=== PATIENT | female | born 1940 | race Caucasian/White ===

== ENCOUNTER 2017-02-11 10:18 | Inpatient (IN) | payer MEDICARE ==
[~2017-02-11] VITALS: Ht 167.6 cm; Wt 74.4 kg
[2017-02-11] MEDS ORDERED: fentaNYL INJECTION 100 MCG/2 ML AMP ONE ×2 (10:22→12:36)
[2017-02-11] MEDS ORDERED: fentaNYL INJECTION 100 MCG/2 ML AMP IVP ONE (10:30)
[2017-02-11 10:34] LABS: BASOPHILS # (AUTO) 0.1 10^3/uL (0.0-0.1); BASOPHILS % (AUTO) 1 % (0-10); EOSINOPHILS # (AUTO) 0.2 10^3/uL (0.0-0.3); EOSINOPHILS % (AUTO) 3 % (0-10); LYMPHOCYTES # (AUTO) 1.9 X 10^3 (1.0-4.0); LYMPHOCYTES % (AUTO) 21 % (12-44); MEAN CORPUSCULAR HEMOGLOBIN 30 PG (25-34); MEAN CORPUSCULAR HGB CONC 33 G/DL (32-36); MEAN CORPUSCULAR VOLUME 93 FL (80-99); MEAN PLATELET VOLUME 10.3 FL (7.4-10.4); MONOCYTES # (AUTO) 0.8 X 10^3 (0.0-1.0); MONOCYTES % (AUTO) 9 % (0-12); NEUTROPHILS # (AUTO) 6.1 X 10^3 (1.8-7.8); NEUTROPHILS % (AUTO) 67 % (42-75); PLATELET COUNT 236 10^3/uL (130-400); RED BLOOD COUNT 4.32 10^6/uL (4.35-5.85); RED CELL DISTRIBUTION WIDTH 13.7 % (10.0-14.5); WHITE BLOOD COUNT 9.1 10^3/uL (4.3-11.0)
[2017-02-11 10:42] LABS: INR 2.1 (0.8-1.4); PROTHROMBIN TIME PATIENT 23.5 SEC (12.2-14.7)
[2017-02-11 10:45] LABS: BILIRUBIN,URINE NEGATIVE (NEGATIVE); KETONES,URINE NEGATIVE (NEGATIVE); LEUKOCYTE ESTERASE ,URINE 1+ (NEGATIVE); NITRITE,URINE NEGATIVE (NEGATIVE); PH,URINE 8 (5-9); PROTEIN,URINE NEGATIVE (NEGATIVE); UROBILINOGEN,URINE NORMAL (NORMAL)
[2017-02-11] MEDS ORDERED: BUME1TAB4 PO (10:54)
[2017-02-11] MEDS ORDERED: WARF3TAB6 PO ×2 (10:54→11:03)
[2017-02-11] MEDS ORDERED: LEVO125T6 PO (10:54)
[2017-02-11] MEDS ORDERED: ALEN70TA47 PO (10:54)
[2017-02-11] MEDS ORDERED: OXYB5TAB9 PO (10:54)
[2017-02-11] MEDS ORDERED: CARV12.53 PO (10:54)
[2017-02-11] MEDS ORDERED: COLC0.6T56 PO (10:54)
[2017-02-11 10:56] LABS: SQUAMOUS EPITHELIAL CELL,UR RARE /HPF
[2017-02-11] MEDS ORDERED: LEVO112T55 PO (11:03)
[2017-02-11] MEDS ORDERED: VITA80006 PO (11:03)
[2017-02-11] MEDS ORDERED: CALC-654 PO (11:03)
[2017-02-11] MEDS ORDERED: BACL10TA PO (11:04)
--- NOTE | 2017-02-11 11:36 | Diagnostic Imaging Report ---
EXAMINATION: AP view of the pelvis 2 views of the left hip. INDICATION: Fall. FINDINGS: There is a mildly displaced and impacted intertrochanteric fracture seen on the left side. There is no subluxation or dislocation. The right hip demonstrate no fracture. There is bilateral mild to moderate degenerative changes in the hip joints. The SI joints and the pubic symphysis demonstrate sclerotic degenerative changes. There is suggestion of background osteopenia. Lower lumbar spine posterior fusion hardware and other pelvic surgical clips are seen. IMPRESSION: Mildly displaced left intertrochanteric fracture. Dictated by: Dictated on workstation # [id number]
--- NOTE | 2017-02-11 11:41 | Diagnostic Imaging Report ---
Portable AP view of the chest. INDICATION: Fall. FINDINGS: The lungs appear clear. The heart size is mildly enlarged. There is no effusion or pneumothorax. The mediastinum and dale appear unremarkable. There is scoliotic curvature convex to the right side in the thoracic spine. There is a lumbar spine posterior fusion hardware partially visualized. IMPRESSION: Mild cardiomegaly. Dictated by: Dictated on workstation # [id number]
[2017-02-11 11:46] LABS: ALBUMIN 3.6 GM/DL (3.2-4.5); BILIRUBIN,TOTAL 0.6 MG/DL (0.1-1.0); CALCIUM 9.4 MG/DL (8.5-10.1); CREATININE SERUM 1.17 MG/DL (0.60-1.30); TOTAL PROTEIN 6.6 GM/DL (6.4-8.2)
--- NOTE | 2017-02-11 12:15 | ED Fall/Injury ---
General Chief Complaint: Trauma-Non Activation Stated Complaint: FALL/LEFT HIP PAIN Nursing Triage Note: PT ARRIVED PER EMS TO ROOM 08, PT HAD FALLEN AT [facility] AND HAS L HIP PAIN, STATES WALKER BECAME UNSTEADY AND FELL ON L HIP DENIES HEAD PAIN,OR NECK PAIN Source: patient Exam Limitations: no limitations History of Present Illness Time seen by provider: 10:17 Initial Comments This 76-year-old woman presents to the emergency room via EMS after having a fall outside her home on uneven concrete. She struck her left hip and has been unable to bear weight or ambulate. The pain is rather intense. She was given 50 g of fentanyl by EMS. She denies striking her head. She has no pain or injury elsewhere. She is on warfarin therapy for prevention of DVT since having spinal surgery. Occurred: just prior to arrival Severity: moderate Injuries/Pain Location: lower extremity Context: tripped Loss of Consciousness: no loss of consciousness Allergies and Home Medications Allergies Coded Allergies: Iodinated Contrast- Oral and IV Dye (Verified Allergy, Unknown, 02/11/17) povidone-iodine (Verified Allergy, Unknown, 02/11/17) soap (Verified Allergy, Unknown, 02/11/17) Home Medications Alendronate Sodium 70 Mg Tablet, 70 MG PO Ozuna, (Reported) Baclofen 10 Mg Tablet, 10 MG PO TID PRN for PAIN-MILD, (Reported) Bumetanide 1 Mg Tablet, 1 MG PO DAILY, (Reported) Calcium Carbonate/Vitamin D3 1 Each Tablet, 1 TAB PO BID, (Reported) Carvedilol 12.5 Mg Tablet, 12.5 MG PO BID, (Reported) Colchicine 0.6 Mg Tablet, 0.6 MG PO BID, (Reported) Levothyroxine Sodium 112 Mcg Tablet, 112 MCG PO DAILY, (Reported) Oxybutynin Chloride 5 Mg Tablet, 5 MG PO DAILY, (Reported) Vitamin A 8,000 Unit Capsule, 8,000 UNIT PO BID, (Reported) Warfarin Sodium 3 Mg Tablet, 3 MG PO SuMoWeFrSa, (Reported) Warfarin Sodium 3 Mg Tablet, 1.5 MG PO TuTh, (Reported) TAKES 1/2 (3MG) TABLET Constitutional: no symptoms reported Eyes: No Symptoms Reported Ears, Nose, Mouth, Throat: no symptoms reported Respiratory: no symptoms reported Cardiovascular: no symptoms reported Gastrointestinal: no symptoms reported Genitourinary: no symptoms reported : No Musculoskeletal: see HPI Skin: no symptoms reported Psychiatric/Neurological: No Symptoms Reported Past Wbsxbay-Incnmo-Klniwp Hx Patient Social History Recent Foreign Travel: No Contact w/Someone Who Travel: No Recent Infectious Disease Expo: No Surgeries HX Surgeries: Yes Surgeries: Orthopedic (spine surgery) Respiratory Hx Respiratory Disorders: No Cardiovascular Hx Cardiac Disorders: Yes Cardiac Disorders: Hypertension Neurological Hx Neurological Disorders: No Reproductive System : No Genitourinary Hx Genitourinary Disorders: Yes (overactive bladder) Gastrointestinal Hx Gastrointestinal Disorders: No Musculoskeletal Hx Musculoskeletal Disorders: Yes (history of spine surgery) Musculoskeletal Disorders: Osteoporosis Endocrine Hx Endocrine Disorders: Yes Endocrine Disorders: Hypothyroidsim HEENT HX ENT Disorders: No Cancer Hx Cancer: No Psychosocial Hx Psychiatric Problems: No Integumentary HX Skin/Integumentary Disorder: No Physical Exam Vital Signs Vital Sign - Last 12Hours 02/11/17 10:18 Temp 97.1 Pulse 88 Resp 18 B/P (MAP) 161/74 Pulse Ox 94 O2 Delivery Room Air Capillary Refill : Less Than 3 Seconds General Appearance: WD/WN, mild distress HEENT: PERRL/EOMI, normal ENT inspection, pharynx normal Neck: normal inspection Cardiovascular: regular rate, rhythm, no edema, no gallop, no murmur Respiratory: lungs clear, normal breath sounds, no respiratory distress, no accessory muscle use Gastrointestinal: normal bowel sounds, non tender, soft Extremities: no pedal edema, other (left hip tenderness and pain with any range of motion. Sensation, capillary refill, and movement intact distally. Pedal pulses difficult to palpate bilaterally.) Neurologic/Psychiatric: director custom II-XII nml as tested, no motor/sensory deficits, alert, normal mood/affect, oriented x 3 Skin: normal color, warm/dry Carlos Coma Score Best Eye Response: (4) Open Spontaneously Best Verbal Response: (5) Oriented Best Motor Response: (6) Obeys Commands Carlos Total: 15 Progress/Results/Core Measures Results/Orders Lab Results Laboratory Tests Test 02/11/17 10:20 02/11/17 10:35 02/11/17 11:15 Range/Units White Blood Count 9.1 4.3-11.0 10^3/uL Red Blood Count 4.32 L 4.35-5.85 10^6/uL Hemoglobin 13.1 11.5-16.0 G/DL Hematocrit 40 35-52 % Mean Corpuscular Volume 93 80-99 FL Mean Corpuscular Hemoglobin 30 25-34 PG Mean Corpuscular Hemoglobin Concent 33 32-36 G/DL Red Cell Distribution Width 13.7 10.0-14.5 % Platelet Count 236 130-400 10^3/uL Mean Platelet Volume 10.3 7.4-10.4 FL Neutrophils (%) (Auto) 67 42-75 % Lymphocytes (%) (Auto) 21 12-44 % Monocytes (%) (Auto) 9 0-12 % Eosinophils (%) (Auto) 3 0-10 % Basophils (%) (Auto) 1 0-10 % Neutrophils # (Auto) 6.1 1.8-7.8 X 10^3 Lymphocytes # (Auto) 1.9 1.0-4.0 X 10^3 Monocytes # (Auto) 0.8 0.0-1.0 X 10^3 Eosinophils # (Auto) 0.2 0.0-0.3 10^3/uL Basophils # (Auto) 0.1 0.0-0.1 10^3/uL Prothrombin Time 23.5 H 12.2-14.7 SEC INR Comment 2.1 H 0.8-1.4 Activated Partial Thromboplast Time 35 24-35 SEC Urine Color YELLOW Urine Clarity CLEAR Urine pH 8 5-9 Urine Specific Parlin 1.010 L 1.016-1.022 Urine Protein NEGATIVE NEGATIVE Urine Glucose (UA) NEGATIVE NEGATIVE Urine Ketones NEGATIVE NEGATIVE Urine Nitrite NEGATIVE NEGATIVE Urine Bilirubin NEGATIVE NEGATIVE Urine Urobilinogen NORMAL NORMAL MG/DL Urine Leukocyte Esterase 1+ H NEGATIVE Urine RBC (Auto) NEGATIVE NEGATIVE Urine RBC NONE /HPF Urine WBC 2-5 /HPF Urine Squamous Epithelial Cells RARE /HPF Urine Crystals NONE /LPF Urine Bacteria FEW H /HPF Urine Casts NONE /LPF Urine Mucus NEGATIVE /LPF Urine Culture Indicated YES Sodium Level 138 135-145 MMOL/L Potassium Level 5.0 3.6-5.0 MMOL/L Chloride Level 102 98-107 MMOL/L Carbon Dioxide Level 27 21-32 MMOL/L Anion Gap 9 5-14 MMOL/L Blood Urea Nitrogen 44 H 7-18 MG/DL Creatinine 1.17 0.60-1.30 MG/DL Estimat Glomerular Filtration Rate 45 BUN/Creatinine Ratio 38 Glucose Level 104 70-105 MG/DL Calcium Level 9.4 8.5-10.1 MG/DL Total Bilirubin 0.6 0.1-1.0 MG/DL Aspartate Amino Transf (AST/SGOT) 24 5-34 U/L Alanine Aminotransferase (ALT/SGPT) 26 0-55 U/L Alkaline Phosphatase 59 40-136 U/L Total Protein 6.6 6.4-8.2 GM/DL Albumin 3.6 3.2-4.5 GM/DL Micro Results Microbiology 02/11/17 Urine Culture - Preliminary, Resulted Escherichia Coli My Orders Orders - ANGELIQUE ZARCO MD Fentanyl Injection (Sublimaze Injection (02/11/17 10:30) Cbc With Automated Diff (02/11/17 10:26) Comprehensive Metabolic Panel (02/11/17 10:26) Protime With Inr (02/11/17 10:26) Partial Thromboplastin Time (02/11/17 10:26) Ua Culture If Indicated (02/11/17 10:26) Saline Lock/Iv-Start (02/11/17 10:26) Chest 1 View, Ap/Pa Only (02/11/17 10:26) Fentanyl Injection (Sublimaze Injection (02/11/17 10:22) Pelvis With Left Hip 2-3 Views (02/11/17 10:26) Urine Culture (02/11/17 10:35) Medications Given in ED Vital Signs/I&O Vital Sign - Last 12Hours 02/11/17 10:18 Temp 97.1 Pulse 88 Resp 18 B/P (MAP) 161/74 Pulse Ox 94 O2 Delivery Room Air Blood Pressure Mean: 103 Progress Note : Progress Note Patient's pain was managed with IV narcotics. She was found to have left hip fracture. Dr. Dias where agreed to admission with surgery anticipated by Dr. Blanco when INR is corrected. Dr. Fine excepts admission and will address the elevated INR. Diagnostic Imaging Diagonstic Imaging: Xray Plain Films/CT/US/NM/MRI: chest Comments NAME: JEN ROSS [facility] REC#: [id number] PT STATUS: REG ER : 1940 PHYSICIAN: ANGELIQUE ZARCO MD ADMIT DATE: 02/11/17/ER Signed Date of Exam: 02/11/17 CHEST 1 VIEW, AP/PA ONLY Portable AP view of the chest. INDICATION: Fall. FINDINGS: The lungs appear clear. The heart size is mildly enlarged. There is no effusion or pneumothorax. The mediastinum and dale appear unremarkable. There is scoliotic curvature convex to the right side in the thoracic spine. There is a lumbar spine posterior fusion hardware partially visualized. IMPRESSION: Mild cardiomegaly. Dictated by: Dictated on workstation # [id number] Dict: 02/11/17 1111 Trans: 02/11/17 115 Interpreted by: BRYNN TAYLOR MD Electronically signed by: BRYNN TAYLOR MD 02/11/171156 Diagonstic Imaging: Xray Plain Films/CT/US/NM/MRI: hip Comments NAME: JEN ROSS [facility] REC#: [id number] PT STATUS: REG ER : 1940 PHYSICIAN: ANGELIQUE ZARCO MD ADMIT DATE: 02/11/17/ER Signed Date of Exam: 02/11/17 PELVIS WITH LEFT HIP 2-3 VIEWS EXAMINATION: AP view of the pelvis 2 views of the left hip. INDICATION: Fall. FINDINGS: There is a mildly displaced and impacted intertrochanteric fracture seen on the left side. There is no subluxation or dislocation. The right hip demonstrate no fracture. There is bilateral mild to moderate degenerative changes in the hip joints. The SI joints and the pubic symphysis demonstrate sclerotic degenerative changes. There is suggestion of background osteopenia. Lower lumbar spine posterior fusion hardware and other pelvic surgical clips are seen. IMPRESSION: Mildly displaced left intertrochanteric fracture. Dictated by: Dictated on workstation # [id number] Dict: 02/11/17 1108 Trans: 02/11/177 Interpreted by: BRYNN TAYLOR MD Electronically signed by: BRYNN TAYLOR MD 02/11/17 1157 Departure Communication Time/Spoke to Admitting Phy: 11:[address] Mccormack Time/Spoke to Consulting Physi: 11:15 Communication/Consulting Dr. Leigh Impression Impression: Primary Impression: Closed left hip fracture Qualified Codes: S72.002A - Fracture of unspecified part of neck of left femur , initial encounter for closed fracture Additional Impressions: Fall on same level from tripping as cause of accidental injury Warfarin anticoagulation Disposition: ADMITTED INPATIENT Condition: Improved Decision to Admit Reason: Admit from ER (Trauma) Decision to Admit/Date: Feb 11, 2017 Time/Decision to Admit Time: 11:00 Departure-Patient Inst. Referrals: IDA GEE MD (PCP/Family) Primary Care Physician ANGELIQUE ZARCO MD Feb 11, 2017 12:15
--- NOTE | 2017-02-11 12:35 | History & Physical-Hospitalist ---
HPI History of Present Illness: HPI/Chief Complaint CC: Acute left hip fracture HPI: This is a 76yoWF clinic patient of Dr Uriostegui in [facility] that fell today and sustained a left hip fracture. She was placed on Coumadin 3 yrs ago after her spine surgery completed in [place], [place] when she lived in but denies any hx of blood clot. Her sister is with her and everyone understands the plan for repair of the fx and likely DC to IRU. I reviewed her home meds and updated her on the plan. I have ordered Vit K 2.5mg once PO and 1 unit of FFP today and will recheck INR tomorrow. 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) Alcohol Use: Denies Use Recreational Drug Use: No Smoking Status: Never a Smoker Recent Foreign Travel: No Contact w/other who traveled: No Recent Hopitalizations: No Recent Infectious Disease Expo: No Surgeries HX Surgeries: Yes Surgeries: Orthopedic (spine surgery 2013) Respiratory Hx Respiratory Disorders: No Cardiovascular Hx Cardiovascular Disorders: Yes Cardiac Disorders: Hypertension Neurological Hx Neurological Disorders: No Reproductive System : No Genitourinary Hx Genitourinary Disorders: Yes (overactive bladder) Gastrointestinal Hx Gastrointestinal Disorders: No Musculoskeletal Hx Musculoskeletal Disorders: Yes (history of spine surgery) Musculoskeletal Disorders: Osteoporosis Endocrine Hx Endocrine Disorders: Yes Endocrine Disorders: Hypothyroidsim HEENT HX ENT Disorders: No Cancer Hx Cancer: No Psychosocial Hx Psychiatric Problems: No Integumentary HX Skin/Integumentary Disorder: No Review of Systems Constitutional: see HPI EENTM: no symptoms reported Respiratory: no symptoms reported Cardiovascular: no symptoms reported Gastrointestinal: no symptoms reported Genitourinary: no symptoms reported Musculoskeletal: joint pain (left hip) Psychiatric/Neurological: No Symptoms Reported All Other Systems Reviewed Negative Unless Noted: Yes Physical Exam Physical Exam Vital Signs Vital Sign - Last 12Hours 02/11/17 02/11/17 10:18 14:13 Temp 97.1 Pulse 88 Resp 18 B/P (MAP) 161/74 Pulse Ox 94 O2 Delivery Room Air O2 Flow Rate 2.00 Capillary Refill : Less Than 3 Seconds General Appearance: No Apparent Distress, WD/WN, Chronically ill Eyes: Bilateral Eye Normal Inspection, Bilateral Eye PERRL HEENT: PERRL/EOMI, Normal ENT Inspection, Pharynx Normal Neck: Full Range of Motion, Normal Inspection, Non Tender, Supple, Carotid Bruit Respiratory: Chest Non Tender, Lungs Clear, Normal Breath Sounds, No Accessory Muscle Use, No Respiratory Distress Cardiovascular: Regular Rate, Rhythm, No Edema, No Gallop, No JVD, No Murmur, Normal Peripheral Pulses Gastrointestinal: Normal Bowel Sounds, No Organomegaly, No Pulsatile Mass, Non Tender, Soft Back: Normal Inspection, No CVA Tenderness, No Vertebral Tenderness Extremity: Normal Capillary Refill, Normal Inspection, Normal Range of Motion ( except left hip), Non Tender, No Calf Tenderness, No Pedal Edema Neurologic/Psychiatric: Alert, Oriented x3, No Motor/Sensory Deficits, Normal Mood/Affect Skin: Normal Color, Warm/Dry Lymphatic: No Adenopathy Results Results/Procedures Lab Laboratory Tests 02/11/17 10:20 02/11/17 11:15 Assessment/Plan Admission Diagnosis Assessment: Acute left hip fracture HTN Spine surgery 2013 and placed on Coumadin and maintained since that time to "prevent blood clots" without known h/o clots Osteoporosis Assessment and Plan Plan: Reverse anti-coagulation Monitor labs Reconcile home meds Proceed on with surgery since benefits outweigh medical risks NOEMÍ MCCORMACK DO Feb 11, 2017 12:35
[2017-02-11] MEDS ORDERED: NS IV 1000 ML 1,000 ML ONE (12:36)
[2017-02-11] MEDS ORDERED: HYDROcodone/APAP 5 MG/325 MG (LORTAB) TAB ONE (12:37)
[2017-02-11] MEDS ORDERED: CATHETER FLUSH 10 ML SYR IV PRN (12:45)
[2017-02-11] MEDS ORDERED: ACETAMINOPHEN 500 MG TAB (TYLENOL) PO PRN (12:45)
[2017-02-11] MEDS ORDERED: ALPRAZolam 0.25 MG (XANAX) TAB PO PRN (12:45)
[2017-02-11] MEDS ORDERED: VITAMIN K 1 MG/ML ORAL SOLN 1 ML SYRINGE PO NR (12:45)
[2017-02-11] MEDS ORDERED: LACTULOSE SYRUP 10GM/15ML (ENULOSE) 30ML UDC PO PRN (12:45)
[2017-02-11] MEDS ORDERED: ONDANSETRON 4 MG/2 ML (SDV) Z0FRAN IVP PRN (12:45)
[2017-02-11] MEDS: fentaNYL INJECTION 100 MCG/2 ML AMP IVP PRN ×2 (12:50→20:17)
[2017-02-11] MEDS ORDERED: HYDROcodone/APAP 5 MG/325 MG (LORTAB) TAB PO PRN (13:00)
[2017-02-11] MEDS ORDERED: NS IV 1000 ML 1,000 ML IV SCH (13:00)
[2017-02-11] MEDS ORDERED: CATHETER FLUSH 10 ML SYR IV SCH (14:00)
[2017-02-11 14:13] VITALS: BP 146/66
[2017-02-11 14:30] VITALS: BP 133/61
[2017-02-11 16:00] VITALS: BP 133/61
[2017-02-11] MEDS ORDERED: BACLOFEN 10 MG (LIORESAL) TAB PO PRN (16:00)
[2017-02-11 16:20] VITALS: BP 148/53
[2017-02-11 19:49] VITALS: BP 132/72
[2017-02-11] MEDS: NS IV 1000 ML 1,000 ML IV SCH (20:14)
[2017-02-11] MEDS: COLCHICINE 0.6 MG (COLCRYS) TABLET PO SCH (21:07)
[2017-02-11] MEDS: CARVEDILOL 12.5 MG (COREG) TABLET PO SCH (21:07)
[2017-02-11 23:55] VITALS: BP 143/72
[2017-02-12 03:35] VITALS: BP 148/67
[2017-02-12] MEDS: NS IV 1000 ML 1,000 ML IV SCH ×2 (03:44→16:06)
[2017-02-12] MEDS: LEVOTHYROXINE 112 MCG (LEVOTHROID) TAB PO SCH (06:48)
[2017-02-12 06:58] LABS: BASOPHILS % (AUTO) 0 % (0-10); EOSINOPHILS # (AUTO) 0.1 10^3/uL (0.0-0.3); EOSINOPHILS % (AUTO) 1 % (0-10); LYMPHOCYTES # (AUTO) 1.4 X 10^3 (1.0-4.0); LYMPHOCYTES % (AUTO) 13 % (12-44); MEAN CORPUSCULAR HEMOGLOBIN 30 PG (25-34); MEAN CORPUSCULAR HGB CONC 32 G/DL (32-36); MEAN CORPUSCULAR VOLUME 94 FL (80-99); MEAN PLATELET VOLUME 10.6 FL (7.4-10.4); MONOCYTES # (AUTO) 0.9 X 10^3 (0.0-1.0); MONOCYTES % (AUTO) 9 % (0-12); NEUTROPHILS # (AUTO) 8.2 X 10^3 (1.8-7.8); NEUTROPHILS % (AUTO) 77 % (42-75); PLATELET COUNT 187 10^3/uL (130-400); RED BLOOD COUNT 3.68 10^6/uL (4.35-5.85); RED CELL DISTRIBUTION WIDTH 13.6 % (10.0-14.5); WHITE BLOOD COUNT 10.6 10^3/uL (4.3-11.0)
[2017-02-12 07:01] LABS: INR 1.5 (0.8-1.4); PROTHROMBIN TIME PATIENT 18.1 SEC (12.2-14.7)
[2017-02-12 07:15] LABS: ALBUMIN 3.4 GM/DL (3.2-4.5); BILIRUBIN,TOTAL 0.7 MG/DL (0.1-1.0); CALCIUM 8.6 MG/DL (8.5-10.1); CREATININE SERUM 1.07 MG/DL (0.60-1.30); POTASSIUM 3.8 MMOL/L (3.6-5.0)
[2017-02-12 08:00] VITALS: BP 166/74
--- NOTE | 2017-02-12 08:23 | CONSULTATION REPORT ---
DATE OF CONSULTATION: 02/11/2017 REFERRING PHYSICIAN: Dr. Leigh Inpatient consultation at the request of the hospitalist: Left hip fracture. HISTORY OF THE PRESENT ILLNESS: The patient fell and was brought to the emergency and I was called actually by Dr. Pastor Leigh and mentioned this patient to me and asked me to take over and that is what I have done. PAST MEDICAL HISTORY AND REVIEW OF SYSTEMS PERTINENT TO ORTHOPEDICS: The patient is on blood thinners. She apparently has had cancer in the past with what sounds like a hysterectomy and is on blood thinners. ORTHOPEDIC EXAM: The patient is alert and oriented and cooperative. The left lower extremity is internally rotated and flexed. Distally she can move her toes and feel my touching her. She is pink and clinic lead the foot area. Skin over the hip is intact. X-RAY: X-ray shows an intertrochanteric fracture in the middle location. There is some comminution in that area but it looks like probably will respond well to standard fixation using Synthes TFN nail. IMPRESSION: Left hip intertrochanteric fracture, displaced. PLAN: Surgery on left hip to line up bone and fix with hardware (open reduction and internal fixation with intramedullary nail, Synthes TFN). I discussed the diagnosis, procedure, risks, benefits, alternatives, likely mcclellan for success as well as a rehab. This was her consent. She had all of her questions answered. The major risk is chronic pain, shortening of the extremity, toes turned in or out as she is walking, possible failure of the procedure, possible issues around heart and lungs or bleeding. She had all of her questions answered. Job ID: [id number] Dictated Date: 02/11/2017 21:52:27 Feed Research Technician Date: 02/12/2017 08:11:59/valerie
[2017-02-12] MEDS: BUMETANIDE 1 MG (BUMEX) TAB PO SCH (08:25)
[2017-02-12] MEDS: OXYBUTYNIN (DITROPAN) 5 MG TAB PO SCH (08:26)
[2017-02-12] MEDS: COLCHICINE 0.6 MG (COLCRYS) TABLET PO SCH ×2 (08:26→21:27)
[2017-02-12] MEDS: CARVEDILOL 12.5 MG (COREG) TABLET PO SCH ×2 (08:30→21:28)
[2017-02-12 12:00] VITALS: BP 170/74
[2017-02-12] MEDS: fentaNYL INJECTION 100 MCG/2 ML AMP IVP PRN ×2 (12:12→16:06)
[2017-02-12 12:32] LABS: INR 1.4 (0.8-1.4); PROTHROMBIN TIME PATIENT 17.2 SEC (12.2-14.7)
--- NOTE | 2017-02-12 12:51 | Progress Note-Hospitalist ---
Progress Note HPI/CC on Admission CC: Acute left hip fracture HPI: This is a 76yoWF clinic patient of Dr Uriostegui in [facility] that fell today and sustained a left hip fracture. She was placed on Coumadin 3 yrs ago after her spine surgery completed in [place], [place] when she lived in but denies any hx of blood clot. Her sister is with her and everyone understands the plan for repair of the fx and likely DC to IRU. I reviewed her home meds and updated her on the plan. I have ordered Vit K 2.5mg once PO and 1 unit of FFP today and will recheck INR tomorrow. Progress Notes/Assess & Plan Date Seen 02/12/17 Time Seen by Provider: 11:30 Admission Dx/Process Assessment: Acute left hip fracture HTN Spine surgery 2013 and placed on Coumadin and maintained since that time to "prevent blood clots" without known h/o clots Osteoporosis Diagonsis/Assessment & Plan Patient doing much better and ready for surgery INR repeat at noon was 1.4 after 1 unit of FFP and vitamin K 2.5 mg by mouth 1 time yesterday Reviewed labs and vitals No fever, vital signs stable, pleasant, improved Regular rate and rhythm, clear to auscultation bilaterally No edema Laboratory Tests 02/12/17 06:15 Assessment: Acute left hip fracture in need of repair today HTN Spine surgery 2013 and placed on Coumadin and maintained since that time to "prevent blood clots" without known h/o clots s/p 1 unit of FFP and Vit K 2.5mg PO one time yesterday after INR 2.1 now 1.4 Osteoporosis Plan: Reversed anti-coagulation Monitor labs Reconciled home meds Proceed on with surgery since benefits outweigh medical risks HARRIS MELLO DO Feb 12, 2017 12:51
[2017-02-12 15:56] VITALS: BP 171/74
[2017-02-12] MEDS ORDERED: cefTRIAXone 1 GM (ROCEPHIN) VIAL ONE (16:15)
[2017-02-12] MEDS ORDERED: NS (IVPB) 50 ML ONE (16:16)
[2017-02-12] MEDS: cefTRIAXone INJECTION 1,000 MG in NS (IVPB) 50 ML IV SCH (16:24)
[2017-02-12] MEDS ORDERED: LIDOCAINE PF 2% 5 ML (XYLOCAINE) VIAL ONE ×2 (17:23→17:24)
[2017-02-12] MEDS ORDERED: fentaNYL INJECTION 100 MCG/2 ML AMP ONE (17:23)
[2017-02-12] MEDS ORDERED: DEXAMETHASONE PF 10 MG/ML (DECADRON) VIAL ONE (17:23)
[2017-02-12] MEDS ORDERED: LACTATED RINGERS 1,000 ML IV ONE ×2 (17:23→18:38)
[2017-02-12] MEDS ORDERED: SEVOFLURANE (ULTANE) 15 ML INHAL SOLN ONE ×5 (17:23→18:38)
[2017-02-12] MEDS ORDERED: proPOfol 200 MG/20 ML (DIPRIVAN) VIAL IV ONE (17:23)
[2017-02-12] MEDS ORDERED: ONDANSETRON 4 MG/2 ML (SDV) Z0FRAN ONE (17:23)
[2017-02-12] MEDS ORDERED: MIDAZOLAM 2 MG/2 ML (VERSED) VIAL ONE (17:24)
[2017-02-12] MEDS ORDERED: ceFAZolin 1,000 MG (ANCEF) VIAL ONE (17:33)
[2017-02-12] MEDS ORDERED: BUP/EPI 0.5% 1:200,000 (MARCAINE) 10ML VIAL IJ ONE (17:34)
[2017-02-12] MEDS ORDERED: TRANEXAMIC ACID 100 MG/ML 10 ML INJECTION IV ONE (18:09)
[2017-02-12] MEDS ORDERED: LACTATED RINGERS 1,000 ML IV SCH (18:45)
[2017-02-12] MEDS ORDERED: morphine INJ 10 MG/ML 1ML (SYR OR VIAL) ONE (18:59)
[2017-02-12] MEDS ORDERED: morphine INJ 10 MG/ML 1ML (SYR OR VIAL) IVP PRN (19:15)
[2017-02-12] MEDS ORDERED: ONDANSETRON 4 MG/2 ML (SDV) Z0FRAN IVP PRN (19:15)
--- NOTE | 2017-02-12 19:22 | Diagnostic Imaging Report ---
INDICATION: Fracture 133 seconds of fluoroscopy was used for ORIF of the left hip fracture. Images show satisfactory alignment. IMPRESSION: Satisfactory intraoperative left hip. Dictated by: Dictated on workstation # [id number]
[2017-02-12] MEDS: LACTATED RINGERS 1,000 ML IV SCH (19:30)
[2017-02-12 20:32] VITALS: BP 158/69
[2017-02-13 00:32] VITALS: BP 110/56
[2017-02-13] MEDS: LACTATED RINGERS 1,000 ML IV SCH (04:12)
[2017-02-13 04:28] VITALS: BP 100/54
[2017-02-13] MEDS: LEVOTHYROXINE 112 MCG (LEVOTHROID) TAB PO SCH (06:03)
[2017-02-13 06:06] LABS: BASOPHILS % (AUTO) 0 % (0-10); EOSINOPHILS % (AUTO) 0 % (0-10); LYMPHOCYTES # (AUTO) 0.8 X 10^3 (1.0-4.0); LYMPHOCYTES % (AUTO) 6 % (12-44); MEAN CORPUSCULAR HEMOGLOBIN 30 PG (25-34); MEAN CORPUSCULAR HGB CONC 31 G/DL (32-36); MEAN CORPUSCULAR VOLUME 98 FL (80-99); MEAN PLATELET VOLUME 10.6 FL (7.4-10.4); MONOCYTES % (AUTO) 8 % (0-12); NEUTROPHILS # (AUTO) 11.5 X 10^3 (1.8-7.8); NEUTROPHILS % (AUTO) 86 % (42-75); PLATELET COUNT 149 10^3/uL (130-400); RED BLOOD COUNT 3.04 10^6/uL (4.35-5.85); RED CELL DISTRIBUTION WIDTH 13.5 % (10.0-14.5); WHITE BLOOD COUNT 13.3 10^3/uL (4.3-11.0)
[2017-02-13 06:30] LABS: ALBUMIN 2.8 GM/DL (3.2-4.5); BILIRUBIN,TOTAL 0.5 MG/DL (0.1-1.0); CALCIUM 7.9 MG/DL (8.5-10.1); CREATININE SERUM 0.97 MG/DL (0.60-1.30); POTASSIUM 4.6 MMOL/L (3.6-5.0); TOTAL PROTEIN 5.2 GM/DL (6.4-8.2)
[2017-02-13 08:00] VITALS: BP 114/56
[2017-02-13] MEDS: CARVEDILOL 12.5 MG (COREG) TABLET PO SCH ×2 (08:54→20:01)
[2017-02-13] MEDS: cefTRIAXone INJECTION 1,000 MG in NS (IVPB) 50 ML IV SCH (08:54)
[2017-02-13] MEDS: COLCHICINE 0.6 MG (COLCRYS) TABLET PO SCH ×2 (08:54→20:01)
[2017-02-13] MEDS: OXYBUTYNIN (DITROPAN) 5 MG TAB PO SCH (08:54)
[2017-02-13] MEDS: BUMETANIDE 1 MG (BUMEX) TAB PO SCH (08:54)
[2017-02-13] MEDS: HYDROcodone/APAP 5 MG/325 MG (LORTAB) TAB PO PRN ×3 (09:00→20:01)
[2017-02-13 09:52] LABS: INR 1.5 (0.8-1.4); PROTHROMBIN TIME PATIENT 17.4 SEC (12.2-14.7)
--- NOTE | 2017-02-13 11:15 | Anesthesia-General Post-Op ---
General Patient Condition Mental Status/LOC: Same as Preop Cardiovascular: Satisfactory Nausea/Vomiting: Absent Respiratory: Satisfactory Pain: Controlled Complications: Absent Post Op Complications Complications None Follow Up Care/Instructions Patient Instructions None needed. Anesthesia/Patient Condition Patient Condition Patient is doing well, no complaints, stable vital signs, no apparent adverse anesthesia problems. No complications reported per nursing. JASON NI CRNA Feb 13, 2017 11:15
--- NOTE | 2017-02-13 11:19 | Progress Note-Hospitalist ---
Progress Note HPI/CC on Admission CC: Acute left hip fracture HPI: This is a 76yoWF clinic patient of Dr Uriostegui in [facility] that fell today and sustained a left hip fracture. She was placed on Coumadin 3 yrs ago after her spine surgery completed in [place], [place] when she lived in but denies any hx of blood clot. Her sister is with her and everyone understands the plan for repair of the fx and likely DC to IRU. I reviewed her home meds and updated her on the plan. I have ordered Vit K 2.5mg once PO and 1 unit of FFP today and will recheck INR tomorrow. Progress Notes/Assess & Plan Date Seen 02/13/17 Time Seen by Provider: 10:10 Admission Dx/Process Assessment: Acute left hip fracture HTN Spine surgery 2013 and placed on Coumadin and maintained since that time to "prevent blood clots" without known h/o clots Osteoporosis Diagonsis/Assessment & Plan Patient doing much better and already walk 3 steps and surgery done yesterday in an uncomplicated manner INR today 1.5 after 1 unit of FFP and vitamin K 2.5 mg by mouth 1 time 2 days ago Reviewed labs and vitals No BM yet No fever, vital signs stable, pleasant, improved Regular rate and rhythm, clear to auscultation bilaterally No edema Laboratory Tests 02/13/17 05:40 Assessment: Acute left hip fracture status post uncomplicated repair POD # 1 Postop anemia mild HTN Leukocytosis likely due to stress response of surgery Spine surgery 2013 and placed on Coumadin and maintained since that time to "prevent blood clots" without known h/o clots s/p 1 unit of FFP and Vit K 2.5mg PO 2 days ago resulted in INR 1.4 they have surgery Osteoporosis Plan: Restart anti-coagulation Monitor labs Inpatient rehabilitation eval PT/OT Bowel regimen HARRIS MELLO DO Feb 13, 2017 11:19
[2017-02-13 12:00] VITALS: BP 104/58
--- NOTE | 2017-02-13 13:01 | Physical Therapy Evaluation ---
PT Evaluation-General Medical Diagnosis Admission Date Feb 11, 2017 at 11:25 Medical Diagnosis: s/p (L) hip ORIF Onset Date: Feb 11, 2017 Therapy Diagnosis Therapy Diagnosis: Limited mobility Height/Weight Height (Feet): 5 Height (Inches): 6.00 Weight (Pounds): 164 Weight (Ounces): 0.0 Precautions Precautions/Isolations: Fall Prevention, Standard Precautions Referral Physician: [place] Reason for Referral: Evaluation/Treatment Medical History Pertinent Medical History: HTN Additional Medical History (L) knee replacement, lumbar fusion, hypothyroid Current History Pt fell at home and underwent ORIF of the (L) hip. Reviewed History: Yes Social History Home: Single Level Current Living Status: Alone Entry Into Home: Level Entry Prior/Core FIM Prior Level of Function Functional [place] Measure 0=Not Assessed/NA 4=Minimal Assistance 1=Total Assistance 5=Supervision or Setup 2=Maximal Assistance 6=Modified [place] 3=Moderate Assistance 7=Complete [place] Bed Mobility: 7 Transfers (B,C,W/C) (FIM): 7 Gait: 7 Locomotion: 7 PT Evaluation-Current Subjective 5-6/10 (L) hip pain Pain Numeric Pain Scale: 6 Location: Left Location Body Site: Hip Pain Description: Ache, Sharp Pt/Family Goals Return home. Objective Patient Orientation: Person, Place, Time, Situation Problem Solving: Good Comprehension: 7 Expression: 7 Social Interaction: 7 Problem Solvin Memory: 7 Attachments: Oxygen, IV ROM/Strength ROM Upper Extremities WFL ROM Lower Extremities Limited (L) hip ROM tolerance. Strength Upper Extremities WFL Strenght Lower Extremities (L) hip gross MMT 3-/5. Neuromuscular (Tone, Coordination, Reflexes) Intact Sensory Vision: Functional Hearing: Functional Transfers Functional [place] Measure 0=Not Assessed/NA 4=Minimal Assistance 1=Total Assistance 5=Supervision or Setup 2=Maximal Assistance 6=Modified [place] 3=Moderate Assistance 7=Complete [place] Transfers (B, C, W/C) (FIM): 4 Scootin Rollin Supine to/from Sit: 4 Sit to/from Stand: 4 Gait Mode of Locomotion: Walk Anticipated Mode of Locomotion: Walk Gait (FIM): 3 Distance (FIM): 1=up to 49 ft Distance: 2ft Gait Level of Assist: 3 Gait Persons Needed: 1 Gait Assistive Device: FWW Balance Sitting Static: Normal Sitting Dynamic: Good Standing Static: Good Standing Dynamic: Good Assessment/Needs Pt was able to sit edge of bed without assist. She was able to stand and take 4 -5 steps to the (R). Rehab Potential: Good PT Short Term Goals Short Term Goals Time Frame: Feb 27, 2017 Transfers (B,C,W/C) (FIM): 7 Gait (FIM): 6 Gait Level of Assist: 6 Gait Assistive Device: FWW PT Plan Problem List Problem List: Activity Tolerance, Functional Strength, Balance, Gait, Transfer , Bed Mobility, ROM Treatment/Plan Treatment Plan: Continue Plan of Care Treatment Plan: Bed Mobility, Education, Functional Activity Hay[place], Functional Strength, Gait, Safety, Therapeutic Exercise, Transfers Treatment Duration: Feb 27, 2017 Frequency: At least 5-7 days/Wk (IRF) Estimated Hrs Per Day: 1 hour per day Patient and/or Family Agrees t: Yes Time/GCodes Time In: 0845 Time Out: 0915 Total Billed Treatment Time: 30 Total Billed Treatment 1, HECTOR Alejandre PT Feb 13, 2017 13:01
[2017-02-13] MEDS: LACTULOSE SYRUP 10GM/15ML (ENULOSE) 30ML UDC PO SCH ×2 (13:11→20:01)
[2017-02-13 16:00] VITALS: BP 108/54
--- NOTE | 2017-02-13 16:13 | Progress Note-Standard ---
Standard Progress Note Progress Notes/Assess & Plan Date Seen by Provider: Feb 13, 2017 Time Seen by Provider: 16:11 Progress/Assessment & Plan Lab, HGB 9.1 Dressing: clean and dry. Hip: gentle PROM to hip without undue discomfort, and with smooth motion. Assessment: Stable POD #1 with post op anemia. Plan: Continue Phy Therapy, Full weight bearing. Final Diagnosis S/P L Hip ORIF, Stable with post op anemia MU BERMUDEZ MD Feb 13, 2017 16:13
[2017-02-13] MEDS ORDERED: warFARin 2 MG (COUMADIN) TAB PO SCH (18:00)
[2017-02-13 19:44] VITALS: BP 111/54
[2017-02-14] VITALS (11 sets, daily range): BP systolic 100–126; BP diastolic 50–63
[2017-02-14] MEDS: HYDROcodone/APAP 5 MG/325 MG (LORTAB) TAB PO PRN ×2 (05:38→15:43)
[2017-02-14] MEDS: LEVOTHYROXINE 112 MCG (LEVOTHROID) TAB PO SCH (05:38)
[2017-02-14 06:17] LABS: BASOPHILS % (AUTO) 0 % (0-10); EOSINOPHILS # (AUTO) 0.2 10^3/uL (0.0-0.3); EOSINOPHILS % (AUTO) 2 % (0-10); LYMPHOCYTES # (AUTO) 1.9 X 10^3 (1.0-4.0); LYMPHOCYTES % (AUTO) 20 % (12-44); MEAN CORPUSCULAR HEMOGLOBIN 30 PG (25-34); MEAN CORPUSCULAR HGB CONC 31 G/DL (32-36); MEAN CORPUSCULAR VOLUME 99 FL (80-99); MEAN PLATELET VOLUME 10.7 FL (7.4-10.4); MONOCYTES # (AUTO) 1.2 X 10^3 (0.0-1.0); MONOCYTES % (AUTO) 13 % (0-12); NEUTROPHILS # (AUTO) 6.2 X 10^3 (1.8-7.8); NEUTROPHILS % (AUTO) 65 % (42-75); PLATELET COUNT 130 10^3/uL (130-400); RED BLOOD COUNT 2.63 10^6/uL (4.35-5.85); RED CELL DISTRIBUTION WIDTH 13.7 % (10.0-14.5); WHITE BLOOD COUNT 9.4 10^3/uL (4.3-11.0)
[2017-02-14 06:22] LABS: INR 1.6 (0.8-1.4); PROTHROMBIN TIME PATIENT 18.4 SEC (12.2-14.7)
[2017-02-14 06:34] LABS: ALBUMIN 2.7 GM/DL (3.2-4.5); BILIRUBIN,TOTAL 0.3 MG/DL (0.1-1.0); CALCIUM 7.8 MG/DL (8.5-10.1); CREATININE SERUM 1.05 MG/DL (0.60-1.30); POTASSIUM 4.1 MMOL/L (3.6-5.0); TOTAL PROTEIN 4.3 GM/DL (6.4-8.2)
--- NOTE | 2017-02-14 09:16 | Physical Therapy Daily Note ---
PT Daily Note-Current Subjective Pt is awake and alert. She notes that she received pain meds at 0730. Pain Numeric Pain Scale: 4 Location: Left Location Body Site: Hip Mental Status Patient Orientation: Person, Place, Time, Situation Attachments: Oxygen Transfers Functional [place] Measure 0=Not Assessed/NA 4=Minimal Assistance 1=Total Assistance 5=Supervision or Setup 2=Maximal Assistance 6=Modified [place] 3=Moderate Assistance 7=Complete IndependenceIRFPAI Quality Coding Scale 6 Independent with activity with or without an assistive device 5 Patient requires set up or clean up by helper. Patient completes activity by themselves 4 Supervision or touching assist (CGA). Willard provide cues , steadying assist 3 The helper provides less than half the effort to complete the activity 2 The helper provides more than half the effort to complete the activity 1 Dependent. The helper does all the effort to complete an activity 7 Patient refused to complete or attempt activity 9 The patient did not perform the activity before the current illness or injury 88 Not attempted due to Medical conditions or safety concerns Transfers (B, C, W/C) (FIM): 3 Scootin Rollin Supine to/from Sit: 3 Sit to/from Stand: 3 Weight Bearing Weight Bearing Restriction: Weight Bearing/Tolerated Location Restriction: L LE Gait Training Gait (FIM): 1 Distance (FIM): 1=up to 49 ft Distance: 4ft Gait Level of Assist: 3 Gait Persons Needed: 1 Gait Assistive Device: FWW Exercises Supine Ex: LE Protocol Supine Reps: 10 75% assist for all exercises. Assessment Good tolerance to sitting upright and edge of bed. Good stability in standing. Difficulty taking a step with (R) due to (L) hip pain. PT Short Term Goals Short Term Goals Time Frame: Feb 27, 2017 Transfers (B,C,W/C) (FIM): 7 Gait (FIM): 6 Gait Level of Assist: 6 Gait Assistive Device: FWW PT Plan Treatment/Plan Treatment Plan: Continue Plan of Care Treatment Plan: Bed Mobility, Education, Functional Activity [place], Functional Strength, Gait, Safety, Therapeutic Exercise, Transfers Treatment Duration: Feb 27, 2017 Frequency: At least 5-7 days/Wk (IRF) Estimated Hrs Per Day: 1 hour per day Patient and/or Family Agrees t: Yes Time/GCodes Time In: 0815 Time Out: 0840 Total Billed Treatment Time: 25 Total Billed Treatment 1, fa 15, ex 10 HECTOR SALAZAR PT Feb 14, 2017 09:16
[2017-02-14] MEDS: BUMETANIDE 1 MG (BUMEX) TAB PO SCH (10:05)
[2017-02-14] MEDS: COLCHICINE 0.6 MG (COLCRYS) TABLET PO SCH ×2 (10:05→21:39)
[2017-02-14] MEDS: CARVEDILOL 12.5 MG (COREG) TABLET PO SCH ×2 (10:06→21:39)
[2017-02-14] MEDS: OXYBUTYNIN (DITROPAN) 5 MG TAB PO SCH (10:06)
[2017-02-14] MEDS: LACTULOSE SYRUP 10GM/15ML (ENULOSE) 30ML UDC PO SCH ×2 (10:06→21:39)
[2017-02-14] MEDS: cefTRIAXone INJECTION 1,000 MG in NS (IVPB) 50 ML IV SCH (10:06)
[2017-02-14] MEDS ORDERED: NS IV 500 ML 500 ML IV SCH (11:36)
--- NOTE | 2017-02-14 11:52 | Progress Note-Hospitalist ---
Progress Note HPI/CC on Admission CC: Acute left hip fracture HPI: This is a 76yoWF clinic patient of Dr Uriostegui in [facility] that fell today and sustained a left hip fracture. She was placed on Coumadin 3 yrs ago after her spine surgery completed in [place], [place] when she lived in but denies any hx of blood clot. Her sister is with her and everyone understands the plan for repair of the fx and likely DC to IRU. I reviewed her home meds and updated her on the plan. I have ordered Vit K 2.5mg once PO and 1 unit of FFP today and will recheck INR tomorrow. Progress Notes/Assess & Plan Date Seen 02/14/17 Time Seen by Provider: 11:00 Admission Dx/Process Assessment: Acute left hip fracture HTN Spine surgery 2013 and placed on Coumadin and maintained since that time to "prevent blood clots" without known h/o clots Osteoporosis Diagonsis/Assessment & Plan Patient doing well but will need rehab so placed referral for IRU for tomorrow INR today 1.6 after 1 unit of FFP and vitamin K 2.5 mg by mouth 1 time 3 days ago and restarted Coumadin last night Reviewed labs and vitals No BM yet so ordered SSE Needs transfusion today due to weakness No fever, vital signs stable, pleasant, improved Regular rate and rhythm, clear to auscultation bilaterally No edema Laboratory Tests 02/14/17 06:05 Assessment: Acute left hip fracture status post uncomplicated repair POD # 2 Postop anemia worsened today so will give 2 units of blood since she is weak HTN Leukocytosis likely due to stress response of surgery- resolved Spine surgery 2013 and placed on Coumadin and maintained since that time to "prevent blood clots" without known h/o clots s/p 1 unit of FFP and Vit K 2.5mg PO 3 days ago resulted in INR 1.4 now 1.6 since restarted Coumadin Osteoporosis Post op constipation Plan: Restarted anti-coagulation Monitor labs Inpatient rehabilitation eval for transfer tomorrow PT/OT Bowel regimen with SSE since failed aggressive meds HARRIS MELLO DO Feb 14, 2017 11:52
--- NOTE | 2017-02-14 15:54 | Progress Note-Standard ---
Standard Progress Note Progress Notes/Assess & Plan Date Seen by Provider: Feb 14, 2017 Time Seen by Provider: 15:49 Progress/Assessment & Plan Lab, HGB 8.0 today Dressing: clean and dry. Hip: gentle PROM to hip without undue discomfort, and with smooth motion. Assessment: Stable POD #2 with post op anemia. Plan: Continue Phy Therapy, Full weight bearing. Agree treating with transfusion of 2u PRBC. Final Diagnosis Status Post ORIF of left hip intertrochanteric fracture. MU BERMUDEZ MD Feb 14, 2017 3:54 pm
[2017-02-15 00:05] VITALS: BP 112/54
--- NOTE | 2017-02-15 01:27 | OPERATIVE REPORT ---
PROCEDURE PHYSICIAN: MU BERMUDEZ DATE OF PROCEDURE: 02/12/2017 PREOPERATIVE DIAGNOSIS: Left hip intertrochanteric fracture. POSTOPERATIVE DIAGNOSIS: Left hip intertrochanteric fracture. PROCEDURE: Surgery on left hip to lineup bone and fix with hardware (open reduction and internal fixation). BLOOD LOSS: 150 ANESTHESIA: General. COMPLICATIONS: None. SPECIMEN: None. FINDINGS: The fracture had reduced very nicely although the angle was a little bit higher than standard but the helical screw was placed adequately. NARRATIVE SUMMARY: The patient was taken to the operating room after the standard nursing and anesthesia, preoperative identification evaluation and counseling. The patient was given general anesthesia and was placed on the fracture table. The left lower extremity was prepared and draped in the usual orthopedic fashion and the right lower extremity in the lithotomy position. A timeout was completed. Draping was completed. Local anesthetic was given prior to the draping with epinephrine to help reduced discomfort and control bleeding. Longitudinal incision was then made proximal to the greater trochanter and the tip of the greater trochanter was located and a guidewire was placed followed by the short reamer. This was followed by the nail which was placed in appropriate position. We adjusted the rotation slightly after placing the first guidewire and then ran the drill through the lateral cortex, put the helical in place and checked AP and laterals. The pattern was so stable we did not need a distal screw. The wounds were irrigated and then closed. The patient was then awakened and recovery room in stable condition after a dressing was placed. Job ID: [id number] Dictated Date: 02/12/2017 19:47:18 Patent Paralegal Date: 02/15/2017 01:19:04 / valerie
[2017-02-15 03:40] VITALS: BP 132/61
[2017-02-15] MEDS: LEVOTHYROXINE 112 MCG (LEVOTHROID) TAB PO SCH (06:00)
[2017-02-15] MEDS: HYDROcodone/APAP 5 MG/325 MG (LORTAB) TAB PO PRN (06:00)
[2017-02-15 08:00] VITALS: BP 144/67
[2017-02-15] MEDS: cefTRIAXone INJECTION 1,000 MG in NS (IVPB) 50 ML IV SCH (09:00)
--- NOTE | 2017-02-15 09:26 | Physical Therapy Daily Note ---
PT Daily Note-Current Subjective Patient is in bed and agrees to PT. Patient c/o 8/10 left hip pain. Pain Numeric Pain Scale: 8 Location: Left Location Body Site: Hip Pain Description: Acute Mental Status Patient Orientation: Normal For Age Transfers Functional [place] Measure 0=Not Assessed/NA 4=Minimal Assistance 1=Total Assistance 5=Supervision or Setup 2=Maximal Assistance 6=Modified [place] 3=Moderate Assistance 7=Complete IndependenceIRFPAI Quality Coding Scale 6 Independent with activity with or without an assistive device 5 Patient requires set up or clean up by helper. Patient completes activity by themselves 4 Supervision or touching assist (CGA). [place] provide cues , steadying assist 3 The helper provides less than half the effort to complete the activity 2 The helper provides more than half the effort to complete the activity 1 Dependent. The helper does all the effort to complete an activity 7 Patient refused to complete or attempt activity 9 The patient did not perform the activity before the current illness or injury 88 Not attempted due to Medical conditions or safety concerns Transfers (B, C, W/C) (FIM): 2 Scootin Rollin Supine to/from Sit: 2 Sit to/from Stand: 3 Bed to/from Chair: 3 Patient is unable to tolerate weight shifting to left LE to advance right LE due to pain and, per patient report, fear. Sit to stand x 4 sets with attempt to ambulate, however, unsuccessful. Weight Bearing Weight Bearing Restriction: Full Weight Bearing Location Restriction: L LE Exercises Supine Ex: Ankle pumps, Quad Set, Heel Slides Supine Reps: 15 (AAROM left LE; AROM right LE) Seated Therapy Exercises: Ankle pumps, Long arc quads Seated Reps: 15 (AROM bilaterally) Assessment Patient is up in recliner with needs met. From a PT standpoint, patient will require LTC to build enough strength and mobility to return to home safely. Dr. Mccormack consulted. PT Short Term Goals Short Term Goals Time Frame: Feb 27, 2017 Transfers (B,C,W/C) (FIM): 7 Gait (FIM): 6 Gait Level of Assist: 6 Gait Assistive Device: FWW PT Plan Treatment/Plan Treatment Plan: Continue Plan of Care Treatment Plan: Bed Mobility, Education, Functional Activity [place], Functional Strength, Gait, Safety, Therapeutic Exercise, Transfers Treatment Duration: Feb 27, 2017 Frequency: At least 5-7 days/Wk (IRF) Estimated Hrs Per Day: 1 hour per day Patient and/or Family Agrees t: Yes Time/GCodes Time In: 845 Time Out: 908 Total Billed Treatment Time: 23 Total Billed Treatment 1 visit FA 15 min EX 8 min JOLIE RESTREPO PT Feb 15, 2017 09:26
[2017-02-15 09:51] LABS: MEAN PLATELET VOLUME 10.7 FL (7.4-10.4); RED BLOOD COUNT 3.55 10^6/uL (4.35-5.85); RED CELL DISTRIBUTION WIDTH 14.4 % (10.0-14.5); WHITE BLOOD COUNT 8.4 10^3/uL (4.3-11.0)
[2017-02-15] MEDS ORDERED: HYDR-3812 PO (09:56)
[2017-02-15] MEDS ORDERED: LACT20SO2 PO (09:56)
--- NOTE | 2017-02-15 09:58 | Discharge Summary-Hospitalist ---
Diagnosis/Chief Complaint Date of Admission Feb 11, 2017 at 11:25 Date of Discharge Admission Diagnosis Assessment: Acute left hip fracture HTN Spine surgery 2013 and placed on Coumadin and maintained since that time to "prevent blood clots" without known h/o clots Osteoporosis Discharge Diagnosis Assessment: Acute left hip fracture status post uncomplicated repair POD # 3 Postop anemia requiring 2 units of blood yesterday due to her symptomatic status HTN Leukocytosis likely due to stress response of surgery- resolved Spine surgery 2013 and placed on Coumadin and maintained since that time to "prevent blood clots" without known h/o clots s/p 1 unit of FFP and Vit K 2.5mg PO 3 days ago resulted in INR 1.4 now 1.6 since restarted Coumadin Osteoporosis Post op constipation Plan: Restarted anti-coagulation Monitor labs Inpatient rehabilitation eval for transfer tomorrow PT/OT Bowel regimen with SSE since failed aggressive meds Discharge Summary Discharge Physical Examination Allergies: Coded Allergies: Iodinated Contrast- Oral and IV Dye (Verified Allergy, Unknown, 02/11/17) povidone-iodine (Verified Allergy, Unknown, 02/11/17) soap (Verified Allergy, Unknown, 02/11/17) Vitals & I&Os Vital Signs Date Time Temp Pulse Resp B/P (MAP) Pulse Ox O2 Delivery O2 Flow Rate FiO2 02/15/17 10:22 82 Room Air 02/15/17 09:00 4.00 02/15/17 08:00 99.2 72 20 144/67 Hospital Course Hospital course: patient had an uneventful hospital course. She was admitted with hip fracture and INR reversed with 1 unit of FFP and Vit K 2.5mg PO x 1. She underwent an uncomplicated hip fracture repair and remained stable. Constipation resolved after multiple meds given along with SSE. Hgb did decrease to 8 and since she was very weak and dizzy she met criteria for transfusion of 2 units of blood of which she tolerated well. Coumadin was restarted and she was deemed stable for DC to IRU. Labs (last 24 hrs) Laboratory Tests 02/15/17 09:25: White Blood Count 8.4, Red Blood Count 3.55L, Hemoglobin 10.8#L, Hematocrit 34L , Mean Corpuscular Volume 96, Mean Corpuscular Hemoglobin 30, Mean Corpuscular Hemoglobin Concent 32, Red Cell Distribution Width 14.4, Platelet Count 157, Mean Platelet Volume 10.7H, Prothrombin Time 17.1H, INR Comment 1.4, Sodium Level 146H, Potassium Level 4.3, Chloride Level 107, Carbon Dioxide Level 30, Anion Gap 9, Blood Urea Nitrogen 36H, Creatinine 0.93, Estimat Glomerular Filtration Rate 59, BUN/Creatinine Ratio 39, Glucose Level 110H, Calcium Level 8.6, Total Bilirubin 0.7, Aspartate Amino Transf (AST/SGOT) 21, Alanine Aminotransferase (ALT/SGPT) 16, Alkaline Phosphatase 62, Total Protein 5.9L, Albumin 3.1L 02/15/17 12:45: Lab Scanned Report Transfusion Reaction Form Microbiology 02/12/17 MRSA Screen - Final, Complete MRSA not isolated 02/11/17 Urine Culture - Final, Complete Escherichia Coli Pending Labs Laboratory Tests 02/15/17 09:25: White Blood Count 8.4, Red Blood Count 3.55, Hemoglobin 10.8, Hematocrit 34, Mean Corpuscular Volume 96, Mean Corpuscular Hemoglobin 30, Mean Corpuscular Hemoglobin Concent 32, Red Cell Distribution Width 14.4, Platelet Count 157, Mean Platelet Volume 10.7, Prothrombin Time 17.1, INR Comment 1.4, Sodium Level 146, Potassium Level 4.3, Chloride Level 107, Carbon Dioxide Level 30, Anion Gap 9, Blood Urea Nitrogen 36, Creatinine 0.93, Estimat Glomerular Filtration Rate 59, BUN/Creatinine Ratio 39, Glucose Level 110, Calcium Level 8.6, Total Bilirubin 0.7, Aspartate Amino Transf (AST/SGOT) 21, Alanine Aminotransferase ( ALT/SGPT) 16, Alkaline Phosphatase 62, Total Protein 5.9, Albumin 3.1 02/15/17 12:45: Lab Scanned Report Transfusion Reaction Form Discharge Home Medications: Active Scripts Active Reported Baclofen 10 Mg Tablet 10 Mg PO TID PRN Calcium 500 + D Tablet (Calcium Carbonate/Vitamin D3) 1 Each Tablet 1 Tab PO BID Warfarin Sodium 3 Mg Tablet 1.5 Mg PO TUTH TAKES 1/2 (3MG) TABLET Vitamin A 8,000 Unit Capsule 8,000 Unit PO BID Levothyroxine Sodium 112 Mcg Tablet 112 Mcg PO DAILY Warfarin Sodium 3 Mg Tablet 3 Mg PO SUMOWEFRSA Carvedilol 12.5 Mg Tablet 12.5 Mg PO BID Alendronate Sodium 70 Mg Tablet 70 Mg PO WILSON Bumetanide 1 Mg Tablet 1 Mg PO DAILY Colchicine 0.6 Mg Tablet 0.6 Mg PO BID Oxybutynin Chloride 5 Mg Tablet 5 Mg PO DAILY Instructions to patient/family Please see electonic discharge instructions given to patient. Clinical Quality Measures DVT/VTE Risk/Contraindication: Risk Factor Score Per Nursin RFS Level Per Nursing on Admit: 4+=Very High HARRIS MELLO DO Feb 15, 2017 09:58
[2017-02-15 10:05] LABS: INR 1.4 (0.8-1.4); PROTHROMBIN TIME PATIENT 17.1 SEC (12.2-14.7)
[2017-02-15 10:09] LABS: ALBUMIN 3.1 GM/DL (3.2-4.5); BILIRUBIN,TOTAL 0.7 MG/DL (0.1-1.0); CALCIUM 8.6 MG/DL (8.5-10.1); CREATININE SERUM 0.93 MG/DL (0.60-1.30); POTASSIUM 4.3 MMOL/L (3.6-5.0); TOTAL PROTEIN 5.9 GM/DL (6.4-8.2)
[2017-02-15] MEDS: LACTULOSE SYRUP 10GM/15ML (ENULOSE) 30ML UDC PO SCH (10:09)
[2017-02-15] MEDS: COLCHICINE 0.6 MG (COLCRYS) TABLET PO SCH (10:09)
[2017-02-15] MEDS: OXYBUTYNIN (DITROPAN) 5 MG TAB PO SCH (10:10)
[2017-02-15] MEDS: BUMETANIDE 1 MG (BUMEX) TAB PO SCH (10:10)
[2017-02-15] MEDS: CARVEDILOL 12.5 MG (COREG) TABLET PO SCH (10:10)
--- NOTE | 2017-02-16 12:12 | Physician Query Clarification ---
PQ-Further Specificity Admission/Discharge Admission Date: Feb 11, 2017 at 11:25 Discharge Date: Feb 15, 2017 at 11:57 The medical record reflects the following clinical scenario: History/Risk Factors: LT Intertrochanteric fracture, osteoporosis Clinical Findings: hgb 8.0 Treatment: 2U PRBC's Question: Can you further specify postop anemia per the clinical indicators above? Please document below. 1. postop anemia due to acute blood loss 2. postop anemia 3. Other, with explanation of the clinical findings. 4. Clinically undetermined, no explanation for the clinical findings. PHYSICIAN RESPONSE Can you specify per above: 1 In responding to this query, please exercise your independent professional judgment. The purpose of this communication is to more accurately reflect the complexity of your patients condition. The fact that a question is asked does not imply that any particular answer is desired or expected. Thank you for your timely response to this clarification. Requestors name: Anthony THIS PHYSICIAN QUERY FORM IS A PERMANENT PART OF THE MEDICAL RECORD ANTHONY SPENCE Feb 16, 2017 12:12 HARRIS MELLO DO Feb 17, 2017 09:04
== END 2017-02-15 11:57 | DRG 481 ==
LOC: ER 10:20 → 4TH 11:25
PROVIDERS: ADMIT Internal Medicine; ATTEND Internal Medicine
PROC: 0QS734Z Reposition Left Upper Femur with Internal Fixation Device, Percutaneous Approach (ICD-10-PCS; principal; 2017-02-12 17:51)
DX: M80.052A Age-related osteoporosis with current pathological fracture, left femur, initial encounter for fracture (principal); D62 Acute posthemorrhagic anemia; I10 Essential (primary) hypertension; N32.81 Overactive bladder; Z79.01 Long term (current) use of anticoagulants; E03.9 Hypothyroidism, unspecified; W01.0XXA Fall on same level from slipping, tripping and stumbling without subsequent striking against object, initial encounter; Y92.39 Other specified sports and athletic area as the place of occurrence of the external cause; Z98.1 Arthrodesis status; K59.09 Other constipation
CPT/HCPCS: 36415; 51702; 71010; 80053; 81000; 85025; 85027; 85610; 85730; 86850; 86900; 86901; 86920; 87081; 87088; 87186; 94664; 94760; 96374

== ENCOUNTER 2017-02-15 11:41 | Inpatient (IN) | payer MEDICARE ==
[~2017-02-15] VITALS: Ht 167.6 cm; Wt 79.4 kg
[~2017-02-15 11:41] MED LIST: ALEN70TA47 PO; BACL10TA PO; BUME1TAB4 PO; CALC-654 PO; CARV12.53 PO; COLC0.6T56 PO; HYDR-3812 PO; LACT20SO2 PO; LEVO112T55 PO; LEVO125T6 PO; OXYB5TAB9 PO; VITA80006 PO; WARF3TAB6 PO
[2017-02-15] MEDS ORDERED: ACETAMINOPHEN 500 MG TAB (TYLENOL) PO PRN (12:30)
[2017-02-15] MEDS ORDERED: BACLOFEN 10 MG (LIORESAL) TAB PO PRN (12:30)
[2017-02-15] MEDS ORDERED: ALPRAZolam 0.25 MG (XANAX) TAB PO PRN (12:30)
[2017-02-15] MEDS ORDERED: CATHETER FLUSH 10 ML SYR IV PRN (12:30)
[2017-02-15] MEDS ORDERED: ONDANSETRON 4 MG (ZOFRAN) ORAL DISSOLVE TAB PO PRN (12:30)
--- NOTE | 2017-02-15 12:59 | Physical Therapy Evaluation ---
PT Evaluation-General Medical Diagnosis Admission Date 02/15/17 Medical Diagnosis: (L) hip ORIF Onset Date: Feb 11, 2017 Therapy Diagnosis Therapy Diagnosis: impaired mobility, strength, endurance Height/Weight Height (Feet): 5 Height (Inches): 6.00 Weight (Pounds): 164 Weight (Ounces): 0.0 Weight Bear Status Weight Bearing Restriction: Weight Bearing/Tolerated Location Restriction: L LE Referral Physician: Tone Reason for Referral: Evaluation/Treatment Medical History Pertinent Medical History: HTN Additional Medical History (L) knee replacement, lumbar fusion, hypothyroid Current History Pt fell at home and underwent ORIF of the (L) hip. Reviewed History: Yes Social History Home: Single Level Current Living Status: Alone Entry Into Home: Level Entry Prior/Core FIM Prior Level of Function Functional [place] Measure 0=Not Assessed/NA 4=Minimal Assistance 1=Total Assistance 5=Supervision or Setup 2=Maximal Assistance 6=Modified [place] 3=Moderate Assistance 7=Complete [place] Bed Mobility: 7 Transfers (B,C,W/C) (FIM): 7 Gait: 7 PT Evaluation-Current Subjective Patient in bed pre tx, agrees to PT, she is going down to rehab right now. Patient states she has 4/10 pain in her left leg. Pt/Family Goals Patient states that she wants to be able to move around better. Objective Patient Orientation: Person, Place, Situation Attachments: Oxygen ROM/Strength ROM Lower Extremities NT left leg due to pain, right leg WNL Strenght Lower Extremities right leg 4/5 gross, left leg not tested due to pain Integumentary/Posture Bowel Incontinence: Yes Bladder Incontinence: Yes Neuromuscular (Tone, Coordination, Reflexes) NT Sensory Vision: Functional Hearing: Functional Sensation Right Lower Extremit: Intact Sensation Left Lower Extremity: Intact Sensation Lower Extremities Patient describes some numbness in left leg but has intact light touch sensation. Transfers Functional [place] Measure 0=Not Assessed/NA 4=Minimal Assistance 1=Total Assistance 5=Supervision or Setup 2=Maximal Assistance 6=Modified [place] 3=Moderate Assistance 7=Complete IndependenceIRFPAI Quality Coding Scale 6 Independent with activity with or without an assistive device 5 Patient requires set up or clean up by helper. Patient completes activity by themselves 4 Supervision or touching assist (CGA). [place] provide cues , steadying assist 3 The helper provides less than half the effort to complete the activity 2 The helper provides more than half the effort to complete the activity 1 Dependent. The helper does all the effort to complete an activity 7 Patient refused to complete or attempt activity 9 The patient did not perform the activity before the current illness or injury 88 Not attempted due to Medical conditions or safety concerns Transfers (B, C, W/C) (FIM): 2 Scootin Rollin Roll Left to Right (QC): 2 Supine to/from Sit: 2 Sit to/from Stand: 3 bed t/f WC(FIM only if WC use): 2 Sit to Lying (QC): 2 Lying to Sitting/Side of Bed(Q: 2 Sit to Stand (QC): 2 Chair/Wcf-uf-Uombj Xfer(QC): 2 Patient performs bed mobility with mod assist, supine to sit with max assist. She performs a bed to chair transfer with mod assist and cannot move her left leg and will turn partially and then lunge for the chair. She also needs cues for safety and hand placement. Gait Does the Patient Walk?: No and Walking Goal IS indicated Mode of Locomotion: Both Anticipated Mode of Locomotion: Walk Gait (FIM): 1 Walk 10 feet (QC): 88 Walk 50 ft with 2 Turns(QC): 88 Walk 150 ft (QC): 88 Walking 10ft/uneven surface-QC: 88 Distance: 1' Gait Level of Assist: 3 Gait Persons Needed: 1 Gait Assistive Device: FWW Comments/Gait Description Patient was able to ambulate about 1' during the bed to chair transfer, she cannot advance her left leg but tries to pull it forward with her toes. Wheelchair Training Does the Pt Use a Wheelchair?: Yes Wheelchair (FIM): 4 Distance: 150' Wheelchair Level of Assist: 4 Wheel 50 ft with 2 turns (QC): 3 Wheel 150 ft (QC): 3 Type of Wheelchair: Manual Stairs If not tested on admit;explain Patient cannot perform stairs at this time, she cannot ambulate and can barely perform a bed to chair transfer. Balance Sitting Static: Normal Sitting Dynamic: Normal Standing Static: Poor Standing Dynamic: Poor Picking up an Object (QC): 88 Assessment/Needs Patient has poor mobility, poor safety during transfers, poor endurance. Rehab Potential: Guarded PT Short Term Goals Short Term Goals Time Frame: Feb 22, 2017 Transfers (B,C,W/C) (FIM): 4 Gait (FIM): 1 Gait Distance Comment: 20' Gait Level of Assist: 4 Gait Assistive Device: FWW PT Health Consultant Goals Health Consultant Goals PT Care Home Goals Time Frame: Mar 08, 2017 Transfers (B,C,W/C) (FIM): 4 (CGA) Sit to Lying (QC): 5 Lying-Sitting on Side/Bed(QC): 5 Sit to Stand (QC): 5 Rollin Roll Left to Right (QC): 5 Chair/Nfi-xe-Uiicf Xfer(QC): 5 Car Transfer (QC): 5 Gait (FIM): 2 Distance: 50' Walk 10 feet (QC): 5 Walk 10ft-Uneven Surface(QC): 5 Walk 50ft with 2 Turns (QC): 5 Gait Level of Assist: 4 Gait Assistive Device: FWW Stairs (FIM): 2 # of Steps: 4 1 Step (curb) (QC): 5 4 Steps (QC): 5 Stairs Level Of Assist: 4 PT Plan Problem List Problem List: Activity Tolerance, Functional Strength, Safety, Balance, Gait, Transfer, Bed Mobility, ROM Treatment/Plan Treatment Plan: Continue Plan of Care Treatment Plan: Bed Mobility, Education, Functional Activity [place], Functional Strength, Group Therapy, Gait, Safety, Therapeutic Exercise, Transfers Treatment Duration: Mar 08, 2017 Frequency: At least 5-7 days/Wk (IRF) Estimated Hrs Per Day: 1.5 hours per day Patient and/or Family Agrees t: Yes Safety Risks/Education Patient Education: Gait Training, Transfer Techniques, Correct Positioning, W/ C Management, Safety Issues Teaching Recipient: Patient Teaching Methods: Demonstration, Discussion Response to Teaching: Reinforcement Needed Discharge Recommendations Plan Patient will perform bed mobility and transfer training, balance and endurance training, functional strengthening, stair training, gait training, and education , to improve functional mobility and independence at home. Therapy D/C Recommendations: Home w/ Family Support, Chcf (TCU/NH) Time/GCodes Time In: 1140 Time Out: 1200 Total Billed Treatment Time: 20 Total Billed Treatment 1 visit EVL 20' DEMETRI RICHMOND PT Feb 15, 2017 12:59
[2017-02-15] MEDS ORDERED: warFARin 3 MG (COUMADIN) TAB PO SCH (13:15)
[2017-02-15] MEDS: HYDROcodone/APAP 5 MG/325 MG (LORTAB) TAB PO PRN (13:41)
--- NOTE | 2017-02-15 16:03 | Physical Therapy Daily Note ---
PT Daily Note-Current Subjective "Oh it feels so good to stand up!" Pt agreeable to PT and post treatment was pleased with what she had accomplished. Pain Numeric Pain Scale: 6 Location: Left Location Body Site: Hip Pain Description: Ache Mental Status Patient Orientation: Person, Place, Time, Situation Transfers Functional [place] Measure 0=Not Assessed/NA 4=Minimal Assistance 1=Total Assistance 5=Supervision or Setup 2=Maximal Assistance 6=Modified [place] 3=Moderate Assistance 7=Complete IndependenceIRFPAI Quality Coding Scale 6 Independent with activity with or without an assistive device 5 Patient requires set up or clean up by helper. Patient completes activity by themselves 4 Supervision or touching assist (CGA). [place] provide cues , steadying assist 3 The helper provides less than half the effort to complete the activity 2 The helper provides more than half the effort to complete the activity 1 Dependent. The helper does all the effort to complete an activity 7 Patient refused to complete or attempt activity 9 The patient did not perform the activity before the current illness or injury 88 Not attempted due to Medical conditions or safety concerns Transfers (B, C, W/C) (FIM): 2 Sit to Stand (QC): 2 Chair/Mvn-sn-Btvby Xfer(QC): 2 Sit to stand multiple attempts with skilled cues for hand placement and sequencing. Pt needs max assist to come to a full stand and cues for hip/knee extension. SPT x 2 with fWW with 90 % cues for sequencing and correct use of walker. Pt also needs occas tactile asssit to cue to advance her left LE. Pt toileted; dependent for lovely care and to put her undergarments on. Incontinent of urine prior to toileting. Weight Bearing Weight Bearing Restriction: Weight Bearing/Tolerated Location Restriction: L LE Gait Training Does the Patient Walk?: Yes Gait (FIM): 2 Pt took 3-4 steps with FWW with mod asssit; pt ambulated 7 ft in the // bars x 1 and 5 ft x 1 with mod assist and sequencing cues 75% of the time. Exercises Seated Therapy Exercises: Ankle pumps, Long arc quads, Hip flexion, Kicking activity, Hip abd/add Seated Reps: 15 (for LE strength to promote functional transfers and gait. ) Assessment Pt just admitted to unit this date. She was pleased with her ability to stand and move her feet. Pt presents with much difficulty unweighting either foot to advance for steps, but does so slowly and with much effort as well as limited foot clearance and sliding at times. Pt is motivated and worked hard throughout the treatment. PT Short Term Goals Short Term Goals Time Frame: Feb 22, 2017 Transfers (B,C,W/C) (FIM): 4 Gait (FIM): 1 Gait Distance Comment: 20' Gait Level of Assist: 4 Gait Assistive Device: FWW Wheelchair Distance: 150' PT Gluing Machine Operator Electronic Goals Gluing Machine Operator Electronic Goals PT Care Home Goals Time Frame: Mar 08, 2017 Transfers (B,C,W/C) (FIM): 4 (CGA) Sit to Lying (QC): 5 Lying-Sitting on Side/Bed(QC): 5 Sit to Stand (QC): 5 Rollin Roll Left to Right (QC): 5 Chair/Byn-nw-Kwpga Xfer(QC): 5 Car Transfer (QC): 5 Gait (FIM): 2 Distance: 50' Walk 10 feet (QC): 5 Walk 10ft-Uneven Surface(QC): 5 Walk 50ft with 2 Turns (QC): 5 Gait Level of Assist: 4 Gait Assistive Device: FWW Stairs (FIM): 2 # of Steps: 4 1 Step (curb) (QC): 5 4 Steps (QC): 5 Stairs Level Of Assist: 4 PT Plan Problem List Problem List: Activity Tolerance, Functional Strength, Safety, Balance, Gait, Transfer, Bed Mobility Treatment/Plan Treatment Plan: Continue Plan of Care Treatment Plan: Bed Mobility, Education, Functional Activity [place], Functional Strength, Group Therapy, Gait, Safety, Therapeutic Exercise, Transfers Treatment Duration: Mar 08, 2017 Frequency: At least 5-7 days/Wk (IRF) Estimated Hrs Per Day: 1.5 hours per day Patient and/or Family Agrees t: Yes Safety Risks/Education Patient Education: Transfer Techniques, Safety Issues Teaching Recipient: Patient Teaching Methods: Demonstration, Discussion Response to Teaching: Reinforcement Needed Discharge Recommendations Therapy D/C Recommendations: Physical Therapy Home Care Time/GCodes Time In: 1315 Time Out: 1425 Total Billed Treatment Time: 70 Total Billed Treatment visit FA 25 GT 25 EX 20 LILO PEREZ PT Feb 15, 2017 16:03
--- NOTE | 2017-02-15 16:05 | Occupational Therapy Eval ---
OT Evaluation-General/PLF Medical Diagnosis Admission Date Feb 15, 2017 at 11:48 Medical Diagnosis: (L) hip ORIF Onset Date: Feb 11, 2017 Therapy Diagnosis Therapy Diagnosis: decr self care, decr funct mobility, weakness, decr activity tolerance Height/Weight Height (Feet): 5 Height (Inches): 6.00 Weight (Pounds): 164 Weight (Ounces): 0.0 Precautions Precautions/Isolations: Fall Prevention, Standard Precautions Weight Bear Status Weight Bearing Restriction: Weight Bearing/Tolerated Location Restriction: L LE Referral Physician: Tone Referral Reason: Evaluation/Treatment Medical History Pertinent Medical History: HTN, Hypothroidism Additional Medical History Overactive bladder, lumbar fusion in 2013, L total knee replacement, osteoporosis Current History Pt fell outside at home, landing on concrete. L hip pain and femur fx. IM nail , followed by anemia and constipation Reviewed History: Yes Social History Home: Apartment ([facility]) Current Living Status: Alone Entry Into Home: Level Entry ADL-Prior Level of Function ADL PLOF Comments Pt reported that she was independent with her basic self care needs prior to her fall. She does her own cooking and laundry and has someone to help with cleaning every other week. 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 She goes to the [facility] 6 times a week DME/Equipment: Grab Bars, Shower, Shower Hose Inventory Audit Clerk, Tall Toilet Occupation: retired teacher Drive Self: Yes OT Current Status Subjective Pt seen in room, up in recliner, agreeable to OT. Pain rated 4/10 and located in L hip area. Not described. Appearance Alert, cooperative Mental Status/Objective Patient Orientation: Person, Place, Time (knew month, year but not date "When you are retired, you don't have to know that"), Situation Comprehension: 6 Expression: 6 Social Interaction: 6 Attachments: Oxygen (4LPM), Saline Lock Current Glasses/Contacts: Yes (reading) Hearing Aids: No Dentures/Partials: Yes (full upper, partial lower) Hand Dominance: Right Upper Extremity ROM Grossly WFL bilat Upper Extremity Sensation no problems reported Upper Extremity Strength grossly 4/5 bilat ADL-Treatment Functional [place] Measure 0=Not Assessed/NA 4=Minimal Assistance 1=Total Assistance 5=Supervision or Setup 2=Maximal Assistance 6=Modified [place] 3=Moderate Assistance 7=Complete IndependenceIRFPAI Quality Coding Scale 6 Independent with activity with or without an assistive device 5 Patient requires set up or clean up by helper. Patient completes activity by themselves 4 Supervision or touching assist (CGA). [place] provide cues , steadying assist 3 The helper provides less than half the effort to complete the activity 2 The helper provides more than half the effort to complete the activity 1 Dependent. The helper does all the effort to complete an activity 7 Patient refused to complete or attempt activity 9 The patient did not perform the activity before the current illness or injury 88 Not attempted due to Medical conditions or safety concerns Eating (FIM): 6 (Pt was able to open packages and feed herself. There are foods she cannot eat if she doesn't have her dentures in) Eating (QC): 6 Other Treatments Orientation to rehab process, plans for therapy later in the afternoon. Pt left up in recliner, all needs met. Education OT Patient Education: Purpose of tx/functional activities, Rehab process Teaching Recipient: Patient Teaching Methods: Discussion Response to Teaching: Verbalize Understanding OT Short Term Goals Short Term Goals Time Frame: Feb 22, 2017 Lower Body Dressing(FIM): 3 Toileting(FIM): 3 Transfers (B,C,W/C) (FIM): 4 Toilet/Commode Transfer(FIM): 3 Additional Short Term Goals: 1-Demonstrate ADL Tasks, 2-Verbalize Understanding , 3-ImproveStrength/[place] 1=Demonstrate adherence to instructed precautions during ADL tasks. 2=Patient will verbalize/demonstrate understanding of assistive devices/ modifications for ADL. 3=Patient will improve strength/tolerance for activity to enable patient to perform ADL's. OT Manager Highway Goals Manager Highway Goals Time Frame: Mar 08, 2017 Eating (FIM): 6 Eating (QC): 6 Groomin Oral Hygiene (QC): 6 Bathing(FIM): 6 Shower/Bathe Self (QC): 6 Upper Body Dressing(FIM): 6 Upper Body Dressing (QC): 6 Lower Body Dressing(FIM): 6 Lower Body Dressing (QC): 6 On/Off Footwear (QC): 6 Toileting(FIM): 6 Toileting Hygiene (QC): 6 Toilet/Commode Transfer(FIM): 6 Toilet/Commode Transfer (QC): 6 Shower Transfer(FIM): 6 Additional Goals: 1-Demonstrate ADL Tasks, 2-Verbalize Understanding, 3- ImproveStrength/[place] 1=Demonstrate adherence to instructed precautions during ADL tasks. 2=Patient will verbalize/demonstrate understanding of assistive devices/ modifications for ADL. 3=Patient will improve strength/tolerance for activity to enable patient to perform ADL's. OT Education/Plan Problem List/Assessment Assessment: Decreased Activ Tolerance, Decreased UE Strength, Dependent Transfers, Impaired Funct Balance, Impaired Self-Care Skills Pt would benefit from skilled OT to increase her independence in basic self care to allow her to safely return to her home to live alone and to decrease caregiver burden Discharge Recommendations Plan/Recommendations: Continue POC Therapy D/C Recommendations: Occupational Therapy Home Care Barriers to Progress difficulty weight bearing L LE Target Placement home Treatment Plan/Plan of Care Treatment,Training & Education: Yes Patient would benefit from OT for education, treatment and training to promote independence in ADL's, mobility, safety and/or upper extremity function for ADL' s. Plan of Care: ADL Retraining, Functional Mobility, Group Exercise/Act as Ind ( education, exercise, activity tolerance, funct activities), UE Funct Exercise/ Act, UE Neuromus Re-Ed/Coord Treatment Duration: Mar 08, 2017 Frequency: At least 5-7 days/Wk (IRF) Estimated Hrs Per Day: 1.5 hours per day Agreement: Yes Rehab Potential: Good Time/GCodes Start Time: 12:35 Stop Time: 13:00 Total Time Billed (hr/min): 25 Billed Treatment Time visit, evaluation moderate intensity CONY WHITNEY OT Feb 15, 2017 16:05
--- NOTE | 2017-02-15 16:26 | Occupational Ther Daily Note ---
OT Current Status-Daily Note Subjective Pt seen in room, up in recliner, agreeable to OT. Pt was very pleased with her progress Appearance Alert, cooperative. Mental Status/Objective Functional [place] Measure 0=Not Assessed/NA 4=Minimal Assistance 1=Total Assistance 5=Supervision or Setup 2=Maximal Assistance 6=Modified [place] 3=Moderate Assistance 7=Complete [place] ADL-Treatment Pt education modified techniques for ADLs. Pt education and skilled cues for hand placement with sit to stand and stand to sit during ADLs. By end of tx, she needed mod assist sit to stand but still struggles at mid point and with moving hands to FWW for weight bearing to stand. Pt chose not to wear oxygen during tx but had it nearby "in case I need it". Pt left up in recliner, legs elevated, all needs met. Functional [place] Measure 0=Not Assessed/NA 4=Minimal Assistance 1=Total Assistance 5=Supervision or Setup 2=Maximal Assistance 6=Modified [place] 3=Moderate Assistance 7=Complete IndependenceIRFPAI Quality Coding Scale 6 Independent with activity with or without an assistive device 5 Patient requires set up or clean up by helper. Patient completes activity by themselves 4 Supervision or touching assist (CGA). [place] provide cues , steadying assist 3 The helper provides less than half the effort to complete the activity 2 The helper provides more than half the effort to complete the activity 1 Dependent. The helper does all the effort to complete an activity 7 Patient refused to complete or attempt activity 9 The patient did not perform the activity before the current illness or injury 88 Not attempted due to Medical conditions or safety concerns Grooming (FIM): 5 (setup to clean dentures, brush teeth, wash face and hands, brush hair, all done seated ) Oral Hygiene (QC): 5 (setup) Bathing (FIM): 6 (60%. Washed and dried listed parts, sponge bath with setup. Help to wash back. Min assist to maintain standing to wash lovely and bottom but unable to turn hands loose to wash these areas. Unable to wash lower legs/feet) Bathing Location: L Arm, R Arm, L Upper Leg, R Upper Leg, Chest, Abdomen Shower/Bathe Self (QC): 3 Upper Body (FIM): 5 (setup to dress upper body) Upper Body Dressing (QC): 5 Lower Body Dressing (FIM): 2 (Max assist. Help to get feet into Depends and to get L foot into slacks. Unable to doff/ don TEDs or slipper socks (bending forward painful). Mod-max assist sit to stand, then min assist to mantain standing for someone to pull pants up. FWW) Lower Body Dressing (QC): 2 On/Off Footwear (QC): 1 Toileting (FIM): 1 (Per PT note. Dependant clothing management and hygiene. Incontinent in Depends) Toileting Hygiene (QC): 1 Toilet/Commode Transfer (FIM): 2 (Max assist per PT evaluation. To BSC. ) Toilet Transfer (QC): 2 Education OT Patient Education: Modified ADL techniques, Progress toward Goal/Update tx plan, Purpose of tx/functional activities, Safety issues, Transfer techniques, Use of adapted equipment Teaching Recipient: Patient Teaching Methods: Demonstration, Discussion Response to Teaching: Verbalize Understanding, Return Demonstration, Reinforcement Needed OT Short Term Goals Short Term Goals Time Frame: Feb 22, 2017 Lower Body Dressing(FIM): 3 Toileting(FIM): 3 Transfers (B,C,W/C) (FIM): 4 Toilet/Commode Transfer(FIM): 3 Additional Short Term Goals: 1-Demonstrate ADL Tasks, 2-Verbalize Understanding , 3-ImproveStrength/[place] 1=Demonstrate adherence to instructed precautions during ADL tasks. 2=Patient will verbalize/demonstrate understanding of assistive devices/ modifications for ADL. 3=Patient will improve strength/tolerance for activity to enable patient to perform ADL's. OT Senior Living Goals Slate Picker Goals Time Frame: Mar 08, 2017 Eating (FIM): 6 Eating (QC): 6 Groomin Oral Hygiene (QC): 6 Bathing(FIM): 6 Shower/Bathe Self (QC): 6 Upper Body Dressing(FIM): 6 Upper Body Dressing (QC): 6 Lower Body Dressing(FIM): 6 Lower Body Dressing (QC): 6 On/Off Footwear (QC): 6 Toileting(FIM): 6 Toileting Hygiene (QC): 6 Toilet/Commode Transfer(FIM): 6 Toilet/Commode Transfer (QC): 6 Shower Transfer(FIM): 6 Additional Goals: 1-Demonstrate ADL Tasks, 2-Verbalize Understanding, 3- ImproveStrength/[place] 1=Demonstrate adherence to instructed precautions during ADL tasks. 2=Patient will verbalize/demonstrate understanding of assistive devices/ modifications for ADL. 3=Patient will improve strength/tolerance for activity to enable patient to perform ADL's. OT Education/Plan Problem List/Assessment Pt would benefit from skilled OT to increase her independence in basic self care to allow her to safely return to her home to live alone and to decrease caregiver burden Discharge Recommendations Plan/Recommendations: Continue POC Treatment Plan/Plan of Care Patient would benefit from OT for education, treatment and training to promote independence in ADL's, mobility, safety and/or upper extremity function for ADL' s. Plan of Care: ADL Retraining, Functional Mobility, Group Exercise/Act as Ind ( education, exercise, activity tolerance, funct activities), UE Funct Exercise/ Act, UE Neuromus Re-Ed/Coord Treatment Duration: Mar 08, 2017 Frequency: At least 5-7 days/Wk (IRF) Estimated Hrs Per Day: 1.5 hours per day Agreement: Yes Rehab Potential: Good Time/GCodes Start Time: 14:30 Stop Time: 15:35 Total Time Billed (hr/min): 65 Billed Treatment Time visit, 65 minutes ADL CONY WHITNEY OT Feb 15, 2017 16:26
[2017-02-15 17:11] VITALS: BP 129/71
[2017-02-15] MEDS ORDERED: warFARin 2 MG (COUMADIN) TAB PO SCH (18:00)
[2017-02-15] MEDS: COLCHICINE 0.6 MG (COLCRYS) TABLET PO SCH (20:31)
[2017-02-15] MEDS: CALCIUM CARB + VIT D 600 MG (CALCARB + D) TAB PO SCH (20:31)
[2017-02-15] MEDS: MICONAZOLE 2% POWDER (DESENEX AF) 90 GM TOP SCH (20:31)
[2017-02-15] MEDS: LACTULOSE SYRUP 10GM/15ML (ENULOSE) 30ML UDC PO SCH (20:32)
[2017-02-15] MEDS: CARVEDILOL 12.5 MG (COREG) TABLET PO SCH (20:32)
[2017-02-16] MEDS: HYDROcodone/APAP 5 MG/325 MG (LORTAB) TAB PO PRN ×2 (02:07→16:16)
[2017-02-16 05:05] VITALS: BP 110/72
[2017-02-16] MEDS: LEVOTHYROXINE 112 MCG (LEVOTHROID) TAB PO SCH (05:57)
[2017-02-16] MEDS: LACTULOSE SYRUP 10GM/15ML (ENULOSE) 30ML UDC PO SCH ×2 (08:07→21:01)
[2017-02-16] MEDS: CARVEDILOL 12.5 MG (COREG) TABLET PO SCH ×2 (08:07→21:01)
[2017-02-16] MEDS: CALCIUM CARB + VIT D 600 MG (CALCARB + D) TAB PO SCH ×2 (08:07→21:01)
[2017-02-16] MEDS: COLCHICINE 0.6 MG (COLCRYS) TABLET PO SCH ×2 (08:07→21:01)
[2017-02-16] MEDS: BUMETANIDE 1 MG (BUMEX) TAB PO SCH (08:07)
[2017-02-16] MEDS: OXYBUTYNIN (DITROPAN) 5 MG TAB PO SCH (08:07)
[2017-02-16] MEDS: MICONAZOLE 2% POWDER (DESENEX AF) 90 GM TOP SCH ×2 (08:11→21:02)
--- NOTE | 2017-02-16 08:33 | PM&R Post Admission Assessment ---
Post Admission Physician Asses The preadmission screen agrees with the post admission assessment that the patient is a good candidate for inpatient rehabilitation. The patient will have a comprehensive program of inpatient rehabilitation with a goal of maximizing level of functional independence prior to discharge home with [facility]. The patient will have PT/OT ninety minutes per day, each discipline , five days a week for gait, strengthening, conditioning, balance, ADLs, any patient/family/caregiver training as necessary. Speech therapy to do cognitive assessment and treat as indicated. Rehabilitation nursing to assist with bowel, bladder, skin, wound care, medication administration, pain management. [employer] to assist with discharge planning, community reentry. SCD's for DVT prophylaxis.Patient is chronically anticoagulated as weel with Coumadin. She appears to be well motivated to participate in three hours of therapy a day. She should be able to tolerate three hours of therapy a day from a medical and surgical standpoint. She should benefit from the three hours of therapy a day. She has a reasonable discharge plan, reasonable discharge rehabilitation goals and a supportive family. She has various comorbidities that need to be closely monitored with medications and treatments adjusted on a daily basis as needed. These include: Chronic anticoagulation HTN Postop anemia Postop rsp insufficiency on Barriers to discharge for this patient who had been independent prior to this are for her to be modified independent to supervision for ADLs and mobility skills prior to discharge home with [facility], so as to lessen the burden of the caregivers. Risks for this patient include: 1. Fall 2. Fracture 3. DVT 4. Pulmonary embolism 5. Wound infection 6. Skin breakdown 7. Contractures 8. Poorly controlled pain 9. Urinary retention 10. UTI 11. Respiratory infection 12. Aspiration 13.Worsening 02 dependence 14. Poorly controlled HTN 15. Worsening Postop anemia 16. Subtherapeutic or supratherapeutic INR Estimated Length of Stay: 14 days Prognosis: Rehab prognosis appears good for goal of discharge home with [facility] and family modified independent to supervision for ADLs and mobility skills. ANGELICA YIN MD Feb 16, 2017 08:33
--- NOTE | 2017-02-16 08:37 | ST Cognitive Linguistic Eval ---
Speech Evaluation-General Medical Diagnosis (L) hip ORIF Onset Date: Feb 11, 2017 Therapy Diagnosis Therapy Diagnosis: Cognitive Lingusitic Skills WNL Precautions Precautions/Isolations: Fall Prevention, Standard Precautions Referral Referring Physician: Dr. Tate Wayne Reason for Referral: Evaluation/Treatment Cognitive Evaluation Medical History Pertinent Medical History: HTN, Hypothroidism Reviewed History: Yes Social History Current Living Status: Alone Speech PLF-Current Status Prior Level of Function The patient denied prior challenges with cognition, speech, or language. Subjective The patient was recently admitted with a left hip fracture. The patient greeted the clinician appropriately and was agreeable to participation in the cognitive evaluation. Language Eval: Auditory Comprehends Simple Yes/No Ques: Functional Indent/Objects Multiple Maria: Functional Ident/Pics in Multiple Maria: Functional Follows 1-Step Commands: Functional Follows Complex Directions: Functional Follows General Conversations: Functional Language Eval: Verbal Language Completes Spontaneous Greeting: Functional Produces Auto, Serial Info: Functional Imitates Simple Words/Phrases: Functional Word Finding: Functional Requests Basic Needs: Functional States Basic Personal Info: Functional Expresses Complex Ideas: Functional Cognitive Patient Orientation The patient was oriented to self, location, month, day, date, and year ( independently). Objective Cognitive Domain Attention: WNL Memory: WNL Problem Solving: Functional Executive Functions: WNL Objective Impression The patient demonstrated cognitive linguistic skills within normal limits and appropriate for completion of ADL's. Communication/Social Cognition Comprehension: 6 Expression: 6 Social Interaction: 6 Problem Solvin Memory: 6 Speech Patient Assess Expression of Ideas/Wants: Expression (4) Understanding [place] Content: Understands (4) Brief Interview-Mental Status: Yes Repetition of Three Words: Three (3) Temporal Orientation: Year: Correct (3) Temporal Orientation: Month: Accurate within 5 days(2) Temporal Orientation: Day: Correct (1) Recall : Wear to say "Sock": Yes, no cue required (2) Recall : Color: Yes, no cue required (2) Recall : Bed: Yes, no cue required (2) Speech-Plan Treatment Plan Speech Therapy Treatment Plan: Discontinue ST Evaluation, only. Frequency: Modified Program (IRF) Estimated Hrs Per Day: .25 hour per day (Evaluation, only.) Rehab Potential: Good Safety Risks/Education Teaching Recipient: Patient Teaching Methods: Discussion Response to Teaching: Verbalize Understanding Education Topics Provided: Results, Recommendations, Plan of Care Time Speech Therapy Time In: 08:13 Speech Therapy Time Out: 08:28 Total Billed Time: 15 Billed Treatment Time 1, CARMEN JULIAN Feb 16, 2017 08:37
--- NOTE | 2017-02-16 09:07 | HISTORY AND PHYSICAL ---
DATE OF SERVICE: 02/15/2017 CHIEF COMPLAINT: Difficulty walking. HISTORY OF PRESENT ILLNESS: The patient is a 76-year-old female who had been independent living at her own home in [place], [place] who fell at home while she was going out to exercise class. She sustained a left hip intertrochanteric fracture. She was admitted to [facility] on 02/11. She had been chronically anticoagulated since spine surgery with Coumadin. The INR was reversed and the patient had ORIF with Dr. Blanco on 02/12. Therapies were begun for patient on the surgical floor. The patient was found to be appropriate for inpatient rehabilitation and the patient was thus referred for ongoing care. The patient was followed by hospitalist service, Dr. Mccormack. She had 2 units of packed red blood cells postoperative for anemia. Medications continued for her hypertension. She had postoperative leukocytosis which has resolved. Her Coumadin was resumed. She had postoperative constipation, medications were adjusted. Currently she requires assistance for her ADLs and mobility skills. She is mod assist for transfers and ambulation with apparently a walker. She is right hand dominant. She is modified independent for eating.She is min assist for Upper body dressing and mod assit for lower body dressing and toileting.She is on 02 by N/C postop as supplement PAST MEDICAL HISTORY: Hypertension, hypothyroidism, overactive bladder, back injury. PAST SURGICAL HISTORY: Lumbar fusion 2013, left total knee replacement. ALLERGIES: IV DYE. FAMILY HISTORY: Noncontributory. SOCIAL HISTORY: Lives alone. Had been independent. Lives in an apartment in [place]. PCP: Dr. Uriostegui, [facility]. REVIEW OF SYSTEMS: A 10-point review of systems significant for hip pain. MEDICATIONS: Coumadin 3 mg on Wednesday, Wednesday, Wednesday, Wednesday, Wednesday and 1.5 mg on Wednesday, . Bumex 1 mg p.o. q. day, Ditropan 5 mg p.o. q. day, Synthroid 112 mcg p.o. q. day, Coreg 12.5 mg p.o. b.i.d., Colchicine 0.6 mg p.o. b.i.d., Lactulose 10 gm p.o. b.i.d. - the patient refused, calcium with vitamin D 600 mg p.o. b.i.d., Desenex 1 gm b.i.d. to affected area, Xanax 0.25 mg p.o. q. 8 hours p.r.n. anxiety, Tylenol 500 mg p.o. q. 6 hours p.r.n. mild pain, baclofen 10 mg p.o. t.i.d. p.r.n. mild pain, Lortab 5 1 tablet p.o. q. 4 hours p.r.n. moderate pain. PHYSICAL EXAMINATION: GENERAL: Significant for a pleasant female appearing her stated age lying in bed, no acute distress. VITAL SIGNS: Blood pressure 129/71, O2 sat 90% on 3 liters of O2 by nasal cannula, respirations 19, pulse 80. HEENT: Vision, speech, hearing grossly intact. No oral lesion is noted.02 by N /c in place NECK: Supple without mass. HEART: Regular rhythm. LUNGS: Clear. ABDOMEN: Soft, nontender. Bowel sounds present. EXTREMITIES: Trace edema left ankle, no calf tenderness. MUSCULOSKELETAL: The patient has functional active range of motion bilateral upper extremities, right lower extremity. Left lower extremity not tested due to recent fracture repair. NEUROLOGIC: Cognition grossly intact. Strength both upper limbs 4/5, right lower limb 4/5. Sensation grossly intact to touch. Strength left leg, not tested due to pain but she is able to active dorsi and plantar flex at the left ankle. IMPRESSION: 1. Ambulatory dysfunction secondary to fall with fracture, left intertrochanteric hip fracture status post open reduction internal fixation, Dr. Blanco, 02/12/2017. 2. Postoperative anemia, treated, status post transfusion. 3. Postoperative constipation, treated. 4. Chronic anticoagulation, Coumadin resumed. 5. Prior spine surgery 2013. 6. Osteoporosis. 7. Hypertension, controlled with medication. 8. Prior left total knee replacement. 9. Postop respiratory insufficiency on supplemental 10.DVT prophylaxis-coumadin resumed PLAN: The patient will have a comprehensive program of inpatient orthopedic rehabilitation with goal of maximizing level of functional independence prior to discharge home with home health care and family to assist if needed. The patient will have PT, OT 90 minutes per day each discipline, 5 days a week for 2 weeks for gait, strengthening, conditioning, balance, ADLs, any patient family caregiver training necessary, adaptive equipment training if necessary. Speech therapy to do cognitive assessment and treat as indicated. Rehabilitation nursing to assist with bowel, bladder, skin, wound care, medication administration and pain management. creative services director to assist with discharge planning, community re-entry. Follow up with hospitalist service and orthopedics as per their schedule. Monitor INR and adjust Coumadin as appropriate. Therapy with cardiac full precautions.Wean from 02 as able with resp therapy assistance. Estimated length of stay 2weeks. PROGNOSIS: Rehab prognosis appears good for goal of discharging to home with home health care modified independent to supervision for ADLs and mobility skills. DIET: Regular. CODE STATUS: Full code. Job ID: [id number] DocumentID: [id number] Dictated Date: 02/15/2017 21:37:40 Lead Technician Date: 02/16/2017 09:06:51 Dictated By: ANGELICA YIN MD MTDD
[2017-02-16 09:30] LABS: INR 1.4 (0.8-1.4); PROTHROMBIN TIME PATIENT 16.5 SEC (12.2-14.7)
[2017-02-16] MEDS: VITAMIN A 8,000 UNITS PO SCH ×2 (09:52→16:16)
--- NOTE | 2017-02-16 10:01 | Physical Therapy Daily Note ---
PT Daily Note-Current Subjective Patient in bed pre tx, agrees to PT, has 4/10 pain. Patient needs to get dressed and get brief on. Appearance Patient in recliner post tx with nurse call, phone, tray, all needs met. Mental Status Patient Orientation: Normal For Age Transfers Functional [place] Measure 0=Not Assessed/NA 4=Minimal Assistance 1=Total Assistance 5=Supervision or Setup 2=Maximal Assistance 6=Modified [place] 3=Moderate Assistance 7=Complete IndependenceIRFPAI Quality Coding Scale 6 Independent with activity with or without an assistive device 5 Patient requires set up or clean up by helper. Patient completes activity by themselves 4 Supervision or touching assist (CGA). [place] provide cues , steadying assist 3 The helper provides less than half the effort to complete the activity 2 The helper provides more than half the effort to complete the activity 1 Dependent. The helper does all the effort to complete an activity 7 Patient refused to complete or attempt activity 9 The patient did not perform the activity before the current illness or injury 88 Not attempted due to Medical conditions or safety concerns Transfers (B, C, W/C) (FIM): 2 Scootin Rollin Supine to/from Sit: 2 Sit to/from Stand: 2 Bed to/from Chair: 2 Patient assisted very little with transfers in fact, she resists bed to chair transfers and does not follow directions for hand placement. Patient had to transfer and perform several sit to stands for dressing. Gait Training Gait (FIM): 1 Distance: 3'x3 Gait Level of Assist: 2 Gait Persons Needed: 1 Gait Assistive Device: Parallel Bars Patient ambulated 3'x3 in the parallel bars with max assist, she has difficulty advancing both legs and needs max cues for safety and direction. Wheelchair Training Wheelchair (FIM): 2 Distance: 120' Wheelchair Level of Assist: 4 Type of Wheelchair: Manual Treatments bed mobility and transfers, ambulation, wheelchair mobility Assessment Current Status: Poor Progress no change in mobility, patient resists movement due to pain PT Short Term Goals Short Term Goals Time Frame: Feb 22, 2017 Transfers (B,C,W/C) (FIM): 4 Gait (FIM): 1 Gait Distance Comment: 20' Gait Level of Assist: 4 Gait Assistive Device: FWW Wheelchair Distance: 150' PT Intermediate Goals Intermediate Goals PT Case Liner Goals Time Frame: Mar 08, 2017 Transfers (B,C,W/C) (FIM): 4 (CGA) Sit to Lying (QC): 5 Lying-Sitting on Side/Bed(QC): 5 Sit to Stand (QC): 5 Rollin Roll Left to Right (QC): 5 Chair/[id number]-[id number] Xfer(QC): 5 Car Transfer (QC): 5 Gait (FIM): 2 Distance: 50' Walk 10 feet (QC): 5 Walk 10ft-Uneven Surface(QC): 5 Walk 50ft with 2 Turns (QC): 5 Gait Level of Assist: 4 Gait Assistive Device: FWW Stairs (FIM): 2 # of Steps: 4 1 Step (curb) (QC): 5 4 Steps (QC): 5 Stairs Level Of Assist: 4 PT Plan Problem List Problem List: Activity Tolerance, Functional Strength, Safety, Balance, Gait, Transfer, Bed Mobility, ROM Treatment/Plan Treatment Plan: Continue Plan of Care Treatment Plan: Bed Mobility, Education, Functional Activity [place], Functional Strength, Group Therapy, Gait, Safety, Therapeutic Exercise, Transfers Treatment Duration: Mar 08, 2017 Frequency: At least 5-7 days/Wk (IRF) Estimated Hrs Per Day: 1.5 hours per day Patient and/or Family Agrees t: Yes Safety Risks/Education Patient Education: Gait Training, Transfer Techniques, Correct Positioning, W/ C Management, Safety Issues Teaching Recipient: Patient Teaching Methods: Demonstration, Discussion Response to Teaching: Reinforcement Needed Time/GCodes Time In: 900 Time Out: 1000 Total Billed Treatment Time: 60 Total Billed Treatment 1 visit FA 20' GT 30' WC 10' DEMETRI RICHMOND PT Feb 16, 2017 10:00
[2017-02-16 10:35] LABS: INR 1.4 (0.8-1.4); PROTHROMBIN TIME PATIENT 16.8 SEC (12.2-14.7)
--- NOTE | 2017-02-16 11:17 | PM & R (SOAP) Progress Note ---
Subjective Time Seen by Provider: 08:05 Subjective/Events-last exam Patient was seen in her room this AM Patient Mod assist for transfers INR 1.4 today Patient adjusting well to unit Patient remains on supplemental 02 Didnt have at home. Objective Exam Last Set of Vital Signs Vital Signs Date Time Temp Pulse Resp B/P (MAP) Pulse Ox O2 Delivery O2 Flow Rate FiO2 02/16/17 09:00 Room Air 02/16/17 05:05 98.4 81 18 110/72 95 3.00 Capillary Refill : I&O Bad tableGeneral: Alert, Oriented X3, Cooperative, No Acute Distress HEENT: Atraumatic, PERRLA, EOMI, Mucous Memb Moist/[place] Neck: Supple, No JVD Lungs: Clear to Auscultation Heart: Regular Rate Abdomen: Normal Bowel Sounds, Soft, No Tenderness Extremities: Other (trace edema left ankle) Neuro: Other (strength 4/5 BUES and RUE Left leg impaired due to recent frx and repair) Results Lab Laboratory Tests 02/16/17 09:05: Prothrombin Time 16.5H, INR Comment 1.4 02/16/17 10:12: Prothrombin Time 16.8H, INR Comment 1.4 Assessment/Plan Assessment Left intertrochanteric hip frx s/p fall with reapur Orthopedics Postop resp insufficiency on supplemental 02 Postop anemia Chronic anticoagulation Coumadin resumed HTN controlled with meds Prior Lumbar spine surgery Postop constipation treated Prior Left TKR Plan Continue PT/OT Adjust Coumadin as needed to facilitate Therapeutic INR WEan from 02 as able Team Conference tomorrow 02/17/17 ANGELICA YIN MD Feb 16, 2017 11:17
--- NOTE | 2017-02-16 11:42 | Occupational Ther Daily Note ---
OT Current Status-Daily Note Subjective Pt seen inroom, up in recliner, agreeable to OT. No pain mentioned and she did not want anything for pain when asked. Appearance Alert, cooperative, very excited about taking steps with PT this morning. Mental Status/Objective Functional [place] Measure 0=Not Assessed/NA 4=Minimal Assistance 1=Total Assistance 5=Supervision or Setup 2=Maximal Assistance 6=Modified [place] 3=Moderate Assistance 7=Complete [place] ADL-Treatment ADLs took longer than usual due to pt educ on us of assistive devices. Pt pleased with progress, especially with standing during ADLs. Pt left up in recliner, sister present, all needs met. Functional [place] Measure 0=Not Assessed/NA 4=Minimal Assistance 1=Total Assistance 5=Supervision or Setup 2=Maximal Assistance 6=Modified [place] 3=Moderate Assistance 7=Complete IndependenceIRFPAI Quality Coding Scale 6 Independent with activity with or without an assistive device 5 Patient requires set up or clean up by helper. Patient completes activity by themselves 4 Supervision or touching assist (CGA). [place] provide cues , steadying assist 3 The helper provides less than half the effort to complete the activity 2 The helper provides more than half the effort to complete the activity 1 Dependent. The helper does all the effort to complete an activity 7 Patient refused to complete or attempt activity 9 The patient did not perform the activity before the current illness or injury 88 Not attempted due to Medical conditions or safety concerns Grooming (FIM): 5 (Washed face and hands during sponge bath. Brushed teeth with setup. Brushed hair setup.) Bathing (FIM): 4 (Pt was able to wash more body parts today and to wash down both legs to feet. Min assist sit to stand but with cues for hand placement, FWW. Able to turn one hand loose at a time to wash lovely and bottom, with encouragement) Bathing Location: L Arm, R Arm, L Upper Leg, R Upper Leg, Chest, Abdomen, Buttocks, Perineal Area Upper Body (FIM): 5 (Doffed and donned shirt with setup) Lower Body Dressing (FIM): 3 (Help to get pants and depends over L foot, help to pull pants up over hips. Pt educ use of sock aid to don slipper socks and use of dressing stick. Stood min assist for pants up and down. FWW. ) Toileting (FIM): 3 (Able to wipe and pull pants down, one side at a time. Help to pull pants up over hips. BSC, FWW) Toilet/Commode Transfer (FIM): 3 (Min-mod assist, FWW, verbal cues for walker management and not to sit down until in position. Small, slow steps to turn) Education OT Patient Education: Modified ADL techniques, Progress toward Goal/Update tx plan, Purpose of tx/functional activities, Transfer techniques, Use of adapted equipment Teaching Recipient: Patient Teaching Methods: Demonstration, Discussion Response to Teaching: Verbalize Understanding, Return Demonstration, Reinforcement Needed OT Short Term Goals Short Term Goals Time Frame: Feb 22, 2017 Lower Body Dressing(FIM): 3 Toileting(FIM): 3 Transfers (B,C,W/C) (FIM): 4 Toilet/Commode Transfer(FIM): 3 Additional Short Term Goals: 1-Demonstrate ADL Tasks, 2-Verbalize Understanding , 3-ImproveStrength/[place] 1=Demonstrate adherence to instructed precautions during ADL tasks. 2=Patient will verbalize/demonstrate understanding of assistive devices/ modifications for ADL. 3=Patient will improve strength/tolerance for activity to enable patient to perform ADL's. OT Chemical Production Technician Goals Chemical Production Technician Goals Time Frame: Mar 08, 2017 Eating (FIM): 6 Eating (QC): 6 Groomin Oral Hygiene (QC): 6 Bathing(FIM): 6 Shower/Bathe Self (QC): 6 Upper Body Dressing(FIM): 6 Upper Body Dressing (QC): 6 Lower Body Dressing(FIM): 6 Lower Body Dressing (QC): 6 On/Off Footwear (QC): 6 Toileting(FIM): 6 Toileting Hygiene (QC): 6 Toilet/Commode Transfer(FIM): 6 Toilet/Commode Transfer (QC): 6 Shower Transfer(FIM): 6 Additional Goals: 1-Demonstrate ADL Tasks, 2-Verbalize Understanding, 3- ImproveStrength/[place] 1=Demonstrate adherence to instructed precautions during ADL tasks. 2=Patient will verbalize/demonstrate understanding of assistive devices/ modifications for ADL. 3=Patient will improve strength/tolerance for activity to enable patient to perform ADL's. OT Education/Plan Problem List/Assessment Pt would benefit from skilled OT to increase her independence in basic self care to allow her to safely return to her home to live alone and to decrease caregiver burden Discharge Recommendations Plan/Recommendations: Continue POC Treatment Plan/Plan of Care Patient would benefit from OT for education, treatment and training to promote independence in ADL's, mobility, safety and/or upper extremity function for ADL' s. Plan of Care: ADL Retraining, Functional Mobility, Group Exercise/Act as Ind ( education, exercise, activity tolerance, funct activities), UE Funct Exercise/ Act, UE Neuromus Re-Ed/Coord Treatment Duration: Mar 08, 2017 Frequency: At least 5-7 days/Wk (IRF) Estimated Hrs Per Day: 1.5 hours per day Agreement: Yes Rehab Potential: Good Time/GCodes Start Time: 10:30 Stop Time: 11:30 Total Time Billed (hr/min): 60 Billed Treatment Time visit, 60 minutes ADL CONY WHITNEY OT Feb 16, 2017 11:42
--- NOTE | 2017-02-16 13:32 | Physical Therapy Daily Note ---
PT Daily Note-Current Subjective Patient in recliner pre tx, agrees to PT, has pain of 5/10 left hip. Appearance Patient in wheelchair in therapy gym post tx, has OT right after PT Mental Status Patient Orientation: Normal For Age Transfers Functional [place] Measure 0=Not Assessed/NA 4=Minimal Assistance 1=Total Assistance 5=Supervision or Setup 2=Maximal Assistance 6=Modified [place] 3=Moderate Assistance 7=Complete IndependenceIRFPAI Quality Coding Scale 6 Independent with activity with or without an assistive device 5 Patient requires set up or clean up by helper. Patient completes activity by themselves 4 Supervision or touching assist (CGA). [place] provide cues , steadying assist 3 The helper provides less than half the effort to complete the activity 2 The helper provides more than half the effort to complete the activity 1 Dependent. The helper does all the effort to complete an activity 7 Patient refused to complete or attempt activity 9 The patient did not perform the activity before the current illness or injury 88 Not attempted due to Medical conditions or safety concerns Transfers (B, C, W/C) (FIM): 3 Sit to/from Stand: 3 Bed to/from Chair: 3 Patient was able to move her feet a little better this afternoon. Exercises NuStep Minutes: 15 NuStep Workload: 3 (LE strengthening and ROM to imrprove ambulation and transfers) Treatments transfers, functional strengthening Assessment Current Status: Fair Progress improved transfer PT Short Term Goals Short Term Goals Time Frame: Feb 22, 2017 Transfers (B,C,W/C) (FIM): 4 Gait (FIM): 1 Gait Distance Comment: 20' Gait Level of Assist: 4 Gait Assistive Device: FWW Wheelchair Distance: 120' PT Stenographic Court Reporter Goals Care Home Goals PT Stenographic Court Reporter Goals Time Frame: Mar 08, 2017 Transfers (B,C,W/C) (FIM): 4 (CGA) Sit to Lying (QC): 5 Lying-Sitting on Side/Bed(QC): 5 Sit to Stand (QC): 5 Rollin Roll Left to Right (QC): 5 Chair/Ykr-xe-Oxmnc Xfer(QC): 5 Car Transfer (QC): 5 Gait (FIM): 2 Distance: 50' Walk 10 feet (QC): 5 Walk 10ft-Uneven Surface(QC): 5 Walk 50ft with 2 Turns (QC): 5 Gait Level of Assist: 4 Gait Assistive Device: FWW Stairs (FIM): 2 # of Steps: 4 1 Step (curb) (QC): 5 4 Steps (QC): 5 Stairs Level Of Assist: 4 PT Plan Problem List Problem List: Activity Tolerance, Functional Strength, Safety, Balance, Gait, Transfer, Bed Mobility, ROM Treatment/Plan Treatment Plan: Continue Plan of Care Treatment Plan: Bed Mobility, Education, Functional Activity [place], Functional Strength, Group Therapy, Gait, Safety, Therapeutic Exercise, Transfers Treatment Duration: Mar 08, 2017 Frequency: At least 5-7 days/Wk (IRF) Estimated Hrs Per Day: 1.5 hours per day Patient and/or Family Agrees t: Yes Safety Risks/Education Patient Education: Transfer Techniques, Correct Positioning, Safety Issues Teaching Recipient: Patient Teaching Methods: Demonstration, Discussion Response to Teaching: Reinforcement Needed Time/GCodes Time In: 1300 Time Out: 1330 Total Billed Treatment Time: 30 Total Billed Treatment 1 visit EX 15' FA 15' DEMETRI RICHMOND PT Feb 16, 2017 13:32
--- NOTE | 2017-02-16 14:43 | Occupational Ther Daily Note ---
OT Current Status-Daily Note Subjective Pt was seen in gym after PT, up in w/c. Agreeable to OT. No pain mentioned. Mental Status/Objective Functional [place] Measure 0=Not Assessed/NA 4=Minimal Assistance 1=Total Assistance 5=Supervision or Setup 2=Maximal Assistance 6=Modified [place] 3=Moderate Assistance 7=Complete [place] ADL-Treatment Functional [place] Measure 0=Not Assessed/NA 4=Minimal Assistance 1=Total Assistance 5=Supervision or Setup 2=Maximal Assistance 6=Modified [place] 3=Moderate Assistance 7=Complete IndependenceIRFPAI Quality Coding Scale 6 Independent with activity with or without an assistive device 5 Patient requires set up or clean up by helper. Patient completes activity by themselves 4 Supervision or touching assist (CGA). [place] provide cues , steadying assist 3 The helper provides less than half the effort to complete the activity 2 The helper provides more than half the effort to complete the activity 1 Dependent. The helper does all the effort to complete an activity 7 Patient refused to complete or attempt activity 9 The patient did not perform the activity before the current illness or injury 88 Not attempted due to Medical conditions or safety concerns Toileting (FIM): 3 (Pt was able to manage getting pants down but needed help to get them back up over hips, CGA, FWW. Pt managed hygiene with setup. BSC over toilet) Transfers (B, C, W/C) (FIM): 4 (From BSC to recliner. Pt did not sit until she was correctly in position and reached back without cues. FWW. Transfer twice as fast as this morning. ) Toilet/Commode Transfer (FIM): 4 (Skilled cues for hand placement but pt did not sit until she was in the correct position. Tsfr from w/c to BSC. Transfer twice as fast as this morning. ) Other Treatment Pt did 12 minutes bilat UE exercise on arm bike set at 15W resistance, with only brief breaks to get a drink. Exercise to help strengthen arms to help with transfers. Pt taken back to room to toilet, then left up in recliner, all needs met. pt did not request for her O2 during tx. Education OT Patient Education: Exercise program, Modified ADL techniques, Progress toward Goal/Update tx plan, Purpose of tx/functional activities, Safety issues, Transfer techniques, Use of adapted equipment Teaching Recipient: Patient Teaching Methods: Demonstration, Discussion Response to Teaching: Verbalize Understanding, Return Demonstration OT Short Term Goals Short Term Goals Time Frame: Feb 22, 2017 Lower Body Dressing(FIM): 3 Toileting(FIM): 3 Transfers (B,C,W/C) (FIM): 4 Toilet/Commode Transfer(FIM): 3 Additional Short Term Goals: 1-Demonstrate ADL Tasks, 2-Verbalize Understanding , 3-ImproveStrength/[place] 1=Demonstrate adherence to instructed precautions during ADL tasks. 2=Patient will verbalize/demonstrate understanding of assistive devices/ modifications for ADL. 3=Patient will improve strength/tolerance for activity to enable patient to perform ADL's. OT Mcfp Goals Mcfp Goals Time Frame: Mar 08, 2017 Eating (FIM): 6 Eating (QC): 6 Groomin Oral Hygiene (QC): 6 Bathing(FIM): 6 Shower/Bathe Self (QC): 6 Upper Body Dressing(FIM): 6 Upper Body Dressing (QC): 6 Lower Body Dressing(FIM): 6 Lower Body Dressing (QC): 6 On/Off Footwear (QC): 6 Toileting(FIM): 6 Toileting Hygiene (QC): 6 Toilet/Commode Transfer(FIM): 6 Toilet/Commode Transfer (QC): 6 Shower Transfer(FIM): 6 Additional Goals: 1-Demonstrate ADL Tasks, 2-Verbalize Understanding, 3- ImproveStrength/[place] 1=Demonstrate adherence to instructed precautions during ADL tasks. 2=Patient will verbalize/demonstrate understanding of assistive devices/ modifications for ADL. 3=Patient will improve strength/tolerance for activity to enable patient to perform ADL's. OT Education/Plan Problem List/Assessment Pt would benefit from skilled OT to increase her independence in basic self care to allow her to safely return to her home to live alone and to decrease caregiver burden Discharge Recommendations Plan/Recommendations: Continue POC Treatment Plan/Plan of Care Patient would benefit from OT for education, treatment and training to promote independence in ADL's, mobility, safety and/or upper extremity function for ADL' s. Plan of Care: ADL Retraining, Functional Mobility, Group Exercise/Act as Ind ( education, exercise, activity tolerance, funct activities), UE Funct Exercise/ Act, UE Neuromus Re-Ed/Coord Treatment Duration: Mar 08, 2017 Frequency: At least 5-7 days/Wk (IRF) Estimated Hrs Per Day: 1.5 hours per day Agreement: Yes Rehab Potential: Good Time/GCodes Start Time: 13:35 Stop Time: 14:05 Total Time Billed (hr/min): 30 Billed Treatment Time visit, 20 minutes exercise, 10 minutes ADL CONY WHITNEY OT Feb 16, 2017 14:43
[2017-02-16] MEDS: warFARin 3 MG (COUMADIN) TAB PO SCH (17:16)
[2017-02-16 18:16] VITALS: BP 131/75
[2017-02-17] MEDS: VITAMIN A 8,000 UNITS PO SCH ×2 (06:16→17:29)
[2017-02-17] MEDS: LEVOTHYROXINE 112 MCG (LEVOTHROID) TAB PO SCH (06:16)
[2017-02-17 06:23] VITALS: BP 122/72
[2017-02-17 06:48] LABS: INR 1.5 (0.8-1.4); PROTHROMBIN TIME PATIENT 18.1 SEC (12.2-14.7)
[2017-02-17 08:15] VITALS: BP 133/76
[2017-02-17] MEDS: BUMETANIDE 1 MG (BUMEX) TAB PO SCH (08:18)
[2017-02-17] MEDS: OXYBUTYNIN (DITROPAN) 5 MG TAB PO SCH (08:18)
[2017-02-17] MEDS: LACTULOSE SYRUP 10GM/15ML (ENULOSE) 30ML UDC PO SCH ×2 (08:18→20:22)
[2017-02-17] MEDS: COLCHICINE 0.6 MG (COLCRYS) TABLET PO SCH ×2 (08:18→20:22)
[2017-02-17] MEDS: CALCIUM CARB + VIT D 600 MG (CALCARB + D) TAB PO SCH ×2 (08:18→20:22)
[2017-02-17] MEDS: CARVEDILOL 12.5 MG (COREG) TABLET PO SCH ×2 (08:18→20:22)
[2017-02-17] MEDS: HYDROcodone/APAP 5 MG/325 MG (LORTAB) TAB PO PRN (08:18)
[2017-02-17] MEDS: MICONAZOLE 2% POWDER (DESENEX AF) 90 GM TOP SCH ×2 (08:22→20:23)
--- NOTE | 2017-02-17 08:25 | PM & R (SOAP) Progress Note ---
Subjective Time Seen by Provider: 07:55 Subjective/Events-last exam Patient was seen in her room this AM Patient Mod asssist for transfers Weaning from postop down to 1 liter per minute by N/C INR 1.5 climbing Objective Exam Last Set of Vital Signs Vital Signs Date Time Temp Pulse Resp B/P (MAP) Pulse Ox O2 Delivery O2 Flow Rate FiO2 02/17/17 08:15 82 133/76 02/17/17 07:56 Nasal Cannula 1.00 02/17/17 06:23 98.3 18 93 Capillary Refill : I&O Intake and Output 02/17/17 00:00 Intake Total 920 ml Balance 920 ml Intake Oral 920 ml # Voids 3 # Bowel Movements 1 General: Alert, Oriented X3, Cooperative, No Acute Distress HEENT: Atraumatic, PERRLA, EOMI, Mucous Memb Moist/[place] Neck: Supple, No JVD Lungs: Clear to Auscultation Heart: Regular Rate Abdomen: Normal Bowel Sounds, Soft, No Tenderness Extremities: Other (trace edema left ankle) Neuro: Other (strength 4/5 BUES and RUE Left leg impaired due to recent frx and repair) Results Lab Laboratory Tests 02/16/17 09:05: Prothrombin Time 16.5H, INR Comment 1.4 02/16/17 10:12: Prothrombin Time 16.8H, INR Comment 1.4 02/17/17 06:30: Prothrombin Time 18.1H, INR Comment 1.5H Assessment/Plan Assessment Left intertrochanteric hip frx s/p fall with reapur Orthopedics Postop resp insufficiency on supplemental 02 Postop anemia Chronic anticoagulation Coumadin resumed HTN controlled with meds Prior Lumbar spine surgery Postop constipation treated Prior Left TKR Plan Continue PT/OT Adjust Coumadin as needed to facilitate Therapeutic INR WEan from as able Team Conference later today See report for full functional update and POC and ANGEILCA GILES MD Feb 17, 2017 08:25
[2017-02-17] MEDS ORDERED: warFARin 5 MG (COUMADIN) TAB PO NR (09:45)
--- NOTE | 2017-02-17 10:41 | Progress Note-Hospitalist ---
Progress Note Progress Notes/Assess & Plan Date Seen 02/17/17 Time Seen by Provider: 10:15 Diagonsis/Assessment & Plan Chart Review: No fever Vitals stable INR 1.5 Will check CBC, CMP, INR tomorrow Currently on 3 mg alternating with 1.5 Will give additional dose Coumadin 5 mg now Patient Interview: Pt looks good today and pt feels better. Pt was sitting up upon interview Pt is excited that she had a BM today Pt states that she had a pain pill before PT today I informed pt that she will be on a higher dose of blood thinner. We discussed her concerns Physical exam stable. Lungs sound perfect AFVSS, Pleasant, improved, sister at bedside RRR, CTAB Assessment: Acute left hip fracture status post uncomplicated repair Postop anemia requiring 2 units of blood due to her symptomatic status HTN Leukocytosis likely due to stress response of surgery- resolved Spine surgery 2013 and placed on Coumadin and maintained since that time to "prevent blood clots" without known h/o clots s/p 1 unit of FFP and Vit K 2.5mg PO Osteoporosis Post op constipation Plan: Coumadin 5 mg x 1 Continue PT Continue pain meds prn Scribed by Ariane Knott under the direct supervision of Dr. Mccormack. HARRIS MCCORMACK DO Feb 17, 2017 10:41
--- NOTE | 2017-02-17 11:30 | Physical Therapy Daily Note ---
PT Daily Note-Current Subjective Pt laying supine in bed upon arrival. Pt reports 4/10 pain at rest but will get higher with activity. Pt agrees to PT. Pain Numeric Pain Scale: 4 Location: Incisional, Left Location Body Site: Thigh Pain Description: Ache Mental Status Patient Orientation: Person, Place, Time, Situation Transfers Functional [place] Measure 0=Not Assessed/NA 4=Minimal Assistance 1=Total Assistance 5=Supervision or Setup 2=Maximal Assistance 6=Modified [place] 3=Moderate Assistance 7=Complete IndependenceIRFPAI Quality Coding Scale 6 Independent with activity with or without an assistive device 5 Patient requires set up or clean up by helper. Patient completes activity by themselves 4 Supervision or touching assist (CGA). [place] provide cues , steadying assist 3 The helper provides less than half the effort to complete the activity 2 The helper provides more than half the effort to complete the activity 1 Dependent. The helper does all the effort to complete an activity 7 Patient refused to complete or attempt activity 9 The patient did not perform the activity before the current illness or injury 88 Not attempted due to Medical conditions or safety concerns Scootin Rollin Roll Left to Right (QC): 4 Supine to/from Sit: 4 Sit to/from Stand: 4 Sit to Stand (QC): 4 Bed to/from Chair: 4 Weight Bearing Weight Bearing Restriction: Full Weight Bearing Location Restriction: LE Bilateral Pt moves with slow and guarded gait pattern due to pain and anxiousness. Wheelchair Training Does the Pt Use a Wheelchair?: Yes Wheelchair Distance: 3=150 ft Distance: 150' Wheelchair Level of Assist: 4 Wheel 50 ft with 2 turns (QC): 4 Wheel 150 ft (QC): 4 Type of Wheelchair: Manual Exercises Seated Therapy Exercises: Ankle pumps, Long arc quads, Hip flexion, Kicking activity Seated Reps: 10 NuStep Minutes: 15 NuStep Workload: 3 Treatments TRF using FWW to [facility] at CGA-Min A, uses restroom w/ Min A for TRF and lovely care , propels WC at Min A for occasional adjustments, NuStep for 15m at Workload 3 , Seated Ex from [facility] Assessment Current Status: Fair Progress Pt fatigues easy and moves slow and guarded. PT Short Term Goals Short Term Goals Time Frame: Feb 22, 2017 Transfers (B,C,W/C) (FIM): 4 Gait (FIM): 1 Gait Distance Comment: 20' Gait Level of Assist: 4 Gait Assistive Device: FWW Wheelchair Distance: 120' PT Custodial Goals Furnace Attendant Goals PT Custodial Goals Time Frame: Mar 08, 2017 Transfers (B,C,W/C) (FIM): 4 (CGA) Sit to Lying (QC): 5 Lying-Sitting on Side/Bed(QC): 5 Sit to Stand (QC): 5 Rollin Roll Left to Right (QC): 5 Chair/Cno-tx-[place] Xfer(QC): 5 Car Transfer (QC): 5 Gait (FIM): 2 Distance: 50' Walk 10 feet (QC): 5 Walk 10ft-Uneven Surface(QC): 5 Walk 50ft with 2 Turns (QC): 5 Gait Level of Assist: 4 Gait Assistive Device: FWW Stairs (FIM): 2 # of Steps: 4 1 Step (curb) (QC): 5 4 Steps (QC): 5 Stairs Level Of Assist: 4 PT Plan Problem List Problem List: Activity Tolerance, Functional Strength, Safety, Balance, Gait, Transfer, Bed Mobility Treatment/Plan Treatment Plan: Continue Plan of Care Treatment Plan: Bed Mobility, Education, Functional Activity [place], Functional Strength, Group Therapy, Gait, Safety, Therapeutic Exercise, Transfers Treatment Duration: Mar 08, 2017 Frequency: At least 5-7 days/Wk (IRF) Estimated Hrs Per Day: 1.5 hours per day Patient and/or Family Agrees t: Yes Safety Risks/Education Patient Education: Gait Training, Transfer Techniques, Correct Positioning, W/ C Management, Safety Issues Teaching Recipient: Patient Teaching Methods: Discussion Response to Teaching: Verbalize Understanding Time/GCodes Time In: 805 Time Out: 905 Total Billed Treatment Time: 60 Total Billed Treatment visit, FA x2 (30m), EX (15m) & WCH (15m) RBANDEN GUZMAN CONDEMNATION ENGINEER Feb 17, 2017 11:30
--- NOTE | 2017-02-17 12:28 | Occupational Ther Daily Note ---
OT Current Status-Daily Note Subjective Pt seen in room, up in w/c, agreeable to OT. Looking forward to shower Appearance Alert, cooperative, very motivated Mental Status/Objective Functional [place] Measure 0=Not Assessed/NA 4=Minimal Assistance 1=Total Assistance 5=Supervision or Setup 2=Maximal Assistance 6=Modified [place] 3=Moderate Assistance 7=Complete [place] ADL-Treatment Functional [place] Measure 0=Not Assessed/NA 4=Minimal Assistance 1=Total Assistance 5=Supervision or Setup 2=Maximal Assistance 6=Modified [place] 3=Moderate Assistance 7=Complete IndependenceIRFPAI Quality Coding Scale 6 Independent with activity with or without an assistive device 5 Patient requires set up or clean up by helper. Patient completes activity by themselves 4 Supervision or touching assist (CGA). [place] provide cues , steadying assist 3 The helper provides less than half the effort to complete the activity 2 The helper provides more than half the effort to complete the activity 1 Dependent. The helper does all the effort to complete an activity 7 Patient refused to complete or attempt activity 9 The patient did not perform the activity before the current illness or injury 88 Not attempted due to Medical conditions or safety concerns Grooming (FIM): 5 (Brushed teeth and combed hair at sink, seated in w/c. Washed face and hands in shower) Bathing (FIM): 5 (Washed and dried all parts, washing bottom while seated on shower bench but drying it while standing. Shower bench, grab bars, hand held shower. Setup.) Upper Body (FIM): 5 (Setup to don shirt) Lower Body Dressing (FIM): 3 (Help with slipper socks. Able to get slipper socks off with dressing stick, cues. Able to don Depends and slacks using dressing stick. Min assist to stand, then able to turn one hand loose of walker to help pull them up (help needed to get pants over hips)) Transfers (B, C, W/C) (FIM): 4 (Min assist moving from w/c to recliner, skilled cues to not sit too soon. FWW. Tiny steps, slow with difficulty with weight shifting) Shower Transfer(FIM): 3 (Mod assist, to and from w/c and shower bench, grab bars) OT Short Term Goals Short Term Goals Time Frame: Feb 22, 2017 Lower Body Dressing(FIM): 3 Toileting(FIM): 3 Transfers (B,C,W/C) (FIM): 4 Toilet/Commode Transfer(FIM): 3 Additional Short Term Goals: 1-Demonstrate ADL Tasks, 2-Verbalize Understanding , 3-ImproveStrength/[place] 1=Demonstrate adherence to instructed precautions during ADL tasks. 2=Patient will verbalize/demonstrate understanding of assistive devices/ modifications for ADL. 3=Patient will improve strength/tolerance for activity to enable patient to perform ADL's. OT Thermostat Repairer Goals Correction Goals Time Frame: Mar 08, 2017 Eating (FIM): 6 Eating (QC): 6 Groomin Oral Hygiene (QC): 6 Bathing(FIM): 6 Shower/Bathe Self (QC): 6 Upper Body Dressing(FIM): 6 Upper Body Dressing (QC): 6 Lower Body Dressing(FIM): 6 Lower Body Dressing (QC): 6 On/Off Footwear (QC): 6 Toileting(FIM): 6 Toileting Hygiene (QC): 6 Toilet/Commode Transfer(FIM): 6 Toilet/Commode Transfer (QC): 6 Shower Transfer(FIM): 6 Additional Goals: 1-Demonstrate ADL Tasks, 2-Verbalize Understanding, 3- ImproveStrength/[place] 1=Demonstrate adherence to instructed precautions during ADL tasks. 2=Patient will verbalize/demonstrate understanding of assistive devices/ modifications for ADL. 3=Patient will improve strength/tolerance for activity to enable patient to perform ADL's. OT Education/Plan Problem List/Assessment Pt would benefit from skilled OT to increase her independence in basic self care to allow her to safely return to her home to live alone and to decrease caregiver burden Discharge Recommendations Plan/Recommendations: Continue POC Treatment Plan/Plan of Care Patient would benefit from OT for education, treatment and training to promote independence in ADL's, mobility, safety and/or upper extremity function for ADL' s. Plan of Care: ADL Retraining, Functional Mobility, Group Exercise/Act as Ind ( education, exercise, activity tolerance, funct activities), UE Funct Exercise/ Act, UE Neuromus Re-Ed/Coord Treatment Duration: Mar 08, 2017 Frequency: At least 5-7 days/Wk (IRF) Estimated Hrs Per Day: 1.5 hours per day Agreement: Yes Rehab Potential: Good Time/GCodes Start Time: 10:30 Stop Time: 11:30 Total Time Billed (hr/min): 60 Billed Treatment Time visit, 60 minutes ADL CONY WHITNEY OT Feb 17, 2017 12:27
--- NOTE | 2017-02-17 15:02 | Occupational Ther Daily Note ---
OT Current Status-Daily Note Subjective Pt was seen in gym, finished up PT. No pain mentioned. Appearance Alert, cooperative Mental Status/Objective Functional [place] Measure 0=Not Assessed/NA 4=Minimal Assistance 1=Total Assistance 5=Supervision or Setup 2=Maximal Assistance 6=Modified [place] 3=Moderate Assistance 7=Complete [place] ADL-Treatment Functional [place] Measure 0=Not Assessed/NA 4=Minimal Assistance 1=Total Assistance 5=Supervision or Setup 2=Maximal Assistance 6=Modified [place] 3=Moderate Assistance 7=Complete IndependenceIRFPAI Quality Coding Scale 6 Independent with activity with or without an assistive device 5 Patient requires set up or clean up by helper. Patient completes activity by themselves 4 Supervision or touching assist (CGA). [place] provide cues , steadying assist 3 The helper provides less than half the effort to complete the activity 2 The helper provides more than half the effort to complete the activity 1 Dependent. The helper does all the effort to complete an activity 7 Patient refused to complete or attempt activity 9 The patient did not perform the activity before the current illness or injury 88 Not attempted due to Medical conditions or safety concerns Other Treatment Pt propelled w/c to table and locked brakes without cues. Pt did 13 minutes bilat UE exercise with arm bike set at 15W resistance (increased 1 minute), taking only brief breaks to get a drink of water. Exercise to strengthen arms for transfers and standing during ADLs. Pt transported back to room per w/c. Skilled cues and instructions fo sit to stand to get back into bed. Has difficulty at mid point, transferring arms from w/c to walker. Slow stand pivot transfer with CGA, skilled cues to not sit too soon. Once sitting, needed help to get L leg into bed. Help to flex L hip/knee to scoot bottom over in bed. SCDs applied. Pt left up in bed, all needs met. Education OT Patient Education: Exercise program, Purpose of tx/functional activities, Transfer techniques Teaching Recipient: Patient Teaching Methods: Discussion Response to Teaching: Verbalize Understanding, Return Demonstration, Reinforcement Needed OT Short Term Goals Short Term Goals Time Frame: Feb 22, 2017 Lower Body Dressing(FIM): 3 Toileting(FIM): 3 Transfers (B,C,W/C) (FIM): 4 Toilet/Commode Transfer(FIM): 3 Additional Short Term Goals: 1-Demonstrate ADL Tasks, 2-Verbalize Understanding , 3-ImproveStrength/[place] 1=Demonstrate adherence to instructed precautions during ADL tasks. 2=Patient will verbalize/demonstrate understanding of assistive devices/ modifications for ADL. 3=Patient will improve strength/tolerance for activity to enable patient to perform ADL's. OT Discovery Guide Goals Discovery Guide Goals Time Frame: Mar 08, 2017 Eating (FIM): 6 Eating (QC): 6 Groomin Oral Hygiene (QC): 6 Bathing(FIM): 6 Shower/Bathe Self (QC): 6 Upper Body Dressing(FIM): 6 Upper Body Dressing (QC): 6 Lower Body Dressing(FIM): 6 Lower Body Dressing (QC): 6 On/Off Footwear (QC): 6 Toileting(FIM): 6 Toileting Hygiene (QC): 6 Toilet/Commode Transfer(FIM): 6 Toilet/Commode Transfer (QC): 6 Shower Transfer(FIM): 6 Additional Goals: 1-Demonstrate ADL Tasks, 2-Verbalize Understanding, 3- ImproveStrength/[place] 1=Demonstrate adherence to instructed precautions during ADL tasks. 2=Patient will verbalize/demonstrate understanding of assistive devices/ modifications for ADL. 3=Patient will improve strength/tolerance for activity to enable patient to perform ADL's. OT Education/Plan Problem List/Assessment Pt would benefit from skilled OT to increase her independence in basic self care to allow her to safely return to her home to live alone and to decrease caregiver burden Discharge Recommendations Plan/Recommendations: Continue POC Treatment Plan/Plan of Care Patient would benefit from OT for education, treatment and training to promote independence in ADL's, mobility, safety and/or upper extremity function for ADL' s. Plan of Care: ADL Retraining, Functional Mobility, Group Exercise/Act as Ind ( education, exercise, activity tolerance, funct activities), UE Funct Exercise/ Act, UE Neuromus Re-Ed/Coord Treatment Duration: Mar 08, 2017 Frequency: At least 5-7 days/Wk (IRF) Estimated Hrs Per Day: 1.5 hours per day Agreement: Yes Rehab Potential: Good Time/GCodes Start Time: 13:30 Stop Time: 14:00 Total Time Billed (hr/min): 30 Billed Treatment Time visit, 20 minutes exercise, 10 minutes functional activity CONY WHITNEY OT Feb 17, 2017 15:02
--- NOTE | 2017-02-17 15:27 | Physical Therapy Daily Note ---
PT Daily Note-Current Subjective Pt sitting in recliner upon arrival. Pt agrees to PT. Pain Numeric Pain Scale: 4 Location: Left Location Body Site: Hip Pain Description: Ache, Tightness Mental Status Patient Orientation: Person, Place, Situation Transfers Functional [place] Measure 0=Not Assessed/NA 4=Minimal Assistance 1=Total Assistance 5=Supervision or Setup 2=Maximal Assistance 6=Modified [place] 3=Moderate Assistance 7=Complete IndependenceIRFPAI Quality Coding Scale 6 Independent with activity with or without an assistive device 5 Patient requires set up or clean up by helper. Patient completes activity by themselves 4 Supervision or touching assist (CGA). [place] provide cues , steadying assist 3 The helper provides less than half the effort to complete the activity 2 The helper provides more than half the effort to complete the activity 1 Dependent. The helper does all the effort to complete an activity 7 Patient refused to complete or attempt activity 9 The patient did not perform the activity before the current illness or injury 88 Not attempted due to Medical conditions or safety concerns Scootin Sit to/from Stand: 4 Sit to Stand (QC): 4 Weight Bearing Weight Bearing Restriction: Full Weight Bearing Location Restriction: LE Bilateral Wheelchair Training Does the Pt Use a Wheelchair?: Yes Wheelchair Distance: 3=150 ft Distance: 150' Wheelchair Level of Assist: 4 Wheel 50 ft with 2 turns (QC): 4 Wheel 150 ft (QC): 3 Type of Wheelchair: Manual Pt fatigues easy. Exercises Seated Therapy Exercises: Ankle pumps, Long arc quads, Hip flexion, Kicking activity Seated Reps: 15 Treatments Pt transfers to [facility] from recliner using SPT at Min A. Pt uses restroom before leaving room. Pt completes Seated Ex in [facility]. Pt sees OT right after PT tx completes. Assessment Current Status: Fair Progress Pt fatigues easy and continues to report pain which limits movement. PT Short Term Goals Short Term Goals Time Frame: Feb 22, 2017 Transfers (B,C,W/C) (FIM): 4 Gait (FIM): 1 Gait Distance Comment: 20' Gait Level of Assist: 4 Gait Assistive Device: FWW Wheelchair Distance: 150' PT Assisted Goals Health Occupations Teacher Goals PT Health Occupations Teacher Goals Time Frame: Mar 08, 2017 Transfers (B,C,W/C) (FIM): 4 (CGA) Sit to Lying (QC): 5 Lying-Sitting on Side/Bed(QC): 5 Sit to Stand (QC): 5 Rollin Roll Left to Right (QC): 5 Chair/Szk-gf-Nfpbg Xfer(QC): 5 Car Transfer (QC): 5 Gait (FIM): 2 Distance: 50' Walk 10 feet (QC): 5 Walk 10ft-Uneven Surface(QC): 5 Walk 50ft with 2 Turns (QC): 5 Gait Level of Assist: 4 Gait Assistive Device: FWW Stairs (FIM): 2 # of Steps: 4 1 Step (curb) (QC): 5 4 Steps (QC): 5 Stairs Level Of Assist: 4 PT Plan Problem List Problem List: Activity Tolerance, Functional Strength, Safety, Balance, Gait, Transfer, Bed Mobility Treatment/Plan Treatment Plan: Continue Plan of Care Treatment Plan: Bed Mobility, Education, Functional Activity [place], Functional Strength, Group Therapy, Gait, Safety, Therapeutic Exercise, Transfers Treatment Duration: Mar 08, 2017 Frequency: At least 5-7 days/Wk (IRF) Estimated Hrs Per Day: 1.5 hours per day Patient and/or Family Agrees t: Yes Safety Risks/Education Patient Education: Transfer Techniques, Correct Positioning, W/C Management, Safety Issues Teaching Recipient: Patient Teaching Methods: Discussion Response to Teaching: Verbalize Understanding Time/GCodes Time In: 1300 Time Out: 1330 Total Billed Treatment Time: 30 Total Billed Treatment visit, FA (15m) & EX (15m) BRANDEN GUZMAN DOCUMENT CONTROL CLERK Feb 17, 2017 15:26
[2017-02-17] MEDS: warFARin 3 MG (COUMADIN) TAB PO SCH (17:29)
[2017-02-17 17:52] VITALS: BP 125/74
[2017-02-18 05:26] LABS: BASOPHILS % (AUTO) 0 % (0-10); EOSINOPHILS # (AUTO) 0.6 10^3/uL (0.0-0.3); EOSINOPHILS % (AUTO) 6 % (0-10); LYMPHOCYTES # (AUTO) 2.4 X 10^3 (1.0-4.0); LYMPHOCYTES % (AUTO) 23 % (12-44); MEAN CORPUSCULAR HEMOGLOBIN 31 PG (25-34); MEAN CORPUSCULAR HGB CONC 32 G/DL (32-36); MEAN CORPUSCULAR VOLUME 97 FL (80-99); MEAN PLATELET VOLUME 10.5 FL (7.4-10.4); MONOCYTES # (AUTO) 1.3 X 10^3 (0.0-1.0); MONOCYTES % (AUTO) 12 % (0-12); NEUTROPHILS # (AUTO) 6.2 X 10^3 (1.8-7.8); NEUTROPHILS % (AUTO) 59 % (42-75); PLATELET COUNT 196 10^3/uL (130-400); RED BLOOD COUNT 3.41 10^6/uL (4.35-5.85); RED CELL DISTRIBUTION WIDTH 14.1 % (10.0-14.5); WHITE BLOOD COUNT 10.4 10^3/uL (4.3-11.0)
[2017-02-18 05:40] VITALS: BP 148/73
[2017-02-18 05:49] LABS: CALCIUM 9.4 MG/DL (8.5-10.1); CREATININE SERUM 0.98 MG/DL (0.60-1.30); POTASSIUM 3.9 MMOL/L (3.6-5.0); TOTAL PROTEIN 5.9 GM/DL (6.4-8.2)
[2017-02-18] MEDS: LEVOTHYROXINE 112 MCG (LEVOTHROID) TAB PO SCH (06:04)
[2017-02-18] MEDS: VITAMIN A 8,000 UNITS PO SCH ×2 (06:04→17:33)
--- NOTE | 2017-02-18 07:37 | PM & R (SOAP) Progress Note ---
Subjective Time Seen by Provider: 07:05 Subjective/Events-last exam Patient was seen in her room this AM Patient Min assist for transfers,INR 2.[address] Hamilton note and orders appreciated Objective Exam Last Set of Vital Signs Vital Signs Date Time Temp Pulse Resp B/P (MAP) Pulse Ox O2 Delivery O2 Flow Rate FiO2 02/18/17 06:52 Nasal Cannula 3.00 02/18/17 05:40 98.6 76 18 148/73 94 Capillary Refill : I&O Intake and Output 02/18/17 00:00 Intake Total 960 ml Balance 960 ml Intake Oral 960 ml # Voids 6 # Bowel Movements 1 General: Alert, Oriented X3, Cooperative, No Acute Distress HEENT: Atraumatic, PERRLA, EOMI, Mucous Memb Moist/[place] Neck: Supple, No JVD Lungs: Clear to Auscultation Heart: Regular Rate Abdomen: Normal Bowel Sounds, Soft, No Tenderness Extremities: Other (trace edema left ankle) Neuro: Other (strength 4/5 BUES and RUE Left leg impaired due to recent frx and repair) Results Lab Laboratory Tests 02/16/17 09:05: Prothrombin Time 16.5H, INR Comment 1.4 02/16/17 10:12: Prothrombin Time 16.8H, INR Comment 1.4 02/17/17 06:30: Prothrombin Time 18.1H, INR Comment 1.5H 02/18/17 05:15: Prothrombin Time 22.0H, INR Comment 2.0H, White Blood Count 10.4, Red Blood Count 3.41L, Hemoglobin 10.4L, Hematocrit 33L, Mean Corpuscular Volume 97, Mean Corpuscular Hemoglobin 31, Mean Corpuscular Hemoglobin Concent 32, Red Cell Distribution Width 14.1, Platelet Count 196, Mean Platelet Volume 10.5H, Neutrophils (%) (Auto) 59, Lymphocytes (%) (Auto) 23, Monocytes (%) (Auto) 12, Eosinophils (%) (Auto) 6, Basophils (%) (Auto) 0, Neutrophils # (Auto) 6.2, Lymphocytes # (Auto) 2.4, Monocytes # (Auto) 1.3H, Eosinophils # (Auto) 0.6H, Basophils # (Auto) 0.0, Sodium Level 147H, Potassium Level 3.9, Chloride Level 103, Carbon Dioxide Level 33H, Anion Gap 11, Blood Urea Nitrogen 41H, Creatinine 0.98, Estimat Glomerular Filtration Rate 55, BUN/Creatinine Ratio 42 , Glucose Level 103, Calcium Level 9.4, Total Bilirubin 1.0, Aspartate Amino Transf (AST/SGOT) 34, Alanine Aminotransferase (ALT/SGPT) 27, Alkaline Phosphatase 62, Total Protein 5.9L, Albumin 3.0L Assessment/Plan Assessment Left intertrochanteric hip frx s/p fall with reapur Orthopedics Postop resp insufficiency on supplemental 02-being weaned Postop anemia Chronic anticoagulation Coumadin resumed with INR now therapeutic HTN controlled with meds Prior Lumbar spine surgery Postop constipation treated Prior Left TKR Plan Continue PT/OT Adjust Coumadin as needed to facilitate Therapeutic INR WEan from as able Team Conference held yesterday See report for full functional update and POC and ELOS F/U with ANGELICA Fernandez MD Feb 18, 2017 07:37
--- NOTE | 2017-02-18 07:43 | Individualized Plan of Care ---
Individualized Plan of Care Rehab Nursing IPOC Order Admission Date Feb 15, 2017 at 11:48 Current Orders Orders Cbc With Automated Diff (02/18/17 06:00) Comprehensive Metabolic Panel (02/18/17 06:00) Warfarin Tablet (Coumadin Tablet) (02/17/17 09:45) Patient Visit (02/17/17 ) Functional Activities, Ea 15 (02/17/17 ) Exercise Therap, Ea 15 Min (02/17/17 ) Wheelchair Mgmt/Propulsn 15min (02/17/17 ) Protime With Inr (02/18/17 09:44) Other Nursing Orders: Monitor for postop constipation and urinary retention PT IPOC Problem List: Activity Tolerance, Functional Strength, Safety, Balance, Gait, Transfer, Bed Mobility Treatment Plan: Continue Plan of Care Bed Mobility, Education, Functional Activity [place], Functional Strength, Group Therapy, Gait, Safety, Therapeutic Exercise, Transfers Treatment Duration: Mar 08, 2017 Frequency: At least 5-7 days/Wk (IRF) Estimated Hrs Per Day: 1.5 hours per day OT IPOC Problems: Decreased Activ Tolerance, Decreased UE Strength, Dependent Transfers , Impaired Funct Balance, Impaired Self-Care Skills OT Problems Pt would benefit from skilled OT to increase her independence in basic self care to allow her to safely return to her home to live alone and to decrease caregiver burden Plan of Care: ADL Retraining, Functional Mobility, Group Exercise/Act as Ind ( education, exercise, activity tolerance, funct activities), UE Funct Exercise/ Act, UE Neuromus Re-Ed/Coord Treatment Duration: Mar 08, 2017 Frequency: At least 5-7 days/Wk (IRF) Estimated Hrs Per Day: 1.[address] IPOC Speech Therapy Treatment Plan: Discontinue ST Frequency: Modified Program (IRF) Estimated Hrs Per Day: .25 hour per day (Evaluation, only.) Physician IPOC Medical Issues being managed closely and that require the 24 hour availability of a physician:Chronic anticoagulation Post op resp insufficiency Postop constipation Medical Issues: Bowel/Bladder Function, DVT Prophylaxis, Falls Precautions, Fluid/Electrolyte/Nutrition Balance, Infection Protection, Pain Management, Wound Care, Other (List) (as per above) Brief Synthesis of Preadmission Screen, Post-Admission Evaluation, and Therapy Evaluations: 76 yo female who fell at home while on the way to exercise class Had been Independent prior to fall with resulting hip frx now s/p repair orthopedics Has post op resp insuffiency being weaned form o2 Also postop constipation and anemia being followed by Dr Mccormack et Rosemary chronically anticoagulated and coumadin resumed postop INR therapeutic today Medical Prognosis: good Anticipated Length of Stay: 03-08-17 Rehab Goals Modified Independent for adls and mobility skills Anticipated discharge destinat: Home with family and [facility] ANGELICA YIN MD Feb 18, 2017 07:43
[2017-02-18] MEDS: OXYBUTYNIN (DITROPAN) 5 MG TAB PO SCH (08:25)
[2017-02-18] MEDS: CALCIUM CARB + VIT D 600 MG (CALCARB + D) TAB PO SCH ×2 (08:25→20:17)
[2017-02-18] MEDS: HYDROcodone/APAP 5 MG/325 MG (LORTAB) TAB PO PRN ×2 (08:25→15:53)
[2017-02-18] MEDS: LACTULOSE SYRUP 10GM/15ML (ENULOSE) 30ML UDC PO SCH ×2 (08:25→20:17)
[2017-02-18] MEDS: BUMETANIDE 1 MG (BUMEX) TAB PO SCH (08:25)
[2017-02-18] MEDS: COLCHICINE 0.6 MG (COLCRYS) TABLET PO SCH ×2 (08:25→20:17)
[2017-02-18] MEDS: CARVEDILOL 12.5 MG (COREG) TABLET PO SCH ×2 (08:25→20:17)
[2017-02-18] MEDS: MICONAZOLE 2% POWDER (DESENEX AF) 90 GM TOP SCH ×2 (08:26→20:17)
--- NOTE | 2017-02-18 10:59 | Physical Therapy Daily Note ---
PT Daily Note-Current Subjective Pt laying Supine in bed upon arrival. Pt reports pain of 4/10 while resting but will increase with activity. Pt agrees to PT. Pain Numeric Pain Scale: 4 Location: Left Location Body Site: Hip Pain Description: Ache, Tightness Mental Status Patient Orientation: Person, Place, Time, Situation Transfers Functional [place] Measure 0=Not Assessed/NA 4=Minimal Assistance 1=Total Assistance 5=Supervision or Setup 2=Maximal Assistance 6=Modified [place] 3=Moderate Assistance 7=Complete IndependenceIRFPAI Quality Coding Scale 6 Independent with activity with or without an assistive device 5 Patient requires set up or clean up by helper. Patient completes activity by themselves 4 Supervision or touching assist (CGA). [place] provide cues , steadying assist 3 The helper provides less than half the effort to complete the activity 2 The helper provides more than half the effort to complete the activity 1 Dependent. The helper does all the effort to complete an activity 7 Patient refused to complete or attempt activity 9 The patient did not perform the activity before the current illness or injury 88 Not attempted due to Medical conditions or safety concerns Scootin Rollin Roll Left to Right (QC): 4 Supine to/from Sit: 4 Sit to/from Stand: 4 Sit to Stand (QC): 4 Weight Bearing Weight Bearing Restriction: Full Weight Bearing Location Restriction: LE Bilateral Gait Training Does the Patient Walk?: Yes Distance (FIM): 1=up to 49 ft Distance: 5' (x 3) Gait Level of Assist: 4 Gait Persons Needed: 1 Gait Assistive Device: FWW Pt walks with antalgic gait due to to pain in L hip which limits activity. Wheelchair Training Does the Pt Use a Wheelchair?: Yes Wheelchair Distance: 1=up to 49 ft Distance: 40' Wheelchair Level of Assist: 4 Type of Wheelchair: Manual Pt fatigues easy and has difficulty maneuvering [facility]. Exercises Seated Therapy Exercises: Ankle pumps, Long arc quads, Hip flexion, Kicking activity, Hip abd/add Seated Reps: 15 Standing: Sit to Stand Standing Reps: 5 Treatments Pt transferred to standing from EOB using FWW at CGA-Min A and ambualted approx. 5' using FWW at Min A to [facility]. PT transferred to toilet from [facility] then propelled in hallway before making her way to Therapy Gym for Seated Ex in [facility] and 2 short walks. PT returned to room at end of tx with all needs met. Assessment Current Status: Fair Progress Pt continues to fatigue easy and is leery of pushing herself due to pain in L hip but receives encouragement from PT to keep trying. PT Short Term Goals Short Term Goals Time Frame: Feb 22, 2017 Transfers (B,C,W/C) (FIM): 4 Gait (FIM): 1 Gait Distance Comment: 20' Gait Level of Assist: 4 Gait Assistive Device: FWW Wheelchair Distance: 150' PT Fpc Goals Light Rail Signal Technician Goals PT Light Rail Signal Technician Goals Time Frame: Mar 08, 2017 Transfers (B,C,W/C) (FIM): 4 (CGA) Sit to Lying (QC): 5 Lying-Sitting on Side/Bed(QC): 5 Sit to Stand (QC): 5 Rollin Roll Left to Right (QC): 5 Chair/Kle-bc-[place] Xfer(QC): 5 Car Transfer (QC): 5 Gait (FIM): 2 Distance: 50' Walk 10 feet (QC): 5 Walk 10ft-Uneven Surface(QC): 5 Walk 50ft with 2 Turns (QC): 5 Gait Level of Assist: 4 Gait Assistive Device: FWW Stairs (FIM): 2 # of Steps: 4 1 Step (curb) (QC): 5 4 Steps (QC): 5 Stairs Level Of Assist: 4 PT Plan Problem List Problem List: Activity Tolerance, Functional Strength, Safety, Balance, Gait, Transfer, Bed Mobility Treatment/Plan Treatment Plan: Continue Plan of Care Treatment Plan: Bed Mobility, Education, Functional Activity [place], Functional Strength, Group Therapy, Gait, Safety, Therapeutic Exercise, Transfers Treatment Duration: Mar 08, 2017 Frequency: At least 5-7 days/Wk (IRF) Estimated Hrs Per Day: 1.5 hours per day Patient and/or Family Agrees t: Yes Safety Risks/Education Patient Education: Gait Training, Transfer Techniques, Correct Positioning, W/ C Management, Disease Process, Safety Issues Teaching Recipient: Patient Teaching Methods: Discussion Response to Teaching: Verbalize Understanding Time/GCodes Time In: 815 Time Out: 915 Total Billed Treatment Time: 60 Total Billed Treatment visit, GT x2 (30m), FA (15m) & EX (15m) BRANDEN GUZMAN AUDIT SENIOR ASSOCIATE Feb 18, 2017 10:59
--- NOTE | 2017-02-18 13:03 | Occupational Ther Daily Note ---
OT Current Status-Daily Note Subjective Pt seen in room, up in w/c, excited about getting another shower today. No pain mentioned. Appearance Alert, cooperative Mental Status/Objective Functional [place] Measure 0=Not Assessed/NA 4=Minimal Assistance 1=Total Assistance 5=Supervision or Setup 2=Maximal Assistance 6=Modified [place] 3=Moderate Assistance 7=Complete [place] ADL-Treatment Pt propelled herself to bathroom per w/c. Also back to room to dress. Functional [place] Measure 0=Not Assessed/NA 4=Minimal Assistance 1=Total Assistance 5=Supervision or Setup 2=Maximal Assistance 6=Modified [place] 3=Moderate Assistance 7=Complete IndependenceIRFPAI Quality Coding Scale 6 Independent with activity with or without an assistive device 5 Patient requires set up or clean up by helper. Patient completes activity by themselves 4 Supervision or touching assist (CGA). [place] provide cues , steadying assist 3 The helper provides less than half the effort to complete the activity 2 The helper provides more than half the effort to complete the activity 1 Dependent. The helper does all the effort to complete an activity 7 Patient refused to complete or attempt activity 9 The patient did not perform the activity before the current illness or injury 88 Not attempted due to Medical conditions or safety concerns Grooming (FIM): 6 (brushed teeth and combed hair, w/c level, with just help positioning w/c. ) Bathing (FIM): 4 (Pt was able to wash and dry all parts but needed CGA when standing to wash lovely and bottom. Shower bench, grab bars, hand held shower. ) Upper Body (FIM): 5 (Donned shirt with setup) Lower Body Dressing (FIM): 4 (pt able to get pants over feet, using dressing stick and to pull them up to her thighs. Min assist to stand and CGA to maintain standing withFWW, help to get pants up over hips. Donned socks with sock aid, with occas cue. Setup to put TEDs on. FWW) Shower Transfer(FIM): 4 (Min-CGA. Shower bench to w/c. grab bars. Took bigger steps with pivot transfer) Other Treatment Pt transported to gym per w/c. Did 14 minutes bilat UE exercise with arm bike set at 20W resistance, taking brief breaks to get a drink of water. Increased time and resistance. Pt returned to her room, left up in w/c at her request, all needs met. Education OT Patient Education: Exercise program, Modified ADL techniques, Progress toward Goal/Update tx plan, Purpose of tx/functional activities, Safety issues, Transfer techniques Teaching Recipient: Patient Teaching Methods: Discussion Response to Teaching: Verbalize Understanding OT Short Term Goals Short Term Goals Time Frame: Feb 22, 2017 Lower Body Dressing(FIM): 3 Toileting(FIM): 3 Transfers (B,C,W/C) (FIM): 4 Toilet/Commode Transfer(FIM): 3 Additional Short Term Goals: 1-Demonstrate ADL Tasks, 2-Verbalize Understanding , 3-ImproveStrength/[place] 1=Demonstrate adherence to instructed precautions during ADL tasks. 2=Patient will verbalize/demonstrate understanding of assistive devices/ modifications for ADL. 3=Patient will improve strength/tolerance for activity to enable patient to perform ADL's. OT Senior Care Goals Manager Msw Goals Time Frame: Mar 08, 2017 Eating (FIM): 6 Eating (QC): 6 Groomin Oral Hygiene (QC): 6 Bathing(FIM): 6 Shower/Bathe Self (QC): 6 Upper Body Dressing(FIM): 6 Upper Body Dressing (QC): 6 Lower Body Dressing(FIM): 6 Lower Body Dressing (QC): 6 On/Off Footwear (QC): 6 Toileting(FIM): 6 Toileting Hygiene (QC): 6 Toilet/Commode Transfer(FIM): 6 Toilet/Commode Transfer (QC): 6 Shower Transfer(FIM): 6 Additional Goals: 1-Demonstrate ADL Tasks, 2-Verbalize Understanding, 3- ImproveStrength/[place] 1=Demonstrate adherence to instructed precautions during ADL tasks. 2=Patient will verbalize/demonstrate understanding of assistive devices/ modifications for ADL. 3=Patient will improve strength/tolerance for activity to enable patient to perform ADL's. OT Education/Plan Problem List/Assessment Pt would benefit from skilled OT to increase her independence in basic self care to allow her to safely return to her home to live alone and to decrease caregiver burden Discharge Recommendations Plan/Recommendations: Continue POC Treatment Plan/Plan of Care Patient would benefit from OT for education, treatment and training to promote independence in ADL's, mobility, safety and/or upper extremity function for ADL' s. Plan of Care: ADL Retraining, Functional Mobility, Group Exercise/Act as Ind ( education, exercise, activity tolerance, funct activities), UE Funct Exercise/ Act, UE Neuromus Re-Ed/Coord Treatment Duration: Mar 08, 2017 Frequency: At least 5-7 days/Wk (IRF) Estimated Hrs Per Day: 1.5 hours per day Agreement: Yes Rehab Potential: Good Time/GCodes Start Time: 09:30 Stop Time: 11:00 Total Time Billed (hr/min): 90 Billed Treatment Time visit, 65 minutes ADL, 25 minutes exercise OCNY WHITNEY OT Feb 18, 2017 13:03
--- NOTE | 2017-02-18 14:17 | Physical Therapy Daily Note ---
PT Daily Note-Current Subjective Pt sitting in [facility] after finishing lunch upon arrival. Pt agrees to PT. Pain Numeric Pain Scale: 4 Location: Left Location Body Site: Hip Pain Description: Ache, Tightness Mental Status Patient Orientation: Person, Place, Time, Situation Transfers Functional [place] Measure 0=Not Assessed/NA 4=Minimal Assistance 1=Total Assistance 5=Supervision or Setup 2=Maximal Assistance 6=Modified [place] 3=Moderate Assistance 7=Complete IndependenceIRFPAI Quality Coding Scale 6 Independent with activity with or without an assistive device 5 Patient requires set up or clean up by helper. Patient completes activity by themselves 4 Supervision or touching assist (CGA). [place] provide cues , steadying assist 3 The helper provides less than half the effort to complete the activity 2 The helper provides more than half the effort to complete the activity 1 Dependent. The helper does all the effort to complete an activity 7 Patient refused to complete or attempt activity 9 The patient did not perform the activity before the current illness or injury 88 Not attempted due to Medical conditions or safety concerns Exercises Seated Therapy Exercises: Ankle pumps, Long arc quads, Hip flexion, Kicking activity, Hip abd/add Seated Reps: 15 Treatments Pt completed Seated Ex in [facility]. PT and pt also discussed pt ed items such as how discharge is determined, how hospital stay is reimbursed by insurance, what pt can do to try to get better as well as pt's expectations before discharge. Assessment Current Status: Fair Progress Pt is getting stronger but still very leery to push herself to progress while she is having pain. PT Short Term Goals Short Term Goals Time Frame: Feb 22, 2017 Transfers (B,C,W/C) (FIM): 4 Gait (FIM): 1 Gait Distance Comment: 20' Gait Level of Assist: 4 Gait Assistive Device: FWW Wheelchair Distance: 40' PT Usp Goals Usp Goals PT Template Clerk Goals Time Frame: Mar 08, 2017 Transfers (B,C,W/C) (FIM): 4 (CGA) Sit to Lying (QC): 5 Lying-Sitting on Side/Bed(QC): 5 Sit to Stand (QC): 5 Rollin Roll Left to Right (QC): 5 Chair/Cpd-xa-Uefub Xfer(QC): 5 Car Transfer (QC): 5 Gait (FIM): 2 Distance: 50' Walk 10 feet (QC): 5 Walk 10ft-Uneven Surface(QC): 5 Walk 50ft with 2 Turns (QC): 5 Gait Level of Assist: 4 Gait Assistive Device: FWW Stairs (FIM): 2 # of Steps: 4 1 Step (curb) (QC): 5 4 Steps (QC): 5 Stairs Level Of Assist: 4 PT Plan Problem List Problem List: Activity Tolerance, Functional Strength, Safety, Balance, Gait, Transfer, Bed Mobility Treatment/Plan Treatment Plan: Continue Plan of Care Treatment Plan: Bed Mobility, Education, Functional Activity [place], Functional Strength, Group Therapy, Gait, Safety, Therapeutic Exercise, Transfers Treatment Duration: Mar 08, 2017 Frequency: At least 5-7 days/Wk (IRF) Estimated Hrs Per Day: 1.5 hours per day Patient and/or Family Agrees t: Yes Safety Risks/Education Patient Education: Transfer Techniques, Correct Positioning, W/C Management, Safety Issues Teaching Recipient: Patient Teaching Methods: Discussion Response to Teaching: Verbalize Understanding Time/GCodes Time In: 1205 Time Out: 1235 Total Billed Treatment Time: 30 Total Billed Treatment visit, FA (15m) & Ex (15m) BRANDEN GUZMAN PTA Feb 18, 2017 14:17
[2017-02-18] MEDS: warFARin 3 MG (COUMADIN) TAB PO SCH (17:33)
[2017-02-18 18:03] VITALS: BP 128/76
[2017-02-19 04:50] LABS: INR 3.1 (0.8-1.4); PROTHROMBIN TIME PATIENT 31.7 SEC (12.2-14.7)
[2017-02-19 05:00] VITALS: BP 132/74
[2017-02-19] MEDS: VITAMIN A 8,000 UNITS PO SCH ×2 (06:06→17:19)
[2017-02-19] MEDS: LEVOTHYROXINE 112 MCG (LEVOTHROID) TAB PO SCH (06:06)
[2017-02-19] MEDS: CALCIUM CARB + VIT D 600 MG (CALCARB + D) TAB PO SCH ×2 (08:25→20:29)
[2017-02-19] MEDS: CARVEDILOL 12.5 MG (COREG) TABLET PO SCH ×2 (08:25→20:29)
[2017-02-19] MEDS: BUMETANIDE 1 MG (BUMEX) TAB PO SCH (08:25)
[2017-02-19] MEDS: COLCHICINE 0.6 MG (COLCRYS) TABLET PO SCH ×2 (08:25→20:29)
[2017-02-19] MEDS: OXYBUTYNIN (DITROPAN) 5 MG TAB PO SCH (08:25)
[2017-02-19] MEDS: LACTULOSE SYRUP 10GM/15ML (ENULOSE) 30ML UDC PO SCH ×3 (08:26→20:34)
[2017-02-19] MEDS: MICONAZOLE 2% POWDER (DESENEX AF) 90 GM TOP SCH ×2 (08:26→20:33)
--- NOTE | 2017-02-19 08:51 | PM & R (SOAP) Progress Note ---
Subjective Time Seen by Provider: 08:05 Subjective/Events-last exam Patient was seen in her room this AM Patient Min assist for transfers Pain control adequate Eating and sleeping OK Objective Exam Last Set of Vital Signs Vital Signs Date Time Temp Pulse Resp B/P (MAP) Pulse Ox O2 Delivery O2 Flow Rate FiO2 02/19/17 05:00 98.8 67 20 132/74 93 Room Air 02/18/17 06:52 3.00 Capillary Refill : I&O Intake and Output 02/19/17 00:00 Intake Total 1045 ml Balance 1045 ml Intake Oral 1045 ml # Voids 8 General: Alert, Oriented X3, Cooperative, No Acute Distress HEENT: Atraumatic, PERRLA, EOMI, Mucous Memb Moist/[place] Neck: Supple, No JVD Lungs: Clear to Auscultation Heart: Regular Rate Abdomen: Normal Bowel Sounds, Soft, No Tenderness Extremities: Other (trace edema left ankle) Neuro: Other (strength 4/5 BUES and RUE Left leg impaired due to recent frx and repair) Results Lab Laboratory Tests 02/16/17 09:05: Prothrombin Time 16.5H, INR Comment 1.4 02/16/17 10:12: Prothrombin Time 16.8H, INR Comment 1.4 02/17/17 06:30: Prothrombin Time 18.1H, INR Comment 1.5H 02/18/17 05:15: Prothrombin Time 22.0H, INR Comment 2.0H, White Blood Count 10.4, Red Blood Count 3.41L, Hemoglobin 10.4L, Hematocrit 33L, Mean Corpuscular Volume 97, Mean Corpuscular Hemoglobin 31, Mean Corpuscular Hemoglobin Concent 32, Red Cell Distribution Width 14.1, Platelet Count 196, Mean Platelet Volume 10.5H, Neutrophils (%) (Auto) 59, Lymphocytes (%) (Auto) 23, Monocytes (%) (Auto) 12, Eosinophils (%) (Auto) 6, Basophils (%) (Auto) 0, Neutrophils # (Auto) 6.2, Lymphocytes # (Auto) 2.4, Monocytes # (Auto) 1.3H, Eosinophils # (Auto) 0.6H, Basophils # (Auto) 0.0, Sodium Level 147H, Potassium Level 3.9, Chloride Level 103, Carbon Dioxide Level 33H, Anion Gap 11, Blood Urea Nitrogen 41H, Creatinine 0.98, Estimat Glomerular Filtration Rate 55, BUN/Creatinine Ratio 42 , Glucose Level 103, Calcium Level 9.4, Total Bilirubin 1.0, Aspartate Amino Transf (AST/SGOT) 34, Alanine Aminotransferase (ALT/SGPT) 27, Alkaline Phosphatase 62, Total Protein 5.9L, Albumin 3.0L 02/19/17 04:12: Prothrombin Time 31.7H, INR Comment 3.1H Assessment/Plan Assessment Left intertrochanteric hip frx s/p fall with reapur Orthopedics Postop resp insufficiency on supplemental 02-being weaned Postop anemia Chronic anticoagulation Coumadin resumed with INR now therapeutic HTN controlled with meds Prior Lumbar spine surgery Postop constipation treated Prior Left TKR Plan Continue PT/OT Adjust Coumadin as needed to facilitate Therapeutic INR-improved WEaned from 02 F/U with Dr Santos prn Next Team Conference 02-24-17 INR today 3,1 F/U with Hospitalist re adjusting Coumadin dosage as needed ANGELICA YIN MD Feb 19, 2017 08:51
--- NOTE | 2017-02-19 08:56 | Physical Therapy Daily Note ---
PT Daily Note-Current Subjective Patient in bed pre tx, agrees to PT, has pain of 3/10 in right leg. Patient needs to go to the bathroom, get changed, and dressed. Appearance Patient in wheelchair at bedside post tx with nurse call, phone, tray, all needs met. Mental Status Patient Orientation: Normal For Age Transfers Functional [place] Measure 0=Not Assessed/NA 4=Minimal Assistance 1=Total Assistance 5=Supervision or Setup 2=Maximal Assistance 6=Modified [place] 3=Moderate Assistance 7=Complete IndependenceIRFPAI Quality Coding Scale 6 Independent with activity with or without an assistive device 5 Patient requires set up or clean up by helper. Patient completes activity by themselves 4 Supervision or touching assist (CGA). [place] provide cues , steadying assist 3 The helper provides less than half the effort to complete the activity 2 The helper provides more than half the effort to complete the activity 1 Dependent. The helper does all the effort to complete an activity 7 Patient refused to complete or attempt activity 9 The patient did not perform the activity before the current illness or injury 88 Not attempted due to Medical conditions or safety concerns Transfers (B, C, W/C) (FIM): 3 Scootin Rollin Supine to/from Sit: 3 Sit to/from Stand: 4 Bed to/from Chair: 4 Slow, antalgic, cues for safety and hand placement. Needs assist standing from low surfaces. Gait Training Gait (FIM): 1 Distance: 5'x4 Gait Level of Assist: 4 Gait Persons Needed: 1 Gait Assistive Device: Parallel Bars Patient ambulated 5' forward and back in the parallel bars x4 with CGA Treatments bed mobility and transfers, ambulation, patient was toileted with min assist, changed brief, and dressed Assessment Current Status: Poor Progress Patient needs to be able to to perform bed mobility and transfers with SBA PT Short Term Goals Short Term Goals Time Frame: Feb 22, 2017 Transfers (B,C,W/C) (FIM): 4 Gait (FIM): 1 Gait Distance Comment: 20' Gait Level of Assist: 4 Gait Assistive Device: FWW Wheelchair Distance: 40' PT Jail Goals Jail Goals PT Jail Goals Time Frame: Mar 08, 2017 Transfers (B,C,W/C) (FIM): 4 (CGA) Sit to Lying (QC): 5 Lying-Sitting on Side/Bed(QC): 5 Sit to Stand (QC): 5 Rollin Roll Left to Right (QC): 5 Chair/Nlg-lk-Qcixb Xfer(QC): 5 Car Transfer (QC): 5 Gait (FIM): 2 Distance: 50' Walk 10 feet (QC): 5 Walk 10ft-Uneven Surface(QC): 5 Walk 50ft with 2 Turns (QC): 5 Gait Level of Assist: 4 Gait Assistive Device: FWW Stairs (FIM): 2 # of Steps: 4 1 Step (curb) (QC): 5 4 Steps (QC): 5 Stairs Level Of Assist: 4 PT Plan Problem List Problem List: Activity Tolerance, Functional Strength, Safety, Balance, Gait, Transfer, Bed Mobility, ROM Treatment/Plan Treatment Plan: Continue Plan of Care Treatment Plan: Bed Mobility, Education, Functional Activity [place], Functional Strength, Group Therapy, Gait, Safety, Therapeutic Exercise, Transfers Treatment Duration: Mar 08, 2017 Frequency: At least 5-7 days/Wk (IRF) Estimated Hrs Per Day: 1.5 hours per day Patient and/or Family Agrees t: Yes Safety Risks/Education Patient Education: Gait Training, Transfer Techniques, Correct Positioning, Safety Issues Teaching Recipient: Patient Teaching Methods: Demonstration, Discussion Response to Teaching: Reinforcement Needed Time/GCodes Time In: 800 Time Out: 900 Total Billed Treatment Time: 60 Total Billed Treatment 1 visit FA 30' GT 30' DEMETRI RICHMOND PT Feb 19, 2017 08:56
[2017-02-19] MEDS: warFARin 3 MG (COUMADIN) TAB PO SCH (11:38)
--- NOTE | 2017-02-19 12:41 | Occupational Ther Daily Note ---
OT Current Status-Daily Note Subjective Pt seen in room, up in w/c, agreeable to OT. She ddn't want to shower but was agreeable to do sponge bath at sink because this is something she might do at home. No pain mentioned. Appearance Alert, cooperative Mental Status/Objective Functional [place] Measure 0=Not Assessed/NA 4=Minimal Assistance 1=Total Assistance 5=Supervision or Setup 2=Maximal Assistance 6=Modified [place] 3=Moderate Assistance 7=Complete [place] ADL-Treatment Pt propelled w/c to bathroom to sink. Discussed chair positions for standing and for reaching items at sink or running water. She was able to brush her teeth and comb hair modified independently, w/c level. Pt also ran bath water in sink. She washed her upper body with setup. Pt had been incontinent of stool in [place] and was able to stand to take pants off with min assist and dressing stick. She was able to wash other parts but needed help washing lovely and bottom due to stool. She stood up from chair and sat back down with close SBA and skilled cues for problem- solving hand placement Once back in room, she donned [place] and shorts with assist of dressing stick, with some skilled cues for use. She needed help to put TEDs on but was able to don slipper socks with SBA, using rigid sock aid. Min assist to stand and pull pants up over hips, FWW. Setup for donning shirt. Functional [place] Measure 0=Not Assessed/NA 4=Minimal Assistance 1=Total Assistance 5=Supervision or Setup 2=Maximal Assistance 6=Modified [place] 3=Moderate Assistance 7=Complete IndependenceIRFPAI Quality Coding Scale 6 Independent with activity with or without an assistive device 5 Patient requires set up or clean up by helper. Patient completes activity by themselves 4 Supervision or touching assist (CGA). [place] provide cues , steadying assist 3 The helper provides less than half the effort to complete the activity 2 The helper provides more than half the effort to complete the activity 1 Dependent. The helper does all the effort to complete an activity 7 Patient refused to complete or attempt activity 9 The patient did not perform the activity before the current illness or injury 88 Not attempted due to Medical conditions or safety concerns Grooming (FIM): 6 Bathing (FIM): 4 Upper Body (FIM): 5 Lower Body Dressing (FIM): 4 Other Treatment Pt was transported to gym and did 15 minutes bilat UE ex with arm bike, set at 20W resistance (increased time). Brief breaks for getting a drink of water. She also did table top activity with 1# weight on each arm, all to strengthen arms to help with transfers and for standing during ADLs. Pt returned to room, left up in w/c per her request, all needs met. Education OT Patient Education: Exercise program, Modified ADL techniques, Progress toward Goal/Update tx plan, Purpose of tx/functional activities, Transfer techniques, Use of adapted equipment Teaching Recipient: Patient Teaching Methods: Demonstration, Discussion Response to Teaching: Verbalize Understanding, Return Demonstration, Reinforcement Needed OT Short Term Goals Short Term Goals Time Frame: Feb 22, 2017 Lower Body Dressing(FIM): 3 Toileting(FIM): 3 Transfers (B,C,W/C) (FIM): 4 Toilet/Commode Transfer(FIM): 3 Additional Short Term Goals: 1-Demonstrate ADL Tasks, 2-Verbalize Understanding , 3-ImproveStrength/[place] 1=Demonstrate adherence to instructed precautions during ADL tasks. 2=Patient will verbalize/demonstrate understanding of assistive devices/ modifications for ADL. 3=Patient will improve strength/tolerance for activity to enable patient to perform ADL's. OT Usp Goals Cooler Supervisor Goals Time Frame: Mar 08, 2017 Eating (FIM): 6 Eating (QC): 6 Groomin Oral Hygiene (QC): 6 Bathing(FIM): 6 Shower/Bathe Self (QC): 6 Upper Body Dressing(FIM): 6 Upper Body Dressing (QC): 6 Lower Body Dressing(FIM): 6 Lower Body Dressing (QC): 6 On/Off Footwear (QC): 6 Toileting(FIM): 6 Toileting Hygiene (QC): 6 Toilet/Commode Transfer(FIM): 6 Toilet/Commode Transfer (QC): 6 Shower Transfer(FIM): 6 Additional Goals: 1-Demonstrate ADL Tasks, 2-Verbalize Understanding, 3- ImproveStrength/[place] 1=Demonstrate adherence to instructed precautions during ADL tasks. 2=Patient will verbalize/demonstrate understanding of assistive devices/ modifications for ADL. 3=Patient will improve strength/tolerance for activity to enable patient to perform ADL's. OT Education/Plan Problem List/Assessment Pt would benefit from skilled OT to increase her independence in basic self care to allow her to safely return to her home to live alone and to decrease caregiver burden Discharge Recommendations Plan/Recommendations: Continue POC Treatment Plan/Plan of Care Patient would benefit from OT for education, treatment and training to promote independence in ADL's, mobility, safety and/or upper extremity function for ADL' s. Plan of Care: ADL Retraining, Functional Mobility, Group Exercise/Act as Ind ( education, exercise, activity tolerance, funct activities), UE Funct Exercise/ Act, UE Neuromus Re-Ed/Coord Treatment Duration: Mar 08, 2017 Frequency: At least 5-7 days/Wk (IRF) Estimated Hrs Per Day: 1.5 hours per day Agreement: Yes Rehab Potential: Good Time/GCodes Start Time: 09:30 Stop Time: 11:00 Total Time Billed (hr/min): 90 Billed Treatment Time visit, 60 minutes ADL, 30 minutes exercise CONY WHITNEY OT Feb 19, 2017 12:41
--- NOTE | 2017-02-19 14:07 | Physical Therapy Daily Note ---
PT Daily Note-Current Subjective Patient in wheelchair pre tx, agrees to PT, has pain of 3/10 in left leg. Appearance Patient in wheelchair at bedside post tx with nurse call, phone, tray, all needs met. She had been incontinent and she needed standing several times to get changed and cleaned up. Mental Status Patient Orientation: Normal For Age Transfers Functional [place] Measure 0=Not Assessed/NA 4=Minimal Assistance 1=Total Assistance 5=Supervision or Setup 2=Maximal Assistance 6=Modified [place] 3=Moderate Assistance 7=Complete IndependenceIRFPAI Quality Coding Scale 6 Independent with activity with or without an assistive device 5 Patient requires set up or clean up by helper. Patient completes activity by themselves 4 Supervision or touching assist (CGA). [place] provide cues , steadying assist 3 The helper provides less than half the effort to complete the activity 2 The helper provides more than half the effort to complete the activity 1 Dependent. The helper does all the effort to complete an activity 7 Patient refused to complete or attempt activity 9 The patient did not perform the activity before the current illness or injury 88 Not attempted due to Medical conditions or safety concerns Transfers (B, C, W/C) (FIM): 3 Sit to/from Stand: 3 Exercises mini-squats at parallel bars 3 sets of 5, LAQ alternating for 5 min, AP x20, seated hip flexion x20 Treatments transfers, functional strengthening, changing and cleaning after incontinence Assessment Current Status: Poor Progress no change in mobility PT Short Term Goals Short Term Goals Time Frame: Feb 22, 2017 Transfers (B,C,W/C) (FIM): 4 Gait (FIM): 1 Gait Distance Comment: 20' Gait Level of Assist: 4 Gait Assistive Device: FWW Wheelchair Distance: 40' PT [place] Goals Correction Goals PT Correction Goals Time Frame: Mar 08, 2017 Transfers (B,C,W/C) (FIM): 4 (CGA) Sit to Lying (QC): 5 Lying-Sitting on Side/Bed(QC): 5 Sit to Stand (QC): 5 Rollin Roll Left to Right (QC): 5 Chair/Qsi-rd-Dwhrw Xfer(QC): 5 Car Transfer (QC): 5 Gait (FIM): 2 Distance: 50' Walk 10 feet (QC): 5 Walk 10ft-Uneven Surface(QC): 5 Walk 50ft with 2 Turns (QC): 5 Gait Level of Assist: 4 Gait Assistive Device: FWW Stairs (FIM): 2 # of Steps: 4 1 Step (curb) (QC): 5 4 Steps (QC): 5 Stairs Level Of Assist: 4 PT Plan Problem List Problem List: Activity Tolerance, Functional Strength, Safety, Balance, Gait, Transfer, Bed Mobility, ROM Treatment/Plan Treatment Plan: Continue Plan of Care Treatment Plan: Bed Mobility, Education, Functional Activity [place], Functional Strength, Group Therapy, Gait, Safety, Therapeutic Exercise, Transfers Treatment Duration: Mar 08, 2017 Frequency: At least 5-7 days/Wk (IRF) Estimated Hrs Per Day: 1.5 hours per day Patient and/or Family Agrees t: Yes Safety Risks/Education Patient Education: Transfer Techniques, Correct Positioning, Safety Issues Teaching Recipient: Patient Teaching Methods: Demonstration, Discussion Response to Teaching: Reinforcement Needed Time/GCodes Time In: 1330 Time Out: 1400 Total Billed Treatment Time: 30 Total Billed Treatment 1 visit FA 15' EX 15' DEMETRI RICHMOND PT Feb 19, 2017 14:07
[2017-02-19 17:33] VITALS: BP 96/57
[2017-02-20 05:16] VITALS: BP 125/67
[2017-02-20] MEDS: LEVOTHYROXINE 112 MCG (LEVOTHROID) TAB PO SCH (06:26)
[2017-02-20] MEDS: VITAMIN A 8,000 UNITS PO SCH ×2 (06:26→17:03)
[2017-02-20] MEDS: MICONAZOLE 2% POWDER (DESENEX AF) 90 GM TOP SCH ×2 (08:17→20:37)
[2017-02-20] MEDS: CALCIUM CARB + VIT D 600 MG (CALCARB + D) TAB PO SCH ×2 (08:17→20:36)
[2017-02-20] MEDS: BUMETANIDE 1 MG (BUMEX) TAB PO SCH (08:17)
[2017-02-20] MEDS: OXYBUTYNIN (DITROPAN) 5 MG TAB PO SCH (08:17)
[2017-02-20] MEDS: LACTULOSE SYRUP 10GM/15ML (ENULOSE) 30ML UDC PO SCH ×3 (08:17→20:35)
[2017-02-20] MEDS: CARVEDILOL 12.5 MG (COREG) TABLET PO SCH ×2 (08:17→20:36)
[2017-02-20] MEDS: COLCHICINE 0.6 MG (COLCRYS) TABLET PO SCH ×2 (08:17→20:36)
--- NOTE | 2017-02-20 09:47 | Physical Therapy Daily Note ---
PT Daily Note-Current Subjective Pt. agrees to Rx. States she is fearful of falling and has been hesitant to really give it her all but will now. States she is so pleased with her progress after the rx Pain Numeric Pain Scale: 0-No Pain Mental Status Patient Orientation: Normal For Age Transfers Functional [place] Measure 0=Not Assessed/NA 4=Minimal Assistance 1=Total Assistance 5=Supervision or Setup 2=Maximal Assistance 6=Modified [place] 3=Moderate Assistance 7=Complete IndependenceIRFPAI Quality Coding Scale 6 Independent with activity with or without an assistive device 5 Patient requires set up or clean up by helper. Patient completes activity by themselves 4 Supervision or touching assist (CGA). [place] provide cues , steadying assist 3 The helper provides less than half the effort to complete the activity 2 The helper provides more than half the effort to complete the activity 1 Dependent. The helper does all the effort to complete an activity 7 Patient refused to complete or attempt activity 9 The patient did not perform the activity before the current illness or injury 88 Not attempted due to Medical conditions or safety concerns Transfers (B, C, W/C) (FIM): 4 Scootin Rollin Supine to/from Sit: 4 Sit to/from Stand: 4 with instruction and education pt rolled sup to right side and TRFd min assist to sit Weight Bearing Weight Bearing Restriction: Weight Bearing/Tolerated Location Restriction: L LE Gait Training Does the Patient Walk?: Yes Gait (FIM): 1 Distance (FIM): 1=up to 49 ft (12x2) Gait Level of Assist: 4 Gait Persons Needed: 1 Gait Assistive Device: FWW educated RE: use of arms and sequence for gait , improved but narrow RAQUEL and keeps LEs to one side in walker Exercises Supine Ex: Ankle pumps, Quad Set, Glut sets, Heel Slides, Short Arc Quads, Scooting, Hip abd/add Supine Reps: 15 Assessment Current Status: Good Progress more confidence, more motivation , improved funct mob PT Short Term Goals Short Term Goals Time Frame: Feb 22, 2017 Transfers (B,C,W/C) (FIM): 4 Gait (FIM): 1 Gait Distance Comment: 20' Gait Level of Assist: 4 Gait Assistive Device: FWW Wheelchair Distance: 40' PT Marine Engineering Professor Goals Assisted Goals PT Assisted Goals Time Frame: Mar 08, 2017 Transfers (B,C,W/C) (FIM): 4 (CGA) Sit to Lying (QC): 5 Lying-Sitting on Side/Bed(QC): 5 Sit to Stand (QC): 5 Rollin Roll Left to Right (QC): 5 Chair/Wqc-rl-Exgfi Xfer(QC): 5 Car Transfer (QC): 5 Gait (FIM): 2 Distance: 50' Walk 10 feet (QC): 5 Walk 10ft-Uneven Surface(QC): 5 Walk 50ft with 2 Turns (QC): 5 Gait Level of Assist: 4 Gait Assistive Device: FWW Stairs (FIM): 2 # of Steps: 4 1 Step (curb) (QC): 5 4 Steps (QC): 5 Stairs Level Of Assist: 4 PT Plan Treatment/Plan Treatment Plan: Continue Plan of Care Treatment Plan: Bed Mobility, Education, Functional Activity [place], Functional Strength, Group Therapy, Gait, Safety, Therapeutic Exercise, Transfers Treatment Duration: Mar 08, 2017 Frequency: At least 5-7 days/Wk (IRF) Estimated Hrs Per Day: 1.5 hours per day Patient and/or Family Agrees t: Yes Safety Risks/Education Patient Education: Gait Training, Transfer Techniques Teaching Recipient: Patient Teaching Methods: Demonstration, Discussion Response to Teaching: Verbalize Understanding, Return Demonstration, Reinforcement Needed Time/GCodes Time In: 845 Time Out: 910 Total Billed Treatment Time: 25 Total Billed Treatment 1,EX10,GT15 G Codes Necessary: MELINDA Cisneros ROCKET ENGINE MECHANIC Feb 20, 2017 09:47
[2017-02-20] MEDS: warFARin 3 MG (COUMADIN) TAB PO SCH (17:04)
[2017-02-20 17:45] VITALS: BP 113/66
[2017-02-21 05:26] VITALS: BP 134/74
[2017-02-21] MEDS: LEVOTHYROXINE 112 MCG (LEVOTHROID) TAB PO SCH (06:20)
[2017-02-21] MEDS: VITAMIN A 8,000 UNITS PO SCH ×2 (06:20→18:24)
[2017-02-21] MEDS: CALCIUM CARB + VIT D 600 MG (CALCARB + D) TAB PO SCH ×2 (08:10→20:49)
[2017-02-21] MEDS: LACTULOSE SYRUP 10GM/15ML (ENULOSE) 30ML UDC PO SCH ×2 (08:11→20:49)
[2017-02-21] MEDS: BUMETANIDE 1 MG (BUMEX) TAB PO SCH (08:11)
[2017-02-21] MEDS: CARVEDILOL 12.5 MG (COREG) TABLET PO SCH ×2 (08:11→20:49)
[2017-02-21] MEDS: COLCHICINE 0.6 MG (COLCRYS) TABLET PO SCH ×2 (08:11→20:49)
[2017-02-21] MEDS: OXYBUTYNIN (DITROPAN) 5 MG TAB PO SCH (08:11)
[2017-02-21] MEDS: MICONAZOLE 2% POWDER (DESENEX AF) 90 GM TOP SCH ×2 (08:12→20:49)
[2017-02-21 18:00] VITALS: BP 115/63
[2017-02-21] MEDS: warFARin 3 MG (COUMADIN) TAB PO SCH (18:23)
[2017-02-22 05:29] VITALS: BP 107/59
[2017-02-22] MEDS: LEVOTHYROXINE 112 MCG (LEVOTHROID) TAB PO SCH (05:57)
[2017-02-22] MEDS: VITAMIN A 8,000 UNITS PO SCH ×2 (05:57→17:02)
[2017-02-22] MEDS: OXYBUTYNIN (DITROPAN) 5 MG TAB PO SCH (08:45)
[2017-02-22] MEDS: LACTULOSE SYRUP 10GM/15ML (ENULOSE) 30ML UDC PO SCH ×2 (08:45→20:08)
[2017-02-22] MEDS: BUMETANIDE 1 MG (BUMEX) TAB PO SCH (08:45)
[2017-02-22] MEDS: COLCHICINE 0.6 MG (COLCRYS) TABLET PO SCH ×2 (08:45→20:08)
[2017-02-22] MEDS: CALCIUM CARB + VIT D 600 MG (CALCARB + D) TAB PO SCH ×2 (08:45→20:08)
[2017-02-22] MEDS: MICONAZOLE 2% POWDER (DESENEX AF) 90 GM TOP SCH ×2 (08:45→20:08)
[2017-02-22] MEDS: CARVEDILOL 12.5 MG (COREG) TABLET PO SCH ×2 (08:45→20:08)
--- NOTE | 2017-02-22 09:03 | Physical Therapy Daily Note ---
PT Daily Note-Current Subjective Patient in bed pre tx, agrees to PT, has no complaints of pain. Patient has been incontinent of bowel and bladder in bed, she will need to be taken to commode and cleaned and dressed. Appearance Patient in wheelchair at bedside post tx with nurse call, phone, tray, all needs met. Mental Status Patient Orientation: Normal For Age Transfers Functional [place] Measure 0=Not Assessed/NA 4=Minimal Assistance 1=Total Assistance 5=Supervision or Setup 2=Maximal Assistance 6=Modified [place] 3=Moderate Assistance 7=Complete IndependenceIRFPAI Quality Coding Scale 6 Independent with activity with or without an assistive device 5 Patient requires set up or clean up by helper. Patient completes activity by themselves 4 Supervision or touching assist (CGA). [place] provide cues , steadying assist 3 The helper provides less than half the effort to complete the activity 2 The helper provides more than half the effort to complete the activity 1 Dependent. The helper does all the effort to complete an activity 7 Patient refused to complete or attempt activity 9 The patient did not perform the activity before the current illness or injury 88 Not attempted due to Medical conditions or safety concerns Transfers (B, C, W/C) (FIM): 4 Scootin Rollin Supine to/from Sit: 4 Sit to/from Stand: 4 Bed to/from Chair: 4 cues for safety and hand placement, patient can perform supine to sit with min assist if head of bed is raised Gait Training Gait (FIM): 1 Distance: 20', 10', 15'x4 Gait Level of Assist: 4 Gait Persons Needed: 1 Gait Assistive Device: FWW wheelchair follow, patient needs cues for step through gait pattern, has a hard time advancing her left leg but better than last week, slow, antalgic ambulation Exercises LAQ for 5 min left side Treatments bed mobility and transfers, ambulation, functional strengthening, patient was toileted, cleaned, and dressed Assessment Current Status: Fair Progress improved transfers and ambulation PT Short Term Goals Short Term Goals Time Frame: Feb 22, 2017 Transfers (B,C,W/C) (FIM): 4 Gait (FIM): 1 Gait Distance Comment: 20' Gait Level of Assist: 4 Gait Assistive Device: FWW Wheelchair Distance: 40' PT Fdc Goals Molecular Spectroscopist Goals PT Molecular Spectroscopist Goals Time Frame: Mar 08, 2017 Transfers (B,C,W/C) (FIM): 4 (CGA) Sit to Lying (QC): 5 Lying-Sitting on Side/Bed(QC): 5 Sit to Stand (QC): 5 Rollin Roll Left to Right (QC): 5 Chair/Cvx-ck-Cnyyi Xfer(QC): 5 Car Transfer (QC): 5 Gait (FIM): 2 Distance: 50' Walk 10 feet (QC): 5 Walk 10ft-Uneven Surface(QC): 5 Walk 50ft with 2 Turns (QC): 5 Gait Level of Assist: 4 Gait Assistive Device: FWW Stairs (FIM): 2 # of Steps: 4 1 Step (curb) (QC): 5 4 Steps (QC): 5 Stairs Level Of Assist: 4 PT Plan Problem List Problem List: Activity Tolerance, Functional Strength, Safety, Balance, Gait, Transfer, Bed Mobility, ROM Treatment/Plan Treatment Plan: Continue Plan of Care Treatment Plan: Bed Mobility, Education, Functional Activity [place], Functional Strength, Group Therapy, Gait, Safety, Therapeutic Exercise, Transfers Treatment Duration: Mar 08, 2017 Frequency: At least 5-7 days/Wk (IRF) Estimated Hrs Per Day: 1.5 hours per day Patient and/or Family Agrees t: Yes Safety Risks/Education Patient Education: Gait Training, Transfer Techniques, Correct Positioning, Safety Issues Teaching Recipient: Patient Teaching Methods: Demonstration, Discussion Response to Teaching: Reinforcement Needed Time/GCodes Time In: 800 Time Out: 900 Total Billed Treatment Time: 60 Total Billed Treatment 1 visit FA 30' GT 30' DEMETRI RICHMOND PT Feb 22, 2017 09:03
[2017-02-22 10:14] LABS: INR 2.8 (0.8-1.4)
--- NOTE | 2017-02-22 12:44 | Occupational Ther Daily Note ---
OT Current Status-Daily Note Subjective Pt seen in room, up in w/c, agreeable to OT. Would like to shower. No pain mentioned. Appearance Alert, cooperative Mental Status/Objective Functional [place] Measure 0=Not Assessed/NA 4=Minimal Assistance 1=Total Assistance 5=Supervision or Setup 2=Maximal Assistance 6=Modified [place] 3=Moderate Assistance 7=Complete [place] ADL-Treatment Pt was incontinent of urine in [place], getting clothing wet. She said that, at home, she typically took herself to the bathroom about every hour and a half, and sometimes it worked, sometimes it didn't. She may do well on a toileting schedule here as well. Lots of dark red drainage on towel in shower, from wound (nursing thought it was old blood). Functional [place] Measure 0=Not Assessed/NA 4=Minimal Assistance 1=Total Assistance 5=Supervision or Setup 2=Maximal Assistance 6=Modified [place] 3=Moderate Assistance 7=Complete IndependenceIRFPAI Quality Coding Scale 6 Independent with activity with or without an assistive device 5 Patient requires set up or clean up by helper. Patient completes activity by themselves 4 Supervision or touching assist (CGA). [place] provide cues , steadying assist 3 The helper provides less than half the effort to complete the activity 2 The helper provides more than half the effort to complete the activity 1 Dependent. The helper does all the effort to complete an activity 7 Patient refused to complete or attempt activity 9 The patient did not perform the activity before the current illness or injury 88 Not attempted due to Medical conditions or safety concerns Grooming (FIM): 6 (Brushed teeth and hair at sink, w/c level) Bathing (FIM): 4 (Washed and dried all parts except didn't get bottom well and needed additional assistance. Shower bench, grab bars, hand held shower, setup.) Upper Body (FIM): 5 (Undressed and dressed with setup) Lower Body Dressing (FIM): 4 (Needed just a little help getting pants over hips. Stood CGA, then SBA to pull pants up, FWW. Able to put Depends on with dressing stick, socks on with sock aid. TEDs with setup. ) Transfers (B, C, W/C) (FIM): 4 Shower Transfer(FIM): 4 (Skilled cues for hand placement on different grab bars , for sidestepping into shower. Skilled cues to push up from arms of w/c to reach for grab bars. Shower bench) Pt transferred several steps to recliner, min assist, moving slowly and with skilled cues for walker and hand placement. Up in recliner, all needs met. Education OT Patient Education: Modified ADL techniques, Progress toward Goal/Update tx plan, Purpose of tx/functional activities, Safety issues, Transfer techniques Teaching Recipient: Patient Teaching Methods: Discussion Response to Teaching: Verbalize Understanding, Return Demonstration, Reinforcement Needed OT Short Term Goals Short Term Goals Time Frame: Feb 22, 2017 Lower Body Dressing(FIM): 3 Toileting(FIM): 3 Transfers (B,C,W/C) (FIM): 4 Toilet/Commode Transfer(FIM): 3 Additional Short Term Goals: 1-Demonstrate ADL Tasks, 2-Verbalize Understanding , 3-ImproveStrength/[place] 1=Demonstrate adherence to instructed precautions during ADL tasks. 2=Patient will verbalize/demonstrate understanding of assistive devices/ modifications for ADL. 3=Patient will improve strength/tolerance for activity to enable patient to perform ADL's. OT Battery Filler Goals Half-Way Goals Time Frame: Mar 08, 2017 Eating (FIM): 6 Eating (QC): 6 Groomin Oral Hygiene (QC): 6 Bathing(FIM): 6 Shower/Bathe Self (QC): 6 Upper Body Dressing(FIM): 6 Upper Body Dressing (QC): 6 Lower Body Dressing(FIM): 6 Lower Body Dressing (QC): 6 On/Off Footwear (QC): 6 Toileting(FIM): 6 Toileting Hygiene (QC): 6 Toilet/Commode Transfer(FIM): 6 Toilet/Commode Transfer (QC): 6 Shower Transfer(FIM): 6 Additional Goals: 1-Demonstrate ADL Tasks, 2-Verbalize Understanding, 3- ImproveStrength/[place] 1=Demonstrate adherence to instructed precautions during ADL tasks. 2=Patient will verbalize/demonstrate understanding of assistive devices/ modifications for ADL. 3=Patient will improve strength/tolerance for activity to enable patient to perform ADL's. OT Education/Plan Problem List/Assessment Pt would benefit from skilled OT to increase her independence in basic self care to allow her to safely return to her home to live alone and to decrease caregiver burden Discharge Recommendations Plan/Recommendations: Continue POC Treatment Plan/Plan of Care Patient would benefit from OT for education, treatment and training to promote independence in ADL's, mobility, safety and/or upper extremity function for ADL' s. Plan of Care: ADL Retraining, Functional Mobility, Group Exercise/Act as Ind ( education, exercise, activity tolerance, funct activities), UE Funct Exercise/ Act, UE Neuromus Re-Ed/Coord Treatment Duration: Mar 08, 2017 Frequency: At least 5-7 days/Wk (IRF) Estimated Hrs Per Day: 1.5 hours per day Agreement: Yes Rehab Potential: Good Time/GCodes Start Time: 10:15 Stop Time: 11:15 Total Time Billed (hr/min): 60 Billed Treatment Time visit, 60 minutes ADL CONY WHITNEY OT Feb 22, 2017 12:44
--- NOTE | 2017-02-22 14:35 | Therapy Group Daily Note ---
Therapy Daily Group Note Patient Education Topic Home Safety, Fall Prevention Exercises LE Seated Exercise, UE Exercise Other/Notes Pt was an active participant in OT group. She introduced herself to the group by talking about her first car. She contributed to discussion/education on fall prevention and home safety and did seated exercises to strengthen her legs to help her balance. She also did seated UE and trunk exercises to help with transfers. At the end of group, she was able to identify one change that she will put into place at home to make her home safer. Her sister took her back to her room, per w/c, all needs met. Start Time: 13:00 Stop Time: 14:10 Total Billed Treatment Time: 70 Total Billed Treatment visit, 70 minutes group CONY WHITNEY OT Feb 22, 2017 14:35
[2017-02-22] MEDS: warFARin 3 MG (COUMADIN) TAB PO SCH (17:02)
[2017-02-22 17:56] VITALS: BP 112/73
--- NOTE | 2017-02-22 20:37 | PM & R (SOAP) Progress Note ---
Subjective Time Seen by Provider: 20:15 Subjective/Events-last exam Patient was seen in her room this evening Patient concerned re swelling left leg Reassured. RN reports some drainage from left hip incision site Will recheck CBC -See orders Patient Min assist for transfers Review of Systems Cardiovascular: Edema Objective Exam Last Set of Vital Signs Vital Signs Date Time Temp Pulse Resp B/P (MAP) Pulse Ox O2 Delivery O2 Flow Rate FiO2 02/22/17 20:20 Room Air 02/22/17 17:56 98.2 77 18 112/73 94 02/21/17 19:27 3.00 Capillary Refill : Less Than 3 Seconds I&O Intake and Output 02/22/17 00:00 Intake Total 1050 ml Balance 1050 ml Intake Oral 1050 ml # Voids 8 # Bowel Movements 1 General: Alert, Oriented X3, Cooperative, No Acute Distress HEENT: Atraumatic, PERRLA, EOMI, Mucous Memb Moist/[place] Neck: Supple, No JVD Lungs: Clear to Auscultation Heart: Regular Rate Abdomen: Normal Bowel Sounds, Soft, No Tenderness Extremities: Other ( mild edema left leg non calf tenderness) Neuro: Other (strength 4/5 BUES and RUE Left leg impaired due to recent frx and repair) Results Lab Laboratory Tests 02/22/17 09:41: Prothrombin Time 29.0H, INR Comment 2.8H Assessment/Plan Assessment Left intertrochanteric hip frx s/p fall with reapur Orthopedics Postop resp insufficiency on supplemental 02-being weaned Postop anemia Chronic anticoagulation Coumadin resumed with INR now therapeutic HTN controlled with meds Prior Lumbar spine surgery Postop constipation treated Prior Left TKR Post op swelling left leg with some drainage reported as dark Plan Continue PT/OT Adjust Coumadin as needed to facilitate Therapeutic [id number] 2.8 WEaned from F/U with Dr Mccormack et cirilo prn Next Team Conference Wednesday02-24-17 F/U with Hospitalist re adjusting Coumadin dosage as needed Check Incision site in AM Check CBC See orders ANGELICA YIN MD Feb 22, 2017 20:37
[2017-02-23 04:33] VITALS: BP 108/60
[2017-02-23 05:29] LABS: BASOPHILS # (AUTO) 0.1 10^3/uL (0.0-0.1); BASOPHILS % (AUTO) 1 % (0-10); EOSINOPHILS # (AUTO) 0.5 10^3/uL (0.0-0.3); EOSINOPHILS % (AUTO) 5 % (0-10); LYMPHOCYTES # (AUTO) 2.4 X 10^3 (1.0-4.0); LYMPHOCYTES % (AUTO) 23 % (12-44); MEAN CORPUSCULAR HEMOGLOBIN 31 PG (25-34); MEAN CORPUSCULAR HGB CONC 32 G/DL (32-36); MEAN CORPUSCULAR VOLUME 96 FL (80-99); MEAN PLATELET VOLUME 9.8 FL (7.4-10.4); MONOCYTES # (AUTO) 1.2 X 10^3 (0.0-1.0); MONOCYTES % (AUTO) 11 % (0-12); NEUTROPHILS # (AUTO) 6.4 X 10^3 (1.8-7.8); NEUTROPHILS % (AUTO) 61 % (42-75); PLATELET COUNT 355 10^3/uL (130-400); RED BLOOD COUNT 3.26 10^6/uL (4.35-5.85); RED CELL DISTRIBUTION WIDTH 13.8 % (10.0-14.5); WHITE BLOOD COUNT 10.5 10^3/uL (4.3-11.0)
[2017-02-23] MEDS: VITAMIN A 8,000 UNITS PO SCH ×2 (06:03→17:08)
[2017-02-23] MEDS: LEVOTHYROXINE 112 MCG (LEVOTHROID) TAB PO SCH (06:03)
[2017-02-23] MEDS: LACTULOSE SYRUP 10GM/15ML (ENULOSE) 30ML UDC PO SCH ×2 (08:04→20:42)
[2017-02-23] MEDS: MICONAZOLE 2% POWDER (DESENEX AF) 90 GM TOP SCH ×2 (08:04→20:43)
[2017-02-23] MEDS: COLCHICINE 0.6 MG (COLCRYS) TABLET PO SCH ×2 (08:04→20:42)
[2017-02-23] MEDS: CARVEDILOL 12.5 MG (COREG) TABLET PO SCH ×2 (08:04→20:42)
[2017-02-23] MEDS: CALCIUM CARB + VIT D 600 MG (CALCARB + D) TAB PO SCH ×2 (08:04→20:42)
[2017-02-23] MEDS: BUMETANIDE 1 MG (BUMEX) TAB PO SCH (08:04)
[2017-02-23] MEDS: OXYBUTYNIN (DITROPAN) 5 MG TAB PO SCH (08:04)
--- NOTE | 2017-02-23 09:36 | Physical Therapy Daily Note ---
PT Daily Note-Current Subjective Pt sitting in recliner upon arrival. Pt reports needing to use restroom before leaving for tx. Pt agrees to PT. Pain Numeric Pain Scale: 0-No Pain Location: No Pain Reported Mental Status Patient Orientation: Person, Place, Situation Transfers Functional [place] Measure 0=Not Assessed/NA 4=Minimal Assistance 1=Total Assistance 5=Supervision or Setup 2=Maximal Assistance 6=Modified [place] 3=Moderate Assistance 7=Complete IndependenceIRFPAI Quality Coding Scale 6 Independent with activity with or without an assistive device 5 Patient requires set up or clean up by helper. Patient completes activity by themselves 4 Supervision or touching assist (CGA). [place] provide cues , steadying assist 3 The helper provides less than half the effort to complete the activity 2 The helper provides more than half the effort to complete the activity 1 Dependent. The helper does all the effort to complete an activity 7 Patient refused to complete or attempt activity 9 The patient did not perform the activity before the current illness or injury 88 Not attempted due to Medical conditions or safety concerns Scootin Sit to/from Stand: 4 Sit to Stand (QC): 4 Weight Bearing Weight Bearing Restriction: Full Weight Bearing Location Restriction: LE Bilateral Gait Training Does the Patient Walk?: Yes Distance (FIM): 1=up to 49 ft Distance: 15', 5', 2' Walk 10 feet (QC): 4 Gait Level of Assist: 4 Gait Persons Needed: 1 Gait Assistive Device: FWW Pt has slow, but steady gait. Pt walks with antalgic gait pattern as well due incision site on L hip. Wheelchair Training Does the Pt Use a Wheelchair?: Yes Wheelchair Distance: 3=150 ft Distance: 150' Wheelchair Level of Assist: 4 Wheel 50 ft with 2 turns (QC): 4 Wheel 150 ft (QC): 4 Type of Wheelchair: Manual Exercises Seated Therapy Exercises: Ankle pumps, Long arc quads, Hip flexion, Kicking activity, Hip abd/add Seated Reps: 15 Treatments Pt transfers at [facility] ([facility] if fatigued). Pt ambulates using FWW at [facility]. Pt transfers to [facility] and propels the rest of the way. Pt completes Seated Ex in chair. Pt returns to room to use restroom and rest in [facility] at end of tx with all needs met. Assessment Current Status: Fair Progress Pt fatigues easy and needs rest breaks during ambulation and EX. Pt has made progress with activity tolerance and transfers. PT Short Term Goals Short Term Goals Time Frame: Feb 22, 2017 Transfers (B,C,W/C) (FIM): 4 Gait (FIM): 1 Gait Distance Comment: 20' Gait Level of Assist: 4 Gait Assistive Device: FWW Wheelchair Distance: 40' PT Glass Fitter Goals Glass Fitter Goals PT Glass Fitter Goals Time Frame: Mar 08, 2017 Transfers (B,C,W/C) (FIM): 4 (CGA) Sit to Lying (QC): 5 Lying-Sitting on Side/Bed(QC): 5 Sit to Stand (QC): 5 Rollin Roll Left to Right (QC): 5 Chair/[id number] Xfer(QC): 5 Car Transfer (QC): 5 Gait (FIM): 2 Distance: 50' Walk 10 feet (QC): 5 Walk 10ft-Uneven Surface(QC): 5 Walk 50ft with 2 Turns (QC): 5 Gait Level of Assist: 4 Gait Assistive Device: FWW Stairs (FIM): 2 # of Steps: 4 1 Step (curb) (QC): 5 4 Steps (QC): 5 Stairs Level Of Assist: 4 PT Plan Problem List Problem List: Activity Tolerance, Functional Strength, Safety, Gait Treatment/Plan Treatment Plan: Continue Plan of Care Treatment Plan: Bed Mobility, Education, Functional Activity [place], Functional Strength, Group Therapy, Gait, Safety, Therapeutic Exercise, Transfers Treatment Duration: Mar 08, 2017 Frequency: At least 5-7 days/Wk (IRF) Estimated Hrs Per Day: 1.5 hours per day Patient and/or Family Agrees t: Yes Safety Risks/Education Patient Education: Gait Training, Transfer Techniques, Correct Positioning, W/ C Management, Safety Issues Teaching Recipient: Patient Teaching Methods: Discussion Response to Teaching: Verbalize Understanding Time/GCodes Time In: 815 Time Out: 915 Total Billed Treatment Time: 60 Total Billed Treatment visit, FA (15m), [facility] (15m) GT (15m) & EX (15m) BRANDEN GUZMAN [employer] SITE MANAGER Feb 23, 2017 09:36
--- NOTE | 2017-02-23 11:55 | Occupational Ther Daily Note ---
OT Current Status-Daily Note Subjective Pt seen in room, up in w/c, agreeable to OT. No pain mentioned. Appearance Alert, cooperative Mental Status/Objective Functional [place] Measure 0=Not Assessed/NA 4=Minimal Assistance 1=Total Assistance 5=Supervision or Setup 2=Maximal Assistance 6=Modified [place] 3=Moderate Assistance 7=Complete [place] ADL-Treatment Functional [place] Measure 0=Not Assessed/NA 4=Minimal Assistance 1=Total Assistance 5=Supervision or Setup 2=Maximal Assistance 6=Modified [place] 3=Moderate Assistance 7=Complete IndependenceIRFPAI Quality Coding Scale 6 Independent with activity with or without an assistive device 5 Patient requires set up or clean up by helper. Patient completes activity by themselves 4 Supervision or touching assist (CGA). [place] provide cues , steadying assist 3 The helper provides less than half the effort to complete the activity 2 The helper provides more than half the effort to complete the activity 1 Dependent. The helper does all the effort to complete an activity 7 Patient refused to complete or attempt activity 9 The patient did not perform the activity before the current illness or injury 88 Not attempted due to Medical conditions or safety concerns Grooming (FIM): 6 (brushed teeth mod I at sink, w/c level) Bathing (FIM): 5 (Pt washed and dried all parts, SBA when standing to wash bottom. Shower bench, grab bars, hand held shower) Upper Body (FIM): 5 (Setup) Lower Body Dressing (FIM): 4 (SBA when standing to pull pants up. just a little help needed to get dependes and shorts over bulky dressing L him. Setup for TEDs, setup to don slipper socks with sock aid. Also used dressing stick, FWW) Toileting (FIM): 3 (SBA when standing to pull pants up and down, a little help needed to get pants up over bulky dressing L hip. Pt managed hygiene. Tall toilet, grab bars ) Toilet/Commode Transfer (FIM): 4 (Skilled cues for problem-solving hand placement, transferring from w/c to tall toilet, using grab bar. Min assist ( more difficult to move feet when she isn't weight bearing on FWW)) Shower Transfer(FIM): 4 (CGA, skilled cues. Easier moving feet today. Shower bench, grab bar) ADLs took longer than usual due to fatigue. Other Treatment Pt was transported to gym per w/c. Pt did bilat UE exercise with 1# weight on each arm, working with low and medium extensions on arc activity. To help strengthen arms for transfers (for ex., toilet transfer today). Pt transferred to recliner, [facility], FWW, all needs met. Education OT Patient Education: Exercise program, Modified ADL techniques, Progress toward Goal/Update tx plan, Purpose of tx/functional activities, Transfer techniques, Use of adapted equipment Teaching Recipient: Patient Teaching Methods: Demonstration, Discussion Response to Teaching: Verbalize Understanding, Return Demonstration, Reinforcement Needed OT Short Term Goals Short Term Goals Time Frame: Feb 22, 2017 Lower Body Dressing(FIM): 3 Toileting(FIM): 3 Transfers (B,C,W/C) (FIM): 4 Toilet/Commode Transfer(FIM): 3 Additional Short Term Goals: 1-Demonstrate ADL Tasks, 2-Verbalize Understanding , 3-ImproveStrength/[place] 1=Demonstrate adherence to instructed precautions during ADL tasks. 2=Patient will verbalize/demonstrate understanding of assistive devices/ modifications for ADL. 3=Patient will improve strength/tolerance for activity to enable patient to perform ADL's. OT Food Management Aide Goals Assisted Goals Time Frame: Mar 08, 2017 Eating (FIM): 6 Eating (QC): 6 Groomin Oral Hygiene (QC): 6 Bathing(FIM): 6 Shower/Bathe Self (QC): 6 Upper Body Dressing(FIM): 6 Upper Body Dressing (QC): 6 Lower Body Dressing(FIM): 6 Lower Body Dressing (QC): 6 On/Off Footwear (QC): 6 Toileting(FIM): 6 Toileting Hygiene (QC): 6 Toilet/Commode Transfer(FIM): 6 Toilet/Commode Transfer (QC): 6 Shower Transfer(FIM): 6 Additional Goals: 1-Demonstrate ADL Tasks, 2-Verbalize Understanding, 3- ImproveStrength/[place] 1=Demonstrate adherence to instructed precautions during ADL tasks. 2=Patient will verbalize/demonstrate understanding of assistive devices/ modifications for ADL. 3=Patient will improve strength/tolerance for activity to enable patient to perform ADL's. OT Education/Plan Problem List/Assessment Pt would benefit from skilled OT to increase her independence in basic self care to allow her to safely return to her home to live alone and to decrease caregiver burden Discharge Recommendations Plan/Recommendations: Continue POC Treatment Plan/Plan of Care Treatment,Training & Education: Yes Patient would benefit from OT for education, treatment and training to promote independence in ADL's, mobility, safety and/or upper extremity function for ADL' s. Plan of Care: ADL Retraining, Functional Mobility, Group Exercise/Act as Ind ( education, exercise, activity tolerance, funct activities), UE Funct Exercise/ Act, UE Neuromus Re-Ed/Coord Treatment Duration: Mar 08, 2017 Frequency: At least 5-7 days/Wk (IRF) Estimated Hrs Per Day: 1.5 hours per day Agreement: Yes Rehab Potential: Good Time/GCodes Start Time: 10:00 Stop Time: 11:05 Total Time Billed (hr/min): 65 Billed Treatment Time visit, 45 minutes ADL, 20 minutes exercise CONY WHITNEY OT Feb 23, 2017 11:55
--- NOTE | 2017-02-23 13:20 | Occupational Ther Daily Note ---
OT Current Status-Daily Note Subjective Pt seen in room, up in chair, agreeable to OT. No pain mentioned. Pt reported she was glad tx ended early this morning - she was tired! Appearance Alert, cooperative Mental Status/Objective Functional [place] Measure 0=Not Assessed/NA 4=Minimal Assistance 1=Total Assistance 5=Supervision or Setup 2=Maximal Assistance 6=Modified [place] 3=Moderate Assistance 7=Complete [place] ADL-Treatment Functional [place] Measure 0=Not Assessed/NA 4=Minimal Assistance 1=Total Assistance 5=Supervision or Setup 2=Maximal Assistance 6=Modified [place] 3=Moderate Assistance 7=Complete IndependenceIRFPAI Quality Coding Scale 6 Independent with activity with or without an assistive device 5 Patient requires set up or clean up by helper. Patient completes activity by themselves 4 Supervision or touching assist (CGA). [place] provide cues , steadying assist 3 The helper provides less than half the effort to complete the activity 2 The helper provides more than half the effort to complete the activity 1 Dependent. The helper does all the effort to complete an activity 7 Patient refused to complete or attempt activity 9 The patient did not perform the activity before the current illness or injury 88 Not attempted due to Medical conditions or safety concerns Other Treatment Pt was transported to gym per w/c. Pt did 15 minutes bilat UE exercise with arm bike, set at 20-25W resistance. She worked at a steady pace and took only brief breaks to get a drink of water. Exercise to strengthen arms to help with transfers, such as on/off toilet. pt returned to room, up in chair, all needs met. Education OT Patient Education: Progress toward Goal/Update tx plan, Purpose of tx/ functional activities Teaching Recipient: Patient Teaching Methods: Discussion Response to Teaching: Verbalize Understanding OT Short Term Goals Short Term Goals Time Frame: Feb 22, 2017 Lower Body Dressing(FIM): 3 Toileting(FIM): 3 Transfers (B,C,W/C) (FIM): 4 Toilet/Commode Transfer(FIM): 3 Additional Short Term Goals: 1-Demonstrate ADL Tasks, 2-Verbalize Understanding , 3-ImproveStrength/[place] 1=Demonstrate adherence to instructed precautions during ADL tasks. 2=Patient will verbalize/demonstrate understanding of assistive devices/ modifications for ADL. 3=Patient will improve strength/tolerance for activity to enable patient to perform ADL's. OT Long-Term Goals Contractor [place] Threshing Goals Time Frame: Mar 08, 2017 Eating (FIM): 6 Eating (QC): 6 Groomin Oral Hygiene (QC): 6 Bathing(FIM): 6 Shower/Bathe Self (QC): 6 Upper Body Dressing(FIM): 6 Upper Body Dressing (QC): 6 Lower Body Dressing(FIM): 6 Lower Body Dressing (QC): 6 On/Off Footwear (QC): 6 Toileting(FIM): 6 Toileting Hygiene (QC): 6 Toilet/Commode Transfer(FIM): 6 Toilet/Commode Transfer (QC): 6 Shower Transfer(FIM): 6 Additional Goals: 1-Demonstrate ADL Tasks, 2-Verbalize Understanding, 3- ImproveStrength/[place] 1=Demonstrate adherence to instructed precautions during ADL tasks. 2=Patient will verbalize/demonstrate understanding of assistive devices/ modifications for ADL. 3=Patient will improve strength/tolerance for activity to enable patient to perform ADL's. OT Education/Plan Problem List/Assessment Pt would benefit from skilled OT to increase her independence in basic self care to allow her to safely return to her home to live alone and to decrease caregiver burden Discharge Recommendations Plan/Recommendations: Continue POC Treatment Plan/Plan of Care Patient would benefit from OT for education, treatment and training to promote independence in ADL's, mobility, safety and/or upper extremity function for ADL' s. Plan of Care: ADL Retraining, Functional Mobility, Group Exercise/Act as Ind ( education, exercise, activity tolerance, funct activities), UE Funct Exercise/ Act, UE Neuromus Re-Ed/Coord Treatment Duration: Mar 08, 2017 Frequency: At least 5-7 days/Wk (IRF) Estimated Hrs Per Day: 1.5 hours per day Agreement: Yes Rehab Potential: Good Time/GCodes Start Time: 12:50 Stop Time: 13:15 Total Time Billed (hr/min): 25 Billed Treatment Time visit, 25 minutes exercise CONY WHITNEY OT Feb 23, 2017 13:20
--- NOTE | 2017-02-23 15:18 | Physical Therapy Daily Note ---
PT Daily Note-Current Subjective Pt sitting in [facility] after just finishing OT upon arrival. Pt agrees to PT. Pain Numeric Pain Scale: 0-No Pain Location: No Pain Reported Mental Status Patient Orientation: Person, Place, Situation Transfers Functional [place] Measure 0=Not Assessed/NA 4=Minimal Assistance 1=Total Assistance 5=Supervision or Setup 2=Maximal Assistance 6=Modified [place] 3=Moderate Assistance 7=Complete IndependenceIRFPAI Quality Coding Scale 6 Independent with activity with or without an assistive device 5 Patient requires set up or clean up by helper. Patient completes activity by themselves 4 Supervision or touching assist (CGA). [place] provide cues , steadying assist 3 The helper provides less than half the effort to complete the activity 2 The helper provides more than half the effort to complete the activity 1 Dependent. The helper does all the effort to complete an activity 7 Patient refused to complete or attempt activity 9 The patient did not perform the activity before the current illness or injury 88 Not attempted due to Medical conditions or safety concerns Scootin Sit to/from Stand: 5 Sit to Stand (QC): 5 Gait Training Does the Patient Walk?: Yes Distance (FIM): 1=up to 49 ft Distance: 15', 15' Walk 10 feet (QC): 4 Gait Level of Assist: 4 Gait Persons Needed: 1 Gait Assistive Device: FWW Pt's gait is slow but steady, no LOB. Pt has antalgic gait pattern. Wheelchair Training Does the Pt Use a Wheelchair?: Yes Wheelchair Distance: 3=150 ft Distance: 150' Wheelchair Level of Assist: 4 Wheel 50 ft with 2 turns (QC): 4 Wheel 150 ft (QC): 4 Type of Wheelchair: Manual Treatments Pt transfers using FWW at [facility]. Pt ambulates using FWW at [facility] in Therapy Gym. Pt propels [facility] back towards room to rest at end of tx after using restroom. Assessment Current Status: Fair Progress Pt fatigues easy and needs rest breaks as well as needs encouragement to push herself. PT Short Term Goals Short Term Goals Time Frame: Feb 22, 2017 Transfers (B,C,W/C) (FIM): 4 Gait (FIM): 1 Gait Distance Comment: 20' Gait Level of Assist: 4 Gait Assistive Device: FWW Wheelchair Distance: 150' PT Senior Infrastructure Engineer Goals Fpc Goals PT Fpc Goals Time Frame: Mar 08, 2017 Transfers (B,C,W/C) (FIM): 4 (CGA) Sit to Lying (QC): 5 Lying-Sitting on Side/Bed(QC): 5 Sit to Stand (QC): 5 Rollin Roll Left to Right (QC): 5 Chair/Wbi-ak-Hnmgf Xfer(QC): 5 Car Transfer (QC): 5 Gait (FIM): 2 Distance: 50' Walk 10 feet (QC): 5 Walk 10ft-Uneven Surface(QC): 5 Walk 50ft with 2 Turns (QC): 5 Gait Level of Assist: 4 Gait Assistive Device: FWW Stairs (FIM): 2 # of Steps: 4 1 Step (curb) (QC): 5 4 Steps (QC): 5 Stairs Level Of Assist: 4 PT Plan Problem List Problem List: Activity Tolerance, Functional Strength, Gait Treatment/Plan Treatment Plan: Continue Plan of Care Treatment Plan: Bed Mobility, Education, Functional Activity [place], Functional Strength, Group Therapy, Gait, Safety, Therapeutic Exercise, Transfers Treatment Duration: Mar 08, 2017 Frequency: At least 5-7 days/Wk (IRF) Estimated Hrs Per Day: 1.5 hours per day Patient and/or Family Agrees t: Yes Safety Risks/Education Patient Education: Gait Training, Transfer Techniques, Correct Positioning, W/ C Management, Safety Issues Teaching Recipient: Patient Teaching Methods: Discussion Response to Teaching: Verbalize Understanding Time/GCodes Time In: 1320 Time Out: 1350 Total Billed Treatment Time: 30 Total Billed Treatment visit, GT (20m) & WCH (10m) BRANDEN GUZMAN PTA Feb 23, 2017 15:18
--- NOTE | 2017-02-23 16:04 | PM & R (SOAP) Progress Note ---
Subjective Time Seen by Provider: 08:15 Subjective/Events-last exam Patient was seen in her room this AM HIP incision viewed with RN Patient with some serosanguinous drainage-orthopedics notified CBC ok Ortho indicates to continue current dressing DR Mccormack aware.INR noted,Patient SBA for transfers Objective Exam Last Set of Vital Signs Vital Signs Date Time Temp Pulse Resp B/P (MAP) Pulse Ox O2 Delivery O2 Flow Rate FiO2 02/23/17 08:43 Room Air 02/23/17 04:33 98.0 73 16 108/60 94 02/21/17 19:27 3.00 Capillary Refill : Less Than 3 Seconds I&O Intake and Output 02/23/17 00:00 Intake Total 1400 ml Balance 1400 ml Intake Oral 1400 ml # Voids 6 # Urine Diapers 2 # Bowel Movements 1 General: Alert, Oriented X3, Cooperative, No Acute Distress HEENT: Atraumatic, PERRLA, EOMI, Mucous Memb Moist/[place] Neck: Supple, No JVD Lungs: Clear to Auscultation Heart: Regular Rate Abdomen: Normal Bowel Sounds, Soft, No Tenderness Extremities: Other ( mild edema left leg non calf tenderness) Neuro: Other (strength 4/5 BUES and RUE Left leg impaired due to recent frx and repair) Results Lab Laboratory Tests 02/22/17 09:41: Prothrombin Time 29.0H, INR Comment 2.8H 02/23/17 05:20: White Blood Count 10.5, Red Blood Count 3.26L, Hemoglobin 10.0L, Hematocrit 31L , Mean Corpuscular Volume 96, Mean Corpuscular Hemoglobin 31, Mean Corpuscular Hemoglobin Concent 32, Red Cell Distribution Width 13.8, Platelet Count 355, Mean Platelet Volume 9.8, Neutrophils (%) (Auto) 61, Lymphocytes (%) (Auto) 23, Monocytes (%) (Auto) 11, Eosinophils (%) (Auto) 5, Basophils (%) (Auto) 1, Neutrophils # (Auto) 6.4, Lymphocytes # (Auto) 2.4, Monocytes # (Auto) 1.2H, Eosinophils # (Auto) 0.5H, Basophils # (Auto) 0.1 Assessment/Plan Assessment Left intertrochanteric hip frx s/p fall with reapur Orthopedics Postop resp insufficiency on supplemental 02-being weaned Postop anemia Chronic anticoagulation Coumadin resumed with INR now therapeutic HTN controlled with meds Prior Lumbar spine surgery Postop constipation treated Prior Left TKR Post op swelling left leg with some serosanguinous drainage-CBC OK Orthopedics aware Dressing continues Plan Continue PT/OT Adjust Coumadin as needed to facilitate Therapeutic INR--DR Mccormack following WEaned from / with Dr Mccormack et al prn Next Team Conference tomorrow Wednesday02-24-17 Checked Incision-ortho aware Checked CBC ANGELICA YIN MD Feb 23, 2017 16:04
[2017-02-23] MEDS: warFARin 3 MG (COUMADIN) TAB PO SCH (17:08)
[2017-02-23 17:35] VITALS: BP 124/76
[2017-02-24 05:09] VITALS: BP 108/67
[2017-02-24] MEDS: VITAMIN A 8,000 UNITS PO SCH ×2 (06:22→17:13)
[2017-02-24] MEDS: LEVOTHYROXINE 112 MCG (LEVOTHROID) TAB PO SCH (06:22)
[2017-02-24 08:06] VITALS: BP 114/71
[2017-02-24] MEDS: CALCIUM CARB + VIT D 600 MG (CALCARB + D) TAB PO SCH ×2 (08:07→20:09)
[2017-02-24] MEDS: OXYBUTYNIN (DITROPAN) 5 MG TAB PO SCH (08:07)
[2017-02-24] MEDS: COLCHICINE 0.6 MG (COLCRYS) TABLET PO SCH ×2 (08:07→20:09)
[2017-02-24] MEDS: CARVEDILOL 12.5 MG (COREG) TABLET PO SCH ×2 (08:07→20:09)
[2017-02-24] MEDS: BUMETANIDE 1 MG (BUMEX) TAB PO SCH (08:07)
[2017-02-24] MEDS: MICONAZOLE 2% POWDER (DESENEX AF) 90 GM TOP SCH ×2 (08:08→20:10)
[2017-02-24] MEDS: LACTULOSE SYRUP 10GM/15ML (ENULOSE) 30ML UDC PO SCH ×2 (08:08→20:10)
--- NOTE | 2017-02-24 09:09 | Physical Therapy Daily Note ---
PT Daily Note-Current Subjective Pt. agrees to Rx but states she admits that she is fearful when it comes to any movement be that TRFs or gait. when asked about pain pt. states "well really I just have fear" Pain Numeric Pain Scale: 0-No Pain Mental Status Patient Orientation: Normal For Age Transfers Functional [place] Measure 0=Not Assessed/NA 4=Minimal Assistance 1=Total Assistance 5=Supervision or Setup 2=Maximal Assistance 6=Modified [place] 3=Moderate Assistance 7=Complete IndependenceIRFPAI Quality Coding Scale 6 Independent with activity with or without an assistive device 5 Patient requires set up or clean up by helper. Patient completes activity by themselves 4 Supervision or touching assist (CGA). [place] provide cues , steadying assist 3 The helper provides less than half the effort to complete the activity 2 The helper provides more than half the effort to complete the activity 1 Dependent. The helper does all the effort to complete an activity 7 Patient refused to complete or attempt activity 9 The patient did not perform the activity before the current illness or injury 88 Not attempted due to Medical conditions or safety concerns Transfers (B, C, W/C) (FIM): 4 Scootin Rollin Supine to/from Sit: 4 Sit to/from Stand: 5 Weight Bearing Weight Bearing Restriction: Weight Bearing/Tolerated Location Restriction: L LE Gait Training Does the Patient Walk?: Yes Gait (FIM): 2 Distance (FIM): 1=836-05 ft (50,25x2) Gait Level of Assist: 4 Gait Persons Needed: 1 Gait Assistive Device: FWW fearful, hesitant to wt bear on RLE, step to and very narrow RAQUEL Exercises Supine Ex: Ankle pumps, Quad Set, Rolling, Glut sets, Heel Slides, Short Arc Quads, Scooting, Straight leg raise (assist), Hip abd/add (ssist) Seated Therapy Exercises: Ankle pumps, Sit to stand, Long arc quads Seated Reps: 8 Assessment Current Status: Good Progress antalgia, resists wt bearing and advancing RLE PT Short Term Goals Short Term Goals Time Frame: Feb 22, 2017 Transfers (B,C,W/C) (FIM): 4 Gait (FIM): 1 Gait Distance Comment: 20' Gait Level of Assist: 4 Gait Assistive Device: FWW Wheelchair Distance: 150' PT Care Home Goals Pulley Maintainer Goals PT Pulley Maintainer Goals Time Frame: Mar 08, 2017 Transfers (B,C,W/C) (FIM): 4 (CGA) Sit to Lying (QC): 5 Lying-Sitting on Side/Bed(QC): 5 Sit to Stand (QC): 5 Rollin Roll Left to Right (QC): 5 Chair/Uia-un-Nnrkb Xfer(QC): 5 Car Transfer (QC): 5 Gait (FIM): 2 Distance: 50' Walk 10 feet (QC): 5 Walk 10ft-Uneven Surface(QC): 5 Walk 50ft with 2 Turns (QC): 5 Gait Level of Assist: 4 Gait Assistive Device: FWW Stairs (FIM): 2 # of Steps: 4 1 Step (curb) (QC): 5 4 Steps (QC): 5 Stairs Level Of Assist: 4 PT Plan Treatment/Plan Treatment Plan: Continue Plan of Care Treatment Plan: Bed Mobility, Education, Functional Activity [place], Functional Strength, Group Therapy, Gait, Safety, Therapeutic Exercise, Transfers Treatment Duration: Mar 08, 2017 Frequency: At least 5-7 days/Wk (IRF) Estimated Hrs Per Day: 1.5 hours per day Patient and/or Family Agrees t: Yes Safety Risks/Education Patient Education: Gait Training, Transfer Techniques, Correct Positioning, W/ C Management, Disease Process, Safety Issues Teaching Recipient: Patient Teaching Methods: Demonstration, Discussion Response to Teaching: Verbalize Understanding, Return Demonstration, Reinforcement Needed discussed with pt. that she is safe here and need to practice good gait pattern Time/GCodes Time In: 800 Time Out: 900 Total Billed Treatment Time: 60 Total Billed Treatment 1,GT25m,EX20m,FA15m G Codes Necessary: MELINDA Cisneros SUPERVISOR PIPE MANUFACTURE Feb 24, 2017 09:09
--- NOTE | 2017-02-24 10:07 | Occupational Ther Daily Note ---
OT Current Status-Daily Note Subjective Pt sitting in chair, agrees to treatment. Pt reports 2/10 pain in left hip and knee. Mental Status/Objective Functional [place] Measure 0=Not Assessed/NA 4=Minimal Assistance 1=Total Assistance 5=Supervision or Setup 2=Maximal Assistance 6=Modified [place] 3=Moderate Assistance 7=Complete [place] ADL-Treatment Pt requests to sponge bathe this am. Pt completed sponge bath while seated in chair. Doff gown without assistance. Pt uses dressing stick to doff socks. Upper body bathing completed with set up. Pt able to wash bilateral upper legs, buttocks, lovely area, and right lower leg, but requires assist to wash left foot. Stood with supervision for balance while washing buttocks and lovely area. Don pullover shirt with set up. Pt donned underwear and pants with minimal assistance to pull up on left side. Don bilateral socks with SBA. Pt performed gait to restroom with FWW and slow pace. Cues for safety and walker use. Grooming tasks completed seated at sink with modified independence. Pt requires increased time for ADL tasks. Functional [place] Measure 0=Not Assessed/NA 4=Minimal Assistance 1=Total Assistance 5=Supervision or Setup 2=Maximal Assistance 6=Modified [place] 3=Moderate Assistance 7=Complete IndependenceIRFPAI Quality Coding Scale 6 Independent with activity with or without an assistive device 5 Patient requires set up or clean up by helper. Patient completes activity by themselves 4 Supervision or touching assist (CGA). [place] provide cues , steadying assist 3 The helper provides less than half the effort to complete the activity 2 The helper provides more than half the effort to complete the activity 1 Dependent. The helper does all the effort to complete an activity 7 Patient refused to complete or attempt activity 9 The patient did not perform the activity before the current illness or injury 88 Not attempted due to Medical conditions or safety concerns Grooming (FIM): 6 Oral Hygiene (QC): 6 Bathing (FIM): 4 Shower/Bathe Self (QC): 3 Upper Body (FIM): 5 Upper Body Dressing (QC): 5 Lower Body Dressing (FIM): 4 Lower Body Dressing (QC): 3 On/Off Footwear (QC): 5 Other Treatment Pt performed bilateral UE exercises to promote increased strength needed for ADLs and transfers. Pt completed shoulder flexion, abduction, biceps curls, and triceps extension exercises x15 reps with moderate resistance (red) theraband. Rest breaks as needed. Pt sitting in chair with needs met after session. OT Short Term Goals Short Term Goals Time Frame: Feb 22, 2017 Lower Body Dressing(FIM): 3 Toileting(FIM): 3 Transfers (B,C,W/C) (FIM): 4 Toilet/Commode Transfer(FIM): 3 Additional Short Term Goals: 1-Demonstrate ADL Tasks, 2-Verbalize Understanding , 3-ImproveStrength/[place] 1=Demonstrate adherence to instructed precautions during ADL tasks. 2=Patient will verbalize/demonstrate understanding of assistive devices/ modifications for ADL. 3=Patient will improve strength/tolerance for activity to enable patient to perform ADL's. OT Custodial Goals Tape Edge Machine Operator Goals Time Frame: Mar 08, 2017 Eating (FIM): 6 Eating (QC): 6 Groomin Oral Hygiene (QC): 6 Bathing(FIM): 6 Shower/Bathe Self (QC): 6 Upper Body Dressing(FIM): 6 Upper Body Dressing (QC): 6 Lower Body Dressing(FIM): 6 Lower Body Dressing (QC): 6 On/Off Footwear (QC): 6 Toileting(FIM): 6 Toileting Hygiene (QC): 6 Toilet/Commode Transfer(FIM): 6 Toilet/Commode Transfer (QC): 6 Shower Transfer(FIM): 6 Additional Goals: 1-Demonstrate ADL Tasks, 2-Verbalize Understanding, 3- ImproveStrength/[place] 1=Demonstrate adherence to instructed precautions during ADL tasks. 2=Patient will verbalize/demonstrate understanding of assistive devices/ modifications for ADL. 3=Patient will improve strength/tolerance for activity to enable patient to perform ADL's. OT Education/Plan Problem List/Assessment Pt would benefit from skilled OT to increase her independence in basic self care to allow her to safely return to her home to live alone and to decrease caregiver burden Discharge Recommendations Plan/Recommendations: Continue POC Treatment Plan/Plan of Care Patient would benefit from OT for education, treatment and training to promote independence in ADL's, mobility, safety and/or upper extremity function for ADL' s. Plan of Care: ADL Retraining, Functional Mobility, Group Exercise/Act as Ind ( education, exercise, activity tolerance, funct activities), UE Funct Exercise/ Act, UE Neuromus Re-Ed/Coord Treatment Duration: Mar 08, 2017 Frequency: At least 5-7 days/Wk (IRF) Estimated Hrs Per Day: 1.5 hours per day Agreement: Yes Rehab Potential: Good Time/GCodes Start Time: 09:00 Stop Time: 10:00 Total Time Billed (hr/min): 60 Billed Treatment Time 1 visit, ADLx3(45minutes), EX(15minutes) ETIENNE CRUZ OT Feb 24, 2017 10:07
--- NOTE | 2017-02-24 11:40 | Occupational Ther Daily Note ---
OT Current Status-Daily Note Subjective Pt sitting in chair, agrees to treatment. Mental Status/Objective Functional [place] Measure 0=Not Assessed/NA 4=Minimal Assistance 1=Total Assistance 5=Supervision or Setup 2=Maximal Assistance 6=Modified [place] 3=Moderate Assistance 7=Complete [place] ADL-Treatment Functional [place] Measure 0=Not Assessed/NA 4=Minimal Assistance 1=Total Assistance 5=Supervision or Setup 2=Maximal Assistance 6=Modified [place] 3=Moderate Assistance 7=Complete IndependenceIRFPAI Quality Coding Scale 6 Independent with activity with or without an assistive device 5 Patient requires set up or clean up by helper. Patient completes activity by themselves 4 Supervision or touching assist (CGA). [place] provide cues , steadying assist 3 The helper provides less than half the effort to complete the activity 2 The helper provides more than half the effort to complete the activity 1 Dependent. The helper does all the effort to complete an activity 7 Patient refused to complete or attempt activity 9 The patient did not perform the activity before the current illness or injury 88 Not attempted due to Medical conditions or safety concerns Other Treatment Pt transferred chair to w/c with minimal assistance using FWW, cues for walker use and safety. Pt performed w/c mobility to therapy gym with increased time. Minimal assistance for turns. Pt completed arm arc activity with bilateral UE with 1# weights in place to increase strength and activity tolerance. Pt required one rest break during task secondary to fatigue. Graded clothespin task with bilateral UE to increase glass sander/pinch strength. Pt completed fine motor task with nuts and bolts with 1# weights in place to increase strength and coordination skills. Pt able to complete task with increased time. Pt returned to room, sitting in chair with needs met and sister present after session. OT Short Term Goals Short Term Goals Time Frame: Feb 22, 2017 Lower Body Dressing(FIM): 3 Toileting(FIM): 3 Transfers (B,C,W/C) (FIM): 4 Toilet/Commode Transfer(FIM): 3 Additional Short Term Goals: 1-Demonstrate ADL Tasks, 2-Verbalize Understanding , 3-ImproveStrength/[place] 1=Demonstrate adherence to instructed precautions during ADL tasks. 2=Patient will verbalize/demonstrate understanding of assistive devices/ modifications for ADL. 3=Patient will improve strength/tolerance for activity to enable patient to perform ADL's. OT Checkman Goals Checkman Goals Time Frame: Mar 08, 2017 Eating (FIM): 6 Eating (QC): 6 Groomin Oral Hygiene (QC): 6 Bathing(FIM): 6 Shower/Bathe Self (QC): 6 Upper Body Dressing(FIM): 6 Upper Body Dressing (QC): 6 Lower Body Dressing(FIM): 6 Lower Body Dressing (QC): 6 On/Off Footwear (QC): 6 Toileting(FIM): 6 Toileting Hygiene (QC): 6 Toilet/Commode Transfer(FIM): 6 Toilet/Commode Transfer (QC): 6 Shower Transfer(FIM): 6 Additional Goals: 1-Demonstrate ADL Tasks, 2-Verbalize Understanding, 3- ImproveStrength/[place] 1=Demonstrate adherence to instructed precautions during ADL tasks. 2=Patient will verbalize/demonstrate understanding of assistive devices/ modifications for ADL. 3=Patient will improve strength/tolerance for activity to enable patient to perform ADL's. OT Education/Plan Problem List/Assessment Pt would benefit from skilled OT to increase her independence in basic self care to allow her to safely return to her home to live alone and to decrease caregiver burden Discharge Recommendations Plan/Recommendations: Continue POC Treatment Plan/Plan of Care Patient would benefit from OT for education, treatment and training to promote independence in ADL's, mobility, safety and/or upper extremity function for ADL' s. Plan of Care: ADL Retraining, Functional Mobility, Group Exercise/Act as Ind ( education, exercise, activity tolerance, funct activities), UE Funct Exercise/ Act, UE Neuromus Re-Ed/Coord Treatment Duration: Mar 08, 2017 Frequency: At least 5-7 days/Wk (IRF) Estimated Hrs Per Day: 1.5 hours per day Agreement: Yes Rehab Potential: Good Time/GCodes Start Time: 11:00 Stop Time: 11:30 Total Time Billed (hr/min): 30 Billed Treatment Time 1 visit, EXx2(30minutes) ETIENNE CRUZ OT Feb 24, 2017 11:40
--- NOTE | 2017-02-24 12:02 | Physical Therapy Daily Note ---
PT Daily Note-Current Subjective Agrees to try wearing her shoes today for gait. Remarks after that her pain level is 3/10. Sister present and states pt. has struggled with her gait for quite some time Pain Numeric Pain Scale: 3 Location: Left Location Body Site: Hip Pain Description: Ache Mental Status Patient Orientation: Normal For Age Transfers Functional [place] Measure 0=Not Assessed/NA 4=Minimal Assistance 1=Total Assistance 5=Supervision or Setup 2=Maximal Assistance 6=Modified [place] 3=Moderate Assistance 7=Complete IndependenceIRFPAI Quality Coding Scale 6 Independent with activity with or without an assistive device 5 Patient requires set up or clean up by helper. Patient completes activity by themselves 4 Supervision or touching assist (CGA). [place] provide cues , steadying assist 3 The helper provides less than half the effort to complete the activity 2 The helper provides more than half the effort to complete the activity 1 Dependent. The helper does all the effort to complete an activity 7 Patient refused to complete or attempt activity 9 The patient did not perform the activity before the current illness or injury 88 Not attempted due to Medical conditions or safety concerns sit to stand x5 SBA and cues Gait Training Gait Assistive Device: FWW 45ftx2 slow with much instruction for step length and equal steps, to attempt wt bearing on LLE etc Exercises Seated Therapy Exercises: Ankle pumps, Sit to stand, Long arc quads Seated Reps: 10 Assessment Current Status: Good Progress appears fearful , apprehensive to wt bear left PT Short Term Goals Short Term Goals Time Frame: Feb 22, 2017 Transfers (B,C,W/C) (FIM): 4 Gait (FIM): 1 Gait Distance Comment: 20' Gait Level of Assist: 4 Gait Assistive Device: FWW Wheelchair Distance: 150' PT Crown Wheel Assembler Goals Crown Wheel Assembler Goals PT Crown Wheel Assembler Goals Time Frame: Mar 08, 2017 Transfers (B,C,W/C) (FIM): 4 (CGA) Sit to Lying (QC): 5 Lying-Sitting on Side/Bed(QC): 5 Sit to Stand (QC): 5 Rollin Roll Left to Right (QC): 5 Chair/Ibr-lk-Yrkmq Xfer(QC): 5 Car Transfer (QC): 5 Gait (FIM): 2 Distance: 50' Walk 10 feet (QC): 5 Walk 10ft-Uneven Surface(QC): 5 Walk 50ft with 2 Turns (QC): 5 Gait Level of Assist: 4 Gait Assistive Device: FWW Stairs (FIM): 2 # of Steps: 4 1 Step (curb) (QC): 5 4 Steps (QC): 5 Stairs Level Of Assist: 4 PT Plan Treatment/Plan Treatment Plan: Continue Plan of Care Treatment Plan: Bed Mobility, Education, Functional Activity [place], Functional Strength, Group Therapy, Gait, Safety, Therapeutic Exercise, Transfers Treatment Duration: Mar 08, 2017 Frequency: At least 5-7 days/Wk (IRF) Estimated Hrs Per Day: 1.5 hours per day Patient and/or Family Agrees t: Yes Safety Risks/Education Patient Education: Gait Training, Transfer Techniques Time/GCodes Time In: 1130 Time Out: 1200 Total Billed Treatment Time: 30 Total Billed Treatment 1,GT30m G Codes Necessary: MELINDA Cisneros MANAGER LAUNDRY Feb 24, 2017 12:02
--- NOTE | 2017-02-24 16:42 | PM & R (SOAP) Progress Note ---
Subjective Time Seen by Provider: 08:20 Subjective/Events-last exam Patient was seen in her room this AM Discussed case with RN Patient still with some serosanguinous drainage from hip DR Ash Arriola has ordered Keflex as a precautionary measure. Objective Exam Last Set of Vital Signs Vital Signs Date Time Temp Pulse Resp B/P (MAP) Pulse Ox O2 Delivery O2 Flow Rate FiO2 02/24/17 08:22 Room Air 02/24/17 08:06 114/71 84 02/24/17 05:09 98.6 72 20 02/21/17 19:27 3.00 Capillary Refill : Less Than 3 Seconds I&O Intake and Output 02/25/17 00:00 Intake Total 440 ml Balance 440 ml Intake Oral 440 ml # Voids 2 General: Alert, Oriented X3, Cooperative, No Acute Distress HEENT: Atraumatic, PERRLA, EOMI, Mucous Memb Moist/[place] Neck: Supple, No JVD Lungs: Clear to Auscultation Heart: Regular Rate Abdomen: Normal Bowel Sounds, Soft, No Tenderness Extremities: Other ( mild edema left leg non calf tenderness) Neuro: Other (strength 4/5 BUES and RUE Left leg impaired due to recent frx and repair) Results Lab Laboratory Tests 02/22/17 09:41: Prothrombin Time 29.0H, INR Comment 2.8H 02/23/17 05:20: White Blood Count 10.5, Red Blood Count 3.26L, Hemoglobin 10.0L, Hematocrit 31L , Mean Corpuscular Volume 96, Mean Corpuscular Hemoglobin 31, Mean Corpuscular Hemoglobin Concent 32, Red Cell Distribution Width 13.8, Platelet Count 355, Mean Platelet Volume 9.8, Neutrophils (%) (Auto) 61, Lymphocytes (%) (Auto) 23, Monocytes (%) (Auto) 11, Eosinophils (%) (Auto) 5, Basophils (%) (Auto) 1, Neutrophils # (Auto) 6.4, Lymphocytes # (Auto) 2.4, Monocytes # (Auto) 1.2H, Eosinophils # (Auto) 0.5H, Basophils # (Auto) 0.1 Assessment/Plan Assessment Left intertrochanteric hip frx s/p fall with reapur Orthopedics Postop resp insufficiency on supplemental 02-being weaned Postop anemia Chronic anticoagulation Coumadin resumed with INR now therapeutic HTN controlled with meds Prior Lumbar spine surgery Postop constipation treated Prior Left TKR Post op swelling left leg with some serosanguinous drainage-CBC OK Orthopedics aware Dressing continues and now Keflex ordered Plan Continue PT/OT Adjust Coumadin as needed to facilitate Therapeutic INR--DR Mccormack following- Recheck INR in the AM WEaned from 02 F/U with Dr Mccormack et al prn Team Conference hedl earlier today See report for full functional update and POC and ELOS Checked CBC-Keflex begun ANGELICA YIN MD Feb 24, 2017 16:41
[2017-02-24] MEDS: warFARin 3 MG (COUMADIN) TAB PO SCH (17:12)
[2017-02-24] MEDS: CEPHALEXIN 250 MG (KEFLEX) CAP PO SCH ×2 (17:12→20:10)
[2017-02-24 17:15] VITALS: BP 108/67
[2017-02-25 05:24] VITALS: BP 115/67
[2017-02-25 05:32] LABS: INR 3.1 (0.8-1.4); PROTHROMBIN TIME PATIENT 31.5 SEC (12.2-14.7)
[2017-02-25] MEDS: VITAMIN A 8,000 UNITS PO SCH ×2 (06:21→17:33)
[2017-02-25] MEDS: LEVOTHYROXINE 112 MCG (LEVOTHROID) TAB PO SCH (06:21)
--- NOTE | 2017-02-25 08:52 | PM & R (SOAP) Progress Note ---
Subjective Time Seen by Provider: 08:00 Subjective/Events-last exam Patient was seen in her room this AM Patient SBA for transfers Tolerating Keflex OK.INR noted Objective Exam Last Set of Vital Signs Vital Signs Date Time Temp Pulse Resp B/P (MAP) Pulse Ox O2 Delivery O2 Flow Rate FiO2 02/25/17 05:24 98.7 71 18 115/67 92 Room Air 02/21/17 19:27 3.00 Capillary Refill : Less Than 3 Seconds I&O Intake and Output 02/25/17 23:59 Intake Total 200 ml Balance 200 ml Intake Oral 200 ml # Voids 3 General: Alert, Oriented X3, Cooperative, No Acute Distress HEENT: Atraumatic, PERRLA, EOMI, Mucous Memb Moist/[place] Neck: Supple, No JVD Lungs: Clear to Auscultation Heart: Regular Rate Abdomen: Normal Bowel Sounds, Soft, No Tenderness Extremities: Other ( mild edema left leg non calf tenderness) Neuro: Other (strength 4/5 BUES and RUE Left leg impaired due to recent frx and repair) Results Lab Laboratory Tests 02/22/17 09:41: Prothrombin Time 29.0H, INR Comment 2.8H 02/23/17 05:20: White Blood Count 10.5, Red Blood Count 3.26L, Hemoglobin 10.0L, Hematocrit 31L , Mean Corpuscular Volume 96, Mean Corpuscular Hemoglobin 31, Mean Corpuscular Hemoglobin Concent 32, Red Cell Distribution Width 13.8, Platelet Count 355, Mean Platelet Volume 9.8, Neutrophils (%) (Auto) 61, Lymphocytes (%) (Auto) 23, Monocytes (%) (Auto) 11, Eosinophils (%) (Auto) 5, Basophils (%) (Auto) 1, Neutrophils # (Auto) 6.4, Lymphocytes # (Auto) 2.4, Monocytes # (Auto) 1.2H, Eosinophils # (Auto) 0.5H, Basophils # (Auto) 0.1 02/25/17 05:03: Prothrombin Time 31.5H, INR Comment 3.1H Assessment/Plan Assessment Left intertrochanteric hip frx s/p fall with reapur Orthopedics Postop resp insufficiency on supplemental 02-being weaned Postop anemia Chronic anticoagulation Coumadin resumed with INR now therapeutic HTN controlled with meds Prior Lumbar spine surgery Postop constipation treated Prior Left TKR Post op swelling left leg with some serosanguinous drainage-CBC OK Orthopedics aware Dressing continues and now Keflex ordered Plan Continue PT/OT Adjust Coumadin as needed to facilitate Therapeutic INR--DR Mccormack following- Todays INR noted WEaned from F/U with Dr Mccormack et al prn Team Conference held yesterday See report for full functional update and POC and ELOS Checked CBC-Keflex begun by orthopedics ANGELICA YIN MD Feb 25, 2017 08:52
[2017-02-25] MEDS: LACTULOSE SYRUP 10GM/15ML (ENULOSE) 30ML UDC PO SCH (09:01)
--- NOTE | 2017-02-25 09:04 | Physical Therapy Daily Note ---
PT Daily Note-Current Subjective Patient agrees to PT. No c/o at this time. Pain Numeric Pain Scale: 5-Moderate Pain Location: Right, Left Location Body Site: Hip Pain Description: Ache Mental Status Patient Orientation: Normal For Age Transfers Functional [place] Measure 0=Not Assessed/NA 4=Minimal Assistance 1=Total Assistance 5=Supervision or Setup 2=Maximal Assistance 6=Modified [place] 3=Moderate Assistance 7=Complete IndependenceIRFPAI Quality Coding Scale 6 Independent with activity with or without an assistive device 5 Patient requires set up or clean up by helper. Patient completes activity by themselves 4 Supervision or touching assist (CGA). [place] provide cues , steadying assist 3 The helper provides less than half the effort to complete the activity 2 The helper provides more than half the effort to complete the activity 1 Dependent. The helper does all the effort to complete an activity 7 Patient refused to complete or attempt activity 9 The patient did not perform the activity before the current illness or injury 88 Not attempted due to Medical conditions or safety concerns Transfers (B, C, W/C) (FIM): 5 Scootin Sit to/from Stand: 5 Sit to Stand (QC): 4 Weight Bearing Weight Bearing Restriction: Weight Bearing/Tolerated Location Restriction: L LE Gait Training Does the Patient Walk?: Yes Gait (FIM): 1 Distance (FIM): 1=up to 49 ft Distance: 40' x 6 Walk 10 feet (QC): 4 Gait Level of Assist: 5 Gait Persons Needed: 1 Gait Assistive Device: FWW step to sequence with left LE leading Exercises Seated Therapy Exercises: Ankle pumps, Long arc quads, Hip flexion Seated Reps: 15 (3 sets) Standing: Heel/toe raises (10 reps), Sit to Stand (8 sets), Side steps (10' x 4 ) Assessment Patient requires recovery periods due to fatigue. Patient improving with treatment plan. PT Short Term Goals Short Term Goals Time Frame: Feb 22, 2017 Transfers (B,C,W/C) (FIM): 4 Gait (FIM): 1 Gait Distance Comment: 20' Gait Level of Assist: 4 Gait Assistive Device: FWW Wheelchair Distance: 150' PT Retirement Goals Orthopedic Cast Specialist Goals PT Orthopedic Cast Specialist Goals Time Frame: Mar 08, 2017 Transfers (B,C,W/C) (FIM): 4 (CGA) Sit to Lying (QC): 5 Lying-Sitting on Side/Bed(QC): 5 Sit to Stand (QC): 5 Rollin Roll Left to Right (QC): 5 Chair/[id number]-Pgwqg Xfer(QC): 5 Car Transfer (QC): 5 Gait (FIM): 2 Distance: 50' Walk 10 feet (QC): 5 Walk 10ft-Uneven Surface(QC): 5 Walk 50ft with 2 Turns (QC): 5 Gait Level of Assist: 4 Gait Assistive Device: FWW Stairs (FIM): 2 # of Steps: 4 1 Step (curb) (QC): 5 4 Steps (QC): 5 Stairs Level Of Assist: 4 PT Plan Treatment/Plan Treatment Plan: Continue Plan of Care Treatment Plan: Bed Mobility, Education, Functional Activity [place], Functional Strength, Group Therapy, Gait, Safety, Therapeutic Exercise, Transfers Treatment Duration: Mar 08, 2017 Frequency: At least 5-7 days/Wk (IRF) Estimated Hrs Per Day: 1.5 hours per day Patient and/or Family Agrees t: Yes Time/GCodes Time In: 900 Time Out: 900 Total Billed Treatment Time: 60 Total Billed Treatment 1 visit EX x 2 25 min GT x 2 35 min JOLIE RESTREPO PT Feb 25, 2017 09:04
[2017-02-25] MEDS: OXYBUTYNIN (DITROPAN) 5 MG TAB PO SCH (09:18)
[2017-02-25] MEDS: CEPHALEXIN 250 MG (KEFLEX) CAP PO SCH ×4 (09:18→20:23)
[2017-02-25] MEDS: CALCIUM CARB + VIT D 600 MG (CALCARB + D) TAB PO SCH ×2 (09:18→20:23)
[2017-02-25] MEDS: BUMETANIDE 1 MG (BUMEX) TAB PO SCH (09:18)
[2017-02-25] MEDS: CARVEDILOL 12.5 MG (COREG) TABLET PO SCH ×2 (09:18→20:23)
[2017-02-25] MEDS: COLCHICINE 0.6 MG (COLCRYS) TABLET PO SCH ×2 (09:18→20:23)
[2017-02-25] MEDS: MICONAZOLE 2% POWDER (DESENEX AF) 90 GM TOP SCH ×2 (09:19→20:23)
--- NOTE | 2017-02-25 09:38 | Progress Note-Hospitalist ---
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 INR 3.1 so will adjust home dosing slightly Physical exam stable. Started on Keflex for small hematoma to prevent cellulitis AFVSS, Ple[place], improved RRR, CTAB Assessment: Acute left hip fracture status post uncomplicated repair Postop anemia requiring 2 units of blood due to her symptomatic status HTN Leukocytosis likely due to stress response of surgery- resolved Spine surgery 2013 and placed on Coumadin and maintained since that time to "prevent blood clots" without known h/o clots s/p 1 unit of FFP and Vit K 2.5mg PO Osteoporosis Post op constipation resolved Plan: Continue PT Continue pain meds prn Decrease dose of Coumadin due to INR maintain Keflex for hematoma hip Scribed by Ariane Knott under the direct supervision of Dr. Mccormack. HARRIS MCCORMACK DO Feb 25, 2017 09:38
--- NOTE | 2017-02-25 11:28 | Progress Note-Standard ---
Standard Progress Note Progress Notes/Assess & Plan Date Seen by Provider: Feb 25, 2017 Time Seen by Provider: 11:22 Progress/Assessment & Plan Mrs Chamorro is now POD #9. C/O pain left knee with swelling since fall. No other complaints. Left lower extremity incision is well approximated with no erythema. Scanty sanguinous drainage. Knee shows 1+ edema, no erythema, ROM 0- 120 degrees. Calf is soft. Intra-operative fluoroscopy appears to show anterior cortical breach by distal end of the intramedulllary nail. Will keep Mrs Chamorro TDWB and obtain x-rays of the knee. Continue Keflex until wound is dry. CINDY DEJESUS MD Feb 25, 2017 11:28
--- NOTE | 2017-02-25 12:42 | Occupational Ther Daily Note ---
OT Current Status-Daily Note Subjective Pt seen in room, up in w/c, agreeable to OT. No pain mentioned. Appearance Alert, cooperative Mental Status/Objective Functional [place] Measure 0=Not Assessed/NA 4=Minimal Assistance 1=Total Assistance 5=Supervision or Setup 2=Maximal Assistance 6=Modified [place] 3=Moderate Assistance 7=Complete [place] ADL-Treatment Pt walked several feet from w/c to BSC now placed over toilet.Also walked several feet from toilet to shower and from shower to recliner, CGA, FWW, with cues to keep walker closer to body and use arms to help support weight on walker. Functional [place] Measure 0=Not Assessed/NA 4=Minimal Assistance 1=Total Assistance 5=Supervision or Setup 2=Maximal Assistance 6=Modified [place] 3=Moderate Assistance 7=Complete IndependenceIRFPAI Quality Coding Scale 6 Independent with activity with or without an assistive device 5 Patient requires set up or clean up by helper. Patient completes activity by themselves 4 Supervision or touching assist (CGA). [place] provide cues , steadying assist 3 The helper provides less than half the effort to complete the activity 2 The helper provides more than half the effort to complete the activity 1 Dependent. The helper does all the effort to complete an activity 7 Patient refused to complete or attempt activity 9 The patient did not perform the activity before the current illness or injury 88 Not attempted due to Medical conditions or safety concerns Grooming (FIM): 5 (SBA, standing at sink to brush teeth and to brush hair, FWW. Washed face and hands in shower. Cues to get close to sink) Bathing (FIM): 5 (Pt washed and dried all parts in shower, with SBA when standing to wash lovely and bottom. Shower bench, grab bars, hand held shower. Setup. ) Upper Body (FIM): 5 (Dresses and undresses with setup) Lower Body Dressing (FIM): 4 (Just a little help needed to pull pants up over hips, FWW. Setup with TEDs, slipper socks on with sock aid) Toileting (FIM): 3 (Just a little help needed to get pants up over hips but can take them off without help. can manage hygiene. BSC over toilet, grab bars, FWW) Toilet/Commode Transfer (FIM): 4 (CGA to min assist, using FWW to transfer on to BSC over toilet. Help to position walker around BSC. Cues to reach back to sit) Shower Transfer(FIM): 4 (CGA-min assist with positioning FWW at shower (had been doing transfer from w/c) and cues for hand placement. ) Other Treatment Pt did 15 reps 4 different bilat UE exercise with red theraband (medium resistance), with some skilled cues for hand placement. Able to switch sides without difficulty. Exercises are to strengthen specific muscle groups used for transfers and weight bearing on FWW. Pt left up in recliner, all needs met. Education OT Patient Education: Exercise program, Modified ADL techniques, Progress toward Goal/Update tx plan, Purpose of tx/functional activities, Safety issues, Transfer techniques Teaching Recipient: Patient Teaching Methods: Demonstration, Discussion Response to Teaching: Verbalize Understanding, Return Demonstration, Reinforcement Needed OT Short Term Goals Short Term Goals Time Frame: Feb 22, 2017 Lower Body Dressing(FIM): 3 Toileting(FIM): 3 Transfers (B,C,W/C) (FIM): 4 Toilet/Commode Transfer(FIM): 3 Additional Short Term Goals: 1-Demonstrate ADL Tasks, 2-Verbalize Understanding , 3-ImproveStrength/[place] 1=Demonstrate adherence to instructed precautions during ADL tasks. 2=Patient will verbalize/demonstrate understanding of assistive devices/ modifications for ADL. 3=Patient will improve strength/tolerance for activity to enable patient to perform ADL's. OT Retirement Goals Retirement Goals Time Frame: Mar 08, 2017 Eating (FIM): 6 Eating (QC): 6 Groomin Oral Hygiene (QC): 6 Bathing(FIM): 6 Shower/Bathe Self (QC): 6 Upper Body Dressing(FIM): 6 Upper Body Dressing (QC): 6 Lower Body Dressing(FIM): 6 Lower Body Dressing (QC): 6 On/Off Footwear (QC): 6 Toileting(FIM): 6 Toileting Hygiene (QC): 6 Toilet/Commode Transfer(FIM): 6 Toilet/Commode Transfer (QC): 6 Shower Transfer(FIM): 6 Additional Goals: 1-Demonstrate ADL Tasks, 2-Verbalize Understanding, 3- ImproveStrength/[place] 1=Demonstrate adherence to instructed precautions during ADL tasks. 2=Patient will verbalize/demonstrate understanding of assistive devices/ modifications for ADL. 3=Patient will improve strength/tolerance for activity to enable patient to perform ADL's. OT Education/Plan Problem List/Assessment Pt would benefit from skilled OT to increase her independence in basic self care to allow her to safely return to her home to live alone and to decrease caregiver burden Discharge Recommendations Plan/Recommendations: Continue POC Treatment Plan/Plan of Care Patient would benefit from OT for education, treatment and training to promote independence in ADL's, mobility, safety and/or upper extremity function for ADL' s. Plan of Care: ADL Retraining, Functional Mobility, Group Exercise/Act as Ind ( education, exercise, activity tolerance, funct activities), UE Funct Exercise/ Act, UE Neuromus Re-Ed/Coord Treatment Duration: Mar 08, 2017 Frequency: At least 5-7 days/Wk (IRF) Estimated Hrs Per Day: 1.5 hours per day Agreement: Yes Rehab Potential: Good Time/GCodes Start Time: 09:00 Stop Time: 10:00 Total Time Billed (hr/min): 60 Billed Treatment Time visit, 50 minutes ADL, 10 minutes exercise CONY WHITNEY OT Feb 25, 2017 12:41
--- NOTE | 2017-02-25 12:54 | Occupational Ther Daily Note ---
OT Current Status-Daily Note Subjective Pt seen in room, up in recliner, agreeable to OT. No pain mentioned. Pt is now toe touch weight bearing (was WBAT) Appearance Alert, cooperative Mental Status/Objective Functional [place] Measure 0=Not Assessed/NA 4=Minimal Assistance 1=Total Assistance 5=Supervision or Setup 2=Maximal Assistance 6=Modified [place] 3=Moderate Assistance 7=Complete [place] ADL-Treatment At end of tx, pt requested to toilet. Walked a couple feet from w/c to BS over toilet, with min assist for walker placement. Pt was able to manage clothing and then requested some additional time on toilet. Call light present, nursing notified. Functional [place] Measure 0=Not Assessed/NA 4=Minimal Assistance 1=Total Assistance 5=Supervision or Setup 2=Maximal Assistance 6=Modified [place] 3=Moderate Assistance 7=Complete IndependenceIRFPAI Quality Coding Scale 6 Independent with activity with or without an assistive device 5 Patient requires set up or clean up by helper. Patient completes activity by themselves 4 Supervision or touching assist (CGA). [place] provide cues , steadying assist 3 The helper provides less than half the effort to complete the activity 2 The helper provides more than half the effort to complete the activity 1 Dependent. The helper does all the effort to complete an activity 7 Patient refused to complete or attempt activity 9 The patient did not perform the activity before the current illness or injury 88 Not attempted due to Medical conditions or safety concerns Toilet/Commode Transfer (FIM): 4 (Min assist to help with walker placement around BS over toilet (walker needed to help with weight bearing in UEs)) Other Treatment Pt walked just a couple feet to w/c, skilled cues and min assist to stay close to walker. reached back for w/c without cues. Transported to gym per w/c. Pt did 15 minutes bilat UE exercise with arm bike set at 25W resistance (increase resistance), with a couple brief breaks for a drink. To strengthen arms to help with weight bearing on FWW since WB status has changed. Pt returned to room and transferred on toilet (see above). pt continues to be pleased with her progress Education OT Patient Education: Exercise program, Progress toward Goal/Update tx plan, Transfer techniques Teaching Recipient: Patient Teaching Methods: Demonstration, Discussion Response to Teaching: Verbalize Understanding, Return Demonstration, Reinforcement Needed OT Short Term Goals Short Term Goals Time Frame: Feb 22, 2017 Lower Body Dressing(FIM): 3 Toileting(FIM): 3 Transfers (B,C,W/C) (FIM): 4 Toilet/Commode Transfer(FIM): 3 Additional Short Term Goals: 1-Demonstrate ADL Tasks, 2-Verbalize Understanding , 3-ImproveStrength/[place] 1=Demonstrate adherence to instructed precautions during ADL tasks. 2=Patient will verbalize/demonstrate understanding of assistive devices/ modifications for ADL. 3=Patient will improve strength/tolerance for activity to enable patient to perform ADL's. OT Retirement Goals Retirement Goals Time Frame: Mar 08, 2017 Eating (FIM): 6 Eating (QC): 6 Groomin Oral Hygiene (QC): 6 Bathing(FIM): 6 Shower/Bathe Self (QC): 6 Upper Body Dressing(FIM): 6 Upper Body Dressing (QC): 6 Lower Body Dressing(FIM): 6 Lower Body Dressing (QC): 6 On/Off Footwear (QC): 6 Toileting(FIM): 6 Toileting Hygiene (QC): 6 Toilet/Commode Transfer(FIM): 6 Toilet/Commode Transfer (QC): 6 Shower Transfer(FIM): 6 Additional Goals: 1-Demonstrate ADL Tasks, 2-Verbalize Understanding, 3- ImproveStrength/[place] 1=Demonstrate adherence to instructed precautions during ADL tasks. 2=Patient will verbalize/demonstrate understanding of assistive devices/ modifications for ADL. 3=Patient will improve strength/tolerance for activity to enable patient to perform ADL's. OT Education/Plan Problem List/Assessment Pt would benefit from skilled OT to increase her independence in basic self care to allow her to safely return to her home to live alone and to decrease caregiver burden Discharge Recommendations Plan/Recommendations: Continue POC Treatment Plan/Plan of Care Patient would benefit from OT for education, treatment and training to promote independence in ADL's, mobility, safety and/or upper extremity function for ADL' s. Plan of Care: ADL Retraining, Functional Mobility, Group Exercise/Act as Ind ( education, exercise, activity tolerance, funct activities), UE Funct Exercise/ Act, UE Neuromus Re-Ed/Coord Treatment Duration: Mar 08, 2017 Frequency: At least 5-7 days/Wk (IRF) Estimated Hrs Per Day: 1.5 hours per day Agreement: Yes Rehab Potential: Good Time/GCodes Start Time: 11:30 Stop Time: 12:00 Total Time Billed (hr/min): 30 Billed Treatment Time visit, 25 minutes exercise, 5 minutes ADL CONY WHITNEY OT Feb 25, 2017 12:54
--- NOTE | 2017-02-25 12:54 | Physical Therapy Daily Note ---
PT Daily Note-Current Subjective Patient agrees to PT. Pain Numeric Pain Scale: 5-Moderate Pain Location: Left Location Body Site: Knee Pain Description: Ache Mental Status Patient Orientation: Normal For Age Transfers Functional [place] Measure 0=Not Assessed/NA 4=Minimal Assistance 1=Total Assistance 5=Supervision or Setup 2=Maximal Assistance 6=Modified [place] 3=Moderate Assistance 7=Complete IndependenceIRFPAI Quality Coding Scale 6 Independent with activity with or without an assistive device 5 Patient requires set up or clean up by helper. Patient completes activity by themselves 4 Supervision or touching assist (CGA). [place] provide cues , steadying assist 3 The helper provides less than half the effort to complete the activity 2 The helper provides more than half the effort to complete the activity 1 Dependent. The helper does all the effort to complete an activity 7 Patient refused to complete or attempt activity 9 The patient did not perform the activity before the current illness or injury 88 Not attempted due to Medical conditions or safety concerns Transfers (B, C, W/C) (FIM): 4 Scootin Sit to/from Stand: 4 Sit to Stand (QC): 3 transfer training sit to optical instrument inspector parallel bars with training for TTWB left LE per physician's report. Patient able to safely perform this skill x 4 sets with PT assist. Patient also performed "scooting" right foot for transfers w/c to mat with TTWB left LE Weight Bearing Weight Bearing Restriction: Touch Toe Bearing Location Restriction: L LE Assessment Patient has difficulty with TTWB Left LE status due weakness and pain left LE. transfer training performed to improve this skill to prevent further pain and/ or damage. PT Short Term Goals Short Term Goals Time Frame: Feb 22, 2017 Transfers (B,C,W/C) (FIM): 4 Gait (FIM): 1 Gait Distance Comment: 20' Gait Level of Assist: 4 Gait Assistive Device: FWW Wheelchair Distance: 150' PT Custodial Goals Custodial Goals PT Supervisor Welding Equipment Repairer Goals Time Frame: Mar 08, 2017 Transfers (B,C,W/C) (FIM): 4 (CGA) Sit to Lying (QC): 5 Lying-Sitting on Side/Bed(QC): 5 Sit to Stand (QC): 5 Rollin Roll Left to Right (QC): 5 Chair/Qjs-gq-Hpuco Xfer(QC): 5 Car Transfer (QC): 5 Gait (FIM): 2 Distance: 50' Walk 10 feet (QC): 5 Walk 10ft-Uneven Surface(QC): 5 Walk 50ft with 2 Turns (QC): 5 Gait Level of Assist: 4 Gait Assistive Device: FWW Stairs (FIM): 2 # of Steps: 4 1 Step (curb) (QC): 5 4 Steps (QC): 5 Stairs Level Of Assist: 4 PT Plan Treatment/Plan Treatment Plan: Continue Plan of Care Treatment Plan: Bed Mobility, Education, Functional Activity [place], Functional Strength, Group Therapy, Gait, Safety, Therapeutic Exercise, Transfers Treatment Duration: Mar 08, 2017 Frequency: At least 5-7 days/Wk (IRF) Estimated Hrs Per Day: 1.5 hours per day Patient and/or Family Agrees t: Yes Safety Risks/Education Patient Education: Transfer Techniques Teaching Recipient: Patient Teaching Methods: Demonstration, Discussion Response to Teaching: Verbalize Understanding, Return Demonstration, Reinforcement Needed Time/GCodes Time In: 1220 Time Out: 1250 Total Billed Treatment Time: 30 Total Billed Treatment 1 visit FA x 2 30 min JOLIE RESTREPO PT Feb 25, 2017 12:54
--- NOTE | 2017-02-25 16:19 | Diagnostic Imaging Report ---
INDICATION: Left leg swelling. EXAMINATION: AP and lateral views of the left knee were obtained. FINDINGS: There are postop changes from joint arthroplasty. Prostheses components are in good position. There is no evidence of loosening or acute fracture. IMPRESSION: Postop changes from left knee arthroplasty. There is no acute abnormality seen. Dictated by: Dictated on workstation # [id number]
[2017-02-25] MEDS ORDERED: PHYTONADIONE (ADULT) INJECTION 10 MG in NS (IVPB) 50 ML IV NR (17:54)
[2017-02-25] MEDS ORDERED: warFARin 1 MG (COUMADIN) TAB PO SCH (18:00)
[2017-02-25] MEDS ORDERED: VITAMIN K 1 MG/ML ORAL SOLN 1 ML SYRINGE PO NR (18:23)
[2017-02-25 18:39] VITALS: BP 101/67
[2017-02-25 19:07] LABS: MEAN PLATELET VOLUME 10.1 FL (7.4-10.4); RED BLOOD COUNT 3.56 10^6/uL (4.35-5.85); RED CELL DISTRIBUTION WIDTH 14.2 % (10.0-14.5); WHITE BLOOD COUNT 12.3 10^3/uL (4.3-11.0)
[2017-02-25 19:31] LABS: CALCIUM 8.8 MG/DL (8.5-10.1); CREATININE SERUM 1.1 MG/DL (0.60-1.30); POTASSIUM 3.9 MMOL/L (3.6-5.0)
[2017-02-25] MEDS ORDERED: NS IV 500 ML 500 ML ONE (20:30)
[2017-02-25 21:44] VITALS: BP 114/69
[2017-02-25 22:00] VITALS: BP 107/66
[2017-02-26] VITALS (8 sets, daily range): BP systolic 116–135; BP diastolic 68–85
[2017-02-26 05:27] LABS: MEAN PLATELET VOLUME 9.9 FL (7.4-10.4); RED BLOOD COUNT 3.14 10^6/uL (4.35-5.85); WHITE BLOOD COUNT 9.9 10^3/uL (4.3-11.0)
[2017-02-26] MEDS: LEVOTHYROXINE 112 MCG (LEVOTHROID) TAB PO SCH (05:29)
[2017-02-26] MEDS: VITAMIN A 8,000 UNITS PO SCH (05:30)
[2017-02-26 05:36] LABS: INR 2.1 (0.8-1.4); PROTHROMBIN TIME PATIENT 23.3 SEC (12.2-14.7)
[2017-02-26 05:55] LABS: BILIRUBIN,TOTAL 0.8 MG/DL (0.1-1.0); CALCIUM 8.7 MG/DL (8.5-10.1); CREATININE SERUM 1.07 MG/DL (0.60-1.30); POTASSIUM 3.9 MMOL/L (3.6-5.0)
[2017-02-26] MEDS ORDERED: FUROSEMIDE 40 MG/4 ML INJ (LASIX) IVP NR (07:27)
--- NOTE | 2017-02-26 08:02 | Physical Therapy Progress Note ---
Therapy Progress Note Patient to have surgery to repair left LE nailing. Patient is on hold on this date. PT to resume upon physician's orders. JOLIE RESTREPO PT Feb 26, 2017 08:02
[2017-02-26] MEDS: OXYBUTYNIN (DITROPAN) 5 MG TAB PO SCH (08:10)
[2017-02-26] MEDS: CALCIUM CARB + VIT D 600 MG (CALCARB + D) TAB PO SCH (08:10)
[2017-02-26] MEDS: BUMETANIDE 1 MG (BUMEX) TAB PO SCH (08:10)
[2017-02-26] MEDS: COLCHICINE 0.6 MG (COLCRYS) TABLET PO SCH (08:10)
[2017-02-26] MEDS: CEPHALEXIN 250 MG (KEFLEX) CAP PO SCH (08:10)
[2017-02-26] MEDS ORDERED: NS (IVPB) 50 ML ONE (08:19)
--- NOTE | 2017-02-26 08:47 | PM & R (SOAP) Progress Note ---
Subjective Time Seen by Provider: 08:05 Subjective/Events-last exam Patient was seen in her room this AM Patient awaiting revision surgery on hip today,Discussed POC with patient She will most likely be referred back to rehab next week to resume rehab program Objective Exam Last Set of Vital Signs Vital Signs Date Time Temp Pulse Resp B/P (MAP) Pulse Ox O2 Delivery O2 Flow Rate FiO2 02/26/17 05:38 97.9 69 18 127/70 93 Room Air 02/21/17 19:27 3.00 Capillary Refill : Less Than 3 Seconds I&O Intake and Output 02/27/17 00:00 Intake Total 150 ml Balance 150 ml Intake Oral 150 ml # Voids 2 General: Alert, Oriented X3, Cooperative, No Acute Distress HEENT: Atraumatic, PERRLA, EOMI, Mucous Memb Moist/[place] Neck: Supple, No JVD Lungs: Clear to Auscultation Heart: Regular Rate Abdomen: Normal Bowel Sounds, Soft, No Tenderness Extremities: Other ( mild edema left leg non calf tenderness) Neuro: Other (strength 4/5 BUES and RUE Left leg impaired due to recent frx and repair) Results Lab Laboratory Tests 02/25/17 05:03: Prothrombin Time 31.5H, INR Comment 3.1H 02/25/17 18:22: White Blood Count 12.3H, Red Blood Count 3.56L, Hemoglobin 10.7L, Hematocrit 34L , Mean Corpuscular Volume 96, Mean Corpuscular Hemoglobin 30, Mean Corpuscular Hemoglobin Concent 31L, Red Cell Distribution Width 14.2, Platelet Count 423H, Mean Platelet Volume 10.1, Sodium Level 140, Potassium Level 3.9, Chloride Level 101, Carbon Dioxide Level 29, Anion Gap 10, Blood Urea Nitrogen 41H, Creatinine 1.10, Estimat Glomerular Filtration Rate 49, BUN/Creatinine Ratio 37 , Glucose Level 122H, Calcium Level 8.8 02/26/17 05:12: Prothrombin Time 23.3H, INR Comment 2.1H, White Blood Count 9.9, Red Blood Count 3.14L, Hemoglobin 9.5L, Hematocrit 30L, Mean Corpuscular Volume 97, Mean Corpuscular Hemoglobin 30, Mean Corpuscular Hemoglobin Concent 31L, Red Cell Distribution Width 14.0, Platelet Count 365, Mean Platelet Volume 9.9, Sodium Level 143, Potassium Level 3.9, Chloride Level 105, Carbon Dioxide Level 27, Anion Gap 11, Blood Urea Nitrogen 38H, Creatinine 1.07, Estimat Glomerular Filtration Rate 50, BUN/Creatinine Ratio 36, Glucose Level 96, Calcium Level 8.7 , Total Bilirubin 0.8, Aspartate Amino Transf (AST/SGOT) 45H, Alanine Aminotransferase (ALT/SGPT) 66H, Alkaline Phosphatase 119, Total Protein 6.0L, Albumin 3.0L Assessment/Plan Assessment Left intertrochanteric hip frx s/p fall with repair Orthopedics-to have revision today Postop resp insufficiency on supplemental 02-being weaned Postop anemia Chronic anticoagulation Coumadin resumed with INR now therapeutic HTN controlled with meds Prior Lumbar spine surgery Postop constipation treated Prior Left TKR Post op swelling left leg with some serosanguinous drainage-CBC OK Orthopedics aware Dressing continues and now Keflex ordered Plan To have revision surgery on hip with ortho today INR being reversed-2.1 today Will follow up with staff next week Wednesday03/01/17 re patient returning to IRU F/U with Ortho and Hospitalist ANGELICA YIN MD Feb 26, 2017 08:47
--- NOTE | 2017-02-26 08:51 | Progress Note-Hospitalist ---
Progress Note Progress Notes/Assess & Plan Date Seen 02/26/17 Time Seen by Provider: 07:45 Diagonsis/Assessment & Plan Pt ready to have surgery again on her hip due to abnl noted on xray by Dr Escobedo. INR 2.1 after Vit K 0.5mg PO x 1 then 1 unit of FFP yesterday evening so completing 2 units of FFP now and will recheck her INR at 1200 b/c it needs to be 1.6 or less to decrease bleeding risks. Pt feels overall fine. Giving Lasix 20mg IV once in-between FFP units since both are 330cc each AFVSS, Pleasant, improved RRR, CTAB No edema Assessment: Acute left hip fracture status post uncomplicated repair now in need of repeat surgery due to abnl on xray per Dr Escobedo Postop anemia requiring 2 units of blood due to her symptomatic status HTN Leukocytosis likely due to stress response of surgery- resolved Spine surgery 2013 and placed on Coumadin and maintained since that time to "prevent blood clots" without known h/o clots s/p 1 unit of FFP and Vit K 2.5mg PO but now reversing again with Vit K and FFP Osteoporosis Post op constipation resolved Plan: Surgery today Check UA since it is dark and odorous per RN and place Bridges since she is having surgery anyway FFP and Vit K Monitor INR closely HARRIS MELLO DO Feb 26, 2017 08:51
[2017-02-26] MEDS: CARVEDILOL 12.5 MG (COREG) TABLET PO SCH (09:00)
[2017-02-26] MEDS: MICONAZOLE 2% POWDER (DESENEX AF) 90 GM TOP SCH (09:00)
--- NOTE | 2017-02-26 09:39 | Occ Therapy Progress Note ---
Therapy Progress Note Pt on hold today, pending surgery. CONY WHITNEY OT Feb 26, 2017 09:39
[2017-02-26] MEDS ORDERED: GENTAMICIN 40 MG/ML 2 ML INJ SDV ONE (11:55)
[2017-02-26 12:01] LABS: BILIRUBIN,URINE NEGATIVE (NEGATIVE); KETONES,URINE NEGATIVE (NEGATIVE); LEUKOCYTE ESTERASE ,URINE 3+ (NEGATIVE); NITRITE,URINE POSITIVE (NEGATIVE); PH,URINE 8 (5-9); PROTEIN,URINE NEGATIVE (NEGATIVE); UROBILINOGEN,URINE NORMAL (NORMAL)
[2017-02-26 12:09] LABS: SQUAMOUS EPITHELIAL CELL,UR 0-2 /HPF; WBC,URINE >100 /HPF
[2017-02-26 12:23] LABS: INR 1.4 (0.8-1.4); PROTHROMBIN TIME PATIENT 17.2 SEC (12.2-14.7)
[2017-02-26] MEDS: LACTATED RINGERS 1,000 ML IV PRN ×2 (12:33→14:52)
[2017-02-26] MEDS ORDERED: LACTATED RINGERS 1,000 ML IV PRN (12:39)
[2017-02-26] MEDS ORDERED: ceFAZolin 1,000 MG (ANCEF) VIAL ONE (13:15)
[2017-02-26] MEDS ORDERED: VANCOMYCIN 1000 MG/VIAL ONE (13:15)
[2017-02-26] MEDS ORDERED: fentaNYL INJECTION 100 MCG/2 ML AMP ONE ×2 (13:38→15:20)
[2017-02-26] MEDS ORDERED: LIDOCAINE PF 2% 5 ML (XYLOCAINE) VIAL ONE (13:41)
[2017-02-26] MEDS ORDERED: LACTATED RINGERS 1,000 ML IV ONE ×2 (13:41→14:55)
[2017-02-26] MEDS ORDERED: DEXAMETHASONE 10 MG/ML (DECADRON) 1 ML VIAL ONE (13:41)
[2017-02-26] MEDS ORDERED: ONDANSETRON 4 MG/2 ML (SDV) Z0FRAN ONE (13:41)
[2017-02-26] MEDS ORDERED: proPOfol 200 MG/20 ML (DIPRIVAN) VIAL IV ONE (13:41)
[2017-02-26] MEDS ORDERED: VANCOMYCIN INJECTION 1,000 MG in NS (IVPB) 250 ML IV ONE (14:00)
[2017-02-26] MEDS ORDERED: ceFAZolin 2 GM/50 ML NS 50 ML IV ONE (14:00)
[2017-02-26] MEDS ORDERED: ceFAZolin INJECTION 2,000 MG in NS (IVPB) 50 ML IV ONE (14:15)
[2017-02-26] MEDS ORDERED: SEVOFLURANE (ULTANE) 15 ML INHAL SOLN ONE ×10 (14:54→15:10)
[2017-02-26] MEDS ORDERED: morphine INJ 10 MG/ML 1ML (SYR OR VIAL) ONE (15:03)
--- NOTE | 2017-02-26 16:03 | Diagnostic Imaging Report ---
INDICATION: Left knee pain. IMPRESSION: 124.7 seconds of fluoroscopy was used during left knee revision. Submitted digital images show postop changes from left knee arthroplasty and internal fixation of the distal femoral shaft with intramedullary katelyn and lateral plate. Dictated by: Dictated on workstation # [id number]
[2017-02-26] MEDS ORDERED: warFARin 2.5 MG (COUMADIN) TAB PO SCH (18:00)
--- NOTE | 2017-03-01 09:49 | Therapy Team Discharge Summary ---
Therapy Discharge Summary Discharge Recommendations Date of Discharge Feb 26, 2017 at 16:58 Therapy D/C Recommendations: Occupational Therapy Home Care Occupational Therapy Pt was seen for skilled OT to increase her independence in basic self care to allow her to return home safely and to decrease caregiver burden. On admission she was modified independent in eating, setup for grooming and upper body dressing, mod assist for bathing, max assist for lower body dressing and dependant for toileting and toilet transfers. By discharge she was setup/SBA for grooming, bathing and upper body dressing, min assist with lower body dressing and toilet transfers, and mod assist with toileting. She was transferred to acute care for surgical revision of her hip. See tx plan for goals met. Pt would benefit from continued OT on acute care. PT Alf Goals Wood [employer] Wood [employer] Factory Worker Goals PT [employer] Factory Worker Goals Time Frame: Mar 08, 2017 Transfers (B,C,W/C) (FIM): 4 (CGA) Roll Left to Right (QC): 5 Sit to Lying (QC): 5 Lying-Sitting on Side/Bed(QC): 5 Sit to Stand (QC): 5 Chair/Vzb-sn-Fkdpo Xfer(QC): 5 Car Transfer (QC): 5 Gait (FIM): 2 Distance: 50' Walk 10 feet (QC): 5 Walk 10ft-Uneven Surface(QC): 5 Walk 50ft with 2 Turns (QC): 5 Gait Level of Assist: 4 Gait Assistive Device: FWW Stairs (FIM): 2 # of Steps: 4 1 Step (curb) (QC): 5 4 Steps (QC): 5 Stairs Level Of Assist: 4 OT [employer] Factory Worker Goals Alf Goals Time Frame: Mar 08, 2017 Eating (FIM): 6 (met 02-25-) Eating (QC): 6 (met 02-25-17) Oral Hygiene (QC): 6 (not met 02-25-) Grooming(FIM): 6 (not met 02-25-17) Bathing(FIM): 6 (not met 02-25-17) Shower/Bathe Self (QC): 6 (not met 02-25-) Upper Body Dressing(FIM): 6 (not met 02-25-) Upper Body Dressing (QC): 6 (not met 02-25-17) Lower Body Dressing(FIM): 6 (not met 02-25-17) Lower Body Dressing (QC): 6 (not met 02-25-17) On/Off Footwear (QC): 6 (not met 02-25-17) Toileting(FIM): 6 (not met 02-25-17) Toileting Hygiene (QC): 6 (not met 02-25-17) Toilet/Commode Transfer(FIM): 6 (not met 02-25-17) Toilet/Commode Transfer (QC): 6 (not met 02-25-17) Shower Transfer(FIM): 6 (not met 02-25-17) Additional Goals: 1-Demonstrate ADL Tasks, 2-Verbalize Understanding, 3- ImproveStrength/[place] 1=Demonstrate adherence to instructed precautions during ADL tasks. 2=Patient will verbalize/demonstrate understanding of assistive devices/ modifications for ADL. 3=Patient will improve strength/tolerance for activity to enable patient to perform ADL's. CONY WHITNEY OT Mar 01, 2017 09:49
[2017-03-01] MEDS ORDERED: SULF1TAB35 PO (09:53)
--- NOTE | 2017-03-01 15:12 | Therapy Team Discharge Summary ---
Therapy Discharge Summary Discharge Recommendations Date of Discharge Feb 26, 2017 at 16:58 Therapy D/C Recommendations: Occupational Therapy Home Care Physical Therapy Patient came to rehab following a left hip ORIF. Upon evaluation patient performed bed mobility with mod assist, supine to sit with max assist. She performs a bed to chair transfer with mod assist. Patient was able to ambulate about 1' during the bed to chair transfer, she cannot advance her left leg but tries to pull it forward with her toes. Patient was able to propel a manual wheelchair 150' with min assist. Patient has been performing bed mobility and transfer training, balance and endurance training, functional strengthening, stair training, gait training, and education. 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 At discharge patient was performing bed mobility with min/SBA, transfers with CGA, and ambulating 40' with CGA. Patient will be discharged at this time because she will be admitted on another floor. PT Security Installation Sales Technician Goals Security Installation Sales Technician Goals PT Security Installation Sales Technician Goals Time Frame: Mar 08, 2017 Transfers (B,C,W/C) (FIM): 4 (CGA) Roll Left to Right (QC): 5 Sit to Lying (QC): 5 Lying-Sitting on Side/Bed(QC): 5 Sit to Stand (QC): 5 Chair/Lwn-eh-Opdxd Xfer(QC): 5 Car Transfer (QC): 5 Gait (FIM): 2 Distance: 50' Walk 10 feet (QC): 5 Walk 10ft-Uneven Surface(QC): 5 Walk 50ft with 2 Turns (QC): 5 Gait Level of Assist: 4 Gait Assistive Device: FWW Stairs (FIM): 2 # of Steps: 4 1 Step (curb) (QC): 5 4 Steps (QC): 5 Stairs Level Of Assist: 4 OT Security Installation Sales Technician Goals Security Installation Sales Technician Goals Time Frame: Mar 08, 2017 Eating (FIM): 6 (met -17-17) Eating (QC): 6 (met 8-17-17) Oral Hygiene (QC): 6 (not met 8-17-17) Grooming(FIM): 6 (not met 17-17) Bathing(FIM): 6 (not met 02-25-17) Shower/Bathe Self (QC): 6 (not met 17-17) Upper Body Dressing(FIM): 6 (not met 02-25-17) Upper Body Dressing (QC): 6 (not met 02-25-17) Lower Body Dressing(FIM): 6 (not met 02-25-17) Lower Body Dressing (QC): 6 (not met 02-25-17) On/Off Footwear (QC): 6 (not met 02-25-17) Toileting(FIM): 6 (not met 02-25-17) Toileting Hygiene (QC): 6 (not met 02-25-17) Toilet/Commode Transfer(FIM): 6 (not met 02-25-17) Toilet/Commode Transfer (QC): 6 (not met 02-25-17) Shower Transfer(FIM): 6 (not met 02-25-17) Additional Goals: 1-Demonstrate ADL Tasks, 2-Verbalize Understanding, 3- ImproveStrength/[place] 1=Demonstrate adherence to instructed precautions during ADL tasks. 2=Patient will verbalize/demonstrate understanding of assistive devices/ modifications for ADL. 3=Patient will improve strength/tolerance for activity to enable patient to perform ADL's. DEMETRI RICHMOND PT Mar 01, 2017 15:12
--- NOTE | 2017-03-02 23:06 | DISCHARGE SUMMARY ---
DATE OF SERVICE: 02/26/2017 HISTORY OF PRESENT ILLNESS: The patient is a 76-year-old female who has been independent living in her own home in [facility] who fell at home while she was going out to [employer] class. She sustained a left hip intertrochanteric fracture and was admitted to [facility] on 02/11/2017. She had been chronically anticoagulated since spine surgery with Coumadin in the past. INR was reversed and the patient has had ORIF with Orthopedist Dr. Blanco on 02/12 Therapy was begun for the patient. The patient was found to be appropriate for inpatient rehabilitation. The patient was thus transferred to IRU for ongoing therapies and care. The patient was being followed by hospitalist service, Dr. Mccormack. She had two units of packed red blood cells postoperatively for anemia. Medications were continued for hypertension. She had postoperative leukocytosis which is resolved. Her Coumadin was resolved. She had postop constipation. Medications were adjusted. PAST MEDICAL HISTORY: Hypertension, hypothyroidism on replacement, overactive bladder, back injury, lumbar fusion in 2013, left total knee replacement. She lives alone in an apartment in [place], has supportive family nearby. Her PCP is Dr. Uriostegui at [facility]. MEDICAL COURSE: The patient developed some sanguinous drainage from the left hip. The patient was assessed by Dr. Aleman. The patient had a course of p.o. antibiotics. She had ongoing drainage and edema in her left leg. She had fluoroscopy indicating impending fracture left distal femur associated with stress riser between end of katelyn and TKA. This was accounting for her ongoing pain and swelling in that area.. She was discharged back to the surgical floor for revision surgery with Dr. Aleman. 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 The patient had IV antibiotic for that as well as preop prophylactic IV antibiotics. She was afebrile during her stay. Her pulse was 75 on 02/26, respirations 18, blood pressure 120/68, O2 sat 94% on room air. CBC on 02/26/2017 showed WBC 9.9, H and H 9.5/38 platelet count 365 K. Her INR was reversed again preoperatively and her INR came down from 3.1 on 02/25/2017 at 1.4 on 02/26/2017 in preparation for revision surgery. Chemistry on 02/26/2017 showed normal electrolytes, BUN mildly elevated at 36, creatinine 1.07. AST 45, ALT 66, albumin 3.0, total protein 6.0. REHABILITATION COURSE: Current rehabilitation goals were not able to be maintained or achieved due to her requiring revision surgery. She may be referred back to inpatient rehabilitation unit as appropriate for completion of her orthopedic rehabilitation program. OT notes upon admission she was modified independent with eating, set up for grooming and upper body dressing, mod assist for bathing, max assist for lower body dressing and dependent for toileting and toilet transfers. By discharge, she was set up to standby assist for grooming, bathing and upper body dressing, min assist for lower body dressing and toilet transfers and mod assist for toileting. PT notes upon admission, the patient was mod assist with bed mobility, mod assist for transfers. She had difficulty advancing her left leg for functional gait. She was able to propel a manual wheelchair 50 feet with minimal assist. The patient did make some progress towards her long-term goals. She is to have revision surgery at discharge. The patient performed bed mobility with min assist to standby assist, contact guard for transfers, and ambulating 40 feet with contact guard. DISCHARGE INSTRUCTIONS: The patient is transferred back to the care of Dr. Aleman and hospitalist service. She may be referred back to the IRU when appropriate following surgery for completion of orthopedic program. DISCHARGE MEDICATIONS: Cefazolin and vancomycin IV as per Dr. Escobedo, Coumadin on hold, baclofen 10 mg p.o. t.i.d. p.r.n. spasm, Tylenol 500 mg p.o. q. 6 hours p.r.n. mild pain, vitamin D with calcium 600 mg p.o. b.i.d., levothyroxine 112 mcg p.o. daily. Ditropan 5 mg p.o. daily, Bumex 1 mg p.o. daily, Xanax 0.25 mg p.o. q.8h. p.r.n. anxiety. DISCHARGE DIAGNOSES: 1. Ambulatory dysfunction secondary to intertrochanteric fracture of left femur , status post ORIF. Dr. Blanco. 2. Sanguineous drainage from the hip associated with edema on antibiotics. 3. Mild postoperative anemia. 4. Chronic anticoagulation, currently Coumadin on hold, INR reversed. 5. Hypothyroidism on replacement. 6. Hypertension, controlled with medication 7. Osteoporosis on Fosamax at home. 8. Hypoalbuminemia. 9. Elevated liver function tests. 10. Mild azotemia. 11. Anterior cortical crack left distal femur CONDITION AT DISCHARGE: Unimproved, but stable. PROGNOSIS: Rehab prognosis appears good for goal of enhancing level of functional independence once the patient has her revision surgery and hopefully resulting in a return to independent living eventually. Job ID: [id number] DocumentID: [id number] Dictated Date: 03/02/2017 16:38:44 Developmental Behavioral Physician Date: 03/02/2017 23:05:58 Dictated By: ANGELICA YIN MD MTDD
== END 2017-02-26 16:58 | disposition short-term general hospital (02) | DRG 560 ==
PROVIDERS: ADMIT Physical Medicine & Rehabilitation; ATTEND Physical Medicine & Rehabilitation
DX: M80.052D Age-related osteoporosis with current pathological fracture, left femur, subsequent encounter for fracture with routine healing (principal); L76.32 Postprocedural hematoma of skin and subcutaneous tissue following other procedure; I10 Essential (primary) hypertension; N32.81 Overactive bladder; E03.9 Hypothyroidism, unspecified; D64.9 Anemia, unspecified; K59.09 Other constipation; R06.89 Other abnormalities of breathing; Z99.81 Dependence on supplemental oxygen; Z79.01 Long term (current) use of anticoagulants; Z98.1 Arthrodesis status
CPT/HCPCS: 36415; 73560; 80048; 80053; 81000; 85025; 85027; 85610; 86850; 86900; 86901; 86920; 87077; 87088; 87186

== ENCOUNTER 2017-02-26 13:00 | Inpatient (IN) | payer MEDICARE ==
[~2017-02-26] VITALS: Ht 167.6 cm; Wt 79.4 kg
[2017-02-26] MEDS ORDERED: fentaNYL INJECTION 100 MCG/2 ML AMP IVP PRN (15:15)
--- NOTE | 2017-02-26 15:24 | Progress Note-Post Operative ---
Post-Operative Progess Note Surgeon (s)/Robotics Technician (s) Surgeon CO-sURGEONS Dr Robbie Aleman and FELIPE LIAO MD Robotics Technician: Alethea HAUSER PA-C Pre-Operative Diagnosis Incomplete periprosthetic fracture around existing implant Post-Operative Diagnosis same Procedure & Operative Findings Date of Procedure 02/26/17 Procedure Performed/Findings ORIF LEFT SUPRACONDYLAR INCOMPLETE FRACTURE WITH LOCKING DISTAL FEMORAL CONDYLAR PLATE Anesthesia Type GETA Estimated Blood Loss Estimated blood loss (mL): 300 Specimens/Packing Specimens Removed 0 Packing: dICTATION NUMBER [id number] FELIPE LIAO MD Feb 26, 2017 15:24
[2017-02-26 16:40] VITALS: BP 123/70
[2017-02-26] MEDS ORDERED: VANCOMYCIN 1000 MG/VIAL ONE (16:57)
[2017-02-26] MEDS ORDERED: LIDOCAINE PF 2% 5 ML (XYLOCAINE) VIAL ONE (16:57)
[2017-02-26] MEDS ORDERED: ceFAZolin 1,000 MG (ANCEF) VIAL ONE (16:57)
[2017-02-26] MEDS ORDERED: ONDANSETRON 4 MG/2 ML (SDV) Z0FRAN ONE (16:57)
[2017-02-26] MEDS ORDERED: ceFAZolin INJECTION 2,000 MG in NS (IVPB) 50 ML IV ONE (16:57)
[2017-02-26] MEDS ORDERED: fentaNYL INJECTION 100 MCG/2 ML AMP ONE ×2 (16:57)
[2017-02-26] MEDS ORDERED: DEXAMETHASONE 10 MG/ML (DECADRON) 1 ML VIAL ONE (16:57)
[2017-02-26] MEDS ORDERED: proPOfol 200 MG/20 ML (DIPRIVAN) VIAL IV ONE (16:57)
[2017-02-26] MEDS ORDERED: LACTATED RINGERS 1,000 ML IV ONE ×2 (16:57)
[2017-02-26] MEDS ORDERED: SEVOFLURANE (ULTANE) 15 ML INHAL SOLN ONE ×8 (17:10)
[2017-02-26] MEDS ORDERED: GENTAMICIN 40 MG/ML 2 ML INJ SDV ONE (17:14)
[2017-02-26] MEDS ORDERED: CATHETER FLUSH 10 ML SYR IV PRN (17:15)
[2017-02-26] MEDS ORDERED: ONDANSETRON 4 MG (ZOFRAN) ORAL DISSOLVE TAB PO PRN (17:15)
[2017-02-26] MEDS ORDERED: HYDROcodone/APAP 5 MG/325 MG (LORTAB) TAB PO PRN (17:15)
[2017-02-26] MEDS ORDERED: ALPRAZolam 0.25 MG (XANAX) TAB PO PRN (17:15)
[2017-02-26] MEDS ORDERED: VANCOMYCIN INJECTION 1,000 MG in NS (IVPB) 250 ML IV ONE (17:17)
[2017-02-26] MEDS: warFARin 2.5 MG (COUMADIN) TAB PO SCH (17:53)
[2017-02-26 20:00] VITALS: BP 114/67
[2017-02-26] MEDS: CARVEDILOL 12.5 MG (COREG) TABLET PO SCH (21:33)
[2017-02-26] MEDS: COLCHICINE 0.6 MG (COLCRYS) TABLET PO SCH (21:33)
[2017-02-26] MEDS: MICONAZOLE 2% POWDER (DESENEX AF) 90 GM TOP SCH (21:34)
[2017-02-26] MEDS: CEPHALEXIN 250 MG (KEFLEX) CAP PO SCH (21:34)
[2017-02-26] MEDS: ACETAMINOPHEN 500 MG TAB (TYLENOL) PO PRN (21:40)
[2017-02-27] VITALS: BP 109/66
[2017-02-27 04:15] VITALS: BP 124/64
[2017-02-27] MEDS: ACETAMINOPHEN 500 MG TAB (TYLENOL) PO PRN ×2 (06:00→11:43)
[2017-02-27] MEDS: CALCIUM CARB + VIT D 600 MG (CALCARB + D) TAB PO SCH ×2 (06:00→17:38)
[2017-02-27] MEDS: LEVOTHYROXINE 112 MCG (LEVOTHROID) TAB PO SCH (06:01)
[2017-02-27] MEDS: VITAMIN A 8000 UNIT PO SCH ×2 (06:01→17:38)
[2017-02-27 08:00] VITALS: BP 112/65
[2017-02-27] MEDS: OXYBUTYNIN (DITROPAN) 5 MG TAB PO SCH (09:23)
[2017-02-27] MEDS: CARVEDILOL 12.5 MG (COREG) TABLET PO SCH ×2 (09:23→21:39)
[2017-02-27] MEDS: COLCHICINE 0.6 MG (COLCRYS) TABLET PO SCH ×2 (09:23→21:39)
[2017-02-27] MEDS: CEPHALEXIN 250 MG (KEFLEX) CAP PO SCH ×3 (09:23→21:39)
[2017-02-27] MEDS: MICONAZOLE 2% POWDER (DESENEX AF) 90 GM TOP SCH ×2 (09:24→21:39)
[2017-02-27] MEDS: BUMETANIDE 1 MG (BUMEX) TAB PO SCH (09:28)
--- NOTE | 2017-02-27 10:31 | Progress Note-Standard ---
Standard Progress Note Progress Notes/Assess & Plan Date Seen by Provider: Feb 27, 2017 Time Seen by Provider: 10:29 Progress/Assessment & Plan POD 1 S/P ORIF INCOMPLETE FRACTURE LEFT DISTAL FEMUR AT STRESS RISER BETWEEN JOSE AND TOTAL KNEE. NO COMPLAINTS PAIN OK NVI DRESSING DRY LAB PENDING IMP: DOING WELL PLAN: MOBILIZE WITH PT, WALKER AMBULATION WBAT WITH ROM LEFT KNEE 0-45 DEGREES. UP IN CHAIR TID DC GUO LEAVE DRESSING IN PLACE WILL LIKELY BE READY FOR TRANSFER BACK TO ACUTE INPT REHAB ON WEDNESDAY Final Diagnosis INCOMPLETE FRACTURE LEFT DISTAL FEMUR FELIPE LIAO MD Feb 27, 2017 10:31 am
[2017-02-27 11:01] LABS: RED BLOOD COUNT 3.03 10^6/uL (4.35-5.85); WHITE BLOOD COUNT 13.3 10^3/uL (4.3-11.0)
[2017-02-27 11:05] LABS: INR 1.5 (0.8-1.4); PROTHROMBIN TIME PATIENT 18.4 SEC (12.2-14.7)
[2017-02-27 11:17] LABS: CALCIUM 8.3 MG/DL (8.5-10.1); CREATININE SERUM 1.03 MG/DL (0.60-1.30); POTASSIUM 4.4 MMOL/L (3.6-5.0)
--- NOTE | 2017-02-27 11:51 | Progress Note-Hospitalist ---
Subjective HPI/CC On Admission Date Seen by Provider: Feb 27, 2017 Time Seen by Provider: 11:45 Subjective/Events-last exam patient is postop day number 1 and complains of some discomfort associated with the left leg and some dizziness with standing but otherwise is feeling okay. She denies having any chest pain or shortness of breath Review of Systems Musculoskeletal: leg pain Neurological: Other (dizzy) Objective Exam Vital Signs Vital Sign - Last 12Hours 02/26/17 16:40 Temp 99.3 Pulse 78 Resp 20 B/P (MAP) 123/70 Pulse Ox 92 O2 Delivery Nasal Cannula O2 Flow Rate 2.00 Capillary Refill : Less Than 3 Seconds General Appearance: Other (pale) HEENT: Pale Conjunctivae (L) Neck: Supple Respiratory: Lungs Clear, Normal Breath Sounds, No Accessory Muscle Use, No Respiratory Distress Cardiovascular: Regular Rate, Rhythm, No Gallop, Systolic Murmur Gastrointestinal: Normal Bowel Sounds, Non Tender, Soft Rectal: Deferred Extremity: No Pedal Edema Neurologic/Psychiatric: Alert, Oriented x3, No Motor/Sensory Deficits, Normal Mood/Affect Skin: Pallor Results/Procedures Lab Laboratory Tests 02/27/17 10:35 Assessment/Plan Assessment and Plan Assess & Plan/Chief Complaint postop day number 1 status post left repair of an incomplete distal femur fracture Mild anemia secondary to acute blood loss Dizziness most likely related to recent surgery XIMENA LAUREANO MD Feb 27, 2017 11:51 am
[2017-02-27 12:00] VITALS: BP 105/60
[2017-02-27] MEDS ORDERED: ENOXAPARIN 40 MG/0.4 ML (LOVENOX) SYR SC NR (12:00)
--- NOTE | 2017-02-27 12:48 | Occupational Therapy Eval ---
OT Evaluation-General/PLF Medical Diagnosis Admission Date 02-26-17 Medical Diagnosis: ORIF left distal femur Onset Date: Feb 15, 2017 Therapy Diagnosis Therapy Diagnosis: Decreased ADL skills Height/Weight Height (Feet): 5 Height (Inches): 6.00 Weight (Pounds): 175 Weight (Ounces): 0.0 Precautions Precautions/Isolations: Fall Prevention, Standard Precautions Safety Interventions: Reorient-PRN Weight Bear Status Weight Bearing Restriction: Weight Bearing/Tolerated Referral Physician: Dr. Escobedo Medical History Pertinent Medical History: HTN, Hypothroidism Additional Medical History back surgery, knee replacement 3 years ago. Current History Pt. was pt. on rehab for ORIF of left hip. This required more surgery for stabilization. Pt. transferred to acute. WBAT. ORIF Left supracondylar incomplete fx with locking distal femoral condylar plate. Reviewed History: Yes Social History Home: Single Level Current Living Status: Alone Entry Into Home: Level Entry Pt. states that she lives alone, but will likely have someone to stay with her. States that her sister and brother live in [place] as well. ADL-Prior Level of Function ADL PLOF Comments Pt. was independent with daily tasks. Pt. was going to the [facility] with her sister , and fell outside of her car. Came to inpt. rehab for therapy. Began to have knee swelling and pain. x-ray revealed new fx. Pt. underwent new surgery. DME/Equipment: Bath Chair, Shower DME/Equipment Comments Pt. has a walker and cane OT Current Status Subjective Pt. reports 4 1/2/5 pain level. Notified nursing. Not time for more pain pills yet. Appearance Pt. in bed. Alert. Agrees to work with therapy. Mental Status/Objective Patient Orientation: Person, Place, Time, Situation Attachments: Oxygen Current Glasses/Contacts: Yes Dentures/Partials: Yes Hand Dominance: Right Upper Extremity ROM WFL Upper Extremity Coordination intact Upper Extremity Strength WFL ADL-Treatment Functional [place] Measure 0=Not Assessed/NA 4=Minimal Assistance 1=Total Assistance 5=Supervision or Setup 2=Maximal Assistance 6=Modified [place] 3=Moderate Assistance 7=Complete IndependenceIRFPAI Quality Coding Scale 6 Independent with activity with or without an assistive device 5 Patient requires set up or clean up by helper. Patient completes activity by themselves 4 Supervision or touching assist (CGA). [place] provide cues , steadying assist 3 The helper provides less than half the effort to complete the activity 2 The helper provides more than half the effort to complete the activity 1 Dependent. The helper does all the effort to complete an activity 7 Patient refused to complete or attempt activity 9 The patient did not perform the activity before the current illness or injury 88 Not attempted due to Medical conditions or safety concerns Lower Body Dressing (FIM): 2 (Pt. is unable to don slipper socks. No other clothing available.) Transfers (B, C, W/C) (FIM): 3 (Mod assist for supine-sit, and mod assist for sit-stand. Increased time needed to take a step. Has difficulty bearing weight on left LE. ) Other Treatments OT/PT co-treated due to pt's fatigue level. PT focused on transfers and LE strength while OT assessed ADL function, and safety concerns. Pt. eager to get out of bed. Requires assistance to transfer from supine to sit and sit to stand. Requires two people to assist with weight shift for safety. Increased time needed as pt. is anxious to move her left LE. Able to side step to right side with increased time needed. Sat back on bed and assisted to bed with mod assist. Able to pull self up into bed. All needs met. Pt. states that she has already had a spongebath with nursing assist this morning. Education OT Patient Education: Correct positioning, Modified ADL techniques, Progress toward Goal/Update tx plan, Purpose of tx/functional activities, Reviewed precautions, Rehab process, Transfer techniques Teaching Recipient: Patient Teaching Methods: Demonstration, Discussion Response to Teaching: Verbalize Understanding, Return Demonstration OT Short Term Goals Short Term Goals Time Frame: Mar 06, 2017 Eating(FIM): 5 Grooming(FIM): 5 Bathing(FIM): 4 Upper Body Dressing(FIM): 5 Lower Body Dressing(FIM): 4 Toileting(FIM): 5 Transfers (B,C,W/C) (FIM): 4 Toilet/Commode Transfer(FIM): 4 Shower Transfer(FIM): 4 Additional Short Term Goals: 1-Demonstrate ADL Tasks, 2-Verbalize Understanding , 3-ImproveStrength/[place] 1=Demonstrate adherence to instructed precautions during ADL tasks. 2=Patient will verbalize/demonstrate understanding of assistive devices/ modifications for ADL. 3=Patient will improve strength/tolerance for activity to enable patient to perform ADL's. OT Prison Goals Automatic Pinsetter Adjuster Goals Time Frame: Mar 20, 2017 Eating (FIM): 6 Grooming(FIM): 6 Bathing(FIM): 5 Upper Body Dressing(FIM): 6 Lower Body Dressing(FIM): 6 Toileting(FIM): 6 Transfers (B,C,W/C) (FIM): 6 Toilet/Commode Transfer(FIM): 6 Shower Transfer(FIM): 5 Additional Goals: 1-Demonstrate ADL Tasks, 2-Verbalize Understanding, 3- ImproveStrength/[place] 1=Demonstrate adherence to instructed precautions during ADL tasks. 2=Patient will verbalize/demonstrate understanding of assistive devices/ modifications for ADL. 3=Patient will improve strength/tolerance for activity to enable patient to perform ADL's. OT Education/Plan Problem List/Assessment Assessment: Decreased Activ Tolerance, Decreased UE Strength, Impaired Funct Balance, Impaired I ADL's, Impaired Self-Care Skills Discharge Recommendations Plan/Recommendations: Continue POC Therapy D/C Recommendations: Home w/ Family Support, Occupational Therapy Home Care Equpiment Recommendations-D/C: Hip Kit Patient/Family Goals To return home. States that she will have family members to stay with her. Treatment Plan/Plan of Care Treatment,Training & Education: Yes Patient would benefit from OT for education, treatment and training to promote independence in ADL's, mobility, safety and/or upper extremity function for ADL' s. Plan of Care: ADL Retraining, Functional Mobility, UE Funct Exercise/Act Treatment Duration: Mar 20, 2017 Frequency: Daily Estimated Hrs Per Day: .5 hour per day Agreement: Yes Rehab Potential: Good Time/GCodes Start Time: 10:35 Stop Time: 11:05 Total Time Billed (hr/min): 30 Billed Treatment Time 1, EVM 30 minutes (15) co-treat. Please see note above for designated co- treatment notes. JONATHAN PAULINO OT Feb 27, 2017 12:48
--- NOTE | 2017-02-27 13:18 | Physical Therapy Evaluation ---
PT Evaluation-General Medical Diagnosis Admission Date 02/15/17 Medical Diagnosis: ORIF left distal femur Onset Date: Feb 15, 2017 Therapy Diagnosis Therapy Diagnosis: Decreased functional mobility Height/Weight Height (Feet): 5 Height (Inches): 6.00 Weight (Pounds): 175 Weight (Ounces): 0.0 Precautions Precautions/Isolations: Fall Prevention, Standard Precautions Weight Bear Status Weight Bearing Restriction: Weight Bearing/Tolerated Location Restriction: L LE Referral Physician: Dr. Escobedo Reason for Referral: Evaluation/Treatment Medical History Pertinent Medical History: HTN, Hypothroidism Additional Medical History lumbar fusion, (L) TKR Current History Pt underwent (L) hip ORIF on 02/15/17 due to fall. Underwent additional ORIF on (L ) femur on 02/26/17 due to impending fracture in distal femur. Reviewed History: Yes Social History Home: Single Level Current Living Status: Alone Entry Into Home: Level Entry Prior/Core FIM Prior Level of Function Functional [place] Measure 0=Not Assessed/NA 4=Minimal Assistance 1=Total Assistance 5=Supervision or Setup 2=Maximal Assistance 6=Modified [place] 3=Moderate Assistance 7=Complete [place] Bed Mobility: 6 Transfers (B,C,W/C) (FIM): 6 Gait: 6 Reports mod (I) with FWW x 3 years prior to onset.(+) Driving PT Evaluation-Current Subjective Pt in bed, agreeable. Motivated Pain Numeric Pain Scale: 5-Moderate Pain Location: Left Location Body Site: Knee Pain Description: Ache Pt/Family Goals Home Objective Patient Orientation: Person, Place, Time, Situation Problem Solving: Good Attachments: Oxygen ROM/Strength ROM Upper Extremities See OT ROM Lower Extremities Grossly WFL on (R) Hip flexion on (L) grossly 90 degrees, (L) knee limited by pain Strength Upper Extremities See OT Strenght Lower Extremities Grossly 3+/5 on (R) NT on (L) Integumentary/Posture Integumentary See nurses' notes Posture flexed Neuromuscular (Tone, Coordination, Reflexes) grossly intact Sensory Vision: Wears Glasses Hearing: Functional Hand Dominance: Right Sensation Right Lower Extremit: Intact Sensation Left Lower Extremity: Intact Transfers Functional [place] Measure 0=Not Assessed/NA 4=Minimal Assistance 1=Total Assistance 5=Supervision or Setup 2=Maximal Assistance 6=Modified [place] 3=Moderate Assistance 7=Complete [place] Transfers (B, C, W/C) (FIM): 3 Scootin Supine to/from Sit: 3 Sit to/from Stand: 4 Gait Mode of Locomotion: Walk Anticipated Mode of Locomotion: Walk Gait (FIM): 1 Distance (FIM): 1=up to 49 ft Distance: 3' Gait Level of Assist: 4 Gait Persons Needed: 1 Gait Assistive Device: FWW Comments/Gait Description Attempted forward ambulation. Pt unable to WB on (L) sufficient to clear (R) foot. Able to side step to HOB x 3' with min A x 1. Stairs Stairs (FIM): 0 If not tested on admit;explain Unable to ambulate on level surface at this time. Balance Sitting Static: Normal Sitting Dynamic: Normal Standing Static: Good Standing Dynamic: Fair Assessment/Needs Pt is a 76 y.o. female s/p ORIF (L) femur with recent (L) hip ORIF. Pt would benefit from skilled PT to address decreased functional strength and functional mobility to return home. Rehab Potential: Good PT Short Term Goals Short Term Goals Time Frame: Mar 06, 2017 Transfers (B,C,W/C) (FIM): 4 PT Alf Goals Trim Die Maker Goals PT Alf Goals Time Frame: Mar 20, 2017 Transfers (B,C,W/C) (FIM): 6 Gait (FIM): 6 Gait distance (FIM): 3=150 ft Distance: 150 Gait Level of Assist: 6 Gait Assistive Device: FWW PT goals established to allow safe return home (I) PT Plan Problem List Problem List: Activity Tolerance, Functional Strength, Safety, Balance, Gait, Transfer, Bed Mobility, ROM Treatment/Plan Treatment Plan: Continue Plan of Care Treatment Plan: Bed Mobility, Education, Functional Activity [place], Functional Strength, Gait, Safety, Therapeutic Exercise, Transfers Treatment Duration: Mar 20, 2017 Frequency: Twice Daily (M-F, PRN Sat-Sun) Estimated Hrs Per Day: .5 hour per day Patient and/or Family Agrees t: Yes Safety Risks/Education Patient Education: Gait Training, Transfer Techniques Teaching Recipient: Patient Teaching Methods: Discussion Response to Teaching: Verbalize Understanding, Reinforcement Needed Discharge Recommendations Therapy D/C Recommendations: Acute Rehab Barriers to Progress None Time/GCodes Time In: 1035 Time Out: 1105 Total Billed Treatment Time: 15 Total Billed Treatment 1, EVMODC x 15' (unattended x 15' for OT eval) G Codes Necessary: MARCIAL Castillo DPAlexus Feb 27, 2017 13:18
--- NOTE | 2017-02-27 14:21 | Anesthesia-General Post-Op ---
General Patient Condition Mental Status/LOC: Same as Preop Cardiovascular: Satisfactory Nausea/Vomiting: Absent Respiratory: Satisfactory Pain: Controlled Complications: Absent Post Op Complications Complications None Follow Up Care/Instructions Patient Instructions None needed. Anesthesia/Patient Condition Patient Condition Patient is doing well, no complaints, stable vital signs, no apparent adverse anesthesia problems. No complications reported per nursing. CRISTHIAN MORENO CRNA Feb 27, 2017 14:21
[2017-02-27 15:58] VITALS: BP 116/69
[2017-02-27] MEDS: warFARin 2.5 MG (COUMADIN) TAB PO SCH (17:38)
[2017-02-27 19:41] VITALS: BP 135/71
[2017-02-27] MEDS: APIXABAN 2.5 MG (ELIQUIS) TABLET PO SCH (21:39)
[2017-02-28] VITALS: BP 134/61
[2017-02-28 05:28] LABS: MEAN PLATELET VOLUME 9.8 FL (7.4-10.4); RED BLOOD COUNT 2.95 10^6/uL (4.35-5.85); WHITE BLOOD COUNT 12.3 10^3/uL (4.3-11.0)
[2017-02-28 05:48] LABS: INR 2.1 (0.8-1.4); PROTHROMBIN TIME PATIENT 23.4 SEC (12.2-14.7)
[2017-02-28 06:07] LABS: ANION GAP 11 MMOL/L (5-14); BLOOD UREA NITROGEN 31 MG/DL (7-18); BUN/CREATININE RATIO 35; CALCIUM 8.3 MG/DL (8.5-10.1); CARBON DIOXIDE 26 MMOL/L (21-32); CHLORIDE 105 MMOL/L (98-107); CREATININE SERUM 0.88 MG/DL (0.60-1.30); GFR ESTIMATED > 60; GLUCOSE 99 MG/DL (70-105); POTASSIUM 4.1 MMOL/L (3.6-5.0); SODIUM 142 MMOL/L (135-145)
[2017-02-28] MEDS: LEVOTHYROXINE 112 MCG (LEVOTHROID) TAB PO SCH (06:28)
[2017-02-28] MEDS: CALCIUM CARB + VIT D 600 MG (CALCARB + D) TAB PO SCH ×2 (06:28→18:04)
[2017-02-28] MEDS: VITAMIN A 8000 UNIT PO SCH ×2 (06:28→18:05)
[2017-02-28] MEDS: ACETAMINOPHEN 500 MG TAB (TYLENOL) PO PRN ×2 (06:31→11:05)
[2017-02-28 08:00] VITALS: BP 134/61
[2017-02-28] MEDS: COLCHICINE 0.6 MG (COLCRYS) TABLET PO SCH ×2 (08:36→21:28)
[2017-02-28] MEDS: OXYBUTYNIN (DITROPAN) 5 MG TAB PO SCH (08:36)
[2017-02-28] MEDS: CEPHALEXIN 250 MG (KEFLEX) CAP PO SCH (08:36)
[2017-02-28] MEDS: CARVEDILOL 12.5 MG (COREG) TABLET PO SCH ×2 (08:36→21:28)
[2017-02-28] MEDS: BUMETANIDE 1 MG (BUMEX) TAB PO SCH (08:36)
[2017-02-28] MEDS: APIXABAN 2.5 MG (ELIQUIS) TABLET PO SCH (08:36)
[2017-02-28] MEDS: MICONAZOLE 2% POWDER (DESENEX AF) 90 GM TOP SCH ×2 (08:37→21:29)
--- NOTE | 2017-02-28 08:38 | Physical Therapy Daily Note ---
PT Daily Note-Current Subjective Pt up in chair, agreeable. "Feels good to be upright". Pain Numeric Pain Scale: 4 Location: Left Location Body Site: Knee Pain Description: Ache Mental Status Patient Orientation: Person, Place, Time, Situation Attachments: Oxygen, Bridges Catheter Transfers Functional [place] Measure 0=Not Assessed/NA 4=Minimal Assistance 1=Total Assistance 5=Supervision or Setup 2=Maximal Assistance 6=Modified [place] 3=Moderate Assistance 7=Complete IndependenceIRFPAI Quality Coding Scale 6 Independent with activity with or without an assistive device 5 Patient requires set up or clean up by helper. Patient completes activity by themselves 4 Supervision or touching assist (CGA). [place] provide cues , steadying assist 3 The helper provides less than half the effort to complete the activity 2 The helper provides more than half the effort to complete the activity 1 Dependent. The helper does all the effort to complete an activity 7 Patient refused to complete or attempt activity 9 The patient did not perform the activity before the current illness or injury 88 Not attempted due to Medical conditions or safety concerns Transfers (B, C, W/C) (FIM): 4 Scootin Supine to/from Sit: 4 Sit to/from Stand: 4 Bed to/from Chair: 4 Weight Bearing Weight Bearing Restriction: Weight Bearing/Tolerated Location Restriction: L LE Gait Training Gait (FIM): 1 Distance (FIM): 1=up to 49 ft Distance: 3 Gait Level of Assist: 4 Gait Persons Needed: 1 Gait Assistive Device: FWW Chair->bed TFR with FWW: min A x 1. VCS for sequencing. Pt with step-to gait, sliding (L) LE to advance. Exercises Supine Ex: Ankle pumps, Quad Set, Glut sets, Heel Slides Supine Reps: 10 Treatments Transfer/gait training, LE ex for functional strengthening. Pt returned to bed with O2 in situ, needs met. Assessment Current Status: Good Progress Pt tolerated very well. Guarded with (L) knee flexion but improved ability to weight bear on (L) LE to advance (R) LE; currently continues to slide foot to advance but improved this date. Pt very motivated to improve. PT Short Term Goals Short Term Goals Time Frame: Mar 06, 2017 Transfers (B,C,W/C) (FIM): 4 PT Acid Purification Equipment Operator Goals Acid Purification Equipment Operator Goals PT Intermediate Goals Time Frame: Mar 20, 2017 Transfers (B,C,W/C) (FIM): 6 Gait (FIM): 6 Gait distance (FIM): 3=150 ft Distance: 150 Gait Level of Assist: 6 Gait Assistive Device: FWW PT Plan Problem List Problem List: Activity Tolerance, Functional Strength, Safety, Balance, Gait, Transfer, Bed Mobility, ROM Treatment/Plan Treatment Plan: Continue Plan of Care Treatment Plan: Bed Mobility, Education, Functional Activity [place], Functional Strength, Gait, Safety, Therapeutic Exercise, Transfers Treatment Duration: Mar 20, 2017 Frequency: Twice Daily (M-F, PRN Sat-Sun) Estimated Hrs Per Day: .5 hour per day Patient and/or Family Agrees t: Yes Safety Risks/Education Patient Education: Gait Training, Transfer Techniques Teaching Recipient: Patient Teaching Methods: Discussion Response to Teaching: Verbalize Understanding, Reinforcement Needed Discharge Recommendations Therapy D/C Recommendations: Acute Rehab Barriers to Progress None Time/GCodes Time In: 0804 Time Out: 0832 Total Billed Treatment Time: 28 Total Billed Treatment 1, FA x 18', Ex x 10' G Codes Necessary: MARCIAL Castillo DPT Feb 28, 2017 08:38
--- NOTE | 2017-02-28 09:09 | Progress Note-Standard ---
Standard Progress Note Progress Notes/Assess & Plan Date Seen by Provider: Feb 28, 2017 Time Seen by Provider: 09:07 Progress/Assessment & Plan Mrs Chamorro has no complaints this morning. States she has already been up. Requests a stool softener. Afebrile, Hgb 9.0 INR 2 LLE: wounds are clean and dry, calf is soft, DNVI Continue rehab. Colace ordered. CINDY DEJESUS MD Feb 28, 2017 09:09
--- NOTE | 2017-02-28 10:47 | Progress Note-Hospitalist ---
Subjective HPI/CC On Admission Date Seen by Provider: Feb 28, 2017 Time Seen by Provider: 10:30 Subjective/Events-last exam patient is without complaint. She slept fairly well overnight. UA shows greater than 10 to the fifth of an organism that is resistant to Keflex but sensitive to nitrofurantoin. INR is 2.1 this morning so we can stop the Apixaban Review of Systems Musculoskeletal: leg pain (mild) Objective Exam Vital Signs Vital Sign - Last 12Hours 02/26/17 16:40 Temp 99.3 Pulse 78 Resp 20 B/P (MAP) 123/70 Pulse Ox 92 O2 Delivery Nasal Cannula O2 Flow Rate 2.00 Capillary Refill : Less Than 3 Seconds General Appearance: No Apparent Distress, WD/WN, Other (lying flat) HEENT: Normal ENT Inspection Respiratory: Lungs Clear, Normal Breath Sounds, No Accessory Muscle Use, No Respiratory Distress Cardiovascular: Regular Rate, Rhythm, No Gallop Gastrointestinal: Normal Bowel Sounds, Non Tender, Soft Extremity: No Pedal Edema Neurologic/Psychiatric: Alert, Oriented x3, No Motor/Sensory Deficits, Normal Mood/Affect Skin: Pallor Results/Procedures Lab Laboratory Tests 02/28/17 05:22 Assessment/Plan Assessment and Plan Assess & Plan/Chief Complaint postop day number 2 status post left repair of an incomplete distal femur fracture Mild anemia secondary to acute blood loss-stable Dizziness most likely related to recent surgery- resolved Urinary tract infection-we'll begin Macrodantin for 5 days Chronic anticoagulation for an uncertain etiology-therapeutic INR of 2.1 on Coumadin we'll discontinue Apixaban that was used for bridging XIMENA LAUREANO MD Feb 28, 2017 10:47
[2017-02-28] MEDS: NITROFURANTOIN 50 MG (MACRODANTIN) CAP PO SCH ×2 (11:05→18:05)
[2017-02-28 14:01] VITALS: BP 178/88
[2017-02-28 15:32] VITALS: BP 102/57
[2017-02-28] MEDS: DOCUSATE SODIUM 100 MG (COLACE) CAP PO PRN (18:04)
[2017-02-28] MEDS: warFARin 2.5 MG (COUMADIN) TAB PO SCH (18:04)
[2017-02-28 21:26] VITALS: BP 116/69
[2017-02-28 23:40] VITALS: BP 115/69
[2017-03-01] MEDS: NITROFURANTOIN 50 MG (MACRODANTIN) CAP PO SCH ×2 (00:58→05:07)
[2017-03-01] MEDS: ACETAMINOPHEN 500 MG TAB (TYLENOL) PO PRN (05:07)
[2017-03-01] MEDS: CALCIUM CARB + VIT D 600 MG (CALCARB + D) TAB PO SCH (05:07)
[2017-03-01] MEDS: LEVOTHYROXINE 112 MCG (LEVOTHROID) TAB PO SCH (05:07)
[2017-03-01] MEDS: VITAMIN A 8000 UNIT PO SCH (05:08)
[2017-03-01 07:04] LABS: MEAN PLATELET VOLUME 10.2 FL (7.4-10.4); RED CELL DISTRIBUTION WIDTH 14.1 % (10.0-14.5); WHITE BLOOD COUNT 10.5 10^3/uL (4.3-11.0)
[2017-03-01 07:10] LABS: CALCIUM 8.7 MG/DL (8.5-10.1); CREATININE SERUM 0.93 MG/DL (0.60-1.30); INR 2.1 (0.8-1.4); POTASSIUM 4.1 MMOL/L (3.6-5.0); PROTHROMBIN TIME PATIENT 23.4 SEC (12.2-14.7)
[2017-03-01 07:31] VITALS: BP 130/67
--- NOTE | 2017-03-01 09:09 | Physical Therapy Daily Note ---
PT Daily Note-Current Subjective Patient is very agreeable to participate with PT. Pain Numeric Pain Scale: 5-Moderate Pain Location: Left Location Body Site: Hip Pain Description: Acute Mental Status Patient Orientation: Normal For Age Transfers Functional [place] Measure 0=Not Assessed/NA 4=Minimal Assistance 1=Total Assistance 5=Supervision or Setup 2=Maximal Assistance 6=Modified [place] 3=Moderate Assistance 7=Complete IndependenceIRFPAI Quality Coding Scale 6 Independent with activity with or without an assistive device 5 Patient requires set up or clean up by helper. Patient completes activity by themselves 4 Supervision or touching assist (CGA). [place] provide cues , steadying assist 3 The helper provides less than half the effort to complete the activity 2 The helper provides more than half the effort to complete the activity 1 Dependent. The helper does all the effort to complete an activity 7 Patient refused to complete or attempt activity 9 The patient did not perform the activity before the current illness or injury 88 Not attempted due to Medical conditions or safety concerns Transfers (B, C, W/C) (FIM): 4 Scootin Rollin Roll Left to Right (QC): 3 Supine to/from Sit: 4 Sit to/from Stand: 4 Sit to Lying (QC): 3 Sit to Stand (QC): 3 Chair/Nqr-pp-Xawiq Xfer(QC): 3 Bed to/from Chair: 4 Weight Bearing Weight Bearing Restriction: Full Weight Bearing Location Restriction: L LE Gait Training Does the Patient Walk?: Yes Gait (FIM): 1 Distance (FIM): 1=up to 49 ft (45') Distance: 45' Gait Level of Assist: 4 Gait Persons Needed: 1 Gait Assistive Device: FWW step to gait sequence with leading with left LE; difficulty with advancing right LE due to pain with weight shifting to left Exercises Supine Ex: Ankle pumps, Quad Set, Heel Slides, Straight leg raise (right LE only) Supine Reps: 15 Seated Therapy Exercises: Long arc quads Seated Reps: 15 Assessment Patient tolerated treatment well and is up in recliner with needs met. Patient is progressing with treatment plan. PT Short Term Goals Short Term Goals Time Frame: Mar 06, 2017 Transfers (B,C,W/C) (FIM): 4 PT Alf Goals Swing Manager Goals PT Swing Manager Goals Time Frame: Mar 20, 2017 Transfers (B,C,W/C) (FIM): 6 Gait (FIM): 6 Gait distance (FIM): 3=150 ft Distance: 150 Gait Level of Assist: 6 Gait Assistive Device: FWW PT Plan Treatment/Plan Treatment Plan: Continue Plan of Care Treatment Plan: Bed Mobility, Education, Functional Activity [place], Functional Strength, Gait, Safety, Therapeutic Exercise, Transfers Treatment Duration: Mar 20, 2017 Frequency: Twice Daily (M-F, PRN Sat-Sun) Estimated Hrs Per Day: .5 hour per day Patient and/or Family Agrees t: Yes Time/GCodes Time In: 825 Time Out: 848 Total Billed Treatment Time: 23 Total Billed Treatment 1 visit GT 13 min EX 10 min JOLIE RESTREPO PT Mar 01, 2017 09:09
[2017-03-01] MEDS ORDERED: SULF1TAB35 PO ×2 (09:53)
--- NOTE | 2017-03-01 09:54 | Discharge Summary-Hospitalist ---
Diagnosis/Chief Complaint Date of Admission Date of Discharge Discharge Date: Mar 01, 2017 Discharge Diagnosis Assessment: Acute left hip fracture status post uncomplicated repair then in need of repeat surgery due to distal femur abnl on xray per Dr Escobedo POD # 3 Postop anemia requiring 2 units of blood due to her symptomatic status after initial surgery repair HTN Leukocytosis likely due to stress response of surgery- resolved Spine surgery 2013 and placed on Coumadin and maintained since that time to "prevent blood clots" without known h/o clots s/p 1 unit of FFP and Vit K 2.5mg PO but now reversing again with Vit K and FFP but 2.1 at day of transfer to IRU Osteoporosis Post op constipation resolved UTI completing Bactrim Discharge Summary Discharge Physical Examination Allergies: Coded Allergies: Iodinated Contrast- Oral and IV Dye (Verified Allergy, Unknown, 02/26/17) povidone-iodine (Verified Allergy, Unknown, 02/26/17) soap (Verified Allergy, Unknown, 02/26/17) Vitals & I&Os Vital Signs Date Time Temp Pulse Resp B/P (MAP) Pulse Ox O2 Delivery O2 Flow Rate FiO2 03/01/17 11:00 03/01/17 09:00 Room Air 03/01/17 07:31 98.7 76 20 92 02/28/17 08:00 2.00 Hospital Course Hospital course: patient had an uneventful hospital course after she was taken to surgery for distal femur fracture 10 days after the initial left hip fracture repair. She was given a total of 3 units of FFP and 1.5mg of Vit K to reverse the INR of 3.1 when she was in rehab the night before the second surgery and she tolerated the FFP with Lasix 20mg IV once in-between the units of FFP. UTI was dx during pre-op and was treated over the weekend with abx that were tolerated well. Pt was deemed stable to IRU admit and was transferred there in improved condition. Labs (last 24 hrs) Laboratory Tests 03/01/17 06:32: White Blood Count 10.5, Red Blood Count 3.00L, Hemoglobin 9.0L, Hematocrit 29L, Mean Corpuscular Volume 98, Mean Corpuscular Hemoglobin 30, Mean Corpuscular Hemoglobin Concent 31L, Red Cell Distribution Width 14.1, Platelet Count 357, Mean Platelet Volume 10.2, Prothrombin Time 23.4H, INR Comment 2.1H, Sodium Level 141, Potassium Level 4.1, Chloride Level 104, Carbon Dioxide Level 30, Anion Gap 7, Blood Urea Nitrogen 32H, Creatinine 0.93, Estimat Glomerular Filtration Rate 59, BUN/Creatinine Ratio 34, Glucose Level 100, Calcium Level 8.7 Pending Labs Discharge Home Medications: Active Scripts Active Reported Baclofen 10 Mg Tablet 10 Mg PO TID PRN Calcium 500 + D Tablet (Calcium Carbonate/Vitamin D3) 1 Each Tablet 1 Tab PO BID Warfarin Sodium 3 Mg Tablet 1.5 Mg PO TUTH TAKES 1/2 (3MG) TABLET Vitamin A 8,000 Unit Capsule 8,000 Unit PO BID Levothyroxine Sodium 112 Mcg Tablet 112 Mcg PO DAILY Warfarin Sodium 3 Mg Tablet 3 Mg PO SUMOWEFRSA Carvedilol 12.5 Mg Tablet 12.5 Mg PO BID Alendronate Sodium 70 Mg Tablet 70 Mg PO WILSON Bumetanide 1 Mg Tablet 1 Mg PO DAILY Colchicine 0.6 Mg Tablet 0.6 Mg PO BID Oxybutynin Chloride 5 Mg Tablet 5 Mg PO DAILY Instructions to patient/family Please see electonic discharge instructions given to patient. Clinical Quality Measures DVT/VTE Risk/Contraindication: Risk Factor Score Per Nursin RFS Level Per Nursing on Admit: 4+=Very High HARRIS MELLO DO Mar 01, 2017 09:54
[2017-03-01] MEDS: CARVEDILOL 12.5 MG (COREG) TABLET PO SCH (10:21)
[2017-03-01] MEDS: DOCUSATE SODIUM 100 MG (COLACE) CAP PO PRN (10:21)
[2017-03-01] MEDS: COLCHICINE 0.6 MG (COLCRYS) TABLET PO SCH (10:21)
[2017-03-01] MEDS: OXYBUTYNIN (DITROPAN) 5 MG TAB PO SCH (10:21)
[2017-03-01] MEDS: BUMETANIDE 1 MG (BUMEX) TAB PO SCH (10:26)
[2017-03-01] MEDS: MICONAZOLE 2% POWDER (DESENEX AF) 90 GM TOP SCH (10:26)
--- NOTE | 2017-03-01 12:38 | Progress Note-Standard ---
Standard Progress Note Progress Notes/Assess & Plan Date Seen by Provider: Mar 01, 2017 Time Seen by Provider: 12:15 Progress/Assessment & Plan Mrs Chamorro is now POD#3. She states she is doing well. She moved to rehab floor today. She has been up and reports some soreness but denies any other complaints. LLE: All wounds are clean and dry, calf and thigh are soft, she is able to wiggle toes. distal neurovascular status is intact. Labs: Hgb 9.0 INR 2.1 Plan: Continue with PT Anemia and anticoagulation being addressed by medicine service Final Diagnosis S/P ORIF incomplete lovely prosthetic fracture of distal femur. CINDY DEJESUS MD Mar 01, 2017 12:38
[2017-03-01] MEDS ORDERED: TRIM/SULFAMETH 160/800 (SEPTRA DS) TAB PO SCH (17:00)
[2017-03-02] MEDS ORDERED: warFARin 1 MG (COUMADIN) TAB PO SCH (18:00)
--- NOTE | 2017-03-25 15:59 | OPERATIVE REPORT ---
DATE OF SERVICE: 02/26/2017 PREOPERATIVE DIAGNOSIS: Impending fracture, left distal femur and stress riser between end of katelyn and total knee arthroplasty. POSTOPERATIVE DIAGNOSIS: Anterior cortical crack, left distal femur. PROCEDURE: Open reduction internal fixation, left distal femur with a 6-hole, left locking condylar plate and locking screws. SURGEON: Felipe Liao MD CO-SURGEONS: MD Donald Sol MD CASTING ASSISTANT: Abram Barrios PA-C. ANESTHESIA: General endotracheal. EBL: 300 mL. FLUIDS: 1000 of crystalloid. URINE OUTPUT: 100 mL. TOURNIQUET TIME: 38 minutes. CONDITION FOLLOWING PROCEDURE: Stable. COMPLICATIONS: None. START TIME: 1341. END TIME: 1530. REASON FOR CO-SURGEONS: Due to the complexity and the unusualness of this sort of stress riser with impending fracture, Doctors Gregg and Ash tackled this fracture together to facilitate exposure and fixation around the existing total knee and existing femoral katelyn and with holding and retracting soft tissues in position and placing the implant. INDICATION: The patient is a 76-year-old female who underwent open reduction internal fixation with a long TFN, left proximal femur fracture. She began having left distal femur pain between the tip of the katelyn and the total knee with mobilization and it was felt that she was at risk for fracturing at the stress riser. Options were discussed with the patient and the patient elected for fixation to avoid displaced fracture. PROCEDURE: The patient was taken to the operating room and properly identified. General endotracheal anesthesia was administered and the left lower extremity was sterilely prepped and draped in the normal fashion for surgery. A sterile tourniquet was utilized to facilitate exposure and hemostasis. This patient has been on Coumadin and her INR going into surgery was down to 1.4. We did not want to get it too low because she has a history of hypercoagulability. The leg was exsanguinated, the tourniquet insufflated, we approached through a lateral approach to the distal femur making a longitudinal skin incision midline laterally from about joint line proximally. The IT band was identified and the fascia was opened just in front of the IT band proximally and distally. The vastus lateralis muscle was mobilized off the posterior intermuscular septum and retracted forward with Hohmann retractors exposing the distal femur. The distal femur proximal to the total knee was examined. There was a crack in this area which was an incomplete fracture. The 6-hole left locking condylar plate was selected and laid along the lateral femur. Guide pins were placed through the distal anterior screw position to provisionally affix the plate distally while proximal fixation was evaluated to try to position the plate to be able to shoot screws anterior and posterior to the existing katelyn. A provisional proximal pin was placed. Once satisfied with position of the plate laterally, an anterior distal locking screw was placed, drill measured in place and an 80 mm screw in this position. This was a 5 mm cannulated screw. The central screw was then drill measured and an 80 mm screw placed utilizing a 7.3 screw. The proximal anterior locking position was drill measured and a 75 mm screw was placed followed by a 2nd in the proximal posterior position and a 30 mm screw in the distal posterior position for 5 distal locking screws. A proximal plate fixation was then performed utilizing a compression screw in the most distal shaft position, compressing the plate down to the bone. A bicortical locking screw was then placed in the 2nd from distal screw drill measured and placed posterior to the katelyn, a 2nd drill measured and placed posterior to the katelyn and then attention turned to the anterior blocking screw positions proximal to the katelyn in the proximal end of the plate. To access these, the sterile tourniquet was removed. Hemostasis was obtained. The bicortical nonlocking positions in the plate were utilized in the proximal 2 screw holes, drilling, measured and placing bicortical nonlocking screws as blocking screws anterior to the katelyn in both positions under image intensification guidance. Finally, a unicortical locking screw was placed in the middle position. Final image intensification pictures were taken and the wound was closed using a running #2 Stratafix in the tensor fascia IT band layer. This was done after laying the vastus lateralis muscle back into its bed posteriorly along the intermuscular septum. The deep subcu was closed with #1 undyed Vicryl plus suture deep and 2-0 Vicryl plus suture superficially and a running 3-0 Caprosyn subcuticular in the skin. The incision was dressed with Xeroform, 4 x 4s, ABDs and Luis to the thigh and the patient was awakened and returned to the recovery room in stable condition. No complications. Job ID: [id number] DocumentID: [id number] Dictated Date: 02/26/2017 15:18:33 Bar Host/Hostess Date: 02/27/2017 04:16:43 Dictated By: FELIPE LIAO MD <Dictated by FELIPE LIAO MD> <Electronically signed by FELIPE LIAO MD> 02/27/17 1028
== END 2017-03-01 10:04 | disposition home or self-care (01) | DRG 481 ==
LOC: EDSTATUS 13:00 → 4TH 16:45 → SDC 16:45 → 4TH 03-01 10:04
PROVIDERS: ADMIT Orthopaedic Surgery; ATTEND Orthopaedic Surgery
PROC: 0QS704Z Reposition Left Upper Femur with Internal Fixation Device, Open Approach (ICD-10-PCS; principal; 2017-02-26 13:18)
DX: M80.052D Age-related osteoporosis with current pathological fracture, left femur, subsequent encounter for fracture with routine healing (principal); D62 Acute posthemorrhagic anemia; N39.0 Urinary tract infection, site not specified; R42 Dizziness and giddiness; I10 Essential (primary) hypertension; K59.09 Other constipation; E03.9 Hypothyroidism, unspecified; Z79.01 Long term (current) use of anticoagulants; W19.XXXD Unspecified fall, subsequent encounter; Y92.018 Other place in single-family (private) house as the place of occurrence of the external cause
CPT/HCPCS: 36415; 80048; 85027; 85610; 94664

== ENCOUNTER 2017-03-01 10:35 | Inpatient (IN) | payer MEDICARE ==
[~2017-03-01] VITALS: Ht 167.6 cm; Wt 79.4 kg
[~2017-03-01 10:35] MED LIST changes: +SULF1TAB35 PO
--- NOTE | 2017-03-01 11:48 | Occupational Therapy Eval ---
OT Evaluation-General/PLF Medical Diagnosis Admission Date March 01, 2017 Medical Diagnosis: ORIF L distal femur Onset Date: Feb 26, 2017 Therapy Diagnosis Therapy Diagnosis: decr self care, decr funct mobility, weakness, decr activity tolerance Height/Weight Height (Feet): 5 Height (Inches): 6.00 Weight (Pounds): 175 Weight (Ounces): 0.0 Precautions Precautions/Isolations: Standard Precautions Weight Bear Status Weight Bearing Restriction: Weight Bearing/Tolerated Location Restriction: L LE Referral Physician: Tone Referral Reason: Evaluation/Treatment Medical History Pertinent Medical History: HTN, Hypothroidism Additional Medical History Overactive bladder, lumbar fusion in 2013, L total knee replacement, osteoporosis Current History Pt fell outside at home, landing on concrete, L hip pain and femur fx on . IM nail on 02-12-17, with revision 02-26-17. Pt was on IRF until revision date Reviewed History: Yes Social History Home: Apartment ([facility]) Current Living Status: Alone Entry Into Home: Level Entry ADL-Prior Level of Function ADL PLOF Comments Pt reported that she was independent with her basic self care needs prior to her fall. She does her own cooking and laundry and has someone to help with cleaning every other week. 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 She goes to the [facility] 6 times a week. DME/Equipment: Grab Bars, Shower, Shower Hose Director Phone, Tall Toilet Occupation: retired teacher Drive Self: Yes OT Current Status Subjective Pt seen in room, up in recliner, agreeable to OT. Pain rated 4/10 in L knee, and described as burning Appearance Alert, cooperative Mental Status/Objective Patient Orientation: Person, Place, Time, Situation Attachments: Saline Lock Current Glasses/Contacts: Yes (reading) Hearing Aids: No Dentures/Partials: Yes (full upper, partial lower) Hand Dominance: Right Upper Extremity ROM grossly WFL bilat Upper Extremity Coordination no problems reported Upper Extremity Strength Grossly 4/5 bilat ADL-Treatment ADL-Current Pt reported that she had a bath earlier today but she was agreeable to other ADLs this afternoon. Able to reach forward to get Depends over feet with setup, SBA Functional [place] Measure 0=Not Assessed/NA 4=Minimal Assistance 1=Total Assistance 5=Supervision or Setup 2=Maximal Assistance 6=Modified [place] 3=Moderate Assistance 7=Complete IndependenceIRFPAI Quality Coding Scale 6 Independent with activity with or without an assistive device 5 Patient requires set up or clean up by helper. Patient completes activity by themselves 4 Supervision or touching assist (CGA). [place] provide cues , steadying assist 3 The helper provides less than half the effort to complete the activity 2 The helper provides more than half the effort to complete the activity 1 Dependent. The helper does all the effort to complete an activity 7 Patient refused to complete or attempt activity 9 The patient did not perform the activity before the current illness or injury 88 Not attempted due to Medical conditions or safety concerns Toileting (FIM): 4 (CGA for clothing management and hygiene. BSC, FWW) Transfers (B, C, W/C) (FIM): 4 (Min assist getting out of recliner, FWW. Skilled cues for hand and foot placement) Toilet/Commode Transfer (FIM): 4 (Min assist, BSC, FWW. Skilled cues for hand placement and foot placement) Care transferred to PT. Education OT Patient Education: Modified ADL techniques, Progress toward Goal/Update tx plan, Purpose of tx/functional activities, Rehab process, Safety issues, Transfer techniques Teaching Recipient: Patient Teaching Methods: Discussion Response to Teaching: Verbalize Understanding, Return Demonstration, Reinforcement Needed OT Short Term Goals Short Term Goals Time Frame: Mar 08, 2017 Toileting(FIM): 5 Toilet/Commode Transfer(FIM): 5 Additional Short Term Goals: 2-Verbalize Understanding, 3-ImproveStrength/[place] 1=Demonstrate adherence to instructed precautions during ADL tasks. 2=Patient will verbalize/demonstrate understanding of assistive devices/ modifications for ADL. 3=Patient will improve strength/tolerance for activity to enable patient to perform ADL's. OT Fermenter Operator Goals Prison Goals Time Frame: Mar 19, 2017 Eating (FIM): 6 Eating (QC): 6 Groomin Oral Hygiene (QC): 6 Bathing(FIM): 6 Shower/Bathe Self (QC): 6 Upper Body Dressing(FIM): 6 Upper Body Dressing (QC): 6 Lower Body Dressing(FIM): 6 Lower Body Dressing (QC): 6 On/Off Footwear (QC): 6 Toileting(FIM): 6 Toileting Hygiene (QC): 6 Toilet/Commode Transfer(FIM): 6 Toilet/Commode Transfer (QC): 6 Shower Transfer(FIM): 6 Additional Goals: 1-Demonstrate ADL Tasks, 2-Verbalize Understanding, 3- ImproveStrength/[place] 1=Demonstrate adherence to instructed precautions during ADL tasks. 2=Patient will verbalize/demonstrate understanding of assistive devices/ modifications for ADL. 3=Patient will improve strength/tolerance for activity to enable patient to perform ADL's. OT Education/Plan Problem List/Assessment Assessment: Decreased Activ Tolerance, Decreased UE Strength, Dependent Transfers, Impaired Funct Balance, Impaired Self-Care Skills Pt would benefit from skilled OT to increase her independence in basic self care to allow her to safely return to her home to live independently. Discharge Recommendations Plan/Recommendations: Continue POC Therapy D/C Recommendations: Occupational Therapy Home Care Barriers to Progress some difficulty weight bearing L UE Treatment Plan/Plan of Care Treatment,Training & Education: Yes Patient would benefit from OT for education, treatment and training to promote independence in ADL's, mobility, safety and/or upper extremity function for ADL' s. Plan of Care: ADL Retraining, Functional Mobility, Group Exercise/Act as Ind ( educ, exercise, activity tolerance, functional activities, socialization), UE Funct Exercise/Act, UE Neuromus Re-Ed/Coord Treatment Duration: Mar 19, 2017 Frequency: At least 5-7 days/Wk (IRF) Estimated Hrs Per Day: 1.5 hours per day Agreement: Yes Rehab Potential: Good Time/GCodes Start Time: 11:05 Stop Time: 11:20 Total Time Billed (hr/min): 15 Billed Treatment Time visit, 15 minutes evaluation moderate intensity CONY WHITNEY OT Mar 01, 2017 11:48
--- NOTE | 2017-03-01 11:58 | Physical Therapy Evaluation ---
PT Evaluation-General Medical Diagnosis Admission Date Admitted to rehab 03/01. Medical Diagnosis: Left hip fx Onset Date: Feb 26, 2017 Therapy Diagnosis Therapy Diagnosis: LE weakness and mobility impairments Height/Weight Height (Feet): 5 Height (Inches): 6.00 Weight (Pounds): 175 Weight (Ounces): 0.0 Precautions Precautions/Isolations: Standard Precautions Weight Bear Status Weight Bearing Restriction: Weight Bearing/Tolerated Location Restriction: L LE Referral Physician: Tone Reason for Referral: Evaluation/Treatment Medical History Pertinent Medical History: HTN, Hypothroidism Additional Medical History Scoliosis, (L) knee replacement, lumbar fusion, hypothyroid Current History Pt was in rehab prior to surgery, discharged to hospital for surgery in left knee/thigh. Reviewed History: Yes Social History Home: Single Level Current Living Status: Alone Entry Into Home: Level Entry Prior/Core FIM Prior Level of Function Functional [place] Measure 0=Not Assessed/NA 4=Minimal Assistance 1=Total Assistance 5=Supervision or Setup 2=Maximal Assistance 6=Modified [place] 3=Moderate Assistance 7=Complete [place] Bed Mobility: 7 Transfers (B,C,W/C) (FIM): 7 Gait: 7 PT Evaluation-Current Subjective Pt was in hospital room seated in recliner prior to tx and was transported to inpatient rehab to new room. Pt was sitting in chair with tray, call, all needs within reach and sister was present post-tx. Pain Numeric Pain Scale: 6 Location Body Site: Knee Pain Description: Ache Comment: Pain reported in left knee and thigh. Pt/Family Goals To increase functional mobility to return home. Objective Patient Orientation: Normal For Age Problem Solving: Good ROM/Strength ROM Lower Extremities NT due to pain and recent surgery Strenght Lower Extremities NT due to recent surgery Integumentary/Posture Integumentary Refer to nursing note. Bowel Incontinence: Yes Bladder Incontinence: Yes Neuromuscular (Tone, Coordination, Reflexes) WNL Sensory Vision: Functional Hearing: Functional Sensation Right Lower Extremit: Intact Sensation Left Lower Extremity: Intact Sensation Lower Extremities Patient describes some numbness in left leg but has intact light touch sensation. Transfers Functional [place] Measure 0=Not Assessed/NA 4=Minimal Assistance 1=Total Assistance 5=Supervision or Setup 2=Maximal Assistance 6=Modified [place] 3=Moderate Assistance 7=Complete IndependenceIRFPAI Quality Coding Scale 6 Independent with activity with or without an assistive device 5 Patient requires set up or clean up by helper. Patient completes activity by themselves 4 Supervision or touching assist (CGA). [place] provide cues , steadying assist 3 The helper provides less than half the effort to complete the activity 2 The helper provides more than half the effort to complete the activity 1 Dependent. The helper does all the effort to complete an activity 7 Patient refused to complete or attempt activity 9 The patient did not perform the activity before the current illness or injury 88 Not attempted due to Medical conditions or safety concerns Transfers (B, C, W/C) (FIM): 4 Scootin Rollin Roll Left to Right (QC): 3 Supine to/from Sit: 4 Sit to/from Stand: 4 bed t/f WC(FIM only if WC use): 4 Sit to Lying (QC): 3 Lying to Sitting/Side of Bed(Q: 3 Sit to Stand (QC): 3 Chair/Wyp-ff-Wiumr Xfer(QC): 3 Car Transfer (QC): 88 Pt requires min assist and verbal cues with transfers and bed mobility. Pt uses right leg and support from PT to move left leg on/off bed. Gait Does the Patient Walk?: Yes Mode of Locomotion: Both Anticipated Mode of Locomotion: Walk Gait (FIM): 1 Walk 10 feet (QC): 3 Walk 50 ft with 2 Turns(QC): 88 Walk 150 ft (QC): 88 Walking 10ft/uneven surface-QC: 88 Distance: 10' Gait Level of Assist: 4 Gait Persons Needed: 1 Gait Assistive Device: FWW Comments/Gait Description Pt ambulates with FWW and min assist for safety. Pt fatigues quickly and has decreased foot clearance on left. Wheelchair Training Does the Pt Use a Wheelchair?: Yes Wheelchair (FIM): 2 Wheelchair Distance (FIM): 6=756-17 ft Distance: 50' Wheelchair Level of Assist: 4 Wheel 50 ft with 2 turns (QC): 4 Wheel 150 ft (QC): 88 Type of Wheelchair: Manual Pt requires CGA with wheelchair mobility to navigate corners. Pt fatigues quickly with propelling the wheelchair. Stairs Stairs (FIM): 0 #of Steps: 0 1 Step (curb) (QC): 88 4 Steps (QC): 88 Assistive Device: Walker 12 Steps (QC): 88 If not tested on admit;explain Pt is not safe to complete stair training at this time. Will evaluate when mobility improves. Balance Sitting Static: Normal Sitting Dynamic: Normal Standing Static: Fair Standing Dynamic: Fair Treatment Pt completes SAQ, heel slides, ankle pumps, SLR, glute sets and quad sets x20 with support from PT for functional strengthening. Assessment/Needs Pt ambulates with min assist and FWW for safety. Pt requires CGA with wheelchair mobility. Pt fatigues quickly with all training and requires frequent breaks. Rehab Potential: Fair PT Short Term Goals Short Term Goals Time Frame: Mar 08, 2017 Transfers (B,C,W/C) (FIM): 4 Gait (FIM): 2 Gait Distance Comment: 50' Gait Level of Assist: 4 Gait Assistive Device: FWW Wheelchair (FIM): 5 Wheelchair distance (FIM): 6=210-15 ft Wheelchair Distance: 150' Wheelchair Level of Assist: 5 PT Mcfp Goals Beveling And Edging Machine Operator Goals PT Beveling And Edging Machine Operator Goals Time Frame: Mar 22, 2017 Transfers (B,C,W/C) (FIM): 5 Sit to Lying (QC): 4 Lying-Sitting on Side/Bed(QC): 4 Sit to Stand (QC): 4 Rollin Roll Left to Right (QC): 4 Chair/Mwc-pk-Bfnzx Xfer(QC): 4 Car Transfer (QC): 4 Does the Patient Walk: Yes Gait (FIM): 5 Gait distance (FIM): 3=150 ft Distance: 150' Walk 10 feet (QC): 4 Walk 10ft-Uneven Surface(QC): 4 Walk 50ft with 2 Turns (QC): 4 Walk 150 ft (QC): 4 Gait Level of Assist: 5 Gait Assistive Device: FWW PT Plan Problem List Problem List: Activity Tolerance, Functional Strength, Safety, Balance, Gait, Transfer, Bed Mobility, ROM Treatment/Plan Treatment Plan: Continue Plan of Care Treatment Plan: Bed Mobility, Education, Functional Activity [place], Functional Strength, Group Therapy, Gait, Safety, Therapeutic Exercise, Transfers Treatment Duration: Mar 22, 2017 Frequency: At least 5-7 days/Wk (IRF) Estimated Hrs Per Day: 1.5 hours per day Patient and/or Family Agrees t: Yes Safety Risks/Education Patient Education: Gait Training, Transfer Techniques, Reviewed Precautions, Correct Positioning, W/C Management, Safety Issues Teaching Recipient: Patient Teaching Methods: Demonstration, Discussion Response to Teaching: Verbalize Understanding, Reinforcement Needed Discharge Recommendations Plan Patient will perform bed mobility and transfer training, balance and endurance training, functional strengthening, stair training, gait training, and education , to improve functional mobility and independence at home. Therapy D/C Recommendations: Home w/ Family Support Time/GCodes Time In: 1120 Time Out: 1200 Total Billed Treatment Time: 40 Total Billed Treatment 1 visit EVL 15' 15 EX 10 GT DEMETRI RICHMOND PT Mar 01, 2017 11:58
[2017-03-01 12:04] VITALS: BP 108/69
[2017-03-01] MEDS ORDERED: BACLOFEN 10 MG (LIORESAL) TAB PO PRN (13:30)
--- NOTE | 2017-03-01 14:49 | Occupational Ther Daily Note ---
OT Current Status-Daily Note Subjective Pt seen in room, up in recliner, agreeable to OT. She did not want to shower but did want to dress. Pain reported 4/10 in L knee area Appearance Alert, cooperative, fatigued Mental Status/Objective Functional [place] Measure 0=Not Assessed/NA 4=Minimal Assistance 1=Total Assistance 5=Supervision or Setup 2=Maximal Assistance 6=Modified [place] 3=Moderate Assistance 7=Complete [place] ADL-Treatment Pt needed skilled cues for hand and foot placement for sit to stand from recliner and min assist. She walked with CGA and FWW very slowly to bathroom to toilet and then back to recliner. Functional [place] Measure 0=Not Assessed/NA 4=Minimal Assistance 1=Total Assistance 5=Supervision or Setup 2=Maximal Assistance 6=Modified [place] 3=Moderate Assistance 7=Complete IndependenceIRFPAI Quality Coding Scale 6 Independent with activity with or without an assistive device 5 Patient requires set up or clean up by helper. Patient completes activity by themselves 4 Supervision or touching assist (CGA). [place] provide cues , steadying assist 3 The helper provides less than half the effort to complete the activity 2 The helper provides more than half the effort to complete the activity 1 Dependent. The helper does all the effort to complete an activity 7 Patient refused to complete or attempt activity 9 The patient did not perform the activity before the current illness or injury 88 Not attempted due to Medical conditions or safety concerns Eating (FIM): 6 (Pt report. There are some foods she cannot eat without her dentures) Eating (QC): 6 Grooming (FIM): 5 (Setup to wash hands and comb hair. Seated) Oral Hygiene (QC): 5 Upper Body (FIM): 5 (setup) Upper Body Dressing (QC): 5 Lower Body Dressing (FIM): 3 (Dressing stick to get pants over feet. Sock aid to get slipper socks on. Pt recalled modified techniques and use of equipment from recent ARU stay. Min assist needed to come up from sitting to stand, FWW and a little help needed to get pants over hips. Setup for TEDs) Lower Body Dressing (QC): 3 On/Off Footwear (QC): 4 (Supervision, using sock aid to put slipper socks on) Toileting (FIM): 4 (CGA standing to pull pants up and down. Setup for hygiene. BSC, FWW) Toileting Hygiene (QC): 4 Toilet/Commode Transfer (FIM): 4 (CGA getting on and off BSC. Skilled cues for hand placement. FWW) Toilet Transfer (QC): 4 Pt would like to shower in the morning. Other Treatment Pt walked a couple of steps to w/c and was seated with skilled cues for hand placement. In the gym, she did 12 minutes bilat UE exercise on arm bike set at 15W resistance (started at 20W but decreased resistance due to fatigue and decreased activity tolerance). Pt took brief recovery periods about every minute or so, to get a drink or rest a few seconds. To strengthen arms to help with transfers. Pt also worked with red theraputty (medium resistance) to strengthen UEs to help with transfers and standing for ADLs. Care was transferred to PT. Education OT Patient Education: Exercise program, Modified ADL techniques, Progress toward Goal/Update tx plan, Purpose of tx/functional activities, Rehab process, Safety issues, Transfer techniques, Use of adapted equipment Teaching Recipient: Patient Teaching Methods: Demonstration, Discussion Response to Teaching: Verbalize Understanding, Return Demonstration, Reinforcement Needed OT Short Term Goals Short Term Goals Time Frame: Mar 08, 2017 Toileting(FIM): 5 Transfers (B,C,W/C) (FIM): 4 Toilet/Commode Transfer(FIM): 5 Additional Short Term Goals: 2-Verbalize Understanding, 3-ImproveStrength/[place] 1=Demonstrate adherence to instructed precautions during ADL tasks. 2=Patient will verbalize/demonstrate understanding of assistive devices/ modifications for ADL. 3=Patient will improve strength/tolerance for activity to enable patient to perform ADL's. OT Group Home Goals Gasoline Engine Inspector Goals Time Frame: Mar 19, 2017 Eating (FIM): 6 Eating (QC): 6 Groomin Oral Hygiene (QC): 6 Bathing(FIM): 6 Shower/Bathe Self (QC): 6 Upper Body Dressing(FIM): 6 Upper Body Dressing (QC): 6 Lower Body Dressing(FIM): 6 Lower Body Dressing (QC): 6 On/Off Footwear (QC): 6 Toileting(FIM): 6 Toileting Hygiene (QC): 6 Toilet/Commode Transfer(FIM): 6 Toilet/Commode Transfer (QC): 6 Shower Transfer(FIM): 6 Additional Goals: 1-Demonstrate ADL Tasks, 2-Verbalize Understanding, 3- ImproveStrength/[place] 1=Demonstrate adherence to instructed precautions during ADL tasks. 2=Patient will verbalize/demonstrate understanding of assistive devices/ modifications for ADL. 3=Patient will improve strength/tolerance for activity to enable patient to perform ADL's. OT Education/Plan Problem List/Assessment Pt would benefit from skilled OT to increase her independence in basic self care to allow her to safely return to her home to live independently. Discharge Recommendations Plan/Recommendations: Continue POC Treatment Plan/Plan of Care Patient would benefit from OT for education, treatment and training to promote independence in ADL's, mobility, safety and/or upper extremity function for ADL' s. Plan of Care: ADL Retraining, Functional Mobility, Group Exercise/Act as Ind ( educ, exercise, activity tolerance, functional activities, socialization), UE Funct Exercise/Act, UE Neuromus Re-Ed/Coord Treatment Duration: Mar 19, 2017 Frequency: At least 5-7 days/Wk (IRF) Estimated Hrs Per Day: 1.5 hours per day Agreement: Yes Rehab Potential: Fair Time/GCodes Start Time: 13:00 Stop Time: 14:15 Total Time Billed (hr/min): 75 Billed Treatment Time visit, 45 minutes ADL, 30 minutes exercise CONY WHITNEY OT Mar 01, 2017 14:49
--- NOTE | 2017-03-01 14:56 | Physical Therapy Daily Note ---
PT Daily Note-Current Subjective Pt was seated in wheelchair prior to tx and agreeable to PT. Pt was seated in recliner with nurse call, tray, all needs in reach, family in room post-tx. Mental Status Patient Orientation: Normal For Age Transfers Functional [place] Measure 0=Not Assessed/NA 4=Minimal Assistance 1=Total Assistance 5=Supervision or Setup 2=Maximal Assistance 6=Modified [place] 3=Moderate Assistance 7=Complete IndependenceIRFPAI Quality Coding Scale 6 Independent with activity with or without an assistive device 5 Patient requires set up or clean up by helper. Patient completes activity by themselves 4 Supervision or touching assist (CGA). [place] provide cues , steadying assist 3 The helper provides less than half the effort to complete the activity 2 The helper provides more than half the effort to complete the activity 1 Dependent. The helper does all the effort to complete an activity 7 Patient refused to complete or attempt activity 9 The patient did not perform the activity before the current illness or injury 88 Not attempted due to Medical conditions or safety concerns Transfers (B, C, W/C) (FIM): 4 Scootin Sit to/from Stand: 4 Pt requires min assist with sit to stand transfers and verbal cues for hand/ walker placement and safety. Weight Bearing Weight Bearing Restriction: Weight Bearing/Tolerated Location Restriction: L LE Gait Training Does the Patient Walk?: Yes Gait (FIM): 1 Distance (FIM): 1=up to 49 ft Distance: 10x4 Gait Level of Assist: 4 Gait Persons Needed: 1 Gait Assistive Device: FWW Pt ambulates with FWW and CGA. Pt requires frequent breaks due to fatigue. She has a hard time advancing her left leg due to pain, decreased stance time, limp. Exercises Seated Therapy Exercises: Ankle pumps, Long arc quads, Hip flexion Seated Reps: 20 Standing: Hip Abduction, Marching, Mini squats, Side steps Standing Reps: 20 Treatments Pt requires CGA for all standing exercises. Pt completes seated and standing exercises for LE functional strengthening. Pt completes gait training to increase functional mobility. Assessment Current Status: Fair Progress Pt was fatigued quickly with gait training and standing exercises. Pt required CGA for safety for all exercises. Pt is limited in WBing through left foot with standing exercises due to pain. PT Short Term Goals Short Term Goals Time Frame: Mar 08, 2017 Transfers (B,C,W/C) (FIM): 4 Gait (FIM): 2 Gait Distance Comment: 50' Gait Level of Assist: 4 Gait Assistive Device: FWW Wheelchair (FIM): 5 Wheelchair distance (FIM): 9=255-93 ft Wheelchair Distance: 150' Wheelchair Level of Assist: 5 PT Insulation Power Unit Tender Goals Insulation Power Unit Tender Goals PT Senior Care Goals Time Frame: Mar 22, 2017 Transfers (B,C,W/C) (FIM): 5 Sit to Lying (QC): 4 Lying-Sitting on Side/Bed(QC): 4 Sit to Stand (QC): 4 Rollin Roll Left to Right (QC): 4 Chair/Uit-sf-Rnicj Xfer(QC): 4 Car Transfer (QC): 4 Does the Patient Walk: Yes Gait (FIM): 5 Gait distance (FIM): 3=150 ft Distance: 150' Walk 10 feet (QC): 4 Walk 10ft-Uneven Surface(QC): 4 Walk 50ft with 2 Turns (QC): 4 Walk 150 ft (QC): 4 Gait Level of Assist: 5 Gait Assistive Device: FWW PT Plan Problem List Problem List: Activity Tolerance, Functional Strength, Safety, Balance, Gait, Transfer, Bed Mobility, ROM Treatment/Plan Treatment Plan: Continue Plan of Care Treatment Plan: Bed Mobility, Education, Functional Activity [place], Functional Strength, Group Therapy, Gait, Safety, Therapeutic Exercise, Transfers Treatment Duration: Mar 22, 2017 Frequency: At least 5-7 days/Wk (IRF) Estimated Hrs Per Day: 1.5 hours per day Patient and/or Family Agrees t: Yes Safety Risks/Education Patient Education: Gait Training, Transfer Techniques, Reviewed Precautions, Correct Positioning, W/C Management, Safety Issues Teaching Recipient: Patient Teaching Methods: Demonstration, Discussion Response to Teaching: Verbalize Understanding, Reinforcement Needed Time/GCodes Time In: 1415 Time Out: 1450 Total Billed Treatment Time: 35 Total Billed Treatment 1 visit EX 15 GT 20 DEMETRI RICHMOND PT Mar 01, 2017 14:56
--- NOTE | 2017-03-01 15:25 | ST Cognitive Linguistic Eval ---
Speech Evaluation-General Medical Diagnosis Left Hip Fx Onset Date: Feb 26, 2017 Therapy Diagnosis Therapy Diagnosis: Cognitive Linguistic Skills Grossly WFL Precautions Precautions/Isolations: Standard Precautions Referral Referring Physician: Dr. Tate Wayne Reason for Referral: Evaluation/Treatment Cognitive Evaluation Medical History Pertinent Medical History: HTN, Hypothroidism Reviewed History: Yes Social History Current Living Status: Alone Speech PLF-Current Status Prior Level of Function The patient denied challenges with cognition, speech, or language prior to or throughout her most recent admission. Per patient, "sometimes I have a hard time thinking of a specific word but it's usually only to add "color" to a conversation." Subjective The patient was recently re-admitted to [facility] following a repeat procedure on her left knee. The patient greeted the clinician appropriately and was agreeable to participation in the cognitive linguistic evaluation. Language Eval: Auditory Comprehends Simple Yes/No Ques: Functional Indent/Objects Multiple Maria: Functional Ident/Pics in Multiple Maria: Functional Follows 1-Step Commands: Functional Follows Complex Directions: Functional Follows General Conversations: Functional Language Eval: Verbal Language Completes Spontaneous Greeting: Functional Produces Auto, Serial Info: Functional Imitates Simple Words/Phrases: Functional Word Finding: Functional Requests Basic Needs: Functional States Basic Personal Info: Functional Expresses Complex Ideas: Functional Cognitive Patient Orientation The patient was independently oriented to month, year, and day of week. The patient used the in-room external aid for identification of the date. Objective Cognitive Domain Attention: WNL Memory: Mild Problem Solving: Functional Objective Impression The patient demonstrated cognitive linguistic skills grossly within normal limits and appropriate for completion of ADL's. Communication/Social Cognition Comprehension: 5 Expression: 6 Social Interaction: 6 Problem Solvin Memory: 5 Speech Patient Assess Expression of Ideas/Wants: Expression (4) Understanding [place] Content: Understands (4) Brief Interview-Mental Status: Yes Repetition of Three Words: Three (3) Temporal Orientation: Year: Correct (3) Temporal Orientation: Month: Accurate within 5 days(2) Temporal Orientation: Day: Correct (1) Recall : Wear to say "Sock": Yes, no cue required (2) Recall : Color: Yes, no cue required (2) Recall : Bed: No, could not recall (0) Speech-Plan Treatment Plan Speech Therapy Treatment Plan: Discontinue ST Evaluation, only. Frequency: Modified Program (IRF) Estimated Hrs Per Day: .25 hour per day (Evaluation, only.) Rehab Potential: Fair Safety Risks/Education Teaching Recipient: Patient, Family Teaching Methods: Discussion Response to Teaching: Verbalize Understanding Education Topics Provided: Plan of Care, Results, Recommendations Time Speech Therapy Time In: 14:54 Speech Therapy Time Out: 15:09 Total Billed Time: 15 Billed Treatment Time 1, CARMEN JULIAN Mar 01, 2017 15:25
[2017-03-01] MEDS: TRIM/SULFAMETH 160/800 (SEPTRA DS) TAB PO SCH (16:43)
[2017-03-01] MEDS: CALCIUM CARB + VIT D 600 MG (CALCARB + D) TAB PO SCH (16:43)
[2017-03-01] MEDS: ACETAMINOPHEN 500 MG TAB (TYLENOL) PO PRN (16:43)
[2017-03-01 17:25] VITALS: BP 110/68
[2017-03-01] MEDS ORDERED: warFARin 3 MG (COUMADIN) TAB PO SCH (18:00)
[2017-03-01] MEDS: warFARin 2.5 MG (COUMADIN) TAB PO SCH (18:30)
[2017-03-01] MEDS: VITAMIN A 8000 UNIT PO SCH (19:38)
[2017-03-01] MEDS: CARVEDILOL 12.5 MG (COREG) TABLET PO SCH (20:05)
[2017-03-01] MEDS: COLCHICINE 0.6 MG (COLCRYS) TABLET PO SCH (20:05)
[2017-03-01] MEDS ORDERED: NON-FORMULARY MEDICATION 1 EA EA PO SCH (21:00)
--- NOTE | 2017-03-02 06:10 | HISTORY AND PHYSICAL ---
DATE OF SERVICE: CHIEF COMPLAINT: Difficulty with walking. HISTORY OF PRESENT ILLNESS: The patient is a 76-year-old female who presented to ER via EMS after having a fall outside her home on uneven concrete. She sustained a left hip fracture. She had percutaneous pinning and was referred to inpatient rehabilitation. The patient is chronically anticoagulated on Coumadin. This was reversed prior to her surgery. She was transferred to inpatient rehabilitation at [facility] in [place] on 02/15 for orthopedic rehabilitation. The patient developed some sanguineous drainage from the hip associated with swelling. Dr. Aleman assessed the patient and felt that the patient required p.o. antibiotics, this was done. The patient then had follow-up with Intraoperative fluoroscopy showed anterior cortical breach by distal end of the IM nail and the patient went on to have reversal of her anticoagulation with fresh frozen plasma and underwent ORIF of left distal femur fracture with DR Aleman. The patient now returns to inpatient rehabilitation to complete a course of inpatient orthopedic rehabilitation. She is weightbearing as tolerated. She had been independent prior to this, living alone in her own apartment in [place], [place]. Currently, she requires assistance for ADLs and mobility skills.Specifically she is Min assist for transfers and bed mobility.She is min assist for gait with FWW.She is setup for eating and grooming.Min assist for Upper body drsssing.She is mod to max assist for lower body dressing, PAST MEDICAL HISTORY: Hypothyroidism, hypertension, anemia blood loss, osteoporosis. PAST SURGICAL HISTORY: As per above. She has had prior spinal surgery and has been anticoagulated on Coumadin since that time. ALLERGIES: Oral and IV DYE. FAMILY HISTORY: Noncontributory. SOCIAL HISTORY: Essentially as per above. REVIEW OF SYSTEMS: A 10-point review of systems significant for some hip pain. MEDICATIONS: Fosamax 70 mg on Sundays, Coumadin 1 mg p.o. on Wednesday and and 2.5 mg on Wednesday, Wednesday, Wednesday, Wednesday, and Wednesday. Baclofen 10 mg p.o. t.i.d. p.r.n. spasm, Tylenol 500 mg p.o. q.6 hours p.r.n. mild pain, vitamin D with calcium 600 mg p.o. b.i.d., Bactrim 1 tablet p.o. b.i.d., colchicine 0.6 mg p.o. b.i.d., Coreg 12.5 mg p.o. b.i.d., levothyroxine 112 mcg p.o. daily, Ditropan 5 mg p.o. daily, Bumex 1 mg p.o. daily. LABS: H and H on 03/01 was 9.0 with 29. Platelet count 357,000. WBC 10.5. Chemistry showed BUN of 32, creatinine normal, normal electrolytes, AST 45 and ALT 86 elevated, albumin 3.0 low, and total protein 6.0 low. INR 2.1 on 03/01. PHYSICAL EXAMINATION: GENERAL: Significant for a pleasant female, appearing in stated age, alert and oriented, lying in bed, in no acute distress. VITAL SIGNS: She is afebrile. Pulse is 74, respirations 20, blood pressure 110/68. O2 sat 94% on room air. HEENT: Vision, speech, hearing grossly intact. No oral lesions noted. NECK: Supple without mass. HEART: Regular rhythm. LUNGS: Clear. ABDOMEN: Soft, nontender, bowel sounds present. EXTREMITIES: The patient has a clean, dry, island dressing on the left hip. No calf tenderness. Trace edema, left ankle. MUSCULOSKELETAL: The patient has functional active range of motion in both upper extremities and right lower extremity. NEUROLOGIC: Sensation is grossly intact to touch. Cognition is grossly intact. The patient has decreased strength to left hip due to recent fracture and repair. She was able to dorsi and plantar flex the left ankle.She has 4/5 strength otherwise in her limbs IMPRESSION: 1. Ambulatory dysfunction secondary to fracture, left femur status post open reduction and internal fixation by Dr. Aleman. Weightbearing as tolerated. 2. Mild postop anemia. 3. Chronic anticoagulation. 4. Hypothyroidism, compensated. 5. Hypertension, controlled on medications. 6. Osteoporosis, on Fosamax. PLAN: The patient will have a comprehensive program of inpatient orthopedic rehabilitation, resuming from where program left off with the goal of maximizing level of functional independence prior to discharge home with family and home health care. The patient will have PT/OT 90 minutes per day each discipline for gait, strengthen, deconditioning, balance, ADLs, any patient family caregiver training as necessary, adaptive equipment training as necessary. Therapy with cardiac and fall precautions. Speech therapy to do cognitive assessment, treat as indicated. Rehabilitation nursing assist with bowel and bladder, skin wound care medication administration, and pain management. Social service to assist with discharge planning, community reentry. Followup INR and labs as per hospital service. Follow up with Dr. Santos and Dr. Aleman, orthopedics as further scheduled. ESTIMATED LENGTH OF STAY: Two weeks. PROGNOSIS: Rehab prognosis appears good for goal of discharging home with home health care and family modified independent to supervision of ADLs and mobility discussed. DIET Regular. CODE STATUS: Full code. Job ID: [id number] DocumentID: [id number] Dictated Date: 03/01/2017 20:10:22 Community Support Specialist Date: 03/01/2017 22:02:18 Dictated By: ANGELICA YIN MD MTDD
[2017-03-02] MEDS: VITAMIN A 8000 UNIT PO SCH ×2 (06:18→17:07)
[2017-03-02] MEDS: CALCIUM CARB + VIT D 600 MG (CALCARB + D) TAB PO SCH ×2 (06:18→17:06)
[2017-03-02] MEDS: LEVOTHYROXINE 112 MCG (LEVOTHROID) TAB PO SCH (06:18)
[2017-03-02] MEDS: TRIM/SULFAMETH 160/800 (SEPTRA DS) TAB PO SCH ×2 (06:18→17:06)
[2017-03-02 07:47] LABS: MEAN PLATELET VOLUME 9.6 FL (7.4-10.4); RED BLOOD COUNT 2.98 10^6/uL (4.35-5.85); WHITE BLOOD COUNT 8.2 10^3/uL (4.3-11.0)
[2017-03-02 07:57] LABS: INR 2.6 (0.8-1.4); PROTHROMBIN TIME PATIENT 27.7 SEC (12.2-14.7)
[2017-03-02 07:58] VITALS: BP 112/67
[2017-03-02] MEDS: COLCHICINE 0.6 MG (COLCRYS) TABLET PO SCH ×2 (08:00→20:52)
[2017-03-02] MEDS: CARVEDILOL 12.5 MG (COREG) TABLET PO SCH ×2 (08:00→20:52)
[2017-03-02] MEDS: BUMETANIDE 1 MG (BUMEX) TAB PO SCH (08:00)
[2017-03-02] MEDS: OXYBUTYNIN (DITROPAN) 5 MG TAB PO SCH (08:00)
[2017-03-02 08:01] LABS: CALCIUM 8.9 MG/DL (8.5-10.1); CREATININE SERUM 1.27 MG/DL (0.60-1.30); POTASSIUM 3.7 MMOL/L (3.6-5.0)
[2017-03-02] MEDS: ACETAMINOPHEN 500 MG TAB (TYLENOL) PO PRN ×2 (08:06→20:52)
--- NOTE | 2017-03-02 09:09 | PM & R (SOAP) Progress Note ---
Subjective Time Seen by Provider: 08:15 Subjective/Events-last exam Patient was seen in her room this AM Patient min assist for gait with FWW, Current labs and therapy notes reviiewed Review of Systems Musculoskeletal: leg pain Objective Exam Last Set of Vital Signs Vital Signs Date Time Temp Pulse Resp B/P (MAP) Pulse Ox O2 Delivery O2 Flow Rate FiO2 03/01/17 20:10 94 Room Air 03/01/17 17:25 98.1 74 20 110/68 Capillary Refill : Less Than 3 Seconds I&O Intake and Output 03/03/17 00:00 Intake Total 250 ml Balance 250 ml Intake Oral 250 ml # Voids 4 General: Alert, Oriented X3, Cooperative, No Acute Distress HEENT: Atraumatic, PERRLA, EOMI, Mucous Memb Moist/[place] Neck: Supple, No JVD Lungs: Clear to Auscultation Heart: Regular Rate Abdomen: Normal Bowel Sounds, Soft, No Tenderness Extremities: Other (trace edema left hip) Skin: Other ([place] dressing in place) Neuro: Other (Generalized weakness with guarding left hip ) Results Lab Laboratory Tests 03/02/17 07:26: White Blood Count 8.2, Red Blood Count 2.98L, Hemoglobin 9.0L, Hematocrit 29L, Mean Corpuscular Volume 97, Mean Corpuscular Hemoglobin 30, Mean Corpuscular Hemoglobin Concent 31L, Red Cell Distribution Width 14.0, Platelet Count 384, Mean Platelet Volume 9.6, Prothrombin Time 27.7H, INR Comment 2.6H, Sodium Level 140, Potassium Level 3.7, Chloride Level 103, Carbon Dioxide Level 26, Anion Gap 11, Blood Urea Nitrogen 43H, Creatinine 1.27, Estimat Glomerular Filtration Rate 41, BUN/Creatinine Ratio 34, Glucose Level 132H, Calcium Level 8.9 Assessment/Plan Assessment revision left femur frx s/p orif DR Aleman Postop anemia Chronic anticoagulation Hypothyroidism -compensated Osteoporosis-on Fosamax Plan Continue PT/OT/Wound care Pain management Team Conference tomorrow F/U with DR Aleman and Hospitalist as per their schedule ANGELICA YIN MD Mar 02, 2017 09:09
--- NOTE | 2017-03-02 09:13 | PM&R Post Admission Assessment ---
Post Admission Physician Asses The preadmission screen agrees with the post admission assessment that the patient is a good candidate for inpatient rehabilitation. The patient will have a comprehensive program of inpatient rehabilitation with a goal of maximizing level of functional independence prior to discharge home with HHC and family. The patient will have PT/OT ninety minutes per day, each discipline, five days a week for 2 weeks for gait, strengthening, conditioning , balance, ADLs, any patient/family/caregiver training as necessary. Speech therapy to do cognitive assessment and treat as indicated. Rehabilitation nursing to assist with bowel, bladder, skin, wound care, medication administration, pain management. Telecom Network Manager to assist with discharge planning, community reentry. SCD's for DVT prophylaxis as well as coumadin. She appears to be well motivated to participate in three hours of therapy a day. She should be able to tolerate three hours of therapy a day from a medical and orthopedic standpoint. She should benefit from the three hours of therapy a day. She has a reasonable discharge plan, reasonable discharge rehabilitation goals and a supportive family. She has various comorbidities that need to be closely monitored with medications and treatments adjusted on a daily basis as needed. These include: Postop anemia Chronic anticoagulation HTN Barriers to discharge for this patient who had been independent prior to this are for her to be modified independent to supervision for ADLs and mobility skills prior to discharge home with HHC and family, so as to lessen the burden of the caregivers. Risks for this patient include: 1. Fall 2. Fracture 3. DVT 4. Pulmonary embolism 5. Wound infection 6. Skin breakdown 7. Contractures 8. Poorly controlled pain 9. Urinary retention 10. UTI 11. Respiratory infection 12. Aspiration 13. Supratherapeutic INR 14. Poorly controlled HTN 15. Worsening postop anemia Estimated Length of Stay: 14 days Prognosis: Rehab prognosis appears good for goal of discharge home with HHC and family modified independent to supervision for ADLs and mobility skills. ANGELICA YIN MD Mar 02, 2017 09:13
--- NOTE | 2017-03-02 10:36 | Progress Note-Hospitalist ---
Progress Note Progress Notes/Assess & Plan Date Seen 03/02/17 Time Seen by Provider: 10:00 Diagonsis/Assessment & Plan Patient feels ok Pain is controlled BM + not loose Checked meds and labs INR 2.6 AFVSS, Pleasant, improved RRR, CTAB no edema Laboratory Tests 03/02/17 07:26 Assessment: Acute left hip fracture status post uncomplicated repair then in need of repeat surgery due to distal femur abnl on xray per Dr Escobedo POD # 4 Postop anemia requiring 2 units of blood due to her symptomatic status after initial surgery repair HTN Leukocytosis likely due to stress response of surgery- resolved Spine surgery 2013 and placed on Coumadin and maintained since that time to "prevent blood clots" without known h/o clots s/p 1 unit of FFP and Vit K 2.5mg PO but now reversing again with Vit K and FFP but 2.1 at day of transfer to IRU now 2.6 Osteoporosis Post op constipation resolved UTI completing Bactrim Plan: Complete abx Fall risk Monitor INR HARRIS MELLO DO Mar 02, 2017 10:36
--- NOTE | 2017-03-02 11:51 | Occupational Ther Daily Note ---
OT Current Status-Daily Note Subjective Pt seen in room, up in bed, agreeable to OT. Pain not mentioned. Appearance Alert, cooperative Mental Status/Objective Functional [place] Measure 0=Not Assessed/NA 4=Minimal Assistance 1=Total Assistance 5=Supervision or Setup 2=Maximal Assistance 6=Modified [place] 3=Moderate Assistance 7=Complete [place] ADL-Treatment Pt sit to stand with min to CGA assist, then walked with CGA, FWW to and from bathroom for toileting and shower transfers. Today pt did not need cues to move feet to have a wider base of support. Still needed cues about 50% of the time to push up instead of pull up from FWW. She is able to get her weight over feet better when pushing up. Still struggles a little a midpoint between sitting and standing. No LOB observed but cues needed to get closer to walker. Functional [place] Measure 0=Not Assessed/NA 4=Minimal Assistance 1=Total Assistance 5=Supervision or Setup 2=Maximal Assistance 6=Modified [place] 3=Moderate Assistance 7=Complete IndependenceIRFPAI Quality Coding Scale 6 Independent with activity with or without an assistive device 5 Patient requires set up or clean up by helper. Patient completes activity by themselves 4 Supervision or touching assist (CGA). [place] provide cues , steadying assist 3 The helper provides less than half the effort to complete the activity 2 The helper provides more than half the effort to complete the activity 1 Dependent. The helper does all the effort to complete an activity 7 Patient refused to complete or attempt activity 9 The patient did not perform the activity before the current illness or injury 88 Not attempted due to Medical conditions or safety concerns Grooming (FIM): 6 (Pt was able to brush her teeth by herself at w/c level. Washed face and hands in shower) Bathing (FIM): 4 (Pt was able to wash and dry all parts except back, using shower bench and hand held shower. CGA when standing to wash lovely and bottom. ) Upper Body (FIM): 5 (setup, t shirt ) Lower Body Dressing (FIM): 4 (CGA when standing to pull pants up. Used dressing stick and sock aid, FWW. Setup to put TEDs on. ) Toileting (FIM): 4 (CGA standing to manage clothing and hygiene. BSC over toilet, FWW, grab bars) Toilet/Commode Transfer (FIM): 4 (CGA, BSC over toilet, grab bars, FWW) Shower Transfer(FIM): 4 (CGA, skilled cues for hand placement. Shower bench, grab bars, FWW) Other Treatment Pt was transported per w/c to gym where she did 12 minutes bilat UE ex at 15W resistance, working at steady pace and taking brief breaks about every two minutes to get a drink or recover. Improvement with activity tolerance and strength from yesterday. To strengthen arms to help with sit to stand. Pt left up in w/c, care transferred to PT. Education OT Patient Education: Modified ADL techniques, Progress toward Goal/Update tx plan, Safety issues, Transfer techniques Teaching Recipient: Patient Teaching Methods: Demonstration, Discussion Response to Teaching: Verbalize Understanding, Return Demonstration, Reinforcement Needed OT Short Term Goals Short Term Goals Time Frame: Mar 08, 2017 Toileting(FIM): 5 Transfers (B,C,W/C) (FIM): 4 Toilet/Commode Transfer(FIM): 5 Additional Short Term Goals: 2-Verbalize Understanding, 3-ImproveStrength/[place] 1=Demonstrate adherence to instructed precautions during ADL tasks. 2=Patient will verbalize/demonstrate understanding of assistive devices/ modifications for ADL. 3=Patient will improve strength/tolerance for activity to enable patient to perform ADL's. OT Gis Developer Goals Gis Developer Goals Time Frame: Mar 19, 2017 Eating (FIM): 6 Eating (QC): 6 Groomin Oral Hygiene (QC): 6 Bathing(FIM): 6 Shower/Bathe Self (QC): 6 Upper Body Dressing(FIM): 6 Upper Body Dressing (QC): 6 Lower Body Dressing(FIM): 6 Lower Body Dressing (QC): 6 On/Off Footwear (QC): 6 Toileting(FIM): 6 Toileting Hygiene (QC): 6 Toilet/Commode Transfer(FIM): 6 Toilet/Commode Transfer (QC): 6 Shower Transfer(FIM): 6 Additional Goals: 1-Demonstrate ADL Tasks, 2-Verbalize Understanding, 3- ImproveStrength/[place] 1=Demonstrate adherence to instructed precautions during ADL tasks. 2=Patient will verbalize/demonstrate understanding of assistive devices/ modifications for ADL. 3=Patient will improve strength/tolerance for activity to enable patient to perform ADL's. OT Education/Plan Problem List/Assessment Pt would benefit from skilled OT to increase her independence in basic self care to allow her to safely return to her home to live independently. Discharge Recommendations Plan/Recommendations: Continue POC Treatment Plan/Plan of Care Patient would benefit from OT for education, treatment and training to promote independence in ADL's, mobility, safety and/or upper extremity function for ADL' s. Plan of Care: ADL Retraining, Functional Mobility, Group Exercise/Act as Ind ( educ, exercise, activity tolerance, functional activities, socialization), UE Funct Exercise/Act, UE Neuromus Re-Ed/Coord Treatment Duration: Mar 19, 2017 Frequency: At least 5-7 days/Wk (IRF) Estimated Hrs Per Day: 1.5 hours per day Agreement: Yes Rehab Potential: Fair Time/GCodes Start Time: 08:30 Stop Time: 10:00 Total Time Billed (hr/min): 90 Billed Treatment Time visit, 65 minutes ADL, 25 minutes exercise CONY WHITNEY OT Mar 02, 2017 11:51
--- NOTE | 2017-03-02 12:01 | Physical Therapy Daily Note ---
PT Daily Note-Current Subjective Pt sitting in [facility] in Therapy after just finishing OT. Pt agrees to PT. Pain Numeric Pain Scale: 5-Moderate Pain Location: Left Location Body Site: Hip Pain Description: Ache, Tightness Mental Status Patient Orientation: Person, Place, Time, Situation Transfers Functional [place] Measure 0=Not Assessed/NA 4=Minimal Assistance 1=Total Assistance 5=Supervision or Setup 2=Maximal Assistance 6=Modified [place] 3=Moderate Assistance 7=Complete IndependenceIRFPAI Quality Coding Scale 6 Independent with activity with or without an assistive device 5 Patient requires set up or clean up by helper. Patient completes activity by themselves 4 Supervision or touching assist (CGA). [place] provide cues , steadying assist 3 The helper provides less than half the effort to complete the activity 2 The helper provides more than half the effort to complete the activity 1 Dependent. The helper does all the effort to complete an activity 7 Patient refused to complete or attempt activity 9 The patient did not perform the activity before the current illness or injury 88 Not attempted due to Medical conditions or safety concerns Scootin Sit to/from Stand: 4 Sit to Stand (QC): 4 Weight Bearing Weight Bearing Restriction: Weight Bearing/Tolerated Location Restriction: L LE Gait Training Does the Patient Walk?: Yes Distance (FIM): 1=up to 49 ft Distance: 25' Walk 10 feet (QC): 4 Gait Level of Assist: 4 Gait Persons Needed: 1 Gait Assistive Device: FWW Pt walks with slow and antalgic gait pattern. Pt is steady with no LOB. Wheelchair Training Does the Pt Use a Wheelchair?: Yes Wheelchair Distance: 3=150 ft Distance: 150' Wheelchair Level of Assist: 5 Wheel 50 ft with 2 turns (QC): 5 Wheel 150 ft (QC): 5 Type of Wheelchair: Manual Exercises Seated Therapy Exercises: Ankle pumps, Long arc quads, Hip flexion, Kicking activity Seated Reps: 15 NuStep Minutes: 16 NuStep Workload: 3 Treatments Pt transfers from sitting to standing at [facility] using FWW. Pt ambulates using FWW at CGA-Min A for safety for short distances. Pt uses NuStep for 16m at Workload 3 then completes Seated Ex in chair before returning to room via [facility] to rest. Pt has all needs met at end of tx. Assessment Current Status: Fair Progress Pt fatigues easy and needs rest breaks. Pt is motivated to get better but needs encouragement to stay on task. PT Short Term Goals Short Term Goals Time Frame: Mar 08, 2017 Transfers (B,C,W/C) (FIM): 4 Gait (FIM): 2 Gait Distance Comment: 50' Gait Level of Assist: 4 Gait Assistive Device: FWW Wheelchair (FIM): 5 Wheelchair distance (FIM): 9=844-51 ft Wheelchair Distance: 150' Wheelchair Level of Assist: 5 PT Chcf Goals Career Development Counselor Goals PT Chcf Goals Time Frame: Mar 22, 2017 Transfers (B,C,W/C) (FIM): 5 Sit to Lying (QC): 4 Lying-Sitting on Side/Bed(QC): 4 Sit to Stand (QC): 4 Rollin Roll Left to Right (QC): 4 Chair/Zou-iq-Aqein Xfer(QC): 4 Car Transfer (QC): 4 Does the Patient Walk: Yes Gait (FIM): 5 Gait distance (FIM): 3=150 ft Distance: 150' Walk 10 feet (QC): 4 Walk 10ft-Uneven Surface(QC): 4 Walk 50ft with 2 Turns (QC): 4 Walk 150 ft (QC): 4 Gait Level of Assist: 5 Gait Assistive Device: FWW PT Plan Problem List Problem List: Activity Tolerance, Functional Strength, Safety, Balance, Gait, Transfer Treatment/Plan Treatment Plan: Continue Plan of Care Treatment Plan: Bed Mobility, Education, Functional Activity [place], Functional Strength, Group Therapy, Gait, Safety, Therapeutic Exercise, Transfers Treatment Duration: Mar 22, 2017 Frequency: At least 5-7 days/Wk (IRF) Estimated Hrs Per Day: 1.5 hours per day Patient and/or Family Agrees t: Yes Safety Risks/Education Patient Education: Gait Training, Transfer Techniques, Correct Positioning, Safety Issues Teaching Recipient: Patient Teaching Methods: Discussion Response to Teaching: Verbalize Understanding Time/GCodes Time In: 1005 Time Out: 1105 Total Billed Treatment Time: 60 Total Billed Treatment visit, GT (15m), EX x2 (30m) & WCH (15m) BRANDEN GUZMAN PTA Mar 02, 2017 12:01
--- NOTE | 2017-03-02 14:26 | Physical Therapy Daily Note ---
PT Daily Note-Current Subjective Pt sitting in [facility] upon arrival. Pt agreed to PT. Mental Status Patient Orientation: Person, Place, Time, Situation Transfers Functional [place] Measure 0=Not Assessed/NA 4=Minimal Assistance 1=Total Assistance 5=Supervision or Setup 2=Maximal Assistance 6=Modified [place] 3=Moderate Assistance 7=Complete IndependenceIRFPAI Quality Coding Scale 6 Independent with activity with or without an assistive device 5 Patient requires set up or clean up by helper. Patient completes activity by themselves 4 Supervision or touching assist ([facility]). [place] provide cues , steadying assist 3 The helper provides less than half the effort to complete the activity 2 The helper provides more than half the effort to complete the activity 1 Dependent. The helper does all the effort to complete an activity 7 Patient refused to complete or attempt activity 9 The patient did not perform the activity before the current illness or injury 88 Not attempted due to Medical conditions or safety concerns Scootin Sit to/from Stand: 4 Sit to Stand (QC): 4 Weight Bearing Weight Bearing Restriction: Weight Bearing/Tolerated Location Restriction: L LE Gait Training Does the Patient Walk?: Yes Distance (FIM): 1=up to 49 ft Distance: 30' Walk 10 feet (QC): 4 Gait Level of Assist: 4 Gait Persons Needed: 1 Gait Assistive Device: FWW Pt walks with antalgic gait and is nervous while ambulating. Pt has slow and guarded aime, steady with no LOB. Wheelchair Training Does the Pt Use a Wheelchair?: Yes Wheelchair Distance: 5=782-23 ft Distance: 100' Wheelchair Level of Assist: 5 Wheel 50 ft with 2 turns (QC): 5 Type of Wheelchair: Manual Treatments Pt transferred from [facility] to standing using FWW at [facility]. Pt used restroom before returning to [facility]. Pt propelled [facility] in Therapy Commons before resting then ambulating back to recliner at end of tx with all needs met to rest. Assessment Current Status: Fair Progress Pt fatigues easy and is still a little guarded about WB status and ambulation. PT Short Term Goals Short Term Goals Time Frame: Mar 08, 2017 Transfers (B,C,W/C) (FIM): 4 Gait (FIM): 2 Gait Distance Comment: 50' Gait Level of Assist: 4 Gait Assistive Device: FWW Wheelchair (FIM): 5 Wheelchair distance (FIM): 8=495-79 ft Wheelchair Distance: 150' Wheelchair Level of Assist: 5 PT Product Lister Goals Product Lister Goals PT Halfway Goals Time Frame: Mar 22, 2017 Transfers (B,C,W/C) (FIM): 5 Sit to Lying (QC): 4 Lying-Sitting on Side/Bed(QC): 4 Sit to Stand (QC): 4 Rollin Roll Left to Right (QC): 4 Chair/Tad-qy-Fobdd Xfer(QC): 4 Car Transfer (QC): 4 Does the Patient Walk: Yes Gait (FIM): 5 Gait distance (FIM): 3=150 ft Distance: 150' Walk 10 feet (QC): 4 Walk 10ft-Uneven Surface(QC): 4 Walk 50ft with 2 Turns (QC): 4 Walk 150 ft (QC): 4 Gait Level of Assist: 5 Gait Assistive Device: FWW PT Plan Problem List Problem List: Activity Tolerance, Functional Strength, Safety, Balance, Gait, Transfer Treatment/Plan Treatment Plan: Continue Plan of Care Treatment Plan: Bed Mobility, Education, Functional Activity [place], Functional Strength, Group Therapy, Gait, Safety, Therapeutic Exercise, Transfers Treatment Duration: Mar 22, 2017 Frequency: At least 5-7 days/Wk (IRF) Estimated Hrs Per Day: 1.5 hours per day Patient and/or Family Agrees t: Yes Safety Risks/Education Patient Education: Gait Training, Transfer Techniques, Correct Positioning, W/ C Management, Safety Issues Teaching Recipient: Patient Teaching Methods: Discussion Response to Teaching: Verbalize Understanding Time/GCodes Time In: 1330 Time Out: 1400 Total Billed Treatment Time: 30 Total Billed Treatment visit, FA (20m) & WC (10m) BRANDEN GUZMAN PTA Mar 02, 2017 14:25
[2017-03-02] MEDS: warFARin 1 MG (COUMADIN) TAB PO SCH (17:13)
[2017-03-02 17:58] VITALS: BP 108/71
[2017-03-02] MEDS ORDERED: warFARin 3 MG (COUMADIN) TAB PO SCH (18:00)
[2017-03-02] MEDS: DOCUSATE SODIUM 100 MG (COLACE) CAP PO SCH (20:52)
[2017-03-02] MEDS: MICONAZOLE 2% POWDER (DESENEX AF) 90 GM TOP SCH (20:53)
[2017-03-03 05:10] VITALS: BP 104/61
[2017-03-03 05:42] LABS: MEAN PLATELET VOLUME 9.5 FL (7.4-10.4); RED BLOOD COUNT 2.84 10^6/uL (4.35-5.85); RED CELL DISTRIBUTION WIDTH 13.8 % (10.0-14.5); WHITE BLOOD COUNT 7.9 10^3/uL (4.3-11.0)
[2017-03-03 06:02] LABS: INR 3.5 (0.8-1.4)
[2017-03-03 06:13] LABS: CALCIUM 8.9 MG/DL (8.5-10.1); CREATININE SERUM 1.53 MG/DL (0.60-1.30)
[2017-03-03] MEDS: LEVOTHYROXINE 112 MCG (LEVOTHROID) TAB PO SCH (06:13)
[2017-03-03] MEDS: CALCIUM CARB + VIT D 600 MG (CALCARB + D) TAB PO SCH ×2 (06:13→18:00)
[2017-03-03] MEDS: VITAMIN A 8000 UNIT PO SCH ×2 (06:13→18:00)
[2017-03-03] MEDS: TRIM/SULFAMETH 160/800 (SEPTRA DS) TAB PO SCH ×2 (06:13→18:00)
[2017-03-03] MEDS: BUMETANIDE 1 MG (BUMEX) TAB PO SCH (08:00)
[2017-03-03] MEDS: COLCHICINE 0.6 MG (COLCRYS) TABLET PO SCH ×2 (08:00→21:33)
[2017-03-03] MEDS: ACETAMINOPHEN 500 MG TAB (TYLENOL) PO PRN (08:01)
[2017-03-03] MEDS: MICONAZOLE 2% POWDER (DESENEX AF) 90 GM TOP SCH ×2 (08:01→21:33)
[2017-03-03] MEDS: OXYBUTYNIN (DITROPAN) 5 MG TAB PO SCH (08:01)
[2017-03-03] MEDS: CARVEDILOL 12.5 MG (COREG) TABLET PO SCH ×2 (08:01→21:33)
[2017-03-03] MEDS: DOCUSATE SODIUM 100 MG (COLACE) CAP PO SCH ×2 (08:01→21:33)
--- NOTE | 2017-03-03 10:33 | Physical Therapy Daily Note ---
PT Daily Note-Current Subjective Pt sitting in [facility] in [facility] after just finishing OT tx. Pt agreed to PT. Pain Numeric Pain Scale: 4 Location: Incisional, Left Location Body Site: Hip Pain Description: Ache, Tightness Mental Status Patient Orientation: Person, Place, Time, Situation Transfers Functional [place] Measure 0=Not Assessed/NA 4=Minimal Assistance 1=Total Assistance 5=Supervision or Setup 2=Maximal Assistance 6=Modified [place] 3=Moderate Assistance 7=Complete IndependenceIRFPAI Quality Coding Scale 6 Independent with activity with or without an assistive device 5 Patient requires set up or clean up by helper. Patient completes activity by themselves 4 Supervision or touching assist (CGA). [place] provide cues , steadying assist 3 The helper provides less than half the effort to complete the activity 2 The helper provides more than half the effort to complete the activity 1 Dependent. The helper does all the effort to complete an activity 7 Patient refused to complete or attempt activity 9 The patient did not perform the activity before the current illness or injury 88 Not attempted due to Medical conditions or safety concerns Scootin Sit to/from Stand: 5 Sit to Stand (QC): 5 Weight Bearing Weight Bearing Restriction: Weight Bearing/Tolerated Location Restriction: L LE Gait Training Does the Patient Walk?: Yes Distance (FIM): 3=150 ft Distance: 150' Walk 10 feet (QC): 4 Walk 50 ft with 2 Turns(QC): 4 Walk 150 ft (QC): 4 Gait Level of Assist: 4 Gait Persons Needed: 1 Gait Assistive Device: FWW Pt walks with slight antalgic gait due to pain/discomfort in L hip. PT encouraged pt to WBAT on LLE to normalize gait pattern. Wheelchair Training Does the Pt Use a Wheelchair?: Yes Wheelchair Distance: 3=150 ft Distance: 150' Wheelchair Level of Assist: 5 Wheel 50 ft with 2 turns (QC): 5 Wheel 150 ft (QC): 5 Type of Wheelchair: Manual Exercises NuStep Minutes: 15 NuStep Workload: 3 Treatments Pt transfers from [facility] to [facility] at Min A. Pt completes NuStep for 15m at Workload 3. Pt ambulates using FWW at CGA for safety. Pt also propels [facility] at SBA. Pt returns to room to rest at end of tx with all needs met. Assessment Current Status: Good Progress Pt continues to make progress with safety and independence of transfers and mobility. PT Short Term Goals Short Term Goals Time Frame: Mar 08, 2017 Transfers (B,C,W/C) (FIM): 4 Gait (FIM): 2 Gait Distance Comment: 50' Gait Level of Assist: 4 Gait Assistive Device: FWW Wheelchair (FIM): 5 Wheelchair distance (FIM): 4=788-90 ft Wheelchair Distance: 100' Wheelchair Level of Assist: 5 PT Alf Goals Wet Pan Mixer Goals PT Wet Pan Mixer Goals Time Frame: Mar 22, 2017 Transfers (B,C,W/C) (FIM): 5 Sit to Lying (QC): 4 Lying-Sitting on Side/Bed(QC): 4 Sit to Stand (QC): 4 Rollin Roll Left to Right (QC): 4 Chair/Zbq-et-Dqwxn Xfer(QC): 4 Car Transfer (QC): 4 Does the Patient Walk: Yes Gait (FIM): 5 Gait distance (FIM): 3=150 ft Distance: 150' Walk 10 feet (QC): 4 Walk 10ft-Uneven Surface(QC): 4 Walk 50ft with 2 Turns (QC): 4 Walk 150 ft (QC): 4 Gait Level of Assist: 5 Gait Assistive Device: FWW PT Plan Problem List Problem List: Activity Tolerance, Functional Strength, Safety, Balance, Gait Treatment/Plan Treatment Plan: Continue Plan of Care Treatment Plan: Bed Mobility, Education, Functional Activity Hay[place], Functional Strength, Group Therapy, Gait, Safety, Therapeutic Exercise, Transfers Treatment Duration: Mar 22, 2017 Frequency: At least 5-7 days/Wk (IRF) Estimated Hrs Per Day: 1.5 hours per day Patient and/or Family Agrees t: Yes Safety Risks/Education Patient Education: Gait Training, Correct Positioning, Safety Issues Teaching Recipient: Patient Teaching Methods: Discussion Response to Teaching: Verbalize Understanding Time/GCodes Time In: 1000 Time Out: 1100 Total Billed Treatment Time: 60 Total Billed Treatment visit, WCH (15m), GT (15m), EX (15m) & FA (15m) BRANDEN GUZMAN BUS TRANSPORTATION MANAGER Mar 03, 2017 10:33
--- NOTE | 2017-03-03 11:52 | Occupational Ther Daily Note ---
OT Current Status-Daily Note Subjective Pt seen in room, up in bed, agreeable to OT. No pain mentioned. Appearance Alert, cooperative Mental Status/Objective Functional [place] Measure 0=Not Assessed/NA 4=Minimal Assistance 1=Total Assistance 5=Supervision or Setup 2=Maximal Assistance 6=Modified [place] 3=Moderate Assistance 7=Complete [place] ADL-Treatment Pt did sponge bath at sink, w/c level. Washed zavala places and needed SBA when standing to wash lovely and bottom. Help needed to wash bottom for thoroughness. Functional [place] Measure 0=Not Assessed/NA 4=Minimal Assistance 1=Total Assistance 5=Supervision or Setup 2=Maximal Assistance 6=Modified [place] 3=Moderate Assistance 7=Complete IndependenceIRFPAI Quality Coding Scale 6 Independent with activity with or without an assistive device 5 Patient requires set up or clean up by helper. Patient completes activity by themselves 4 Supervision or touching assist (CGA). [place] provide cues , steadying assist 3 The helper provides less than half the effort to complete the activity 2 The helper provides more than half the effort to complete the activity 1 Dependent. The helper does all the effort to complete an activity 7 Patient refused to complete or attempt activity 9 The patient did not perform the activity before the current illness or injury 88 Not attempted due to Medical conditions or safety concerns Grooming (FIM): 6 (brushed teeth, washed face and hands, combed hair, w/c level at sink) Upper Body (FIM): 5 (setup) Lower Body Dressing (FIM): 4 (Min assist to pull pants up over hips. Used sock aid and dressing stick. Occas verbal cue for use of equipment. SBA when standing to pull pants up, FWW) Toileting (FIM): 5 (Managed clothing (took Depends off in preparation for shower) and hygiene. BSc over toilet, FWW, grab bar) Toilet/Commode Transfer (FIM): 4 (A little help needed to get up off BSC over toilet, FWW) Pt walks very slowly from bed to bathroom and back to recliner, FWW. ADLs took longer than usual. Pt left up in w/c, care transferred to PT. Education OT Patient Education: Modified ADL techniques, Purpose of tx/functional activities, Transfer techniques Teaching Recipient: Patient Teaching Methods: Discussion Response to Teaching: Verbalize Understanding, Reinforcement Needed OT Short Term Goals Short Term Goals Time Frame: Mar 08, 2017 Toileting(FIM): 5 Transfers (B,C,W/C) (FIM): 4 Toilet/Commode Transfer(FIM): 5 Additional Short Term Goals: 2-Verbalize Understanding, 3-ImproveStrength/[place] 1=Demonstrate adherence to instructed precautions during ADL tasks. 2=Patient will verbalize/demonstrate understanding of assistive devices/ modifications for ADL. 3=Patient will improve strength/tolerance for activity to enable patient to perform ADL's. OT Prison Goals Merchandise Supervisor Goals Time Frame: Mar 19, 2017 Eating (FIM): 6 Eating (QC): 6 Groomin Oral Hygiene (QC): 6 Bathing(FIM): 6 Shower/Bathe Self (QC): 6 Upper Body Dressing(FIM): 6 Upper Body Dressing (QC): 6 Lower Body Dressing(FIM): 6 Lower Body Dressing (QC): 6 On/Off Footwear (QC): 6 Toileting(FIM): 6 Toileting Hygiene (QC): 6 Toilet/Commode Transfer(FIM): 6 Toilet/Commode Transfer (QC): 6 Shower Transfer(FIM): 6 Additional Goals: 1-Demonstrate ADL Tasks, 2-Verbalize Understanding, 3- ImproveStrength/[place] 1=Demonstrate adherence to instructed precautions during ADL tasks. 2=Patient will verbalize/demonstrate understanding of assistive devices/ modifications for ADL. 3=Patient will improve strength/tolerance for activity to enable patient to perform ADL's. OT Education/Plan Problem List/Assessment Pt would benefit from skilled OT to increase her independence in basic self care to allow her to safely return to her home to live independently. Discharge Recommendations Plan/Recommendations: Continue POC Treatment Plan/Plan of Care Patient would benefit from OT for education, treatment and training to promote independence in ADL's, mobility, safety and/or upper extremity function for ADL' s. Plan of Care: ADL Retraining, Functional Mobility, Group Exercise/Act as Ind ( educ, exercise, activity tolerance, functional activities, socialization), UE Funct Exercise/Act, UE Neuromus Re-Ed/Coord Treatment Duration: Mar 19, 2017 Frequency: At least 5-7 days/Wk (IRF) Estimated Hrs Per Day: 1.5 hours per day Agreement: Yes Rehab Potential: Fair Time/GCodes Start Time: :00 Stop Time: 10:00 Total Time Billed (hr/min): 60 Billed Treatment Time visit, 60 minutes ADL CONY WHITNEY OT Mar 03, 2017 11:52
[2017-03-03] MEDS ORDERED: ANTACID SUSP 30 ML UDC (MYLANTA) PO PRN (12:00)
[2017-03-03] MEDS ORDERED: FAMOTIDINE 20 MG (PEPCID) TABLET PO PRN (12:00)
[2017-03-03 14:47] VITALS: BP 107/68
--- NOTE | 2017-03-03 15:36 | Physical Therapy Daily Note ---
PT Daily Note-Current Subjective Pt sitting in recliner upon arrival. Pt reports nausea this afternoon. Pt agrees to PT. Pain Numeric Pain Scale: 3 Location: Left Location Body Site: Hip Pain Description: Ache, Tightness Mental Status Patient Orientation: Person, Place, Time, Situation Transfers Functional [place] Measure 0=Not Assessed/NA 4=Minimal Assistance 1=Total Assistance 5=Supervision or Setup 2=Maximal Assistance 6=Modified [place] 3=Moderate Assistance 7=Complete IndependenceIRFPAI Quality Coding Scale 6 Independent with activity with or without an assistive device 5 Patient requires set up or clean up by helper. Patient completes activity by themselves 4 Supervision or touching assist (CGA). [place] provide cues , steadying assist 3 The helper provides less than half the effort to complete the activity 2 The helper provides more than half the effort to complete the activity 1 Dependent. The helper does all the effort to complete an activity 7 Patient refused to complete or attempt activity 9 The patient did not perform the activity before the current illness or injury 88 Not attempted due to Medical conditions or safety concerns Scootin Sit to/from Stand: 5 Sit to Stand (QC): 5 Weight Bearing Weight Bearing Restriction: Weight Bearing/Tolerated Location Restriction: L LE Gait Training Does the Patient Walk?: Yes Distance (FIM): 3=150 ft Distance: 150' Walk 10 feet (QC): 4 Walk 50 ft with 2 Turns(QC): 4 Walk 150 ft (QC): 4 Gait Level of Assist: 4 Gait Persons Needed: 1 Gait Assistive Device: FWW Pt continued to be encouraged to WBAT on LLE to normalize gait. Pt is making progress. Pt is also walking farther than previous txs. Pt walks with slow but steady gait, no LOB. Treatments Pt transferred from recliner to standing using FWW at [facility]. Pt ambulated in [facility] before returning to room to rest and use restroom. Pt uses restroom and transfers to [facility] to see OT for afternoon tx. Pt has all needs met at end of tx. Assessment Current Status: Good Progress Despite nausea, pt was able to walk increased distance. Pt is making progress. PT Short Term Goals Short Term Goals Time Frame: Mar 08, 2017 Transfers (B,C,W/C) (FIM): 4 Gait (FIM): 2 Gait Distance Comment: 50' Gait Level of Assist: 4 Gait Assistive Device: FWW Wheelchair (FIM): 5 Wheelchair distance (FIM): 1=042-17 ft Wheelchair Distance: 150' Wheelchair Level of Assist: 5 PT Automatic Spinning Lathe Operator Goals Automatic Spinning Lathe Operator Goals PT Automatic Spinning Lathe Operator Goals Time Frame: Mar 22, 2017 Transfers (B,C,W/C) (FIM): 5 Sit to Lying (QC): 4 Lying-Sitting on Side/Bed(QC): 4 Sit to Stand (QC): 4 Rollin Roll Left to Right (QC): 4 Chair/Yge-up-Ushff Xfer(QC): 4 Car Transfer (QC): 4 Does the Patient Walk: Yes Gait (FIM): 5 Gait distance (FIM): 3=150 ft Distance: 150' Walk 10 feet (QC): 4 Walk 10ft-Uneven Surface(QC): 4 Walk 50ft with 2 Turns (QC): 4 Walk 150 ft (QC): 4 Gait Level of Assist: 5 Gait Assistive Device: FWW PT Plan Problem List Problem List: Activity Tolerance, Functional Strength, Safety, Balance, Gait Treatment/Plan Treatment Plan: Continue Plan of Care Treatment Plan: Bed Mobility, Education, Functional Activity [place], Functional Strength, Group Therapy, Gait, Safety, Therapeutic Exercise, Transfers Treatment Duration: Mar 22, 2017 Frequency: At least 5-7 days/Wk (IRF) Estimated Hrs Per Day: 1.5 hours per day Patient and/or Family Agrees t: Yes Safety Risks/Education Patient Education: Gait Training, Transfer Techniques, Correct Positioning, Safety Issues Teaching Recipient: Patient Teaching Methods: Discussion Response to Teaching: Verbalize Understanding Time/GCodes Time In: 1330 Time Out: 1400 Total Billed Treatment Time: 30 Total Billed Treatment visit, GT (20m) & FA (10m) BRANDEN GUZMAN PTA Mar 03, 2017 15:36
--- NOTE | 2017-03-03 16:00 | Occupational Ther Daily Note ---
OT Current Status-Daily Note Subjective Pt seen in room, up in bathroom with PT. Agreeable to OT. No pain mentioned but pt reported feeling nauseated. Appearance Alert, cooperative, very pale and fatigued. Nursing notified Mental Status/Objective Functional [place] Measure 0=Not Assessed/NA 4=Minimal Assistance 1=Total Assistance 5=Supervision or Setup 2=Maximal Assistance 6=Modified [place] 3=Moderate Assistance 7=Complete [place] ADL-Treatment Functional [place] Measure 0=Not Assessed/NA 4=Minimal Assistance 1=Total Assistance 5=Supervision or Setup 2=Maximal Assistance 6=Modified [place] 3=Moderate Assistance 7=Complete IndependenceIRFPAI Quality Coding Scale 6 Independent with activity with or without an assistive device 5 Patient requires set up or clean up by helper. Patient completes activity by themselves 4 Supervision or touching assist (CGA). [place] provide cues , steadying assist 3 The helper provides less than half the effort to complete the activity 2 The helper provides more than half the effort to complete the activity 1 Dependent. The helper does all the effort to complete an activity 7 Patient refused to complete or attempt activity 9 The patient did not perform the activity before the current illness or injury 88 Not attempted due to Medical conditions or safety concerns Other Treatment Pt transferred to w/c with SBCornel FWW. transported to gym per w/c. Pt did 12 minutes bilat UE ex on arm bike set at 15W. Attempted to do 14 min but pt fatigued and pale and unable to do additional time. To strengthen arms and increase activity tolerance for ADLs and transfers. Pt taken back to her room, and transferred with SBA FWW to recliner, with skilled cues to not sit before she is in position. All needs met. Education OT Patient Education: Exercise program, Purpose of tx/functional activities Teaching Recipient: Patient Teaching Methods: Discussion Response to Teaching: Verbalize Understanding OT Short Term Goals Short Term Goals Time Frame: Mar 08, 2017 Toileting(FIM): 5 Transfers (B,C,W/C) (FIM): 4 Toilet/Commode Transfer(FIM): 5 Additional Short Term Goals: 2-Verbalize Understanding, 3-ImproveStrength/[place] 1=Demonstrate adherence to instructed precautions during ADL tasks. 2=Patient will verbalize/demonstrate understanding of assistive devices/ modifications for ADL. 3=Patient will improve strength/tolerance for activity to enable patient to perform ADL's. OT Sheet Metal Assembler Goals Sheet Metal Assembler Goals Time Frame: Mar 19, 2017 Eating (FIM): 6 Eating (QC): 6 Groomin Oral Hygiene (QC): 6 Bathing(FIM): 6 Shower/Bathe Self (QC): 6 Upper Body Dressing(FIM): 6 Upper Body Dressing (QC): 6 Lower Body Dressing(FIM): 6 Lower Body Dressing (QC): 6 On/Off Footwear (QC): 6 Toileting(FIM): 6 Toileting Hygiene (QC): 6 Toilet/Commode Transfer(FIM): 6 Toilet/Commode Transfer (QC): 6 Shower Transfer(FIM): 6 Additional Goals: 1-Demonstrate ADL Tasks, 2-Verbalize Understanding, 3- ImproveStrength/[place] 1=Demonstrate adherence to instructed precautions during ADL tasks. 2=Patient will verbalize/demonstrate understanding of assistive devices/ modifications for ADL. 3=Patient will improve strength/tolerance for activity to enable patient to perform ADL's. OT Education/Plan Problem List/Assessment Pt would benefit from skilled OT to increase her independence in basic self care to allow her to safely return to her home to live independently. Discharge Recommendations Plan/Recommendations: Continue POC Treatment Plan/Plan of Care Patient would benefit from OT for education, treatment and training to promote independence in ADL's, mobility, safety and/or upper extremity function for ADL' s. Plan of Care: ADL Retraining, Functional Mobility, Group Exercise/Act as Ind ( educ, exercise, activity tolerance, functional activities, socialization), UE Funct Exercise/Act, UE Neuromus Re-Ed/Coord Treatment Duration: Mar 19, 2017 Frequency: At least 5-7 days/Wk (IRF) Estimated Hrs Per Day: 1.5 hours per day Agreement: Yes Rehab Potential: Fair Time/GCodes Start Time: 14:00 Stop Time: 14:30 Total Time Billed (hr/min): 30 Billed Treatment Time visit, 30 minutes exercise CONY WHITNEY OT Mar 03, 2017 15:59
--- NOTE | 2017-03-03 17:16 | Individualized Plan of Care ---
Individualized Plan of Care Rehab Nursing IPOC Order Admission Date Mar 01, 2017 at 12:25 Current Orders Orders Docusate Sodium Capsule (Colace Capsule) (03/02/17 21:00) Famotidine Tablet (Pepcid Tablet) (03/03/17 12:00) Antacid Suspension (Mylanta Suspension (03/03/17 12:00) Patient Visit (03/03/17 ) Wheelchair Mgmt/Propulsn 15min (03/03/17 ) Gait Training, Ea 15 Min (03/03/17 ) Exercise Therap, Ea 15 Min (03/03/17 ) Functional Activities, Ea 15 (03/03/17 ) Other Nursing Orders: Monitor for postop urinary retention Treat postop constipation as needed PT IPOC Problem List: Activity Tolerance, Functional Strength, Safety, Balance, Gait Treatment Plan: Continue Plan of Care Bed Mobility, Education, Functional Activity [place], Functional Strength, Group Therapy, Gait, Safety, Therapeutic Exercise, Transfers Treatment Duration: Mar 22, 2017 Frequency: At least 5-7 days/Wk (IRF) Estimated Hrs Per Day: 1.5 hours per day OT IPOC Problems: Decreased Activ Tolerance, Decreased UE Strength, Dependent Transfers , Impaired Funct Balance, Impaired Self-Care Skills OT Problems Pt would benefit from skilled OT to increase her independence in basic self care to allow her to safely return to her home to live independently. Plan of Care: ADL Retraining, Functional Mobility, Group Exercise/Act as Ind ( educ, exercise, activity tolerance, functional activities, socialization), UE Funct Exercise/Act, UE Neuromus Re-Ed/Coord Treatment Duration: Mar 19, 2017 Frequency: At least 5-7 days/Wk (IRF) Estimated Hrs Per Day: 1.[address] IPOC Speech Therapy Treatment Plan: Discontinue ST Frequency: Modified Program (IRF) Estimated Hrs Per Day: .25 hour per day (Evaluation, only.) Physician IPOC Medical Issues being managed closely and that require the 24 hour availability of a physician:HTN Postop anemia postop constipation Pain management Medical Issues: Bowel/Bladder Function, DVT Prophylaxis, Falls Precautions, Fluid/Electrolyte/Nutrition Balance, Infection Protection, Pain Management, Weight Bearing Precautions, Wound Care, Other (List) (as per above) Brief Synthesis of Preadmission Screen, Post-Admission Evaluation, and Therapy Evaluations:76 yo female who returns to IRU following repair of Distal femur fracture near a prior TKR Originally here for orif left intertrochanteric frx Patient WBAT Patient had been Independent and living alone DR Mccormack and ortho following.PCP DR Moody Carrillo.Having issues with postop anemia and constipation Medical Prognosis: good Anticipated Length of Stay: 9-8-17 Rehab Goals Modified Independent for adls and mobility skills Anticipated discharge destinat: Home with family and [facility] ANGELICA YIN MD Mar 03, 2017 17:16
--- NOTE | 2017-03-03 17:26 | PM & R (SOAP) Progress Note ---
Subjective Time Seen by Provider: 08:05 Subjective/Events-last exam Patient was seen in her room this AM Progressing well with therapies Patient Min assist for gait with walker.Current labs reviewed INR supratherapeutic DR Mccormack aware with coumadin on hold.BUN/CR elevated DR Mccormack managing Objective Exam Last Set of Vital Signs Vital Signs Date Time Temp Pulse Resp B/P (MAP) Pulse Ox O2 Delivery O2 Flow Rate FiO2 03/03/17 14:47 97.6 82 18 107/68 Room Air 03/03/17 05:10 94 Capillary Refill : Less Than 3 Seconds I&O Intake and Output 03/04/17 00:00 Intake Total 100 ml Balance 100 ml Intake Oral 100 ml # Voids 3 General: Alert, Oriented X3, Cooperative, No Acute Distress HEENT: Atraumatic, PERRLA, EOMI, Mucous Memb Moist/[place] Neck: Supple, No JVD Lungs: Clear to Auscultation Heart: Regular Rate Abdomen: Normal Bowel Sounds, Soft, No Tenderness Extremities: Other (trace edema left hip) Skin: Other ([place] dressing in place) Neuro: Other (Generalized weakness with guarding left hip ) Results Lab Laboratory Tests 03/02/17 07:26: White Blood Count 8.2, Red Blood Count 2.98L, Hemoglobin 9.0L, Hematocrit 29L, Mean Corpuscular Volume 97, Mean Corpuscular Hemoglobin 30, Mean Corpuscular Hemoglobin Concent 31L, Red Cell Distribution Width 14.0, Platelet Count 384, Mean Platelet Volume 9.6, Prothrombin Time 27.7H, INR Comment 2.6H, Sodium Level 140, Potassium Level 3.7, Chloride Level 103, Carbon Dioxide Level 26, Anion Gap 11, Blood Urea Nitrogen 43H, Creatinine 1.27, Estimat Glomerular Filtration Rate 41, BUN/Creatinine Ratio 34, Glucose Level 132H, Calcium Level 8.9 03/03/17 05:36: White Blood Count 7.9, Red Blood Count 2.84L, Hemoglobin 8.6L, Hematocrit 27L, Mean Corpuscular Volume 95, Mean Corpuscular Hemoglobin 30, Mean Corpuscular Hemoglobin Concent 32, Red Cell Distribution Width 13.8, Platelet Count 380, Mean Platelet Volume 9.5, Prothrombin Time 35.0H, INR Comment 3.5H, Sodium Level 138, Potassium Level 4.0, Chloride Level 103, Carbon Dioxide Level 26, Anion Gap 9, Blood Urea Nitrogen 46H, Creatinine 1.53H, Estimat Glomerular Filtration Rate 33, BUN/Creatinine Ratio 30, Glucose Level 90, Calcium Level 8.9 Assessment/Plan Assessment left intertrochanteric femur fracture s/pORIF DR Blanco Left distal femur fracture s/p Plating DR Aleman/Gregg Postop anemia Chronic anticoagulation with coumadin currently on hold as per above Hypothyroidism -compensated Osteoporosis-on Fosamax Postop constipation treated Plan Continue PT/OT/Wound care Pain management Team Conference held earlier today-See report for full functional update and POC and ELOS F/U with DR Aleman and Hospitalist as per their schedule Appreciate DR Hamilton note. Monitor INR and BUN/CR and adjust meds and treatments as appropriate ANGELICA YIN MD Mar 03, 2017 17:26
[2017-03-03 18:00] VITALS: BP 107/68
[2017-03-04 05:40] VITALS: BP 124/69
[2017-03-04] MEDS: TRIM/SULFAMETH 160/800 (SEPTRA DS) TAB PO SCH (06:12)
[2017-03-04] MEDS: CALCIUM CARB + VIT D 600 MG (CALCARB + D) TAB PO SCH ×2 (06:12→17:55)
[2017-03-04] MEDS: VITAMIN A 8000 UNIT PO SCH ×2 (06:12→17:55)
[2017-03-04] MEDS: LEVOTHYROXINE 112 MCG (LEVOTHROID) TAB PO SCH (06:12)
--- NOTE | 2017-03-04 09:16 | Physical Therapy Daily Note ---
PT Daily Note-Current Subjective Pt sitting in recliner upon arrival. Pt requested dressing before leaving room for tx. Pt agreed to PT. Pain Numeric Pain Scale: 4 Location: Left Location Body Site: Hip Pain Description: Ache, Tightness Mental Status Patient Orientation: Person, Place, Situation Transfers Functional [place] Measure 0=Not Assessed/NA 4=Minimal Assistance 1=Total Assistance 5=Supervision or Setup 2=Maximal Assistance 6=Modified [place] 3=Moderate Assistance 7=Complete IndependenceIRFPAI Quality Coding Scale 6 Independent with activity with or without an assistive device 5 Patient requires set up or clean up by helper. Patient completes activity by themselves 4 Supervision or touching assist (CGA). [place] provide cues , steadying assist 3 The helper provides less than half the effort to complete the activity 2 The helper provides more than half the effort to complete the activity 1 Dependent. The helper does all the effort to complete an activity 7 Patient refused to complete or attempt activity 9 The patient did not perform the activity before the current illness or injury 88 Not attempted due to Medical conditions or safety concerns Scootin Sit to/from Stand: 5 Sit to Stand (QC): 5 Weight Bearing Weight Bearing Restriction: Weight Bearing/Tolerated Location Restriction: L LE Gait Training Does the Patient Walk?: Yes Distance (FIM): 3=150 ft Distance: 200' Walk 10 feet (QC): 4 Walk 50 ft with 2 Turns(QC): 4 Walk 150 ft (QC): 4 Gait Assistive Device: FWW Pt is walking more normalized with encouragement to WB more on LLE Exercises NuStep Minutes: 10 NuStep Workload: 4 Treatments Pt transfers from recliner to standing using FWW at [facility]. Pt uses restroom before leaving room for tx. Pt ambulates in [facility] using FWW at [facility] for safety. Pt completes 10m on NuStep at Workload 4. Pt ambulates back to room with rest breaks and rests in chair Therapy Commons where OT starts tx with all needs met. Assessment Current Status: Fair Progress Pt is fatigued and a little nauseated (her Hemoglobin had been running lower than normal). PT Short Term Goals Short Term Goals Time Frame: Mar 08, 2017 Transfers (B,C,W/C) (FIM): 4 Gait (FIM): 2 Gait Distance Comment: 50' Gait Level of Assist: 4 Gait Assistive Device: FWW Wheelchair (FIM): 5 Wheelchair distance (FIM): 6=311-62 ft Wheelchair Distance: 150' Wheelchair Level of Assist: 5 PT Jail Goals Radio Director Goals PT Jail Goals Time Frame: Mar 22, 2017 Transfers (B,C,W/C) (FIM): 5 Sit to Lying (QC): 4 Lying-Sitting on Side/Bed(QC): 4 Sit to Stand (QC): 4 Rollin Roll Left to Right (QC): 4 Chair/Rta-rk-Mxzfo Xfer(QC): 4 Car Transfer (QC): 4 Does the Patient Walk: Yes Gait (FIM): 5 Gait distance (FIM): 3=150 ft Distance: 150' Walk 10 feet (QC): 4 Walk 10ft-Uneven Surface(QC): 4 Walk 50ft with 2 Turns (QC): 4 Walk 150 ft (QC): 4 Gait Level of Assist: 5 Gait Assistive Device: FWW PT Plan Problem List Problem List: Activity Tolerance, Functional Strength, Gait Treatment/Plan Treatment Plan: Continue Plan of Care Treatment Plan: Bed Mobility, Education, Functional Activity [place], Functional Strength, Group Therapy, Gait, Safety, Therapeutic Exercise, Transfers Treatment Duration: Mar 22, 2017 Frequency: At least 5-7 days/Wk (IRF) Estimated Hrs Per Day: 1.5 hours per day Patient and/or Family Agrees t: Yes Safety Risks/Education Patient Education: Gait Training, Transfer Techniques, Correct Positioning, Safety Issues Teaching Recipient: Patient Teaching Methods: Discussion Response to Teaching: Verbalize Understanding Time/GCodes Time In: 800 Time Out: 900 Total Billed Treatment Time: 60 Total Billed Treatment visit, GT (20m), Ex (10m) & FA (30m) BRANDEN GUZMAN PTA Mar 04, 2017 09:16
[2017-03-04] MEDS ORDERED: FAMOTIDINE 20 MG (PEPCID) TABLET PO PRN (10:00)
[2017-03-04] MEDS: COLCHICINE 0.6 MG (COLCRYS) TABLET PO SCH ×2 (10:23→20:37)
[2017-03-04] MEDS: MICONAZOLE 2% POWDER (DESENEX AF) 90 GM TOP SCH ×2 (10:23→20:38)
[2017-03-04] MEDS: BUMETANIDE 1 MG (BUMEX) TAB PO SCH (10:23)
[2017-03-04] MEDS: DOCUSATE SODIUM 100 MG (COLACE) CAP PO SCH ×2 (10:23→20:38)
[2017-03-04] MEDS: OXYBUTYNIN (DITROPAN) 5 MG TAB PO SCH (10:23)
[2017-03-04] MEDS: CARVEDILOL 12.5 MG (COREG) TABLET PO SCH ×2 (10:23→20:37)
[2017-03-04 10:54] LABS: BASOPHILS % (AUTO) 0 % (0-10); EOSINOPHILS # (AUTO) 0.3 10^3/uL (0.0-0.3); EOSINOPHILS % (AUTO) 2 % (0-10); LYMPHOCYTES # (AUTO) 1.5 X 10^3 (1.0-4.0); LYMPHOCYTES % (AUTO) 13 % (12-44); MEAN CORPUSCULAR HEMOGLOBIN 30 PG (25-34); MEAN CORPUSCULAR HGB CONC 32 G/DL (32-36); MEAN CORPUSCULAR VOLUME 95 FL (80-99); MONOCYTES # (AUTO) 0.9 X 10^3 (0.0-1.0); MONOCYTES % (AUTO) 8 % (0-12); NEUTROPHILS # (AUTO) 8.7 X 10^3 (1.8-7.8); NEUTROPHILS % (AUTO) 76 % (42-75); PLATELET COUNT 460 10^3/uL (130-400); RED BLOOD COUNT 3.27 10^6/uL (4.35-5.85); RED CELL DISTRIBUTION WIDTH 14.1 % (10.0-14.5); WHITE BLOOD COUNT 11.5 10^3/uL (4.3-11.0)
[2017-03-04 11:07] LABS: INR 3.4 (0.8-1.4)
[2017-03-04 11:14] LABS: ALBUMIN 3.5 GM/DL (3.2-4.5); BILIRUBIN,TOTAL 0.5 MG/DL (0.1-1.0); CALCIUM 9.6 MG/DL (8.5-10.1); CREATININE SERUM 1.81 MG/DL (0.60-1.30); POTASSIUM 4.4 MMOL/L (3.6-5.0); TOTAL PROTEIN 7.2 GM/DL (6.4-8.2)
--- NOTE | 2017-03-04 11:20 | Occupational Ther Daily Note ---
OT Current Status-Daily Note Subjective Pt seen in room, up in w/c, agreeable to OT but very fatigued and pale. No pain mentioned. Mental Status/Objective Functional [place] Measure 0=Not Assessed/NA 4=Minimal Assistance 1=Total Assistance 5=Supervision or Setup 2=Maximal Assistance 6=Modified [place] 3=Moderate Assistance 7=Complete [place] ADL-Treatment Pt had already toileted, changed clothes, groomed and did not want to bathe, due to fatigue. She did want to brush her teeth again, though. At end of tx, walked a few feet from w/c to toilet, with SBA (and a couple of trials to get out of w/c, cues for hand placement) and got on toilet with SBA for safety, FWW. Pt left on toilet per her request, with call light present Functional [place] Measure 0=Not Assessed/NA 4=Minimal Assistance 1=Total Assistance 5=Supervision or Setup 2=Maximal Assistance 6=Modified [place] 3=Moderate Assistance 7=Complete IndependenceIRFPAI Quality Coding Scale 6 Independent with activity with or without an assistive device 5 Patient requires set up or clean up by helper. Patient completes activity by themselves 4 Supervision or touching assist (CGA). [place] provide cues , steadying assist 3 The helper provides less than half the effort to complete the activity 2 The helper provides more than half the effort to complete the activity 1 Dependent. The helper does all the effort to complete an activity 7 Patient refused to complete or attempt activity 9 The patient did not perform the activity before the current illness or injury 88 Not attempted due to Medical conditions or safety concerns Grooming (FIM): 6 (Pt propelled herself to bathroom, up to sink (strengthening for arms). Able to brush teeth herself.) Toilet/Commode Transfer (FIM): 5 (SBA, BSC over toilet, grab bars, FWW) Other Treatment In gym, pt did bilat UE activities with 1# weight on each arm, to strengthen arms to help with transfer (needed multiple trials to get out of w/c today). Activities included arc activity, graded clothespins, nut and bolts. Education OT Patient Education: Progress toward Goal/Update tx plan, Purpose of tx/ functional activities, Transfer techniques Teaching Recipient: Patient Teaching Methods: Discussion Response to Teaching: Verbalize Understanding, Reinforcement Needed OT Short Term Goals Short Term Goals Time Frame: Mar 08, 2017 Toileting(FIM): 5 Transfers (B,C,W/C) (FIM): 4 Toilet/Commode Transfer(FIM): 5 Additional Short Term Goals: 2-Verbalize Understanding, 3-ImproveStrength/[place] 1=Demonstrate adherence to instructed precautions during ADL tasks. 2=Patient will verbalize/demonstrate understanding of assistive devices/ modifications for ADL. 3=Patient will improve strength/tolerance for activity to enable patient to perform ADL's. OT Loss Prevention/Safety District Manager Goals Detention Goals Time Frame: Mar 19, 2017 Eating (FIM): 6 Eating (QC): 6 Groomin Oral Hygiene (QC): 6 Bathing(FIM): 6 Shower/Bathe Self (QC): 6 Upper Body Dressing(FIM): 6 Upper Body Dressing (QC): 6 Lower Body Dressing(FIM): 6 Lower Body Dressing (QC): 6 On/Off Footwear (QC): 6 Toileting(FIM): 6 Toileting Hygiene (QC): 6 Toilet/Commode Transfer(FIM): 6 Toilet/Commode Transfer (QC): 6 Shower Transfer(FIM): 6 Additional Goals: 1-Demonstrate ADL Tasks, 2-Verbalize Understanding, 3- ImproveStrength/[place] 1=Demonstrate adherence to instructed precautions during ADL tasks. 2=Patient will verbalize/demonstrate understanding of assistive devices/ modifications for ADL. 3=Patient will improve strength/tolerance for activity to enable patient to perform ADL's. OT Education/Plan Problem List/Assessment Pt would benefit from skilled OT to increase her independence in basic self care to allow her to safely return to her home to live independently. Discharge Recommendations Plan/Recommendations: Continue POC Treatment Plan/Plan of Care Patient would benefit from OT for education, treatment and training to promote independence in ADL's, mobility, safety and/or upper extremity function for ADL' s. Plan of Care: ADL Retraining, Functional Mobility, Group Exercise/Act as Ind ( educ, exercise, activity tolerance, functional activities, socialization), UE Funct Exercise/Act, UE Neuromus Re-Ed/Coord Treatment Duration: Mar 19, 2017 Frequency: At least 5-7 days/Wk (IRF) Estimated Hrs Per Day: 1.5 hours per day Agreement: Yes Rehab Potential: Fair Time/GCodes Start Time: 09:00 Stop Time: 10:00 Total Time Billed (hr/min): 60 Billed Treatment Time visit, ADL 15 minutes, exercise 45 minutes CONY WHITNEY OT Mar 04, 2017 11:20
--- NOTE | 2017-03-04 11:31 | Progress Note-Hospitalist ---
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 Pt is worried that she has done something wrong Physical exam stable Pt confirms using a stool softener and not having good BMs Pt will have her carey removed by Dr. Escobedo per his protocol AFVSS, Pleasant, improved, no changes on my exam RRR, CTAB no edema Laboratory Tests 03/04/17 10:45 Assessment: Acute left hip fracture status post uncomplicated repair then in need of repeat surgery due to distal femur abnl on xray per Dr Escobedo Fatigue and weakness today likely due to mild increase in creatinine related to Bactrim so DC today Postop anemia requiring 2 units of blood due to her symptomatic status after initial surgery repair HTN Leukocytosis likely due to stress response of surgery- resolved Spine surgery 2013 and placed on Coumadin and maintained since that time to "prevent blood clots" without known h/o clots s/p 1 unit of FFP and Vit K 2.5mg PO but now reversing again with Vit K and FFP but 2.1 at day of transfer to IRU now 2.6 Osteoporosis Post op constipation still an issue UTI completed Bactrim Plan: Completed abx today Fall risk Monitor INR and hold Coumadin today Check INR, CMP, CBC in am Miralax Scribed by Ariane Knott under the direct supervision of Dr. Mccormack. HARRIS MCCORMACK DO Mar 04, 2017 11:31
--- NOTE | 2017-03-04 15:24 | Physical Therapy Daily Note ---
PT Daily Note-Current Subjective Pt sitting in recliner upon arrival. Pt agrees to PT. Pain Numeric Pain Scale: 3 Location: Left Location Body Site: Hip Pain Description: Ache, Tightness Mental Status Patient Orientation: Person, Place, Situation Transfers Functional [place] Measure 0=Not Assessed/NA 4=Minimal Assistance 1=Total Assistance 5=Supervision or Setup 2=Maximal Assistance 6=Modified [place] 3=Moderate Assistance 7=Complete IndependenceIRFPAI Quality Coding Scale 6 Independent with activity with or without an assistive device 5 Patient requires set up or clean up by helper. Patient completes activity by themselves 4 Supervision or touching assist (CGA). [place] provide cues , steadying assist 3 The helper provides less than half the effort to complete the activity 2 The helper provides more than half the effort to complete the activity 1 Dependent. The helper does all the effort to complete an activity 7 Patient refused to complete or attempt activity 9 The patient did not perform the activity before the current illness or injury 88 Not attempted due to Medical conditions or safety concerns Scootin Sit to/from Stand: 5 Sit to Stand (QC): 5 Weight Bearing Weight Bearing Restriction: Weight Bearing/Tolerated Location Restriction: L LE Gait Training Does the Patient Walk?: Yes Distance (FIM): 3=150 ft Distance: 150' Walk 10 feet (QC): 4 Walk 50 ft with 2 Turns(QC): 4 Walk 150 ft (QC): 4 Gait Level of Assist: 4 Gait Persons Needed: 1 Gait Assistive Device: FWW Exercises Seated Therapy Exercises: Ankle pumps, Long arc quads, Hip flexion, Kicking activity, Hip abd/add Seated Reps: 15 Treatments Pt transfers from sitting to standing using FWW at [facility]. Pt ambulates using FWW at [facility] for safety. Pt completes Seated Ex in chair before ending tx with all needs met and starts working with OT. Assessment Current Status: Fair Progress Pt is walking better, with more normalized gait. PT Short Term Goals Short Term Goals Time Frame: Mar 08, 2017 Transfers (B,C,W/C) (FIM): 4 Gait (FIM): 2 Gait Distance Comment: 50' Gait Level of Assist: 4 Gait Assistive Device: FWW Wheelchair (FIM): 5 Wheelchair distance (FIM): 0=624-09 ft Wheelchair Distance: 150' Wheelchair Level of Assist: 5 PT Paper Baler Goals Paper Baler Goals PT Custodial Goals Time Frame: Mar 22, 2017 Transfers (B,C,W/C) (FIM): 5 Sit to Lying (QC): 4 Lying-Sitting on Side/Bed(QC): 4 Sit to Stand (QC): 4 Rollin Roll Left to Right (QC): 4 Chair/Yqo-fm-Notvx Xfer(QC): 4 Car Transfer (QC): 4 Does the Patient Walk: Yes Gait (FIM): 5 Gait distance (FIM): 3=150 ft Distance: 150' Walk 10 feet (QC): 4 Walk 10ft-Uneven Surface(QC): 4 Walk 50ft with 2 Turns (QC): 4 Walk 150 ft (QC): 4 Gait Level of Assist: 5 Gait Assistive Device: FWW PT Plan Problem List Problem List: Activity Tolerance, Functional Strength, Safety, Balance, Gait Treatment/Plan Treatment Plan: Continue Plan of Care Treatment Plan: Bed Mobility, Education, Functional Activity [place], Functional Strength, Group Therapy, Gait, Safety, Therapeutic Exercise, Transfers Treatment Duration: Mar 22, 2017 Frequency: At least 5-7 days/Wk (IRF) Estimated Hrs Per Day: 1.5 hours per day Patient and/or Family Agrees t: Yes Safety Risks/Education Patient Education: Gait Training, Transfer Techniques, Correct Positioning, Safety Issues Teaching Recipient: Patient Teaching Methods: Discussion Response to Teaching: Verbalize Understanding Time/GCodes Time In: 1300 Time Out: 1330 Total Billed Treatment Time: 30 Total Billed Treatment visit, GT (15m) & Ex (15m) BRANDEN GUZMAN PTA Mar 04, 2017 15:24
--- NOTE | 2017-03-04 16:56 | Occupational Ther Daily Note ---
OT Current Status-Daily Note Subjective Pt seen in gym after PT, agreeable to OT. No pain mentioned but reported fatigue. Appearance Alert, cooperative, always pleasant Mental Status/Objective Functional [place] Measure 0=Not Assessed/NA 4=Minimal Assistance 1=Total Assistance 5=Supervision or Setup 2=Maximal Assistance 6=Modified [place] 3=Moderate Assistance 7=Complete [place] ADL-Treatment Functional [place] Measure 0=Not Assessed/NA 4=Minimal Assistance 1=Total Assistance 5=Supervision or Setup 2=Maximal Assistance 6=Modified [place] 3=Moderate Assistance 7=Complete IndependenceIRFPAI Quality Coding Scale 6 Independent with activity with or without an assistive device 5 Patient requires set up or clean up by helper. Patient completes activity by themselves 4 Supervision or touching assist (CGA). [place] provide cues , steadying assist 3 The helper provides less than half the effort to complete the activity 2 The helper provides more than half the effort to complete the activity 1 Dependent. The helper does all the effort to complete an activity 7 Patient refused to complete or attempt activity 9 The patient did not perform the activity before the current illness or injury 88 Not attempted due to Medical conditions or safety concerns Other Treatment Pt did 12 minutes bilat UE exercise on arm bike sest at 10-15W resistance. Decr time and resistance but pt needed fewer recovery periods and worked at overall steady pace. To strengthen arms to help with transfers and overall activity tolerance. Pt walked back toward room and made it to commons area to sit to recover. transported per w/c the rest of the way due to fatigue. Pt walked in room from w/c to [facility] over toilet and transferred with SBA, FWW, managing clothing (not incontinent). Pt requested to be left on toilet, call light available. Education OT Patient Education: Progress toward Goal/Update tx plan, Purpose of tx/ functional activities Teaching Recipient: Patient Teaching Methods: Discussion Response to Teaching: Verbalize Understanding OT Short Term Goals Short Term Goals Time Frame: Mar 08, 2017 Toileting(FIM): 5 Transfers (B,C,W/C) (FIM): 4 Toilet/Commode Transfer(FIM): 5 Additional Short Term Goals: 2-Verbalize Understanding, 3-ImproveStrength/[place] 1=Demonstrate adherence to instructed precautions during ADL tasks. 2=Patient will verbalize/demonstrate understanding of assistive devices/ modifications for ADL. 3=Patient will improve strength/tolerance for activity to enable patient to perform ADL's. OT Jail Goals Director Staffing Goals Time Frame: Mar 19, 2017 Eating (FIM): 6 Eating (QC): 6 Groomin Oral Hygiene (QC): 6 Bathing(FIM): 6 Shower/Bathe Self (QC): 6 Upper Body Dressing(FIM): 6 Upper Body Dressing (QC): 6 Lower Body Dressing(FIM): 6 Lower Body Dressing (QC): 6 On/Off Footwear (QC): 6 Toileting(FIM): 6 Toileting Hygiene (QC): 6 Toilet/Commode Transfer(FIM): 6 Toilet/Commode Transfer (QC): 6 Shower Transfer(FIM): 6 Additional Goals: 1-Demonstrate ADL Tasks, 2-Verbalize Understanding, 3- ImproveStrength/[place] 1=Demonstrate adherence to instructed precautions during ADL tasks. 2=Patient will verbalize/demonstrate understanding of assistive devices/ modifications for ADL. 3=Patient will improve strength/tolerance for activity to enable patient to perform ADL's. OT Education/Plan Problem List/Assessment Pt would benefit from skilled OT to increase her independence in basic self care to allow her to safely return to her home to live independently. Discharge Recommendations Plan/Recommendations: Continue POC Treatment Plan/Plan of Care Patient would benefit from OT for education, treatment and training to promote independence in ADL's, mobility, safety and/or upper extremity function for ADL' s. Plan of Care: ADL Retraining, Functional Mobility, Group Exercise/Act as Ind ( educ, exercise, activity tolerance, functional activities, socialization), UE Funct Exercise/Act, UE Neuromus Re-Ed/Coord Treatment Duration: Mar 19, 2017 Frequency: At least 5-7 days/Wk (IRF) Estimated Hrs Per Day: 1.5 hours per day Agreement: Yes Rehab Potential: Fair Time/GCodes Start Time: 13:30 Stop Time: 14:00 Total Time Billed (hr/min): 30 Billed Treatment Time visit, 15 minutes ADL, 15 minutes functional activity CONY WHITNEY OT Mar 04, 2017 16:56
--- NOTE | 2017-03-04 17:20 | PM & R (SOAP) Progress Note ---
Subjective Time Seen by Provider: 08:05 Subjective/Events-last exam Patient was seen in her room this AM Patient SBA for transfers INR still elevated but trending down toward therapeutic range H&H Improving Chem noted. Objective Exam Last Set of Vital Signs Vital Signs Date Time Temp Pulse Resp B/P (MAP) Pulse Ox O2 Delivery O2 Flow Rate FiO2 03/04/17 09:00 Room Air 03/04/17 05:40 97.4 68 18 124/69 94 Capillary Refill : Less Than 3 Seconds I&O Intake and Output 03/05/17 00:00 Intake Total 300 ml Balance 300 ml Intake Oral 300 ml # Voids 4 General: Alert, Oriented X3, Cooperative, No Acute Distress HEENT: Atraumatic, PERRLA, EOMI, Mucous Memb Moist/[place] Neck: Supple, No JVD Lungs: Clear to Auscultation Heart: Regular Rate Abdomen: Normal Bowel Sounds, Soft, No Tenderness Extremities: Other (trace edema left hip) Skin: Other ([place] dressing in place) Neuro: Other (Generalized weakness with guarding left hip ) Results Lab Laboratory Tests 03/02/17 07:26: White Blood Count 8.2, Red Blood Count 2.98L, Hemoglobin 9.0L, Hematocrit 29L, Mean Corpuscular Volume 97, Mean Corpuscular Hemoglobin 30, Mean Corpuscular Hemoglobin Concent 31L, Red Cell Distribution Width 14.0, Platelet Count 384, Mean Platelet Volume 9.6, Prothrombin Time 27.7H, INR Comment 2.6H, Sodium Level 140, Potassium Level 3.7, Chloride Level 103, Carbon Dioxide Level 26, Anion Gap 11, Blood Urea Nitrogen 43H, Creatinine 1.27, Estimat Glomerular Filtration Rate 41, BUN/Creatinine Ratio 34, Glucose Level 132H, Calcium Level 8.9 03/03/17 05:36: White Blood Count 7.9, Red Blood Count 2.84L, Hemoglobin 8.6L, Hematocrit 27L, Mean Corpuscular Volume 95, Mean Corpuscular Hemoglobin 30, Mean Corpuscular Hemoglobin Concent 32, Red Cell Distribution Width 13.8, Platelet Count 380, Mean Platelet Volume 9.5, Prothrombin Time 35.0H, INR Comment 3.5H, Sodium Level 138, Potassium Level 4.0, Chloride Level 103, Carbon Dioxide Level 26, Anion Gap 9, Blood Urea Nitrogen 46H, Creatinine 1.53H, Estimat Glomerular Filtration Rate 33, BUN/Creatinine Ratio 30, Glucose Level 90, Calcium Level 8.9 03/04/17 10:45: White Blood Count 11.5H, Red Blood Count 3.27L, Hemoglobin 9.8L, Hematocrit 31L , Mean Corpuscular Volume 95, Mean Corpuscular Hemoglobin 30, Mean Corpuscular Hemoglobin Concent 32, Red Cell Distribution Width 14.1, Platelet Count 460H, Mean Platelet Volume 10.0, Prothrombin Time 34.0H, INR Comment 3.4H, Sodium Level 138, Potassium Level 4.4, Chloride Level 100, Carbon Dioxide Level 27, Anion Gap 11, Blood Urea Nitrogen 49H, Creatinine 1.81H, Estimat Glomerular Filtration Rate 27, BUN/Creatinine Ratio 27, Glucose Level 100, Calcium Level 9.6, Neutrophils (%) (Auto) 76H, Lymphocytes (%) (Auto) 13, Monocytes (%) (Auto ) 8, Eosinophils (%) (Auto) 2, Basophils (%) (Auto) 0, Neutrophils # (Auto) 8.7H , Lymphocytes # (Auto) 1.5, Monocytes # (Auto) 0.9, Eosinophils # (Auto) 0.3, Basophils # (Auto) 0.0, Total Bilirubin 0.5, Aspartate Amino Transf (AST/SGOT) 38H, Alanine Aminotransferase (ALT/SGPT) 33, Alkaline Phosphatase 150H, Total Protein 7.2, Albumin 3.5 Assessment/Plan Assessment left intertrochanteric femur fracture s/pORIF DR Blanco Left distal femur fracture s/p Plating DR Aleman/Gregg Postop anemia Chronic anticoagulation with coumadin currently on hold as per above Hypothyroidism -compensated Osteoporosis-on Fosamax Postop constipation treated Plan Continue PT/OT/Wound care Pain management Team Conference held yesterday-See report for full functional update and POC and ELOS F/U with DR Aleman and Hospitalist as per their schedule Appreciate DR Hamilton note. Monitor Labs INR and BUN/CR etc DR Mccormack et al managing ANGELICA YIN MD Mar 04, 2017 17:20
[2017-03-04 18:30] VITALS: BP 111/70
[2017-03-04 20:36] VITALS: BP 122/66
[2017-03-04] MEDS: POLYETHYLENE GLYCOL 17 GM (MIRALAX) PACK PO SCH (21:00)
[2017-03-05 05:34] LABS: BASOPHILS % (AUTO) 0 % (0-10); EOSINOPHILS # (AUTO) 0.4 10^3/uL (0.0-0.3); EOSINOPHILS % (AUTO) 4 % (0-10); LYMPHOCYTES # (AUTO) 1.7 X 10^3 (1.0-4.0); LYMPHOCYTES % (AUTO) 21 % (12-44); MEAN CORPUSCULAR HEMOGLOBIN 30 PG (25-34); MEAN CORPUSCULAR HGB CONC 31 G/DL (32-36); MEAN CORPUSCULAR VOLUME 95 FL (80-99); MEAN PLATELET VOLUME 10.1 FL (7.4-10.4); MONOCYTES # (AUTO) 0.9 X 10^3 (0.0-1.0); MONOCYTES % (AUTO) 11 % (0-12); NEUTROPHILS # (AUTO) 5.3 X 10^3 (1.8-7.8); NEUTROPHILS % (AUTO) 64 % (42-75); PLATELET COUNT 369 10^3/uL (130-400); RED BLOOD COUNT 2.76 10^6/uL (4.35-5.85); WHITE BLOOD COUNT 8.3 10^3/uL (4.3-11.0)
[2017-03-05 05:36] LABS: INR 3.8 (0.8-1.4); PROTHROMBIN TIME PATIENT 37.3 SEC (12.2-14.7)
[2017-03-05 05:46] LABS: ALBUMIN 2.9 GM/DL (3.2-4.5); BILIRUBIN,TOTAL 0.4 MG/DL (0.1-1.0); CALCIUM 8.8 MG/DL (8.5-10.1); CREATININE SERUM 1.74 MG/DL (0.60-1.30); POTASSIUM 4.3 MMOL/L (3.6-5.0); TOTAL PROTEIN 5.8 GM/DL (6.4-8.2)
[2017-03-05 06:00] VITALS: BP 112/66
[2017-03-05] MEDS: LEVOTHYROXINE 112 MCG (LEVOTHROID) TAB PO SCH (06:05)
[2017-03-05] MEDS: CALCIUM CARB + VIT D 600 MG (CALCARB + D) TAB PO SCH ×2 (06:05→16:46)
[2017-03-05] MEDS: VITAMIN A 8000 UNIT PO SCH ×2 (06:09→16:46)
[2017-03-05] MEDS: DOCUSATE SODIUM 100 MG (COLACE) CAP PO SCH ×2 (07:53→21:16)
[2017-03-05] MEDS: CARVEDILOL 12.5 MG (COREG) TABLET PO SCH ×2 (07:53→21:16)
[2017-03-05] MEDS: BUMETANIDE 1 MG (BUMEX) TAB PO SCH (07:53)
[2017-03-05] MEDS: OXYBUTYNIN (DITROPAN) 5 MG TAB PO SCH (07:53)
[2017-03-05] MEDS: COLCHICINE 0.6 MG (COLCRYS) TABLET PO SCH (07:54)
[2017-03-05] MEDS: MICONAZOLE 2% POWDER (DESENEX AF) 90 GM TOP SCH ×2 (07:55→21:16)
--- NOTE | 2017-03-05 08:47 | PM & R (SOAP) Progress Note ---
Subjective Time Seen by Provider: 08:15 Subjective/Events-last exam Patient was seen in her room this AM Patient SBA for transfers Patient c/o constipation Miralax ordered.Incisions healing well.INR supratherapeutic - Coumadin on hold Objective Exam Last Set of Vital Signs Vital Signs Date Time Temp Pulse Resp B/P (MAP) Pulse Ox O2 Delivery O2 Flow Rate FiO2 03/05/17 06:00 97.0 71 18 112/66 94 Room Air Capillary Refill : Less Than 3 Seconds I&O Intake and Output 03/06/17 00:00 Intake Total 200 ml Balance 200 ml Intake Oral 200 ml # Voids 3 General: Alert, Oriented X3, Cooperative, No Acute Distress HEENT: Atraumatic, PERRLA, EOMI, Mucous Memb Moist/Rulo Neck: Supple, No JVD Lungs: Clear to Auscultation Heart: Regular Rate Abdomen: Normal Bowel Sounds, Soft, No Tenderness Extremities: Other (trace edema left hip) Skin: Other ([place] dressing in place) Neuro: Other (Generalized weakness with guarding left hip ) Results Lab Laboratory Tests 03/03/17 05:36: White Blood Count 7.9, Red Blood Count 2.84L, Hemoglobin 8.6L, Hematocrit 27L, Mean Corpuscular Volume 95, Mean Corpuscular Hemoglobin 30, Mean Corpuscular Hemoglobin Concent 32, Red Cell Distribution Width 13.8, Platelet Count 380, Mean Platelet Volume 9.5, Prothrombin Time 35.0H, INR Comment 3.5H, Sodium Level 138, Potassium Level 4.0, Chloride Level 103, Carbon Dioxide Level 26, Anion Gap 9, Blood Urea Nitrogen 46H, Creatinine 1.53H, Estimat Glomerular Filtration Rate 33, BUN/Creatinine Ratio 30, Glucose Level 90, Calcium Level 8.9 03/04/17 10:45: White Blood Count 11.5H, Red Blood Count 3.27L, Hemoglobin 9.8L, Hematocrit 31L , Mean Corpuscular Volume 95, Mean Corpuscular Hemoglobin 30, Mean Corpuscular Hemoglobin Concent 32, Red Cell Distribution Width 14.1, Platelet Count 460H, Mean Platelet Volume 10.0, Prothrombin Time 34.0H, INR Comment 3.4H, Sodium Level 138, Potassium Level 4.4, Chloride Level 100, Carbon Dioxide Level 27, Anion Gap 11, Blood Urea Nitrogen 49H, Creatinine 1.81H, Estimat Glomerular Filtration Rate 27, BUN/Creatinine Ratio 27, Glucose Level 100, Calcium Level 9.6, Neutrophils (%) (Auto) 76H, Lymphocytes (%) (Auto) 13, Monocytes (%) (Auto ) 8, Eosinophils (%) (Auto) 2, Basophils (%) (Auto) 0, Neutrophils # (Auto) 8.7H , Lymphocytes # (Auto) 1.5, Monocytes # (Auto) 0.9, Eosinophils # (Auto) 0.3, Basophils # (Auto) 0.0, Total Bilirubin 0.5, Aspartate Amino Transf (AST/SGOT) 38H, Alanine Aminotransferase (ALT/SGPT) 33, Alkaline Phosphatase 150H, Total Protein 7.2, Albumin 3.5 03/05/17 04:45: White Blood Count 8.3, Red Blood Count 2.76L, Hemoglobin 8.2L, Hematocrit 26L, Mean Corpuscular Volume 95, Mean Corpuscular Hemoglobin 30, Mean Corpuscular Hemoglobin Concent 31L, Red Cell Distribution Width 14.0, Platelet Count 369, Mean Platelet Volume 10.1, Prothrombin Time 37.3H, INR Comment 3.8H, Sodium Level 138, Potassium Level 4.3, Chloride Level 104, Carbon Dioxide Level 25, Anion Gap 9, Blood Urea Nitrogen 46H, Creatinine 1.74H, Estimat Glomerular Filtration Rate 29, BUN/Creatinine Ratio 26, Glucose Level 93, Calcium Level 8.8 , Neutrophils (%) (Auto) 64, Lymphocytes (%) (Auto) 21, Monocytes (%) (Auto) 11 , Eosinophils (%) (Auto) 4, Basophils (%) (Auto) 0, Neutrophils # (Auto) 5.3, Lymphocytes # (Auto) 1.7, Monocytes # (Auto) 0.9, Eosinophils # (Auto) 0.4H, Basophils # (Auto) 0.0, Total Bilirubin 0.4, Aspartate Amino Transf (AST/SGOT) 49H, Alanine Aminotransferase (ALT/SGPT) 36, Alkaline Phosphatase 126, Total Protein 5.8L, Albumin 2.9L Assessment/Plan Assessment left intertrochanteric femur fracture s/pORIF DR Blanco Left distal femur fracture s/p Plating DR Aleman/Gregg Postop anemia Chronic anticoagulation with coumadin currently on hold as per above Hypothyroidism -compensated Osteoporosis-on Fosamax Postop constipation under treatment Plan Continue PT/OT/Wound care Pain management Team Conference held 03-03-17-See report for full functional update and POC and ELOS F/U with DR Aleman and Hospitalist as per their schedule Appreciate DR Hamilton note. Monitor Labs INR and BUN/CR etc DR Mccormack et al managing ANGELICA YIN MD Mar 05, 2017 08:46
--- NOTE | 2017-03-05 11:01 | Physical Therapy Daily Note ---
PT Daily Note-Current Subjective Pt. feels she has made progress but still having some difficulty wt bearing on LLE. Motivated Pain Numeric Pain Scale: 3 Location: Left Location Body Site: Hip Pain Description: Ache Mental Status Patient Orientation: Normal For Age Transfers Functional [place] Measure 0=Not Assessed/NA 4=Minimal Assistance 1=Total Assistance 5=Supervision or Setup 2=Maximal Assistance 6=Modified [place] 3=Moderate Assistance 7=Complete IndependenceIRFPAI Quality Coding Scale 6 Independent with activity with or without an assistive device 5 Patient requires set up or clean up by helper. Patient completes activity by themselves 4 Supervision or touching assist (CGA). [place] provide cues , steadying assist 3 The helper provides less than half the effort to complete the activity 2 The helper provides more than half the effort to complete the activity 1 Dependent. The helper does all the effort to complete an activity 7 Patient refused to complete or attempt activity 9 The patient did not perform the activity before the current illness or injury 88 Not attempted due to Medical conditions or safety concerns Transfers (B, C, W/C) (FIM): 4 Scootin Rollin Supine to/from Sit: 4 Sit to/from Stand: 4 much time spent educating and working on sit to sup and sup to sit with strengthening for same Weight Bearing Weight Bearing Restriction: Weight Bearing/Tolerated Location Restriction: LT FOOT, L LE Gait Training Does the Patient Walk?: Yes Gait (FIM): 2 Distance (FIM): 9=404-14 ft (125, 100,50x2) Gait Level of Assist: 4 Gait Persons Needed: 1 Gait Assistive Device: FWW pt. positions self to right in walker, needs cues for broader RAQUEL and to clear foot off floor etc. Exercises Supine Ex: Ankle pumps, Quad Set, Rolling, Glut sets, Heel Slides, Short Arc Quads, Scooting, Straight leg raise (assist), Hip abd/add Seated Therapy Exercises: Ankle pumps, Sit to stand, Long arc quads, Hip abd/ add Seated Reps: 12 Assessment Current Status: Good Progress toileted for BM x3 during Rx PT Short Term Goals Short Term Goals Time Frame: Mar 08, 2017 Transfers (B,C,W/C) (FIM): 4 Gait (FIM): 2 Gait Distance Comment: 50' Gait Level of Assist: 4 Gait Assistive Device: FWW Wheelchair (FIM): 5 Wheelchair distance (FIM): 5=142-14 ft Wheelchair Distance: 150' Wheelchair Level of Assist: 5 PT Prison Goals Prison Goals PT Prison Goals Time Frame: Mar 22, 2017 Transfers (B,C,W/C) (FIM): 5 Sit to Lying (QC): 4 Lying-Sitting on Side/Bed(QC): 4 Sit to Stand (QC): 4 Rollin Roll Left to Right (QC): 4 Chair/Ogo-dk-Okndw Xfer(QC): 4 Car Transfer (QC): 4 Does the Patient Walk: Yes Gait (FIM): 5 Gait distance (FIM): 3=150 ft Distance: 150' Walk 10 feet (QC): 4 Walk 10ft-Uneven Surface(QC): 4 Walk 50ft with 2 Turns (QC): 4 Walk 150 ft (QC): 4 Gait Level of Assist: 5 Gait Assistive Device: FWW PT Plan Treatment/Plan Treatment Plan: Continue Plan of Care Treatment Plan: Bed Mobility, Education, Functional Activity [place], Functional Strength, Group Therapy, Gait, Safety, Therapeutic Exercise, Transfers Treatment Duration: Mar 22, 2017 Frequency: At least 5 to 7 days/Wk (IRF) Estimated Hrs Per Day: 1.5 hours per day Patient and/or Family Agrees t: Yes Safety Risks/Education Patient Education: Gait Training, Transfer Techniques, Correct Positioning, Disease Process, Safety Issues Teaching Recipient: Patient Teaching Methods: Demonstration, Discussion Response to Teaching: Verbalize Understanding, Return Demonstration, Reinforcement Needed Time/GCodes Time In: 1000 Time Out: 1100 Total Billed Treatment Time: 60 Total Billed Treatment 1,GT30m,EX15m,FA15m G Codes Necessary: MELINDA Cisneros ELECTRONICS SYSTEM MECHANIC Mar 05, 2017 11:01
--- NOTE | 2017-03-05 11:26 | Progress Note-Hospitalist ---
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 Tried to administer this am but needed to be prn. 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 Pt is worried that she has done something wrong Physical exam stable Pt confirms using a stool softener and not having good BMs Pt will have her carey removed by Dr. Escobedo per his protocol AFVSS, Pleasant, improved, no changes on my exam RRR, CTAB no edema Assessment: Acute left hip fracture status post uncomplicated repair then in need of repeat surgery due to distal femur abnl on xray per Dr Escobedo Fatigue and weakness today likely due to mild increase in creatinine related to Bactrim so DC today Postop anemia requiring 2 units of blood due to her symptomatic status after initial surgery repair HTN Leukocytosis likely due to stress response of surgery- resolved Spine surgery 2013 and placed on Coumadin and maintained since that time to "prevent blood clots" without known h/o clots s/p 1 unit of FFP and Vit K 2.5mg PO but now reversing again with Vit K and FFP but 2.1 at day of transfer to IRU now 2.6 Osteoporosis Post op constipation still an issue UTI completed Bactrim Plan: Completed abx today Fall risk Monitor INR and hold Coumadin today Check INR, CMP, CBC in am Miralax prn Scribed by Ariane Knott under the direct supervision of Dr. Mccormack. HARRIS MCCORMACK DO Mar 05, 2017 11:26
--- NOTE | 2017-03-05 12:18 | Occupational Ther Daily Note ---
OT Current Status-Daily Note Subjective Pt awake. lying in bed. Agreed to therapy, wanted to shower. No c/o pain. Mental Status/Objective Patient Orientation: Person, Place, Time, Situation Functional [place] Measure 0=Not Assessed/NA 4=Minimal Assistance 1=Total Assistance 5=Supervision or Setup 2=Maximal Assistance 6=Modified [place] 3=Moderate Assistance 7=Complete [place] ADL-Treatment After therapy, pt sitting in recliner with phone and call light in reach. All needs met in room. Functional [place] Measure 0=Not Assessed/NA 4=Minimal Assistance 1=Total Assistance 5=Supervision or Setup 2=Maximal Assistance 6=Modified [place] 3=Moderate Assistance 7=Complete IndependenceIRFPAI Quality Coding Scale 6 Independent with activity with or without an assistive device 5 Patient requires set up or clean up by helper. Patient completes activity by themselves 4 Supervision or touching assist (CGA). [place] provide cues , steadying assist 3 The helper provides less than half the effort to complete the activity 2 The helper provides more than half the effort to complete the activity 1 Dependent. The helper does all the effort to complete an activity 7 Patient refused to complete or attempt activity 9 The patient did not perform the activity before the current illness or injury 88 Not attempted due to Medical conditions or safety concerns Grooming (FIM): 6 (Pt able to complete grooming while seated at sink. ) Bathing (FIM): 4 (Pt able to complete bathing using LH sponge. CGA when standing to wash buttocks. ) Bathing Location: L Arm, R Arm, L Upper Leg, R Upper Leg, L Lower Leg ( including foot), R Lower Leg (including foot), Chest, Abdomen, Buttocks, Perineal Area Upper Body (FIM): 5 (After set up, pt able to complete upper body dressing while seated.) Lower Body Dressing (FIM): 4 (After set up, pt able to dress self using dressing stick and sock aid. Min A to hike pants over hips. ) Toileting (FIM): 4 (CGA to manage clothing and hygiene. ) Transfers (B, C, W/C) (FIM): 4 (Requires CGA for sit to stand and ambulation. ) Toilet/Commode Transfer (FIM): 4 (Requires CGA to ambulate in bathroom. Uses FWW and grab bars. ) Shower Transfer(FIM): 4 (Transfers into shower with CGA using grab bars, FWW, and shower bench. ) OT Short Term Goals Short Term Goals Time Frame: Mar 08, 2017 Toileting(FIM): 5 Transfers (B,C,W/C) (FIM): 4 Toilet/Commode Transfer(FIM): 5 Additional Short Term Goals: 2-Verbalize Understanding, 3-ImproveStrength/[place] 1=Demonstrate adherence to instructed precautions during ADL tasks. 2=Patient will verbalize/demonstrate understanding of assistive devices/ modifications for ADL. 3=Patient will improve strength/tolerance for activity to enable patient to perform ADL's. OT Jail Goals Insurance Loss Adjuster Goals Time Frame: Mar 19, 2017 Eating (FIM): 6 Eating (QC): 6 Groomin Oral Hygiene (QC): 6 Bathing(FIM): 6 Shower/Bathe Self (QC): 6 Upper Body Dressing(FIM): 6 Upper Body Dressing (QC): 6 Lower Body Dressing(FIM): 6 Lower Body Dressing (QC): 6 On/Off Footwear (QC): 6 Toileting(FIM): 6 Toileting Hygiene (QC): 6 Toilet/Commode Transfer(FIM): 6 Toilet/Commode Transfer (QC): 6 Shower Transfer(FIM): 6 Additional Goals: 1-Demonstrate ADL Tasks, 2-Verbalize Understanding, 3- ImproveStrength/[place] 1=Demonstrate adherence to instructed precautions during ADL tasks. 2=Patient will verbalize/demonstrate understanding of assistive devices/ modifications for ADL. 3=Patient will improve strength/tolerance for activity to enable patient to perform ADL's. OT Education/Plan Problem List/Assessment Pt would benefit from skilled OT to increase her independence in basic self care to allow her to safely return to her home to live independently. Discharge Recommendations Plan/Recommendations: Continue POC Treatment Plan/Plan of Care Patient would benefit from OT for education, treatment and training to promote independence in ADL's, mobility, safety and/or upper extremity function for ADL' s. Plan of Care: ADL Retraining, Functional Mobility, Group Exercise/Act as Ind ( educ, exercise, activity tolerance, functional activities, socialization), UE Funct Exercise/Act, UE Neuromus Re-Ed/Coord Treatment Duration: Mar 19, 2017 Frequency: At least 5 to 7 days/Wk (IRF) Estimated Hrs Per Day: 1.5 hours per day Agreement: Yes Rehab Potential: Fair Time/GCodes Start Time: 09:00 Stop Time: 10:00 Total Time Billed (hr/min): 60 Billed Treatment Time 1 visit, ADL 4 (60 minutes) LILO NAPIER Mar 05, 2017 12:18
[2017-03-05] MEDS: IRON SUCROSE INJECTION 200 MG in NS (IVPB) 100 ML IV SCH (12:19)
[2017-03-05] MEDS ORDERED: POLYETHYLENE GLYCOL 17 GM (MIRALAX) PACK PO PRN (14:15)
--- NOTE | 2017-03-05 14:17 | Occupational Ther Daily Note ---
OT Current Status-Daily Note Subjective Pt alert, sitting in chair. Upon arrival, pt hooked up to IV. Agrees to therapy in room. Mental Status/Objective Patient Orientation: Person, Place, Time, Situation Functional [place] Measure 0=Not Assessed/NA 4=Minimal Assistance 1=Total Assistance 5=Supervision or Setup 2=Maximal Assistance 6=Modified [place] 3=Moderate Assistance 7=Complete [place] Attachments: IV ADL-Treatment Functional [place] Measure 0=Not Assessed/NA 4=Minimal Assistance 1=Total Assistance 5=Supervision or Setup 2=Maximal Assistance 6=Modified [place] 3=Moderate Assistance 7=Complete IndependenceIRFPAI Quality Coding Scale 6 Independent with activity with or without an assistive device 5 Patient requires set up or clean up by helper. Patient completes activity by themselves 4 Supervision or touching assist (CGA). [place] provide cues , steadying assist 3 The helper provides less than half the effort to complete the activity 2 The helper provides more than half the effort to complete the activity 1 Dependent. The helper does all the effort to complete an activity 7 Patient refused to complete or attempt activity 9 The patient did not perform the activity before the current illness or injury 88 Not attempted due to Medical conditions or safety concerns Other Treatment Pt completed peg/pegboard activity 2x each arm. Pegs placed at far end of table , pt picked up pegs and placed into pegboard then took them out, once with each hand. Pt repeated activity with 1 lb wrist weights on. Pt required several rest/ water breaks throughout session. Worked on B UE FM skills, and arm strength and ROM. Tasks completed to increase strength and activity tolerance for daily functional tasks. Tolerated session well. After therapy, pt sitting in recliner , phone and call light in reach. All needs met in room. OT Short Term Goals Short Term Goals Time Frame: Mar 08, 2017 Toileting(FIM): 5 Transfers (B,C,W/C) (FIM): 4 Toilet/Commode Transfer(FIM): 5 Additional Short Term Goals: 2-Verbalize Understanding, 3-ImproveStrength/[place] 1=Demonstrate adherence to instructed precautions during ADL tasks. 2=Patient will verbalize/demonstrate understanding of assistive devices/ modifications for ADL. 3=Patient will improve strength/tolerance for activity to enable patient to perform ADL's. OT Airborne And Air Delivery Specialist Goals Airborne And Air Delivery Specialist Goals Time Frame: Mar 19, 2017 Eating (FIM): 6 Eating (QC): 6 Groomin Oral Hygiene (QC): 6 Bathing(FIM): 6 Shower/Bathe Self (QC): 6 Upper Body Dressing(FIM): 6 Upper Body Dressing (QC): 6 Lower Body Dressing(FIM): 6 Lower Body Dressing (QC): 6 On/Off Footwear (QC): 6 Toileting(FIM): 6 Toileting Hygiene (QC): 6 Toilet/Commode Transfer(FIM): 6 Toilet/Commode Transfer (QC): 6 Shower Transfer(FIM): 6 Additional Goals: 1-Demonstrate ADL Tasks, 2-Verbalize Understanding, 3- ImproveStrength/[place] 1=Demonstrate adherence to instructed precautions during ADL tasks. 2=Patient will verbalize/demonstrate understanding of assistive devices/ modifications for ADL. 3=Patient will improve strength/tolerance for activity to enable patient to perform ADL's. OT Education/Plan Problem List/Assessment Pt would benefit from skilled OT to increase her independence in basic self care to allow her to safely return to her home to live independently. Discharge Recommendations Plan/Recommendations: Continue POC Treatment Plan/Plan of Care Patient would benefit from OT for education, treatment and training to promote independence in ADL's, mobility, safety and/or upper extremity function for ADL' s. Plan of Care: ADL Retraining, Functional Mobility, Group Exercise/Act as Ind ( educ, exercise, activity tolerance, functional activities, socialization), UE Funct Exercise/Act, UE Neuromus Re-Ed/Coord Treatment Duration: Mar 19, 2017 Frequency: At least 5 to 7 days/Wk (IRF) Estimated Hrs Per Day: 1.5 hours per day Agreement: Yes Rehab Potential: Fair Time/GCodes Start Time: 12:30 Stop Time: 13:00 Total Time Billed (hr/min): 30 Billed Treatment Time 1 visit, EX 2 (30 minutes) LILO NAPIER Mar 05, 2017 14:17
--- NOTE | 2017-03-05 14:35 | Physical Therapy Daily Note ---
PT Daily Note-Current Subjective Pt. agrees to Rx. States she feels she is making progress and thanks this BECK TENDER for encouraging her to meet her goals and press forward Pain Numeric Pain Scale: 0-No Pain Mental Status Patient Orientation: Normal For Age Transfers Functional [place] Measure 0=Not Assessed/NA 4=Minimal Assistance 1=Total Assistance 5=Supervision or Setup 2=Maximal Assistance 6=Modified [place] 3=Moderate Assistance 7=Complete IndependenceIRFPAI Quality Coding Scale 6 Independent with activity with or without an assistive device 5 Patient requires set up or clean up by helper. Patient completes activity by themselves 4 Supervision or touching assist (CGA). [place] provide cues , steadying assist 3 The helper provides less than half the effort to complete the activity 2 The helper provides more than half the effort to complete the activity 1 Dependent. The helper does all the effort to complete an activity 7 Patient refused to complete or attempt activity 9 The patient did not perform the activity before the current illness or injury 88 Not attempted due to Medical conditions or safety concerns in out bed and chair SBA to CGA Weight Bearing Weight Bearing Restriction: Weight Bearing/Tolerated Location Restriction: R LE Gait Training Does the Patient Walk?: Yes Distance (FIM): 3=233-95 ft (60ftx3) Gait Level of Assist: 4 Gait Persons Needed: 1 Gait Assistive Device: FWW cued and instructed for positioning in FWW Exercises Seated Therapy Exercises: Ankle pumps, Sit to stand, Long arc quads, Hip flexion (right) Seated Reps: 10 Assessment Current Status: Good Progress PT Short Term Goals Short Term Goals Time Frame: Mar 08, 2017 Transfers (B,C,W/C) (FIM): 4 Gait (FIM): 2 Gait Distance Comment: 50' Gait Level of Assist: 4 Gait Assistive Device: FWW Wheelchair (FIM): 5 Wheelchair distance (FIM): 7=342-00 ft Wheelchair Distance: 150' Wheelchair Level of Assist: 5 PT Jail Goals Jail Goals PT [place] Operator Goals Time Frame: Mar 22, 2017 Transfers (B,C,W/C) (FIM): 5 Sit to Lying (QC): 4 Lying-Sitting on Side/Bed(QC): 4 Sit to Stand (QC): 4 Rollin Roll Left to Right (QC): 4 Chair/Udz-pj-Qygfk Xfer(QC): 4 Car Transfer (QC): 4 Does the Patient Walk: Yes Gait (FIM): 5 Gait distance (FIM): 3=150 ft Distance: 150' Walk 10 feet (QC): 4 Walk 10ft-Uneven Surface(QC): 4 Walk 50ft with 2 Turns (QC): 4 Walk 150 ft (QC): 4 Gait Level of Assist: 5 Gait Assistive Device: FWW PT Plan Treatment/Plan Treatment Plan: Continue Plan of Care Treatment Plan: Bed Mobility, Education, Functional Activity [place], Functional Strength, Group Therapy, Gait, Safety, Therapeutic Exercise, Transfers Treatment Duration: Mar 22, 2017 Frequency: At least 5 to 7 days/Wk (IRF) Estimated Hrs Per Day: 1.5 hours per day Patient and/or Family Agrees t: Yes Safety Risks/Education Patient Education: Gait Training, Transfer Techniques, Correct Positioning, Safety Issues Teaching Recipient: Patient Teaching Methods: Demonstration, Discussion Response to Teaching: Verbalize Understanding, Return Demonstration, Reinforcement Needed Time/GCodes Time In: 1400 Time Out: 1430 Total Billed Treatment Time: 30 Total Billed Treatment 1,FA30m G Codes Necessary: MELINDA Cisneros BECK TENDER Mar 05, 2017 14:35
[2017-03-05] MEDS: warFARin 2.5 MG (COUMADIN) TAB PO SCH (18:04)
[2017-03-05 18:36] VITALS: BP 103/62
[2017-03-05] MEDS: POLYETHYLENE GLYCOL 17 GM (MIRALAX) PACK PO SCH (21:16)
[2017-03-06 05:00] VITALS: BP 105/59
[2017-03-06] MEDS: VITAMIN A 8000 UNIT PO SCH ×2 (06:08→17:18)
[2017-03-06] MEDS: CALCIUM CARB + VIT D 600 MG (CALCARB + D) TAB PO SCH ×2 (06:08→17:18)
[2017-03-06] MEDS: LEVOTHYROXINE 112 MCG (LEVOTHROID) TAB PO SCH (06:08)
[2017-03-06 06:44] LABS: BASOPHILS # (AUTO) 0.1 10^3/uL (0.0-0.1); BASOPHILS % (AUTO) 1 % (0-10); EOSINOPHILS # (AUTO) 0.4 10^3/uL (0.0-0.3); EOSINOPHILS % (AUTO) 5 % (0-10); LYMPHOCYTES # (AUTO) 2.1 X 10^3 (1.0-4.0); LYMPHOCYTES % (AUTO) 27 % (12-44); MEAN CORPUSCULAR HEMOGLOBIN 30 PG (25-34); MEAN CORPUSCULAR HGB CONC 31 G/DL (32-36); MEAN CORPUSCULAR VOLUME 96 FL (80-99); MEAN PLATELET VOLUME 10.1 FL (7.4-10.4); MONOCYTES # (AUTO) 0.9 X 10^3 (0.0-1.0); MONOCYTES % (AUTO) 11 % (0-12); NEUTROPHILS # (AUTO) 4.3 X 10^3 (1.8-7.8); NEUTROPHILS % (AUTO) 56 % (42-75); PLATELET COUNT 354 10^3/uL (130-400); RED BLOOD COUNT 2.95 10^6/uL (4.35-5.85); RED CELL DISTRIBUTION WIDTH 14.4 % (10.0-14.5); WHITE BLOOD COUNT 7.7 10^3/uL (4.3-11.0)
[2017-03-06 06:53] LABS: INR 2.5 (0.8-1.4); PROTHROMBIN TIME PATIENT 26.9 SEC (12.2-14.7)
[2017-03-06 07:06] LABS: ALBUMIN 2.9 GM/DL (3.2-4.5); BILIRUBIN,TOTAL 0.5 MG/DL (0.1-1.0); CALCIUM 8.9 MG/DL (8.5-10.1); CREATININE SERUM 1.53 MG/DL (0.60-1.30); POTASSIUM 4.2 MMOL/L (3.6-5.0)
[2017-03-06] MEDS: OXYBUTYNIN (DITROPAN) 5 MG TAB PO SCH (08:20)
[2017-03-06] MEDS: BUMETANIDE 1 MG (BUMEX) TAB PO SCH (08:20)
[2017-03-06] MEDS: COLCHICINE 0.6 MG (COLCRYS) TABLET PO SCH (08:20)
[2017-03-06] MEDS: DOCUSATE SODIUM 100 MG (COLACE) CAP PO SCH ×2 (08:20→20:41)
[2017-03-06] MEDS: CARVEDILOL 12.5 MG (COREG) TABLET PO SCH ×2 (08:20→20:42)
[2017-03-06] MEDS: MICONAZOLE 2% POWDER (DESENEX AF) 90 GM TOP SCH ×2 (08:22→20:42)
--- NOTE | 2017-03-06 14:38 | Physical Therapy Daily Note ---
PT Daily Note-Current Subjective Pt reports she would like to walk with her shoes on. Transfers Functional [place] Measure 0=Not Assessed/NA 4=Minimal Assistance 1=Total Assistance 5=Supervision or Setup 2=Maximal Assistance 6=Modified [place] 3=Moderate Assistance 7=Complete IndependenceIRFPAI Quality Coding Scale 6 Independent with activity with or without an assistive device 5 Patient requires set up or clean up by helper. Patient completes activity by themselves 4 Supervision or touching assist (CGA). [place] provide cues , steadying assist 3 The helper provides less than half the effort to complete the activity 2 The helper provides more than half the effort to complete the activity 1 Dependent. The helper does all the effort to complete an activity 7 Patient refused to complete or attempt activity 9 The patient did not perform the activity before the current illness or injury 88 Not attempted due to Medical conditions or safety concerns Transfers (B, C, W/C) (FIM): 4 Gait Training Distance (FIM): 1=up to 49 ft Distance: 40 Gait Level of Assist: 4 Gait Persons Needed: 1 Gait Assistive Device: Cane Large Base Quad Education on how to perform a swing through gait pattern. Performed 4 trials 40ft each with emphasis on increased (L) stance time and use of UEs in order to swing the (R) leg through to heel strike. Exercises Seated Therapy Exercises: Ankle pumps, Sit to stand, Long arc quads, Kicking activity, Hamstring Curls Seated Reps: 10 Assessment Current Status: Good Progress PT Short Term Goals Short Term Goals Time Frame: Mar 08, 2017 Transfers (B,C,W/C) (FIM): 4 Gait (FIM): 2 Gait Distance Comment: 50' Gait Level of Assist: 4 Gait Assistive Device: FWW Wheelchair (FIM): 5 Wheelchair distance (FIM): 5=851-55 ft Wheelchair Distance: 150' Wheelchair Level of Assist: 5 PT Usp Goals Laceworker Goals PT Laceworker Goals Time Frame: Mar 22, 2017 Transfers (B,C,W/C) (FIM): 5 Sit to Lying (QC): 4 Lying-Sitting on Side/Bed(QC): 4 Sit to Stand (QC): 4 Rollin Roll Left to Right (QC): 4 Chair/Jhf-cg-Alwtq Xfer(QC): 4 Car Transfer (QC): 4 Does the Patient Walk: Yes Gait (FIM): 5 Gait distance (FIM): 3=150 ft Distance: 150' Walk 10 feet (QC): 4 Walk 10ft-Uneven Surface(QC): 4 Walk 50ft with 2 Turns (QC): 4 Walk 150 ft (QC): 4 Gait Level of Assist: 5 Gait Assistive Device: FWW PT Plan Treatment/Plan Treatment Plan: Continue Plan of Care Treatment Plan: Bed Mobility, Education, Functional Activity [place], Functional Strength, Group Therapy, Gait, Safety, Therapeutic Exercise, Transfers Treatment Duration: Mar 22, 2017 Frequency: At least 5 to 7 days/Wk (IRF) Estimated Hrs Per Day: 1.5 hours per day Patient and/or Family Agrees t: Yes Time/GCodes Time In: 845 Time Out: 905 Total Billed Treatment Time: 20 Total Billed Treatment visit, gait 15 min, exercise 5 min BIJAN TERRY PT Mar 06, 2017 14:38
[2017-03-06] MEDS: warFARin 2.5 MG (COUMADIN) TAB PO SCH (17:18)
[2017-03-06 17:44] VITALS: BP 117/74
[2017-03-06] MEDS: POLYETHYLENE GLYCOL 17 GM (MIRALAX) PACK PO SCH (20:41)
[2017-03-07 05:23] VITALS: BP 113/67
[2017-03-07] MEDS: CALCIUM CARB + VIT D 600 MG (CALCARB + D) TAB PO SCH ×2 (06:13→17:41)
[2017-03-07] MEDS: LEVOTHYROXINE 112 MCG (LEVOTHROID) TAB PO SCH (06:13)
[2017-03-07] MEDS: VITAMIN A 8000 UNIT PO SCH ×2 (06:13→17:41)
[2017-03-07] MEDS ORDERED: ALENDRONATE SODIUM 70 MG (FOSAMAX) TAB PO SCH (06:30)
[2017-03-07] MEDS: OXYBUTYNIN (DITROPAN) 5 MG TAB PO SCH (09:05)
[2017-03-07] MEDS: CARVEDILOL 12.5 MG (COREG) TABLET PO SCH ×2 (09:05→20:40)
[2017-03-07] MEDS: COLCHICINE 0.6 MG (COLCRYS) TABLET PO SCH (09:05)
[2017-03-07] MEDS: BUMETANIDE 1 MG (BUMEX) TAB PO SCH (09:05)
[2017-03-07] MEDS: DOCUSATE SODIUM 100 MG (COLACE) CAP PO SCH ×2 (09:05→20:40)
[2017-03-07] MEDS: MICONAZOLE 2% POWDER (DESENEX AF) 90 GM TOP SCH ×2 (09:06→20:41)
[2017-03-07] MEDS: IRON SUCROSE INJECTION 200 MG in NS (IVPB) 100 ML IV SCH (11:27)
[2017-03-07] MEDS: warFARin 2.5 MG (COUMADIN) TAB PO SCH (17:41)
[2017-03-07 18:07] VITALS: BP 98/65
[2017-03-07] MEDS: POLYETHYLENE GLYCOL 17 GM (MIRALAX) PACK PO SCH (20:40)
[2017-03-08 05:45] VITALS: BP 127/74
[2017-03-08] MEDS: CALCIUM CARB + VIT D 600 MG (CALCARB + D) TAB PO SCH ×2 (06:22→17:19)
[2017-03-08] MEDS: LEVOTHYROXINE 112 MCG (LEVOTHROID) TAB PO SCH (06:22)
[2017-03-08] MEDS: VITAMIN A 8000 UNIT PO SCH ×2 (06:23→17:20)
[2017-03-08] MEDS: COLCHICINE 0.6 MG (COLCRYS) TABLET PO SCH (09:12)
[2017-03-08] MEDS: DOCUSATE SODIUM 100 MG (COLACE) CAP PO SCH ×2 (09:12→20:32)
[2017-03-08] MEDS: BUMETANIDE 1 MG (BUMEX) TAB PO SCH (09:12)
[2017-03-08] MEDS: ACETAMINOPHEN 500 MG TAB (TYLENOL) PO PRN (09:12)
[2017-03-08] MEDS: CARVEDILOL 12.5 MG (COREG) TABLET PO SCH ×2 (09:12→20:32)
[2017-03-08] MEDS: OXYBUTYNIN (DITROPAN) 5 MG TAB PO SCH (09:12)
[2017-03-08] MEDS: MICONAZOLE 2% POWDER (DESENEX AF) 90 GM TOP SCH ×2 (09:13→20:32)
--- NOTE | 2017-03-08 09:54 | Occupational Ther Daily Note ---
OT Current Status-Daily Note Subjective Pt seen in room, up in recliner, agreeable to OT. Would like to shower today. No pain mentioned. Appearance Alert, cooperative Mental Status/Objective Functional [place] Measure 0=Not Assessed/NA 4=Minimal Assistance 1=Total Assistance 5=Supervision or Setup 2=Maximal Assistance 6=Modified [place] 3=Moderate Assistance 7=Complete [place] ADL-Treatment SBA walking to and from bathroom, with FWW. Still bears a lot of weight in her arms while using FWW. Functional [place] Measure 0=Not Assessed/NA 4=Minimal Assistance 1=Total Assistance 5=Supervision or Setup 2=Maximal Assistance 6=Modified [place] 3=Moderate Assistance 7=Complete IndependenceIRFPAI Quality Coding Scale 6 Independent with activity with or without an assistive device 5 Patient requires set up or clean up by helper. Patient completes activity by themselves 4 Supervision or touching assist (CGA). [place] provide cues , steadying assist 3 The helper provides less than half the effort to complete the activity 2 The helper provides more than half the effort to complete the activity 1 Dependent. The helper does all the effort to complete an activity 7 Patient refused to complete or attempt activity 9 The patient did not perform the activity before the current illness or injury 88 Not attempted due to Medical conditions or safety concerns Bathing (FIM): 5 (Pt washed and dried all parts, including lower legs and bottom. pt educ on use of long handled sponge to dry lower legs. shower bench, grab bars, hand held shower. ) Upper Body (FIM): 5 (setup) Lower Body Dressing (FIM): 5 (setup. SBA when standing to pull pants up. No help to get pants over hips.FWW. Used dressing stick and sock aid) Transfers (B, C, W/C) (FIM): 5 (SBA, FWW. No cues for hand placement) Toilet/Commode Transfer (FIM): 5 (SBA, BSC over toilet, grab bar, FWW) Shower Transfer(FIM): 4 (CGA getting in and out of shower, shower bench, grab bar) Other Treatment Pt sat in recliner at end of tx. Did 10 reps several different bilat UE exercises with red theraband (increased to medium resistance). Pt educ as needed on the different exercises. To strengthen arms for standing and walking during ADLs. Education OT Patient Education: Exercise program, Modified ADL techniques, Progress toward Goal/Update tx plan, Purpose of tx/functional activities Teaching Recipient: Patient Teaching Methods: Discussion Response to Teaching: Verbalize Understanding OT Short Term Goals Short Term Goals Time Frame: Mar 08, 2017 Toileting(FIM): 5 Transfers (B,C,W/C) (FIM): 4 Toilet/Commode Transfer(FIM): 5 Additional Short Term Goals: 2-Verbalize Understanding, 3-ImproveStrength/[place] 1=Demonstrate adherence to instructed precautions during ADL tasks. 2=Patient will verbalize/demonstrate understanding of assistive devices/ modifications for ADL. 3=Patient will improve strength/tolerance for activity to enable patient to perform ADL's. OT Draw Bench Operator Helper Goals Retirement Goals Time Frame: Mar 19, 2017 Eating (FIM): 6 Eating (QC): 6 Groomin Oral Hygiene (QC): 6 Bathing(FIM): 6 Shower/Bathe Self (QC): 6 Upper Body Dressing(FIM): 6 Upper Body Dressing (QC): 6 Lower Body Dressing(FIM): 6 Lower Body Dressing (QC): 6 On/Off Footwear (QC): 6 Toileting(FIM): 6 Toileting Hygiene (QC): 6 Toilet/Commode Transfer(FIM): 6 Toilet/Commode Transfer (QC): 6 Shower Transfer(FIM): 6 Additional Goals: 1-Demonstrate ADL Tasks, 2-Verbalize Understanding, 3- ImproveStrength/[place] 1=Demonstrate adherence to instructed precautions during ADL tasks. 2=Patient will verbalize/demonstrate understanding of assistive devices/ modifications for ADL. 3=Patient will improve strength/tolerance for activity to enable patient to perform ADL's. OT Education/Plan Problem List/Assessment Pt would benefit from skilled OT to increase her independence in basic self care to allow her to safely return to her home to live independently. Discharge Recommendations Plan/Recommendations: Continue POC Treatment Plan/Plan of Care Patient would benefit from OT for education, treatment and training to promote independence in ADL's, mobility, safety and/or upper extremity function for ADL' s. Plan of Care: ADL Retraining, Functional Mobility, Group Exercise/Act as Ind ( educ, exercise, activity tolerance, functional activities, socialization), UE Funct Exercise/Act, UE Neuromus Re-Ed/Coord Treatment Duration: Mar 19, 2017 Frequency: At least 5 to 7 days/Wk (IRF) Estimated Hrs Per Day: 1.5 hours per day Agreement: Yes Rehab Potential: Fair Time/GCodes Start Time: 08:30 Stop Time: 09:30 Total Time Billed (hr/min): 60 Billed Treatment Time visit, 50 minutes ADL, 10 minutes exercise CONY WHITNEY OT Mar 08, 2017 09:54
--- NOTE | 2017-03-08 11:06 | Physical Therapy Daily Note ---
PT Daily Note-Current Subjective Pt. agrees to Rx . States she feels like she is making progress. Pain Numeric Pain Scale: 0-No Pain Mental Status Patient Orientation: Normal For Age Transfers Functional [place] Measure 0=Not Assessed/NA 4=Minimal Assistance 1=Total Assistance 5=Supervision or Setup 2=Maximal Assistance 6=Modified [place] 3=Moderate Assistance 7=Complete IndependenceIRFPAI Quality Coding Scale 6 Independent with activity with or without an assistive device 5 Patient requires set up or clean up by helper. Patient completes activity by themselves 4 Supervision or touching assist (CGA). [place] provide cues , steadying assist 3 The helper provides less than half the effort to complete the activity 2 The helper provides more than half the effort to complete the activity 1 Dependent. The helper does all the effort to complete an activity 7 Patient refused to complete or attempt activity 9 The patient did not perform the activity before the current illness or injury 88 Not attempted due to Medical conditions or safety concerns Transfers (B, C, W/C) (FIM): 4 Scootin Rollin Supine to/from Sit: 4 Sit to/from Stand: 5 Gait Training Does the Patient Walk?: Yes Gait (FIM): 2 Distance (FIM): 6=773-64 ft (125x3) Gait Level of Assist: 4 Gait Persons Needed: 1 Exercises Supine Ex: Ankle pumps, Quad Set, Heel Slides, Short Arc Quads, Scooting, Hip abd/add Supine Reps: 12 NuStep Minutes: 12 NuStep Workload: 3 Assessment Current Status: Good Progress gait improved, better step through PT Short Term Goals Short Term Goals Time Frame: Mar 08, 2017 Transfers (B,C,W/C) (FIM): 4 Gait (FIM): 2 Gait Distance Comment: 50' Gait Level of Assist: 4 Gait Assistive Device: FWW Wheelchair (FIM): 5 Wheelchair distance (FIM): 1=333-59 ft Wheelchair Distance: 150' Wheelchair Level of Assist: 5 PT Care Home Goals Care Home Goals PT Ticker Maintainer Goals Time Frame: Mar 22, 2017 Transfers (B,C,W/C) (FIM): 5 Sit to Lying (QC): 4 Lying-Sitting on Side/Bed(QC): 4 Sit to Stand (QC): 4 Rollin Roll Left to Right (QC): 4 Chair/Otd-uu-Pkyav Xfer(QC): 4 Car Transfer (QC): 4 Does the Patient Walk: Yes Gait (FIM): 5 Gait distance (FIM): 3=150 ft Distance: 150' Walk 10 feet (QC): 4 Walk 10ft-Uneven Surface(QC): 4 Walk 50ft with 2 Turns (QC): 4 Walk 150 ft (QC): 4 Gait Level of Assist: 5 Gait Assistive Device: FWW PT Plan Treatment/Plan Treatment Plan: Continue Plan of Care Treatment Plan: Bed Mobility, Education, Functional Activity [place], Functional Strength, Group Therapy, Gait, Safety, Therapeutic Exercise, Transfers Treatment Duration: Mar 22, 2017 Frequency: At least 5 to 7 days/Wk (IRF) Estimated Hrs Per Day: 1.5 hours per day Patient and/or Family Agrees t: Yes Safety Risks/Education Patient Education: Gait Training, Transfer Techniques Teaching Recipient: Patient Teaching Methods: Demonstration, Discussion Response to Teaching: Verbalize Understanding, Return Demonstration, Reinforcement Needed Time/GCodes Time In: 1000 Time Out: 1100 Total Billed Treatment Time: 60 Total Billed Treatment 1,GT30m,EX15m,FA15m G Codes Necessary: MELINDA Cisneros ANIMAL BREEDER Mar 08, 2017 11:06
[2017-03-08 12:39] LABS: INR 1.8 (0.8-1.4); PROTHROMBIN TIME PATIENT 20.5 SEC (12.2-14.7)
--- NOTE | 2017-03-08 15:00 | Physical Therapy Daily Note ---
PT Daily Note-Current Subjective Patient reports she is doing better and plans to dismiss to home this week. Pain Numeric Pain Scale: 5-Moderate Pain Location: Left Location Body Site: Knee Pain Description: Ache, Acute Mental Status Patient Orientation: Normal For Age Transfers Functional [place] Measure 0=Not Assessed/NA 4=Minimal Assistance 1=Total Assistance 5=Supervision or Setup 2=Maximal Assistance 6=Modified [place] 3=Moderate Assistance 7=Complete IndependenceIRFPAI Quality Coding Scale 6 Independent with activity with or without an assistive device 5 Patient requires set up or clean up by helper. Patient completes activity by themselves 4 Supervision or touching assist (CGA). [place] provide cues , steadying assist 3 The helper provides less than half the effort to complete the activity 2 The helper provides more than half the effort to complete the activity 1 Dependent. The helper does all the effort to complete an activity 7 Patient refused to complete or attempt activity 9 The patient did not perform the activity before the current illness or injury 88 Not attempted due to Medical conditions or safety concerns Transfers (B, C, W/C) (FIM): 5 Scootin Rollin Roll Left to Right (QC): 4 Supine to/from Sit: 5 Sit to/from Stand: 5 Sit to Lying (QC): 4 Sit to Stand (QC): 4 supine<>sit transfer training to right and left with patient performing with slight difficulty and discovered it to be more appropriate to perform to right patient performed this activity in the gym on the flat mat Weight Bearing Weight Bearing Restriction: Weight Bearing/Tolerated Location Restriction: L LE Gait Training Does the Patient Walk?: Yes Gait (FIM): 2 Distance (FIM): 0=541-60 ft Distance: 100' x 2 Walk 10 feet (QC): 4 Walk 50 ft with 2 Turns(QC): 4 Gait Level of Assist: 5 Gait Persons Needed: 1 Gait Assistive Device: FWW continues with step to gait sequence with 90% of gait and is able to perform reciprocal pattern 10% Assessment Patient's UE's fatigue with activity due to weight bearing with FWW with gait training. PT to continue to address functional mobility and strengthening to ensure safe return to home. PT Short Term Goals Short Term Goals Time Frame: Mar 08, 2017 Transfers (B,C,W/C) (FIM): 4 Gait (FIM): 2 Gait Distance Comment: 50' Gait Level of Assist: 4 Gait Assistive Device: FWW Wheelchair (FIM): 5 Wheelchair distance (FIM): 8=202-41 ft Wheelchair Distance: 150' Wheelchair Level of Assist: 5 PT Residential Goals [place] Driver Goals PT [place] Driver Goals Time Frame: Mar 22, 2017 Transfers (B,C,W/C) (FIM): 5 Sit to Lying (QC): 4 Lying-Sitting on Side/Bed(QC): 4 Sit to Stand (QC): 4 Rollin Roll Left to Right (QC): 4 Chair/Rxx-hj-Lcejk Xfer(QC): 4 Car Transfer (QC): 4 Does the Patient Walk: Yes Gait (FIM): 5 Gait distance (FIM): 3=150 ft Distance: 150' Walk 10 feet (QC): 4 Walk 10ft-Uneven Surface(QC): 4 Walk 50ft with 2 Turns (QC): 4 Walk 150 ft (QC): 4 Gait Level of Assist: 5 Gait Assistive Device: FWW PT Plan Treatment/Plan Treatment Plan: Continue Plan of Care Treatment Plan: Bed Mobility, Education, Functional Activity [place], Functional Strength, Group Therapy, Gait, Safety, Therapeutic Exercise, Transfers Treatment Duration: Mar 22, 2017 Frequency: At least 5 to 7 days/Wk (IRF) Estimated Hrs Per Day: 1.5 hours per day Patient and/or Family Agrees t: Yes Time/GCodes Time In: 1420 Time Out: 1450 Total Billed Treatment Time: 30 Total Billed Treatment 1 visit GT 15 min FA 15 min JOLIE RESTREPO PT Mar 08, 2017 15:00
--- NOTE | 2017-03-08 15:30 | Occupational Ther Daily Note ---
OT Current Status-Daily Note Subjective Pt seen in room, up in recliner, agreeable to OT. No pain mentioned. Appearance Alert, cooperative Mental Status/Objective Functional [place] Measure 0=Not Assessed/NA 4=Minimal Assistance 1=Total Assistance 5=Supervision or Setup 2=Maximal Assistance 6=Modified [place] 3=Moderate Assistance 7=Complete [place] ADL-Treatment Functional [place] Measure 0=Not Assessed/NA 4=Minimal Assistance 1=Total Assistance 5=Supervision or Setup 2=Maximal Assistance 6=Modified [place] 3=Moderate Assistance 7=Complete IndependenceIRFPAI Quality Coding Scale 6 Independent with activity with or without an assistive device 5 Patient requires set up or clean up by helper. Patient completes activity by themselves 4 Supervision or touching assist (CGA). [place] provide cues , steadying assist 3 The helper provides less than half the effort to complete the activity 2 The helper provides more than half the effort to complete the activity 1 Dependent. The helper does all the effort to complete an activity 7 Patient refused to complete or attempt activity 9 The patient did not perform the activity before the current illness or injury 88 Not attempted due to Medical conditions or safety concerns Other Treatment Pt sit to stand with SBA for safety, FWW. Walked to w/c with SBA and did not need cues for safe sitting. Transported to gym per w/c. Pt did 15 minutes bilat UE exercise with arm bike set at 15W resistance to strengthen arms to help with weight bearing and walker use. Pt took a couple brief recovery breaks to get some ice but otherwise worked at steady pace. She is consistent about locking breaks. Pt asked what she thought she would have trouble doing at home and she said getting her laundry to the washer. She would use a power distribution engineer to get clothes out of dryer. She also has a BSC at home that she can have put over her toilet to give her arm rests for pushing up. Pt returned to room per w/c and was left up in chair, per her request, all needs met, visiting with sister. Education OT Patient Education: Exercise program, Purpose of tx/functional activities Teaching Recipient: Patient Teaching Methods: Discussion Response to Teaching: Verbalize Understanding OT Short Term Goals Short Term Goals Time Frame: Mar 08, 2017 Toileting(FIM): 5 Transfers (B,C,W/C) (FIM): 4 Toilet/Commode Transfer(FIM): 5 Additional Short Term Goals: 2-Verbalize Understanding, 3-ImproveStrength/[place] 1=Demonstrate adherence to instructed precautions during ADL tasks. 2=Patient will verbalize/demonstrate understanding of assistive devices/ modifications for ADL. 3=Patient will improve strength/tolerance for activity to enable patient to perform ADL's. OT Plow Holder Goals Plow Holder Goals Time Frame: Mar 19, 2017 Eating (FIM): 6 Eating (QC): 6 Groomin Oral Hygiene (QC): 6 Bathing(FIM): 6 Shower/Bathe Self (QC): 6 Upper Body Dressing(FIM): 6 Upper Body Dressing (QC): 6 Lower Body Dressing(FIM): 6 Lower Body Dressing (QC): 6 On/Off Footwear (QC): 6 Toileting(FIM): 6 Toileting Hygiene (QC): 6 Toilet/Commode Transfer(FIM): 6 Toilet/Commode Transfer (QC): 6 Shower Transfer(FIM): 6 Additional Goals: 1-Demonstrate ADL Tasks, 2-Verbalize Understanding, 3- ImproveStrength/[place] 1=Demonstrate adherence to instructed precautions during ADL tasks. 2=Patient will verbalize/demonstrate understanding of assistive devices/ modifications for ADL. 3=Patient will improve strength/tolerance for activity to enable patient to perform ADL's. OT Education/Plan Problem List/Assessment Pt would benefit from skilled OT to increase her independence in basic self care to allow her to safely return to her home to live independently. Discharge Recommendations Plan/Recommendations: Continue POC Treatment Plan/Plan of Care Patient would benefit from OT for education, treatment and training to promote independence in ADL's, mobility, safety and/or upper extremity function for ADL' s. Plan of Care: ADL Retraining, Functional Mobility, Group Exercise/Act as Ind ( educ, exercise, activity tolerance, functional activities, socialization), UE Funct Exercise/Act, UE Neuromus Re-Ed/Coord Treatment Duration: Mar 19, 2017 Frequency: At least 5 to 7 days/Wk (IRF) Estimated Hrs Per Day: 1.5 hours per day Agreement: Yes Rehab Potential: Fair Time/GCodes Start Time: 13:00 Stop Time: 13:30 Total Time Billed (hr/min): 30 Billed Treatment Time visit, 30 minutes exercise CONY WHITNEY OT Mar 08, 2017 15:30
[2017-03-08] MEDS: warFARin 2.5 MG (COUMADIN) TAB PO SCH (17:19)
--- NOTE | 2017-03-08 18:24 | PM & R (SOAP) Progress Note ---
Subjective Time Seen by Provider: 17:45 Subjective/Events-last exam Patient was seen in her room this evening Progressing well with therapies INR and CBC noted Anemia improving Patient c/o increased swelling left thigh non tender Patient on coumadin Patient min assist for trsnsfers Consider Venous doppler Objective Exam Last Set of Vital Signs Vital Signs Date Time Temp Pulse Resp B/P (MAP) Pulse Ox O2 Delivery O2 Flow Rate FiO2 03/08/17 09:00 Room Air 03/08/17 05:45 96.0 76 20 127/74 94 Capillary Refill : Less Than 3 Seconds I&O Intake and Output 03/08/17 23:59 Intake Total 300 ml Balance 300 ml Intake Oral 300 ml # Urine Diapers 3 General: Alert, Oriented X3, Cooperative, No Acute Distress HEENT: Atraumatic, PERRLA, EOMI, Mucous Memb Moist/[place] Neck: Supple, No JVD Lungs: Clear to Auscultation Heart: Regular Rate Abdomen: Normal Bowel Sounds, Soft, No Tenderness Extremities: Other (trace edema left hip) Skin: Other ([place] dressing in place) Neuro: Other (Generalized weakness with guarding left hip ) Results Lab Laboratory Tests 03/06/17 05:36: White Blood Count 7.7, Red Blood Count 2.95L, Hemoglobin 8.8L, Hematocrit 28L, Mean Corpuscular Volume 96, Mean Corpuscular Hemoglobin 30, Mean Corpuscular Hemoglobin Concent 31L, Red Cell Distribution Width 14.4, Platelet Count 354, Mean Platelet Volume 10.1, Neutrophils (%) (Auto) 56, Lymphocytes (%) (Auto) 27 , Monocytes (%) (Auto) 11, Eosinophils (%) (Auto) 5, Basophils (%) (Auto) 1, Neutrophils # (Auto) 4.3, Lymphocytes # (Auto) 2.1, Monocytes # (Auto) 0.9, Eosinophils # (Auto) 0.4H, Basophils # (Auto) 0.1, Prothrombin Time 26.9H, INR Comment 2.5H, Sodium Level 140, Potassium Level 4.2, Chloride Level 106, Carbon Dioxide Level 24, Anion Gap 10, Blood Urea Nitrogen 38H, Creatinine 1.53H, Estimat Glomerular Filtration Rate 33, BUN/Creatinine Ratio 25, Glucose Level 90 , Calcium Level 8.9, Total Bilirubin 0.5, Aspartate Amino Transf (AST/SGOT) 74H , Alanine Aminotransferase (ALT/SGPT) 60H, Alkaline Phosphatase 147H, Total Protein 6.0L, Albumin 2.9L 03/08/17 12:12: Prothrombin Time 20.5H, INR Comment 1.8H Assessment/Plan Assessment left intertrochanteric femur fracture s/pORIF DR Blanco Left distal femur fracture s/p Plating DR Aleman/Gregg Postop anemia-improving Chronic anticoagulation with coumadin being managed by Hospitalist service Hypothyroidism -compensated Osteoporosis-on Fosamax Postop constipation under treatment Increased swelling left knee Plan Continue PT/OT/Wound care Pain management F/U with DR Aleman and Hospitalist as per their schedule Appreciate DR Hamilton notes. Monitor Labs INR and BUN/CR etc DR Mccormack et al managing Monitor swelling left knee-ice ANGELICA Mccray MD Mar 08, 2017 18:24
[2017-03-08 18:25] VITALS: BP 109/73
[2017-03-08] MEDS: POLYETHYLENE GLYCOL 17 GM (MIRALAX) PACK PO SCH (20:32)
[2017-03-09 05:51] VITALS: BP 114/66
[2017-03-09] MEDS: LEVOTHYROXINE 112 MCG (LEVOTHROID) TAB PO SCH (06:14)
[2017-03-09] MEDS: CALCIUM CARB + VIT D 600 MG (CALCARB + D) TAB PO SCH ×2 (06:14→16:58)
[2017-03-09] MEDS: VITAMIN A 8000 UNIT PO SCH ×2 (06:14→16:58)
[2017-03-09 07:45] VITALS: BP 129/68
[2017-03-09] MEDS: CARVEDILOL 12.5 MG (COREG) TABLET PO SCH ×2 (07:46→20:42)
[2017-03-09] MEDS: COLCHICINE 0.6 MG (COLCRYS) TABLET PO SCH (07:46)
[2017-03-09] MEDS: MICONAZOLE 2% POWDER (DESENEX AF) 90 GM TOP SCH ×2 (07:46→20:42)
[2017-03-09] MEDS: BUMETANIDE 1 MG (BUMEX) TAB PO SCH (07:46)
[2017-03-09] MEDS: DOCUSATE SODIUM 100 MG (COLACE) CAP PO SCH ×2 (07:46→20:41)
[2017-03-09] MEDS: OXYBUTYNIN (DITROPAN) 5 MG TAB PO SCH (07:46)
--- NOTE | 2017-03-09 08:23 | PM & R (SOAP) Progress Note ---
Subjective Time Seen by Provider: 07:45 Subjective/Events-last exam Patient was seen in her room this AM Patient asks about removing carey left hip .Incision well healed-viewed.Patient min assist for transfers Objective Exam Last Set of Vital Signs Vital Signs Date Time Temp Pulse Resp B/P (MAP) Pulse Ox O2 Delivery O2 Flow Rate FiO2 03/09/17 07:45 81 129/68 03/09/17 05:51 98.0 20 95 Room Air Capillary Refill : Less Than 3 Seconds I&O Intake and Output 03/10/17 00:00 Intake Total 400 ml Balance 400 ml Intake Oral 400 ml # Urine Diapers 3 # Bowel Movements 1 General: Alert, Oriented X3, Cooperative, No Acute Distress HEENT: Atraumatic, PERRLA, EOMI, Mucous Memb Moist/[place] Neck: Supple, No JVD Lungs: Clear to Auscultation Heart: Regular Rate Abdomen: Normal Bowel Sounds, Soft, No Tenderness Extremities: Other (trace edema left hip) Skin: Other ([place] dressing in place) Neuro: Other (Generalized weakness with guarding left hip ) Results Lab Laboratory Tests 03/08/17 12:12: Prothrombin Time 20.5H, INR Comment 1.8H Assessment/Plan Assessment left intertrochanteric femur fracture s/pORIF DR Blanco Left distal femur fracture s/p Plating DR Aleman/Gregg Postop anemia-improving Chronic anticoagulation with coumadin being managed by Hospitalist service Hypothyroidism -compensated Osteoporosis-on Fosamax Postop constipation under treatment Increased swelling left knee improved this AM Soft and non tender Plan Continue PT/OT/Wound care Pain management F/U with DR Aleman and Hospitalist as per their schedule Appreciate DR Hamilton notes. Monitor Labs INR and BUN/CR etc DR Mccormack et al managing Monitor swelling left knee-ice prn Next Team Conference 03-10-17 D/C carey left hip see orders. ANGELICA YIN MD Mar 09, 2017 08:23
--- NOTE | 2017-03-09 09:55 | Physical Therapy Daily Note ---
PT Daily Note-Current Subjective Pt sitting in recliner upon arrival. Pt agrees to PT but reports needing to use restroom before leaving room for tx. Pain Numeric Pain Scale: 3 Location: Left Location Body Site: Hip Pain Description: Ache, Tightness Mental Status Patient Orientation: Person, Place, Time, Situation Transfers Functional [place] Measure 0=Not Assessed/NA 4=Minimal Assistance 1=Total Assistance 5=Supervision or Setup 2=Maximal Assistance 6=Modified [place] 3=Moderate Assistance 7=Complete IndependenceIRFPAI Quality Coding Scale 6 Independent with activity with or without an assistive device 5 Patient requires set up or clean up by helper. Patient completes activity by themselves 4 Supervision or touching assist (CGA). [place] provide cues , steadying assist 3 The helper provides less than half the effort to complete the activity 2 The helper provides more than half the effort to complete the activity 1 Dependent. The helper does all the effort to complete an activity 7 Patient refused to complete or attempt activity 9 The patient did not perform the activity before the current illness or injury 88 Not attempted due to Medical conditions or safety concerns Scootin Sit to/from Stand: 5 Sit to Stand (QC): 5 Weight Bearing Weight Bearing Restriction: Weight Bearing/Tolerated Location Restriction: L LE Gait Training Does the Patient Walk?: Yes Distance (FIM): 3=150 ft Distance: 200' Walk 10 feet (QC): 5 Walk 50 ft with 2 Turns(QC): 5 Walk 150 ft (QC): 5 Gait Level of Assist: 5 Gait Persons Needed: 1 Gait Assistive Device: FWW Pt walks with slow but steady gait, no LOB. Pt has antalgic gait pattern but is increasing WB on LLE. Exercises Seated Therapy Exercises: Ankle pumps, Long arc quads, Hip flexion, Kicking activity, Hip abd/add Seated Reps: 15 NuStep Minutes: 15 NuStep Workload: 4 Treatments Pt transfers from recliner to standing using FWW at SBA. Pt uses restroom and gets dressed at toilet before leaving room for tx. Pt ambulates using FWW at SBA. Pt uses NuStep for 15m at Workload 4 followed by Seated Ex in chair before returning to room. Pt rested in recliner at end of tx with all needs met. Assessment Current Status: Good Progress Pt's safety and independence with transfers and ambulation has improved although pt still isn't putting FWB through LLE. PT Short Term Goals Short Term Goals Time Frame: Mar 08, 2017 Transfers (B,C,W/C) (FIM): 4 Gait (FIM): 2 Gait Distance Comment: 50' Gait Level of Assist: 4 Gait Assistive Device: FWW Wheelchair (FIM): 5 Wheelchair distance (FIM): 6=166-99 ft Wheelchair Distance: 150' Wheelchair Level of Assist: 5 PT Hand Compositor Goals Residential Goals PT Hand Compositor Goals Time Frame: Mar 22, 2017 Transfers (B,C,W/C) (FIM): 5 Sit to Lying (QC): 4 Lying-Sitting on Side/Bed(QC): 4 Sit to Stand (QC): 4 Rollin Roll Left to Right (QC): 4 Chair/Uvd-yg-Koeyk Xfer(QC): 4 Car Transfer (QC): 4 Does the Patient Walk: Yes Gait (FIM): 5 Gait distance (FIM): 3=150 ft Distance: 150' Walk 10 feet (QC): 4 Walk 10ft-Uneven Surface(QC): 4 Walk 50ft with 2 Turns (QC): 4 Walk 150 ft (QC): 4 Gait Level of Assist: 5 Gait Assistive Device: FWW PT Plan Problem List Problem List: Activity Tolerance, Functional Strength, Safety, Balance, Gait Treatment/Plan Treatment Plan: Continue Plan of Care Treatment Plan: Bed Mobility, Education, Functional Activity [place], Functional Strength, Group Therapy, Gait, Safety, Therapeutic Exercise, Transfers Treatment Duration: Mar 22, 2017 Frequency: At least 5 to 7 days/Wk (IRF) Estimated Hrs Per Day: 1.5 hours per day Patient and/or Family Agrees t: Yes Safety Risks/Education Patient Education: Gait Training, Transfer Techniques, Correct Positioning, W/ C Management, Safety Issues Teaching Recipient: Patient Teaching Methods: Discussion Response to Teaching: Verbalize Understanding Time/GCodes Time In: 815 Time Out: 915 Total Billed Treatment Time: 60 Total Billed Treatment visit, GT (15m), FA (15m) & EX x2 (30m) BRANDEN GUZMAN PTA Mar 09, 2017 09:55
--- NOTE | 2017-03-09 10:01 | Progress Note-Hospitalist ---
Progress Note Progress Notes/Assess & Plan Date Seen 03/09/17 Time Seen by Provider: 09:45 Diagonsis/Assessment & Plan Will check labs in am No pain is reported Venofer 3rd dose today Will check labs in am for creat and INR AFVSS, Pleasant, improved, no changes on my exam on toilet having BM Assessment: Acute left hip fracture status post uncomplicated repair then in need of repeat surgery due to distal femur abnl on xray per Dr Escobedo Fatigue and weakness today likely due to mild increase in creatinine related to Bactrim so DC Postop anemia requiring 2 units of blood due to her symptomatic status after initial surgery repair receiving Venofer 3rd dose today HTN Leukocytosis likely due to stress response of surgery- resolved Spine surgery 2013 and placed on Coumadin and maintained since that time to "prevent blood clots" without known h/o clots s/p 1 unit of FFP and Vit K 2.5mg PO but now reversing again with Vit K and FFP but 2.1 at day of transfer to IRU now 2.6 Osteoporosis Post op constipation still an issue UTI completed Bactrim Plan: Fall risk Check INR, CMP, CBC in am Miralax prn HARRIS MELLO DO Mar 09, 2017 10:01
[2017-03-09] MEDS: IRON SUCROSE INJECTION 200 MG in NS (IVPB) 100 ML IV SCH (11:02)
--- NOTE | 2017-03-09 11:14 | Occupational Ther Daily Note ---
OT Current Status-Daily Note Subjective Pt seen in room, up in recliner, agreeable to OT. Would like to go home Wednesday or Wednesday if possible. No pain mentioned. Appearance Alert, cooperative Mental Status/Objective Functional [place] Measure 0=Not Assessed/NA 4=Minimal Assistance 1=Total Assistance 5=Supervision or Setup 2=Maximal Assistance 6=Modified [place] 3=Moderate Assistance 7=Complete [place] ADL-Treatment Pt had dressed already with PT this am and did not want to shower. Discussed options for discharge and she said that she would like to be home before the holiday. Also talked about spending a day or two in transitional apartment room as another option. Pt was able to get up from recliner with SBA and walked SBA into bathroom. Skilled cues needed when she sat to brush teeth to keep walker close to her until she is ready to sit. After toileting and grooming, she walked back to bed to get stapled out of her hip. She needed just a little help to get L leg into bed.Pt left up in bed, all needs met. Functional [place] Measure 0=Not Assessed/NA 4=Minimal Assistance 1=Total Assistance 5=Supervision or Setup 2=Maximal Assistance 6=Modified [place] 3=Moderate Assistance 7=Complete IndependenceIRFPAI Quality Coding Scale 6 Independent with activity with or without an assistive device 5 Patient requires set up or clean up by helper. Patient completes activity by themselves 4 Supervision or touching assist (CGA). [place] provide cues , steadying assist 3 The helper provides less than half the effort to complete the activity 2 The helper provides more than half the effort to complete the activity 1 Dependent. The helper does all the effort to complete an activity 7 Patient refused to complete or attempt activity 9 The patient did not perform the activity before the current illness or injury 88 Not attempted due to Medical conditions or safety concerns Grooming (FIM): 6 (Pt brushed teeth and combed hair, washed face and hands at chair level. Still fatigues when done in standing and is safer when sitting. ) Oral Hygiene (QC): 6 Toileting (FIM): 6 (Pt was incontinent in Depends. She managed her clothing for toileting and also removed pants and Depends and put clean ones on without assistance. Stood steadily to pull pants up, FWW for balance. BSc over toilet, grab bars. Also used dressing stick to manage clothing. Managed hygiene. At home she keeps her Depends on a shelf near the toilet. ) Toilet/Commode Transfer (FIM): 5 (SBA maneuvering FWW to get on BSC over toilet. Mod I sit to stand on BSC, with FWW. Does not need cues for hand placement) Education OT Patient Education: Progress toward Goal/Update tx plan, Purpose of tx/ functional activities, Safety issues, Transfer techniques Teaching Recipient: Patient Teaching Methods: Discussion Response to Teaching: Verbalize Understanding, Return Demonstration, Reinforcement Needed OT Short Term Goals Short Term Goals Time Frame: Mar 08, 2017 Toileting(FIM): 5 Transfers (B,C,W/C) (FIM): 4 Toilet/Commode Transfer(FIM): 5 Additional Short Term Goals: 2-Verbalize Understanding, 3-ImproveStrength/[place] 1=Demonstrate adherence to instructed precautions during ADL tasks. 2=Patient will verbalize/demonstrate understanding of assistive devices/ modifications for ADL. 3=Patient will improve strength/tolerance for activity to enable patient to perform ADL's. OT Fpc Goals Fpc Goals Time Frame: Mar 19, 2017 Eating (FIM): 6 Eating (QC): 6 Groomin Oral Hygiene (QC): 6 Bathing(FIM): 6 Shower/Bathe Self (QC): 6 Upper Body Dressing(FIM): 6 Upper Body Dressing (QC): 6 Lower Body Dressing(FIM): 6 Lower Body Dressing (QC): 6 On/Off Footwear (QC): 6 Toileting(FIM): 6 Toileting Hygiene (QC): 6 Toilet/Commode Transfer(FIM): 6 Toilet/Commode Transfer (QC): 6 Shower Transfer(FIM): 6 Additional Goals: 1-Demonstrate ADL Tasks, 2-Verbalize Understanding, 3- ImproveStrength/[place] 1=Demonstrate adherence to instructed precautions during ADL tasks. 2=Patient will verbalize/demonstrate understanding of assistive devices/ modifications for ADL. 3=Patient will improve strength/tolerance for activity to enable patient to perform ADL's. OT Education/Plan Problem List/Assessment Pt would benefit from skilled OT to increase her independence in basic self care to allow her to safely return to her home to live independently. Discharge Recommendations Plan/Recommendations: Continue POC Treatment Plan/Plan of Care Patient would benefit from OT for education, treatment and training to promote independence in ADL's, mobility, safety and/or upper extremity function for ADL' s. Plan of Care: ADL Retraining, Functional Mobility, Group Exercise/Act as Ind ( educ, exercise, activity tolerance, functional activities, socialization), UE Funct Exercise/Act, UE Neuromus Re-Ed/Coord Treatment Duration: Mar 19, 2017 Frequency: At least 5 to 7 days/Wk (IRF) Estimated Hrs Per Day: 1.5 hours per day Agreement: Yes Rehab Potential: Fair Time/GCodes Start Time: 09:15 Stop Time: 10:00 Total Time Billed (hr/min): 45 Billed Treatment Time visit, 45 minutes ADL CONY WHITNEY OT Mar 09, 2017 11:14
--- NOTE | 2017-03-09 11:50 | Occupational Ther Daily Note ---
OT Current Status-Daily Note Subjective Pt seen in room, up in recliner, agreeable to OT. No pain mentioned. Appearance Alert, cooperative Mental Status/Objective Functional [place] Measure 0=Not Assessed/NA 4=Minimal Assistance 1=Total Assistance 5=Supervision or Setup 2=Maximal Assistance 6=Modified [place] 3=Moderate Assistance 7=Complete [place] ADL-Treatment Functional [place] Measure 0=Not Assessed/NA 4=Minimal Assistance 1=Total Assistance 5=Supervision or Setup 2=Maximal Assistance 6=Modified [place] 3=Moderate Assistance 7=Complete IndependenceIRFPAI Quality Coding Scale 6 Independent with activity with or without an assistive device 5 Patient requires set up or clean up by helper. Patient completes activity by themselves 4 Supervision or touching assist (CGA). [place] provide cues , steadying assist 3 The helper provides less than half the effort to complete the activity 2 The helper provides more than half the effort to complete the activity 1 Dependent. The helper does all the effort to complete an activity 7 Patient refused to complete or attempt activity 9 The patient did not perform the activity before the current illness or injury 88 Not attempted due to Medical conditions or safety concerns Other Treatment Pt did 15 reps bilat UE exercise with red theraband, to strengthen arms to help with transfers and ADLs. Exercises targeted muscles used for sit to stand and pulling up. Pt needs very few skilled cues and is able to track reps herself and switch sides without difficulty. Nursing came to put in mid line for IVs and needed to be in bed for procedure. Pt sit to stand with SBA and walked SBA, FWW to sit EOB. Needed a little help to get L leg into bed and cues for bending knee to scoot bottom over in bed. Pt left up in bed, all needs met. Education OT Patient Education: Home exercise program, Progress toward Goal/Update tx plan Teaching Recipient: Patient Teaching Methods: Discussion Response to Teaching: Verbalize Understanding, Reinforcement Needed OT Short Term Goals Short Term Goals Time Frame: Mar 08, 2017 Toileting(FIM): 5 Transfers (B,C,W/C) (FIM): 4 Toilet/Commode Transfer(FIM): 5 Additional Short Term Goals: 2-Verbalize Understanding, 3-ImproveStrength/[place] 1=Demonstrate adherence to instructed precautions during ADL tasks. 2=Patient will verbalize/demonstrate understanding of assistive devices/ modifications for ADL. 3=Patient will improve strength/tolerance for activity to enable patient to perform ADL's. OT Fci Goals Fleet Assistant Goals Time Frame: Mar 19, 2017 Eating (FIM): 6 Eating (QC): 6 Groomin Oral Hygiene (QC): 6 Bathing(FIM): 6 Shower/Bathe Self (QC): 6 Upper Body Dressing(FIM): 6 Upper Body Dressing (QC): 6 Lower Body Dressing(FIM): 6 Lower Body Dressing (QC): 6 On/Off Footwear (QC): 6 Toileting(FIM): 6 Toileting Hygiene (QC): 6 Toilet/Commode Transfer(FIM): 6 Toilet/Commode Transfer (QC): 6 Shower Transfer(FIM): 6 Additional Goals: 1-Demonstrate ADL Tasks, 2-Verbalize Understanding, 3- ImproveStrength/[place] 1=Demonstrate adherence to instructed precautions during ADL tasks. 2=Patient will verbalize/demonstrate understanding of assistive devices/ modifications for ADL. 3=Patient will improve strength/tolerance for activity to enable patient to perform ADL's. OT Education/Plan Problem List/Assessment Pt would benefit from skilled OT to increase her independence in basic self care to allow her to safely return to her home to live independently. Discharge Recommendations Plan/Recommendations: Continue POC Treatment Plan/Plan of Care Patient would benefit from OT for education, treatment and training to promote independence in ADL's, mobility, safety and/or upper extremity function for ADL' s. Plan of Care: ADL Retraining, Functional Mobility, Group Exercise/Act as Ind ( educ, exercise, activity tolerance, functional activities, socialization), UE Funct Exercise/Act, UE Neuromus Re-Ed/Coord Treatment Duration: Mar 19, 2017 Frequency: At least 5 to 7 days/Wk (IRF) Estimated Hrs Per Day: 1.5 hours per day Agreement: Yes Rehab Potential: Fair Time/GCodes Start Time: 11:30 Stop Time: 11:40 Total Time Billed (hr/min): 10 Billed Treatment Time visit, 10 minutes exercise CONY WHITNEY OT Mar 09, 2017 11:50
--- NOTE | 2017-03-09 13:44 | Occupational Ther Daily Note ---
OT Current Status-Daily Note Subjective Pt seen in room, up in recliner, agreeable to OT. "I don't know why but I'm exhausted". Appearance Alert, cooperative Mental Status/Objective Functional [place] Measure 0=Not Assessed/NA 4=Minimal Assistance 1=Total Assistance 5=Supervision or Setup 2=Maximal Assistance 6=Modified [place] 3=Moderate Assistance 7=Complete [place] ADL-Treatment Functional [place] Measure 0=Not Assessed/NA 4=Minimal Assistance 1=Total Assistance 5=Supervision or Setup 2=Maximal Assistance 6=Modified [place] 3=Moderate Assistance 7=Complete IndependenceIRFPAI Quality Coding Scale 6 Independent with activity with or without an assistive device 5 Patient requires set up or clean up by helper. Patient completes activity by themselves 4 Supervision or touching assist (CGA). [place] provide cues , steadying assist 3 The helper provides less than half the effort to complete the activity 2 The helper provides more than half the effort to complete the activity 1 Dependent. The helper does all the effort to complete an activity 7 Patient refused to complete or attempt activity 9 The patient did not perform the activity before the current illness or injury 88 Not attempted due to Medical conditions or safety concerns Toileting (FIM): 6 (Managed changing clothing (Depends and shorts) herself, on BSC over toilet. Managed hygiene. Used dressing stick. FWW and grab bars for balancing when standing. Able to get pants up herself) Toilet Transfer (QC): 5 (SBA for maneuvering FWW to get on/off BSC over toilet. Able to get up and down from BSC with mod I, FWW) Other Treatment Pt walked to bathroom with SBA for safety, FWW. When she was finished toileting and was leaving the bathroom, she said that she was exhausted to she walked just to w/c instead of to gym. She propelled w/c part of the way to gym, for UE strengthening. Once in the gym, she did 15 minutes bilat UE exercise with arm bike set at 15W resistance. Exercise to strengthen arms for standing up from chairs without arms or for getting up out of bed. She took only brief recovery breaks to get an ice chip. Care was transferred to PT. Education OT Patient Education: Exercise program, Progress toward Goal/Update tx plan, Purpose of tx/functional activities Teaching Recipient: Patient Teaching Methods: Discussion Response to Teaching: Verbalize Understanding OT Short Term Goals Short Term Goals Time Frame: Mar 08, 2017 Toileting(FIM): 5 Transfers (B,C,W/C) (FIM): 4 Toilet/Commode Transfer(FIM): 5 Additional Short Term Goals: 2-Verbalize Understanding, 3-ImproveStrength/[place] 1=Demonstrate adherence to instructed precautions during ADL tasks. 2=Patient will verbalize/demonstrate understanding of assistive devices/ modifications for ADL. 3=Patient will improve strength/tolerance for activity to enable patient to perform ADL's. OT Transmission And Coordination Engineer Goals Transmission And Coordination Engineer Goals Time Frame: Mar 19, 2017 Eating (FIM): 6 Eating (QC): 6 Groomin Oral Hygiene (QC): 6 Bathing(FIM): 6 Shower/Bathe Self (QC): 6 Upper Body Dressing(FIM): 6 Upper Body Dressing (QC): 6 Lower Body Dressing(FIM): 6 Lower Body Dressing (QC): 6 On/Off Footwear (QC): 6 Toileting(FIM): 6 Toileting Hygiene (QC): 6 Toilet/Commode Transfer(FIM): 6 Toilet/Commode Transfer (QC): 6 Shower Transfer(FIM): 6 Additional Goals: 1-Demonstrate ADL Tasks, 2-Verbalize Understanding, 3- ImproveStrength/[place] 1=Demonstrate adherence to instructed precautions during ADL tasks. 2=Patient will verbalize/demonstrate understanding of assistive devices/ modifications for ADL. 3=Patient will improve strength/tolerance for activity to enable patient to perform ADL's. OT Education/Plan Problem List/Assessment Pt would benefit from skilled OT to increase her independence in basic self care to allow her to safely return to her home to live independently. Discharge Recommendations Plan/Recommendations: Continue POC Treatment Plan/Plan of Care Patient would benefit from OT for education, treatment and training to promote independence in ADL's, mobility, safety and/or upper extremity function for ADL' s. Plan of Care: ADL Retraining, Functional Mobility, Group Exercise/Act as Ind ( educ, exercise, activity tolerance, functional activities, socialization), UE Funct Exercise/Act, UE Neuromus Re-Ed/Coord Treatment Duration: Mar 19, 2017 Frequency: At least 5 to 7 days/Wk (IRF) Estimated Hrs Per Day: 1.5 hours per day Agreement: Yes Rehab Potential: Fair Time/GCodes Start Time: 12:55 Stop Time: 13:30 Total Time Billed (hr/min): 35 Billed Treatment Time visit, 6 minutes ADL, 29 minutes exercise CONY WHITNEY OT Mar 09, 2017 13:44
--- NOTE | 2017-03-09 14:27 | Physical Therapy Daily Note ---
PT Daily Note-Current Subjective Pt sitting in [facility] in Therapy Gym just finishing with OT upon arrival. Pt agrees to PT despite feeling fatigued from today's therapy. Pain Numeric Pain Scale: 5-Moderate Pain Location: Left Location Body Site: Hip Pain Description: Ache, Tightness Mental Status Patient Orientation: Person, Place, Time, Situation Transfers Functional [place] Measure 0=Not Assessed/NA 4=Minimal Assistance 1=Total Assistance 5=Supervision or Setup 2=Maximal Assistance 6=Modified [place] 3=Moderate Assistance 7=Complete IndependenceIRFPAI Quality Coding Scale 6 Independent with activity with or without an assistive device 5 Patient requires set up or clean up by helper. Patient completes activity by themselves 4 Supervision or touching assist (CGA). [place] provide cues , steadying assist 3 The helper provides less than half the effort to complete the activity 2 The helper provides more than half the effort to complete the activity 1 Dependent. The helper does all the effort to complete an activity 7 Patient refused to complete or attempt activity 9 The patient did not perform the activity before the current illness or injury 88 Not attempted due to Medical conditions or safety concerns Scootin Sit to/from Stand: 5 Sit to Stand (QC): 5 Weight Bearing Weight Bearing Restriction: Full Weight Bearing Location Restriction: LE Bilateral Wheelchair Training Does the Pt Use a Wheelchair?: Yes Wheelchair Distance: 3=150 ft Distance: 150' Wheelchair Level of Assist: 5 Wheel 50 ft with 2 turns (QC): 5 Wheel 150 ft (QC): 5 Type of Wheelchair: Manual Pt takes a couple short rest breaks due to fatigue. Exercises Seated Therapy Exercises: Ankle pumps, Long arc quads, Hip flexion, Kicking activity, Hip abd/add Seated Reps: 15 Treatments Pt completes Seated Ex in [facility]. Pt propels [facility] back to room at A. Pt completes SPT at Min A from [facility] to recliner at end of tx. Pt rests with all needs met. Assessment Current Status: Fair Progress Pt very fatigued this afternoon from today's therapy as well as procedure earlier this afternoon. PT Short Term Goals Short Term Goals Time Frame: Mar 08, 2017 Transfers (B,C,W/C) (FIM): 4 Gait (FIM): 2 Gait Distance Comment: 50' Gait Level of Assist: 4 Gait Assistive Device: FWW Wheelchair (FIM): 5 Wheelchair distance (FIM): 0=918-12 ft Wheelchair Distance: 150' Wheelchair Level of Assist: 5 PT Traveling Engineer Goals Traveling Engineer Goals PT Traveling Engineer Goals Time Frame: Mar 22, 2017 Transfers (B,C,W/C) (FIM): 5 Sit to Lying (QC): 4 Lying-Sitting on Side/Bed(QC): 4 Sit to Stand (QC): 4 Rollin Roll Left to Right (QC): 4 Chair/Lcg-jm-Paguy Xfer(QC): 4 Car Transfer (QC): 4 Does the Patient Walk: Yes Gait (FIM): 5 Gait distance (FIM): 3=150 ft Distance: 150' Walk 10 feet (QC): 4 Walk 10ft-Uneven Surface(QC): 4 Walk 50ft with 2 Turns (QC): 4 Walk 150 ft (QC): 4 Gait Level of Assist: 5 Gait Assistive Device: FWW PT Plan Problem List Problem List: Activity Tolerance, Functional Strength, Safety, Balance, Gait, Transfer Treatment/Plan Treatment Plan: Continue Plan of Care Treatment Plan: Bed Mobility, Education, Functional Activity [place], Functional Strength, Group Therapy, Gait, Safety, Therapeutic Exercise, Transfers Treatment Duration: Mar 22, 2017 Frequency: At least 5 to 7 days/Wk (IRF) Estimated Hrs Per Day: 1.5 hours per day Patient and/or Family Agrees t: Yes Safety Risks/Education Patient Education: Transfer Techniques, Correct Positioning, W/C Management, Safety Issues Teaching Recipient: Patient Teaching Methods: Discussion Response to Teaching: Verbalize Understanding Time/GCodes Time In: 1330 Time Out: 1400 Total Billed Treatment Time: 30 Total Billed Treatment visit, WC (15m) & TYRA (15m) BRANDEN GUZMAN PTA Mar 09, 2017 14:27
[2017-03-09] MEDS: warFARin 1 MG (COUMADIN) TAB PO SCH (16:58)
[2017-03-09 18:22] VITALS: BP 100/63
[2017-03-09] MEDS: POLYETHYLENE GLYCOL 17 GM (MIRALAX) PACK PO SCH (20:42)
[2017-03-09] MEDS: CATHETER FLUSH 10 ML SYR IV SCH (20:44)
[2017-03-10 04:00] VITALS: BP 106/65
[2017-03-10 06:07] LABS: BASOPHILS % (AUTO) 0 % (0-10); EOSINOPHILS # (AUTO) 0.5 10^3/uL (0.0-0.3); EOSINOPHILS % (AUTO) 5 % (0-10); LYMPHOCYTES # (AUTO) 2.7 X 10^3 (1.0-4.0); LYMPHOCYTES % (AUTO) 31 % (12-44); MEAN CORPUSCULAR HEMOGLOBIN 31 PG (25-34); MEAN CORPUSCULAR HGB CONC 31 G/DL (32-36); MEAN CORPUSCULAR VOLUME 98 FL (80-99); MEAN PLATELET VOLUME 9.3 FL (7.4-10.4); MONOCYTES # (AUTO) 0.8 X 10^3 (0.0-1.0); MONOCYTES % (AUTO) 9 % (0-12); NEUTROPHILS # (AUTO) 4.7 X 10^3 (1.8-7.8); NEUTROPHILS % (AUTO) 54 % (42-75); PLATELET COUNT 390 10^3/uL (130-400); RED BLOOD COUNT 2.79 10^6/uL (4.35-5.85); RED CELL DISTRIBUTION WIDTH 15.1 % (10.0-14.5); WHITE BLOOD COUNT 8.7 10^3/uL (4.3-11.0)
[2017-03-10] MEDS: LEVOTHYROXINE 112 MCG (LEVOTHROID) TAB PO SCH (06:08)
[2017-03-10] MEDS: CATHETER FLUSH 10 ML SYR IV SCH ×3 (06:08→21:26)
[2017-03-10] MEDS: CALCIUM CARB + VIT D 600 MG (CALCARB + D) TAB PO SCH ×2 (06:08→17:30)
[2017-03-10] MEDS: VITAMIN A 8000 UNIT PO SCH ×2 (06:08→17:30)
[2017-03-10 06:21] LABS: INR 2.1 (0.8-1.4); PROTHROMBIN TIME PATIENT 23.8 SEC (12.2-14.7)
[2017-03-10 06:31] LABS: ALBUMIN 2.9 GM/DL (3.2-4.5); BILIRUBIN,TOTAL 0.4 MG/DL (0.1-1.0); CALCIUM 8.5 MG/DL (8.5-10.1); CREATININE SERUM 1.17 MG/DL (0.60-1.30); POTASSIUM 3.9 MMOL/L (3.6-5.0); TOTAL PROTEIN 5.9 GM/DL (6.4-8.2)
[2017-03-10] MEDS: CARVEDILOL 12.5 MG (COREG) TABLET PO SCH ×2 (08:31→21:22)
[2017-03-10] MEDS: BUMETANIDE 1 MG (BUMEX) TAB PO SCH (08:31)
[2017-03-10] MEDS: COLCHICINE 0.6 MG (COLCRYS) TABLET PO SCH (08:31)
[2017-03-10] MEDS: DOCUSATE SODIUM 100 MG (COLACE) CAP PO SCH ×2 (08:31→21:22)
[2017-03-10] MEDS: OXYBUTYNIN (DITROPAN) 5 MG TAB PO SCH (08:31)
[2017-03-10] MEDS: MICONAZOLE 2% POWDER (DESENEX AF) 90 GM TOP SCH ×2 (09:00→21:22)
--- NOTE | 2017-03-10 11:02 | Physical Therapy Daily Note ---
PT Daily Note-Current Subjective Pt sitting in recliner upon arrival. Pt wants to use restroom and get dressed before leaving room for tx. Pain Numeric Pain Scale: 2 Location: Left Location Body Site: Hip Pain Description: Ache, Tightness Mental Status Patient Orientation: Person, Place, Time, Situation Transfers Functional [place] Measure 0=Not Assessed/NA 4=Minimal Assistance 1=Total Assistance 5=Supervision or Setup 2=Maximal Assistance 6=Modified [place] 3=Moderate Assistance 7=Complete IndependenceIRFPAI Quality Coding Scale 6 Independent with activity with or without an assistive device 5 Patient requires set up or clean up by helper. Patient completes activity by themselves 4 Supervision or touching assist (CGA). [place] provide cues , steadying assist 3 The helper provides less than half the effort to complete the activity 2 The helper provides more than half the effort to complete the activity 1 Dependent. The helper does all the effort to complete an activity 7 Patient refused to complete or attempt activity 9 The patient did not perform the activity before the current illness or injury 88 Not attempted due to Medical conditions or safety concerns Scootin Sit to/from Stand: 5 Sit to Stand (QC): 5 Weight Bearing Weight Bearing Restriction: Weight Bearing/Tolerated Location Restriction: L LE Gait Training Does the Patient Walk?: Yes Distance (FIM): 3=150 ft Distance: 250' Walk 10 feet (QC): 5 Walk 50 ft with 2 Turns(QC): 5 Walk 150 ft (QC): 5 Gait Level of Assist: 5 Gait Persons Needed: 1 Gait Assistive Device: FWW Pt walks with more normalized gait, slow aime. Pt is encouraged to WB more on LLE and standpipe tender more full extension on both legs during walk. Wheelchair Training Does the Pt Use a Wheelchair?: No Exercises Seated Therapy Exercises: Ankle pumps, Long arc quads, Hip flexion, Kicking activity, Hip abd/add Seated Reps: 15 NuStep Minutes: 10 NuStep Workload: 5 Treatments Pt transfers from recliner to standing using FWW at A. Pt uses restroom and gets dressed at toilet per pt request. Pt is able to complete dressing with just set-up. Pt ambulates in Therapy Commons using FWW at A. Pt completes Seated Ex in recliner and NuStep for 10m at Workload 5 to increase strength and activity tolerance. Pt returns to room to rest in recliner at end of tx with all needs met. Assessment Current Status: Good Progress Pt has made progress with activity tolerance and independence/safety of transfers and ambulation. Pt would like to discharge later this week. PT Short Term Goals Short Term Goals Time Frame: Mar 08, 2017 Transfers (B,C,W/C) (FIM): 4 Gait (FIM): 2 Gait Distance Comment: 50' Gait Level of Assist: 4 Gait Assistive Device: FWW Wheelchair (FIM): 5 Wheelchair distance (FIM): 4=975-21 ft Wheelchair Distance: 150' Wheelchair Level of Assist: 5 PT Care Home Goals Composition Floor Layer Goals PT Care Home Goals Time Frame: Mar 22, 2017 Transfers (B,C,W/C) (FIM): 5 Sit to Lying (QC): 4 Lying-Sitting on Side/Bed(QC): 4 Sit to Stand (QC): 4 Rollin Roll Left to Right (QC): 4 Chair/Foh-rh-Ilrbr Xfer(QC): 4 Car Transfer (QC): 4 Does the Patient Walk: Yes Gait (FIM): 5 Gait distance (FIM): 3=150 ft Distance: 150' Walk 10 feet (QC): 4 Walk 10ft-Uneven Surface(QC): 4 Walk 50ft with 2 Turns (QC): 4 Walk 150 ft (QC): 4 Gait Level of Assist: 5 Gait Assistive Device: FWW PT Plan Problem List Problem List: Activity Tolerance, Safety, Gait Treatment/Plan Treatment Plan: Continue Plan of Care Treatment Plan: Bed Mobility, Education, Functional Activity [place], Functional Strength, Group Therapy, Gait, Safety, Therapeutic Exercise, Transfers Treatment Duration: Mar 22, 2017 Frequency: At least 5 to 7 days/Wk (IRF) Estimated Hrs Per Day: 1.5 hours per day Patient and/or Family Agrees t: Yes Safety Risks/Education Patient Education: Gait Training, Transfer Techniques, Correct Positioning, Safety Issues Teaching Recipient: Patient Teaching Methods: Discussion Response to Teaching: Verbalize Understanding Time/GCodes Time In: 815 Time Out: 915 Total Billed Treatment Time: 60 Total Billed Treatment visit, FA (15m), GT (15m) & EX x2 (30m) BRANDEN GUZMAN FORMULATOR COMPOUNDER Mar 10, 2017 11:02
--- NOTE | 2017-03-10 11:10 | PM & R (SOAP) Progress Note ---
Subjective Time Seen by Provider: 07:45 Subjective/Events-last exam Patient was seen in her room this AM Patient SBA for transfers Pain control adequate Voiding and having BMS.Swelling down left knee [place] out left hip Objective Exam Last Set of Vital Signs Vital Signs Date Time Temp Pulse Resp B/P (MAP) Pulse Ox O2 Delivery O2 Flow Rate FiO2 03/10/17 09:08 Room Air 03/10/17 04:00 97.5 72 16 106/65 94 Capillary Refill : Less Than 3 Seconds I&O Intake and Output 03/11/17 00:00 Intake Total 240 ml Balance 240 ml Intake Oral 240 ml # Urine Diapers 3 General: Alert, Oriented X3, Cooperative, No Acute Distress HEENT: Atraumatic, PERRLA, EOMI, Mucous Memb Moist/[place] Neck: Supple, No JVD Lungs: Clear to Auscultation Heart: Regular Rate Abdomen: Normal Bowel Sounds, Soft, No Tenderness Extremities: Other (trace edema left hip) Skin: Other ([place] dressing in place) Neuro: Other (Generalized weakness with guarding left hip ) Results Lab Laboratory Tests 03/08/17 12:12: Prothrombin Time 20.5H, INR Comment 1.8H 03/10/17 05:55: Prothrombin Time 23.8H, INR Comment 2.1H, White Blood Count 8.7, Red Blood Count 2.79L, Hemoglobin 8.5L, Hematocrit 27L, Mean Corpuscular Volume 98, Mean Corpuscular Hemoglobin 31, Mean Corpuscular Hemoglobin Concent 31L, Red Cell Distribution Width 15.1H, Platelet Count 390, Mean Platelet Volume 9.3, Neutrophils (%) (Auto) 54, Lymphocytes (%) (Auto) 31, Monocytes (%) (Auto) 9, Eosinophils (%) (Auto) 5, Basophils (%) (Auto) 0, Neutrophils # (Auto) 4.7, Lymphocytes # (Auto) 2.7, Monocytes # (Auto) 0.8, Eosinophils # (Auto) 0.5H, Basophils # (Auto) 0.0, Sodium Level 143, Potassium Level 3.9, Chloride Level 108H, Carbon Dioxide Level 24, Anion Gap 11, Blood Urea Nitrogen 47H, Creatinine 1.17, Estimat Glomerular Filtration Rate 45, BUN/Creatinine Ratio 40 , Glucose Level 92, Calcium Level 8.5, Total Bilirubin 0.4, Aspartate Amino Transf (AST/SGOT) 29, Alanine Aminotransferase (ALT/SGPT) 38, Alkaline Phosphatase 145H, Total Protein 5.9L, Albumin 2.9L Assessment/Plan Assessment left intertrochanteric femur fracture s/pORIF DR Blanco Left distal femur fracture s/p Plating DR Aleman/Gregg Postop anemia-improving Chronic anticoagulation with coumadin being managed by Hospitalist service Hypothyroidism -compensated Osteoporosis-on Fosamax Postop constipation under treatment Increased swelling left knee improved this AM Soft and non tender Plan Continue PT/OT/Wound care Pain management F/U with DR Aleman and Hospitalist as per their schedule Appreciate DR Hamilton notes. Monitor Labs INR and BUN/CR etc DR Mccormack et al managing Monitor swelling left knee-ice prn-improved Next Team Conference later today-See report for full functional update and POC and ELOS Possible discharge for this upcoming -Will f/u with staff/SW D/C carey left hip see orders-done yesterday. ANGELICA YIN MD Mar 10, 2017 11:10
--- NOTE | 2017-03-10 11:47 | Occupational Ther Daily Note ---
OT Current Status-Daily Note Subjective Pt seen in room, up in recliner, agreeable to OT. No pain mentioned. Appearance Alert, cooperative Mental Status/Objective Functional [place] Measure 0=Not Assessed/NA 4=Minimal Assistance 1=Total Assistance 5=Supervision or Setup 2=Maximal Assistance 6=Modified [place] 3=Moderate Assistance 7=Complete [place] ADL-Treatment Sit to stand with SBA for safety, FWW. Walked with SBA, FWW to closet to get out clean clothing, no LOB. Pt educ for walker safety at closet. Pt walked to bathroom with SBA for safety, FWW amd was able to get on/off BSC over toilet without any assistance. She is very careful to watch location of walker legs while getting in position to get on/off BSC. Pt toileted with mod I. Walked with SBA to shower and got in/out of shower with SBA. After shower, toileted again and had difficulty with constipation (nursing notified). This time pt needed a little bit of help to wipe in back. Finished dressing on BSC, using dressing stick, then walked to the sink and was able to brush teeth and hair mod I, while standing at sink. Pt walked back to recliner SBA for safety, FWW. Functional [place] Measure 0=Not Assessed/NA 4=Minimal Assistance 1=Total Assistance 5=Supervision or Setup 2=Maximal Assistance 6=Modified [place] 3=Moderate Assistance 7=Complete IndependenceIRFPAI Quality Coding Scale 6 Independent with activity with or without an assistive device 5 Patient requires set up or clean up by helper. Patient completes activity by themselves 4 Supervision or touching assist (CGA). [place] provide cues , steadying assist 3 The helper provides less than half the effort to complete the activity 2 The helper provides more than half the effort to complete the activity 1 Dependent. The helper does all the effort to complete an activity 7 Patient refused to complete or attempt activity 9 The patient did not perform the activity before the current illness or injury 88 Not attempted due to Medical conditions or safety concerns Grooming (FIM): 6 (standing at sink, FWW for balance) Bathing (FIM): 5 (Washed and dried all parts except back. Shower bench, grab bars, hand held shower. SBA when standing to wash lovely and bottom. Long handled sponge) Upper Body (FIM): 6 (Got clean clothes out of closet. Off and on with shirt with no help.) Lower Body Dressing (FIM): 6 (Got clean clothes out of closet. Doffed and donned clothing, using dressing stick and sock aid. Recalls modified techniques. Able to pull pants up in back without help. ) Toileting (FIM): 3 (Toileting mod I first time but second time needed a little help wiping bottom after BM. BSc over toilet, grab bar, FWW. Able to manage clothing) Toilet/Commode Transfer (FIM): 6 (On/off BSC over toilet. Very careful with walker placement. ) Shower Transfer(FIM): 5 (SBA, getting in and out of shower. Shower bench, grab bars, FWW.) Other Treatment Pt did 15 reps bilat UE exercise with red theraband (medium resistance), to strengthen arms to help with transfers from chairs without arms. She was able to recall most of the exercises and did not need cues to do them correctly. She tracked repetitions and was able to switch sides without difficulty. Pt left up in recliner, all meeds met. Education OT Patient Education: Exercise program, Progress toward Goal/Update tx plan, Purpose of tx/functional activities, Transfer techniques Teaching Recipient: Patient Teaching Methods: Discussion Response to Teaching: Verbalize Understanding OT Short Term Goals Short Term Goals Time Frame: Mar 08, 2017 Toileting(FIM): 5 Transfers (B,C,W/C) (FIM): 4 Toilet/Commode Transfer(FIM): 5 Additional Short Term Goals: 2-Verbalize Understanding, 3-ImproveStrength/[place] 1=Demonstrate adherence to instructed precautions during ADL tasks. 2=Patient will verbalize/demonstrate understanding of assistive devices/ modifications for ADL. 3=Patient will improve strength/tolerance for activity to enable patient to perform ADL's. OT Data Entry Associate Goals Data Entry Associate Goals Time Frame: Mar 19, 2017 Eating (FIM): 6 Eating (QC): 6 Groomin Oral Hygiene (QC): 6 Bathing(FIM): 6 Shower/Bathe Self (QC): 6 Upper Body Dressing(FIM): 6 Upper Body Dressing (QC): 6 Lower Body Dressing(FIM): 6 Lower Body Dressing (QC): 6 On/Off Footwear (QC): 6 Toileting(FIM): 6 Toileting Hygiene (QC): 6 Toilet/Commode Transfer(FIM): 6 Toilet/Commode Transfer (QC): 6 Shower Transfer(FIM): 6 Additional Goals: 1-Demonstrate ADL Tasks, 2-Verbalize Understanding, 3- ImproveStrength/[place] 1=Demonstrate adherence to instructed precautions during ADL tasks. 2=Patient will verbalize/demonstrate understanding of assistive devices/ modifications for ADL. 3=Patient will improve strength/tolerance for activity to enable patient to perform ADL's. OT Education/Plan Problem List/Assessment Pt would benefit from skilled OT to increase her independence in basic self care to allow her to safely return to her home to live independently. Discharge Recommendations Plan/Recommendations: Continue POC Treatment Plan/Plan of Care Patient would benefit from OT for education, treatment and training to promote independence in ADL's, mobility, safety and/or upper extremity function for ADL' s. Plan of Care: ADL Retraining, Functional Mobility, Group Exercise/Act as Ind ( educ, exercise, activity tolerance, functional activities, socialization), UE Funct Exercise/Act, UE Neuromus Re-Ed/Coord Treatment Duration: Mar 19, 2017 Frequency: At least 5 to 7 days/Wk (IRF) Estimated Hrs Per Day: 1.5 hours per day Agreement: Yes Rehab Potential: Fair Time/GCodes Start Time: 09:30 Stop Time: 10:30 Total Time Billed (hr/min): 60 Billed Treatment Time visit, 50 minutes ADL, 10 minutes exercise CONY WHITNEY OT Mar 10, 2017 11:47
--- NOTE | 2017-03-10 14:17 | Occupational Ther Daily Note ---
OT Current Status-Daily Note Subjective Pt seen in room, up in recliner, agreeable to OT. No pain mentioned. Appearance Alert, cooperative Mental Status/Objective Functional [place] Measure 0=Not Assessed/NA 4=Minimal Assistance 1=Total Assistance 5=Supervision or Setup 2=Maximal Assistance 6=Modified [place] 3=Moderate Assistance 7=Complete [place] ADL-Treatment Functional [place] Measure 0=Not Assessed/NA 4=Minimal Assistance 1=Total Assistance 5=Supervision or Setup 2=Maximal Assistance 6=Modified [place] 3=Moderate Assistance 7=Complete IndependenceIRFPAI Quality Coding Scale 6 Independent with activity with or without an assistive device 5 Patient requires set up or clean up by helper. Patient completes activity by themselves 4 Supervision or touching assist (CGA). [place] provide cues , steadying assist 3 The helper provides less than half the effort to complete the activity 2 The helper provides more than half the effort to complete the activity 1 Dependent. The helper does all the effort to complete an activity 7 Patient refused to complete or attempt activity 9 The patient did not perform the activity before the current illness or injury 88 Not attempted due to Medical conditions or safety concerns Other Treatment Sit to stand with SBA and walked SBA, FWW to w/c in hallway. Transported to gym per w/c due to fatigue. In gym, pt worked on bilat UE ex with arm bile for 16 minutes at 15W resistance (increased time), to strengthen arms to help with transfers from surfaces without arm rests. pt took a few brief recovery breaks to get some ice but otherwise worked at a steady pace. Pt returned to room and walked from w/c back to recliner with SBA, FWW. Left up in recliner, all needs met. Education OT Patient Education: Exercise program, Purpose of tx/functional activities Teaching Recipient: Patient Teaching Methods: Discussion Response to Teaching: Verbalize Understanding OT Short Term Goals Short Term Goals Time Frame: Mar 08, 2017 Toileting(FIM): 5 Transfers (B,C,W/C) (FIM): 4 Toilet/Commode Transfer(FIM): 5 Additional Short Term Goals: 2-Verbalize Understanding, 3-ImproveStrength/[place] 1=Demonstrate adherence to instructed precautions during ADL tasks. 2=Patient will verbalize/demonstrate understanding of assistive devices/ modifications for ADL. 3=Patient will improve strength/tolerance for activity to enable patient to perform ADL's. OT Package Car Driver Goals Package Car Driver Goals Time Frame: Mar 19, 2017 Eating (FIM): 6 Eating (QC): 6 Groomin Oral Hygiene (QC): 6 Bathing(FIM): 6 Shower/Bathe Self (QC): 6 Upper Body Dressing(FIM): 6 Upper Body Dressing (QC): 6 Lower Body Dressing(FIM): 6 Lower Body Dressing (QC): 6 On/Off Footwear (QC): 6 Toileting(FIM): 6 Toileting Hygiene (QC): 6 Toilet/Commode Transfer(FIM): 6 Toilet/Commode Transfer (QC): 6 Shower Transfer(FIM): 6 Additional Goals: 1-Demonstrate ADL Tasks, 2-Verbalize Understanding, 3- ImproveStrength/[place] 1=Demonstrate adherence to instructed precautions during ADL tasks. 2=Patient will verbalize/demonstrate understanding of assistive devices/ modifications for ADL. 3=Patient will improve strength/tolerance for activity to enable patient to perform ADL's. OT Education/Plan Problem List/Assessment Pt would benefit from skilled OT to increase her independence in basic self care to allow her to safely return to her home to live independently. Discharge Recommendations Plan/Recommendations: Continue POC Treatment Plan/Plan of Care Patient would benefit from OT for education, treatment and training to promote independence in ADL's, mobility, safety and/or upper extremity function for ADL' s. Plan of Care: ADL Retraining, Functional Mobility, Group Exercise/Act as Ind ( educ, exercise, activity tolerance, functional activities, socialization), UE Funct Exercise/Act, UE Neuromus Re-Ed/Coord Treatment Duration: Mar 19, 2017 Frequency: At least 5 to 7 days/Wk (IRF) Estimated Hrs Per Day: 1.5 hours per day Agreement: Yes Rehab Potential: Fair Time/GCodes Start Time: 11:00 Stop Time: 11:30 Total Time Billed (hr/min): 30 Billed Treatment Time visit, 30 minutes exercise CONY WHITNEY OT Mar 10, 2017 14:17
--- NOTE | 2017-03-10 15:00 | Physical Therapy Daily Note ---
PT Daily Note-Current Subjective Pt sitting in recliner, visiting with sister upon arrival. Pt agrees to PT. After discussion with pt, sister & PT, pt decides discharging Wednesday would work better to have everything in place for home. Pain Numeric Pain Scale: 2 Location: Left Location Body Site: Hip Pain Description: Ache Mental Status Patient Orientation: Person, Place, Time, Situation Transfers Functional [place] Measure 0=Not Assessed/NA 4=Minimal Assistance 1=Total Assistance 5=Supervision or Setup 2=Maximal Assistance 6=Modified [place] 3=Moderate Assistance 7=Complete IndependenceIRFPAI Quality Coding Scale 6 Independent with activity with or without an assistive device 5 Patient requires set up or clean up by helper. Patient completes activity by themselves 4 Supervision or touching assist (CGA). [place] provide cues , steadying assist 3 The helper provides less than half the effort to complete the activity 2 The helper provides more than half the effort to complete the activity 1 Dependent. The helper does all the effort to complete an activity 7 Patient refused to complete or attempt activity 9 The patient did not perform the activity before the current illness or injury 88 Not attempted due to Medical conditions or safety concerns Sc[place]in Sit to/from Stand: 5 Sit to Stand (QC): 5 Weight Bearing Weight Bearing Restriction: Weight Bearing/Tolerated Location Restriction: L LE Gait Training Does the Patient Walk?: Yes Distance (FIM): 3=150 ft Distance: 175' Walk 10 feet (QC): 5 Walk 50 ft with 2 Turns(QC): 5 Walk 150 ft (QC): 5 Gait Level of Assist: 5 Gait Persons Needed: 1 Gait Assistive Device: FWW Pt walks with more normalized gait but needs VC to WB more on LLE & extend more on both LE. Wheelchair Training Does the Pt Use a Wheelchair?: No Treatments Pt, sister & PT discussed if discharge for Wednesday would work better than Wednesday of this week. Also what would be needed for home to discharge. Pt transferred from recliner to standing using FWW at SBA. Pt ambulated using FWW at SBA before returning to room to rest at end of tx with all needs met. Assessment Current Status: Good Progress Pt has improved with independence and safety of transfers and ambulation. PT Short Term Goals Short Term Goals Time Frame: Mar 08, 2017 Transfers (B,C,W/C) (FIM): 4 Gait (FIM): 2 Gait Distance Comment: 50' Gait Level of Assist: 4 Gait Assistive Device: FWW Wheelchair (FIM): 5 Wheelchair distance (FIM): 8=093-17 ft Wheelchair Distance: 150' Wheelchair Level of Assist: 5 PT Railway Signal Electrician Goals Fpc Goals PT Railway Signal Electrician Goals Time Frame: Mar 22, 2017 Transfers (B,C,W/C) (FIM): 5 Sit to Lying (QC): 4 Lying-Sitting on Side/Bed(QC): 4 Sit to Stand (QC): 4 Rollin Roll Left to Right (QC): 4 Chair/Ftr-pw-Nhxec Xfer(QC): 4 Car Transfer (QC): 4 Does the Patient Walk: Yes Gait (FIM): 5 Gait distance (FIM): 3=150 ft Distance: 150' Walk 10 feet (QC): 4 Walk 10ft-Uneven Surface(QC): 4 Walk 50ft with 2 Turns (QC): 4 Walk 150 ft (QC): 4 Gait Level of Assist: 5 Gait Assistive Device: FWW PT Plan Problem List Problem List: Activity Tolerance, Gait Treatment/Plan Treatment Plan: Continue Plan of Care Treatment Plan: Bed Mobility, Education, Functional Activity [place], Functional Strength, Group Therapy, Gait, Safety, Therapeutic Exercise, Transfers Treatment Duration: Mar 22, 2017 Frequency: At least 5 to 7 days/Wk (IRF) Estimated Hrs Per Day: 1.5 hours per day Patient and/or Family Agrees t: Yes Safety Risks/Education Patient Education: Gait Training, Transfer Techniques, Correct Positioning, Safety Issues Teaching Recipient: Patient, Significant Other Teaching Methods: Discussion Response to Teaching: Verbalize Understanding Time/GCodes Time In: 1330 Time Out: 1400 Total Billed Treatment Time: 30 Total Billed Treatment visit, FA (15m) & GT (15m) BRANDEN GUZMAN PTA Mar 10, 2017 15:00
[2017-03-10 17:15] VITALS: BP 128/77
[2017-03-10] MEDS: warFARin 2.5 MG (COUMADIN) TAB PO SCH (17:30)
[2017-03-10] MEDS: POLYETHYLENE GLYCOL 17 GM (MIRALAX) PACK PO SCH (21:22)
[2017-03-11 05:28] VITALS: BP 135/69
[2017-03-11] MEDS: CATHETER FLUSH 10 ML SYR IV SCH ×3 (06:33→19:43)
[2017-03-11] MEDS: CALCIUM CARB + VIT D 600 MG (CALCARB + D) TAB PO SCH ×2 (06:34→17:55)
[2017-03-11] MEDS: LEVOTHYROXINE 112 MCG (LEVOTHROID) TAB PO SCH (06:34)
[2017-03-11] MEDS: VITAMIN A 8000 UNIT PO SCH ×2 (06:34→17:55)
[2017-03-11] MEDS: COLCHICINE 0.6 MG (COLCRYS) TABLET PO SCH (08:11)
[2017-03-11] MEDS: OXYBUTYNIN (DITROPAN) 5 MG TAB PO SCH (08:11)
[2017-03-11] MEDS: CARVEDILOL 12.5 MG (COREG) TABLET PO SCH ×2 (08:11→19:43)
[2017-03-11] MEDS: BUMETANIDE 1 MG (BUMEX) TAB PO SCH (08:11)
[2017-03-11] MEDS: DOCUSATE SODIUM 100 MG (COLACE) CAP PO SCH ×2 (08:11→19:42)
[2017-03-11] MEDS: MICONAZOLE 2% POWDER (DESENEX AF) 90 GM TOP SCH ×2 (08:13→19:43)
--- NOTE | 2017-03-11 10:53 | Physical Therapy Daily Note ---
PT Daily Note-Current Subjective Pt sitting in recliner upon arrival. Pt reports needing to use restroom and get dressed before leaving room for tx but agrees to PT. Pain Numeric Pain Scale: 2 Location: Right, Left Location Body Site: Hip Pain Description: Ache Mental Status Patient Orientation: Person, Place, Time, Situation Transfers Functional [place] Measure 0=Not Assessed/NA 4=Minimal Assistance 1=Total Assistance 5=Supervision or Setup 2=Maximal Assistance 6=Modified [place] 3=Moderate Assistance 7=Complete IndependenceIRFPAI Quality Coding Scale 6 Independent with activity with or without an assistive device 5 Patient requires set up or clean up by helper. Patient completes activity by themselves 4 Supervision or touching assist (CGA). [place] provide cues , steadying assist 3 The helper provides less than half the effort to complete the activity 2 The helper provides more than half the effort to complete the activity 1 Dependent. The helper does all the effort to complete an activity 7 Patient refused to complete or attempt activity 9 The patient did not perform the activity before the current illness or injury 88 Not attempted due to Medical conditions or safety concerns Scootin Sit to/from Stand: 5 Sit to Stand (QC): 5 Weight Bearing Weight Bearing Restriction: Weight Bearing/Tolerated Location Restriction: L LE Gait Training Does the Patient Walk?: Yes Distance (FIM): 3=150 ft Distance: 200' Walk 10 feet (QC): 5 Walk 50 ft with 2 Turns(QC): 5 Walk 150 ft (QC): 5 Gait Level of Assist: 5 Gait Persons Needed: 1 Gait Assistive Device: FWW Pt has slow but steady aime, no LOB. Pt continues to keep R knee flexed even with VC. Pt is encouraged to WB more on LLE. Wheelchair Training Does the Pt Use a Wheelchair?: No Exercises Seated Therapy Exercises: Ankle pumps, Long arc quads, Hip flexion, Kicking activity Seated Reps: 20 NuStep Minutes: 10 NuStep Workload: 5 Treatments Pt transfers from recliner to standing using FWW at SBA. Pt uses restroom and gets dressed while sitting on toilet at Set-up. Pt ambulated using FWW at SBA with short rest breaks. Pt uses NuStep for 10m at Workload 5 then completes Seated Ex in chair before returning to room to rest. Pt rests in recliner with all needs met at end of tx. Assessment Current Status: Good Progress Pt continues to tolerate tx well. Pt has some difficulty with activity tolerance with ambulation. 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 [facility] Goals PT [facility] Goals Time Frame: Mar 22, 2017 Transfers (B,C,W/C) (FIM): 5 Sit to Lying (QC): 4 Lying-Sitting on Side/Bed(QC): 4 Sit to Stand (QC): 4 Rollin Roll Left to Right (QC): 4 Chair/Qwx-eq-Hrrjs Xfer(QC): 4 Car Transfer (QC): 4 Does the Patient Walk: Yes Gait (FIM): 5 Gait distance (FIM): 3=150 ft Distance: 150' Walk 10 feet (QC): 4 Walk 10ft-Uneven Surface(QC): 4 Walk 50ft with 2 Turns (QC): 4 Walk 150 ft (QC): 4 Gait Level of Assist: 5 Gait Assistive Device: FWW PT Plan Problem List Problem List: Activity Tolerance, Gait Treatment/Plan Treatment Plan: Continue Plan of Care Treatment Plan: Bed Mobility, Education, Functional Activity [place], Functional Strength, Group Therapy, Gait, Safety, Therapeutic Exercise, Transfers Treatment Duration: Mar 22, 2017 Frequency: At least 5 to 7 days/Wk (IRF) Estimated Hrs Per Day: 1.5 hours per day Patient and/or Family Agrees t: Yes Safety Risks/Education Patient Education: Gait Training, Transfer Techniques, Correct Positioning, Safety Issues Teaching Recipient: Patient Teaching Methods: Discussion Response to Teaching: Verbalize Understanding Time/GCodes Time In: 800 Time Out: 900 Total Billed Treatment Time: 60 Total Billed Treatment visit, GT (15m), FA (15m) & EX x2 (30m) BRANDEN GUZMAN READY M[employer] TRUCK DRIVER Mar 11, 2017 10:53
--- NOTE | 2017-03-11 11:02 | Occupational Ther Daily Note ---
OT Current Status-Daily Note Subjective Pt seen in room, up in recliner, agreeable to OT. Pt indicated that she and her sister think it will be better for home arrangements for her to stay until next Wednesday. No pain mentioned. Appearance Alert, cooperative Mental Status/Objective Functional [place] Measure 0=Not Assessed/NA 4=Minimal Assistance 1=Total Assistance 5=Supervision or Setup 2=Maximal Assistance 6=Modified [place] 3=Moderate Assistance 7=Complete [place] ADL-Treatment Pt was able to get up out of recliner with SBA, FWW. Walked slowly to bathroom to toilet and groom, then walked to gym, taking one stop along the way to recover, SBA, FWW. Functional [place] Measure 0=Not Assessed/NA 4=Minimal Assistance 1=Total Assistance 5=Supervision or Setup 2=Maximal Assistance 6=Modified [place] 3=Moderate Assistance 7=Complete IndependenceIRFPAI Quality Coding Scale 6 Independent with activity with or without an assistive device 5 Patient requires set up or clean up by helper. Patient completes activity by themselves 4 Supervision or touching assist (CGA). [place] provide cues , steadying assist 3 The helper provides less than half the effort to complete the activity 2 The helper provides more than half the effort to complete the activity 1 Dependent. The helper does all the effort to complete an activity 7 Patient refused to complete or attempt activity 9 The patient did not perform the activity before the current illness or injury 88 Not attempted due to Medical conditions or safety concerns Grooming (FIM): 6 (Standing at sink to wash face and hands, brush teeth and hair, using countertop and FWW for balance assistance. ) Toileting (FIM): 6 (Managed clothing and hygiene, BSC over toilet, FWW. was not incontinent in Depends) Toilet/Commode Transfer (FIM): 6 (Bery careful to watch legs of FWW aroound BSC over toilet. Gets on and off BSC with use of arm rests, grab bar) Other Treatment Once in gym, pt did 16 minutes bilat UE exercise on arm bike set at 15-20W resistance (increase resistance), taking brief recovery breaks to get ice chips. Exercise to strengthen arms so that she can better bear weight with them and take bigger steps when walking with FWW (she tends to not swing R leg through). After exercise, she walked back toward her room and stopped about half way. before she could sit, she was having a lot of trouble moving her R leg due to fatigue so w/c was brought to her. Once in the chair, she propelled it to her room. Sit to stand from w/c with SBA, FWW. Pt walked to toilet and left there, per her request, call light in place. Education OT Patient Education: Progress toward Goal/Update tx plan, Purpose of tx/ functional activities Teaching Recipient: Patient Teaching Methods: Discussion Response to Teaching: Verbalize Understanding OT Short Term Goals Short Term Goals Time Frame: Mar 08, 2017 Toileting(FIM): 5 Transfers (B,C,W/C) (FIM): 4 Toilet/Commode Transfer(FIM): 5 Additional Short Term Goals: 2-Verbalize Understanding, 3-ImproveStrength/[place] 1=Demonstrate adherence to instructed precautions during ADL tasks. 2=Patient will verbalize/demonstrate understanding of assistive devices/ modifications for ADL. 3=Patient will improve strength/tolerance for activity to enable patient to perform ADL's. OT [facility] Goals [facility] Goals Time Frame: Mar 19, 2017 Eating (FIM): 6 Eating (QC): 6 Groomin Oral Hygiene (QC): 6 Bathing(FIM): 6 Shower/Bathe Self (QC): 6 Upper Body Dressing(FIM): 6 Upper Body Dressing (QC): 6 Lower Body Dressing(FIM): 6 Lower Body Dressing (QC): 6 On/Off Footwear (QC): 6 Toileting(FIM): 6 Toileting Hygiene (QC): 6 Toilet/Commode Transfer(FIM): 6 Toilet/Commode Transfer (QC): 6 Shower Transfer(FIM): 6 Additional Goals: 1-Demonstrate ADL Tasks, 2-Verbalize Understanding, 3- ImproveStrength/[place] 1=Demonstrate adherence to instructed precautions during ADL tasks. 2=Patient will verbalize/demonstrate understanding of assistive devices/ modifications for ADL. 3=Patient will improve strength/tolerance for activity to enable patient to perform ADL's. OT Education/Plan Problem List/Assessment Pt would benefit from skilled OT to increase her independence in basic self care to allow her to safely return to her home to live independently. Discharge Recommendations Plan/Recommendations: Continue POC Treatment Plan/Plan of Care Patient would benefit from OT for education, treatment and training to promote independence in ADL's, mobility, safety and/or upper extremity function for ADL' s. Plan of Care: ADL Retraining, Functional Mobility, Group Exercise/Act as Ind ( educ, exercise, activity tolerance, functional activities, socialization), UE Funct Exercise/Act, UE Neuromus Re-Ed/Coord Treatment Duration: Mar 19, 2017 Frequency: At least 5 to 7 days/Wk (IRF) Estimated Hrs Per Day: 1.5 hours per day Agreement: Yes Rehab Potential: Fair Time/GCodes Start Time: 09:30 Stop Time: 10:30 Total Time Billed (hr/min): 60 Billed Treatment Time visit, 15 minutes ADL, exercise 25 minutes, functional activity 20 minutes CONY WHITNEY OT Mar 11, 2017 11:02
[2017-03-11] MEDS: IRON SUCROSE INJECTION 200 MG in NS (IVPB) 100 ML IV SCH (11:48)
--- NOTE | 2017-03-11 12:50 | Occupational Ther Daily Note ---
OT Current Status-Daily Note Subjective Pt seen in room, up in recliner, agreeable to OT. No pain mentioned. Appearance Alert, cooperative Mental Status/Objective Functional [place] Measure 0=Not Assessed/NA 4=Minimal Assistance 1=Total Assistance 5=Supervision or Setup 2=Maximal Assistance 6=Modified [place] 3=Moderate Assistance 7=Complete [place] ADL-Treatment Functional [place] Measure 0=Not Assessed/NA 4=Minimal Assistance 1=Total Assistance 5=Supervision or Setup 2=Maximal Assistance 6=Modified [place] 3=Moderate Assistance 7=Complete IndependenceIRFPAI Quality Coding Scale 6 Independent with activity with or without an assistive device 5 Patient requires set up or clean up by helper. Patient completes activity by themselves 4 Supervision or touching assist (CGA). [place] provide cues , steadying assist 3 The helper provides less than half the effort to complete the activity 2 The helper provides more than half the effort to complete the activity 1 Dependent. The helper does all the effort to complete an activity 7 Patient refused to complete or attempt activity 9 The patient did not perform the activity before the current illness or injury 88 Not attempted due to Medical conditions or safety concerns Toileting (FIM): 6 (Able to manage clothing and hygiene. Changed briefs and shorts, using dressing stick. BSC over toilet, grab bar, FWW) Toilet/Commode Transfer (FIM): 6 (On/off BSC over toilet safely. FWW, grab bar) Other Treatment Pt walked with SBA for safety, FWW from room to commons area, with no LOB. Skilled cue to get closer to the walker. Pt was able to sit in chair with arms with SBA. At tabletop, did bilat UE activities with 1# weight on each arm, working on muscle groups necessary for better weightbearing during walking. At end of tx, pt was left up at table, reading newspaper, all needs met. Education OT Patient Education: Progress toward Goal/Update tx plan, Purpose of tx/ functional activities Teaching Recipient: Patient Teaching Methods: Discussion Response to Teaching: Verbalize Understanding OT Short Term Goals Short Term Goals Time Frame: Mar 08, 2017 Toileting(FIM): 5 Transfers (B,C,W/C) (FIM): 4 Toilet/Commode Transfer(FIM): 5 Additional Short Term Goals: 2-Verbalize Understanding, 3-ImproveStrength/[place] 1=Demonstrate adherence to instructed precautions during ADL tasks. 2=Patient will verbalize/demonstrate understanding of assistive devices/ modifications for ADL. 3=Patient will improve strength/tolerance for activity to enable patient to perform ADL's. 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 2=Patient will verbalize/demonstrate understanding of assistive devices/ modifications for ADL. 3=Patient will improve strength/tolerance for activity to enable patient to perform ADL's. OT Education/Plan Problem List/Assessment Pt would benefit from skilled OT to increase her independence in basic self care to allow her to safely return to her home to live independently. Discharge Recommendations Plan/Recommendations: Continue POC Treatment Plan/Plan of Care Patient would benefit from OT for education, treatment and training to promote independence in ADL's, mobility, safety and/or upper extremity function for ADL' s. Plan of Care: ADL Retraining, Functional Mobility, Group Exercise/Act as Ind ( educ, exercise, activity tolerance, functional activities, socialization), UE Funct Exercise/Act, UE Neuromus Re-Ed/Coord Treatment Duration: Mar 19, 2017 Frequency: At least 5 to 7 days/Wk (IRF) Estimated Hrs Per Day: 1.5 hours per day Agreement: Yes Rehab Potential: Fair Time/GCodes Start Time: 12:55 Stop Time: 13:25 Total Time Billed (hr/min): 30 Billed Treatment Time visit, 10 min ADL, 5 min functional activity, 15 min exercise CONY WHITNEY OT Mar 11, 2017 12:50
--- NOTE | 2017-03-11 14:17 | PM & R (SOAP) Progress Note ---
Subjective Time Seen by Provider: 07:40 Subjective/Events-last exam Patient was seen in her room this AM Patient min assist for transfer Pain control adewquate. Objective Exam Last Set of Vital Signs Vital Signs Date Time Temp Pulse Resp B/P (MAP) Pulse Ox O2 Delivery O2 Flow Rate FiO2 03/11/17 09:00 Room Air 03/11/17 05:28 97.8 73 20 135/69 95 Capillary Refill : Less Than 3 Seconds I&O Intake and Output 03/12/17 00:00 Intake Total 200 ml Balance 200 ml Intake Oral 200 ml # Voids 4 General: Alert, Oriented X3, Cooperative, No Acute Distress HEENT: Atraumatic, PERRLA, EOMI, Mucous Memb Moist/[place] Neck: Supple, No JVD Lungs: Clear to Auscultation Heart: Regular Rate Abdomen: Normal Bowel Sounds, Soft, No Tenderness Extremities: Other (trace edema left hip) Skin: Other ([place] dressing in place) Neuro: Other (Generalized weakness with guarding left hip ) Results Lab Laboratory Tests 03/10/17 05:55: White Blood Count 8.7, Red Blood Count 2.79L, Hemoglobin 8.5L, Hematocrit 27L, Mean Corpuscular Volume 98, Mean Corpuscular Hemoglobin 31, Mean Corpuscular Hemoglobin Concent 31L, Red Cell Distribution Width 15.1H, Platelet Count 390, Mean Platelet Volume 9.3, Neutrophils (%) (Auto) 54, Lymphocytes (%) (Auto) 31, Monocytes (%) (Auto) 9, Eosinophils (%) (Auto) 5, Basophils (%) (Auto) 0, Neutrophils # (Auto) 4.7, Lymphocytes # (Auto) 2.7, Monocytes # (Auto) 0.8, Eosinophils # (Auto) 0.5H, Basophils # (Auto) 0.0, Prothrombin Time 23.8H, INR Comment 2.1H, Sodium Level 143, Potassium Level 3.9, Chloride Level 108H, Carbon Dioxide Level 24, Anion Gap 11, Blood Urea Nitrogen 47H, Creatinine 1.17 , Estimat Glomerular Filtration Rate 45, BUN/Creatinine Ratio 40, Glucose Level 92, Calcium Level 8.5, Total Bilirubin 0.4, Aspartate Amino Transf (AST/SGOT) 29 , Alanine Aminotransferase (ALT/SGPT) 38, Alkaline Phosphatase 145H, Total Protein 5.9L, Albumin 2.9L Assessment/Plan Assessment left intertrochanteric femur fracture s/pORIF DR Blanco Left distal femur fracture s/p Plating DR Aleman/Gregg Postop anemia-improving Chronic anticoagulation with coumadin being managed by Hospitalist service Hypothyroidism -compensated Osteoporosis-on Fosamax Postop constipation under treatment Increased swelling left knee improved this AM Soft and non tender Plan Continue PT/OT/Wound care Pain management F/U with DR Aleman and Hospitalist as per their schedule Appreciate DR Hamilton notes. Monitor Labs INR and BUN/CR etc DR Mccormack et al managing-INR noted back in therapeutic range Monitor swelling left knee-ice prn-improved Team Conference held yesterday-See report for full functional update and POC and KIERRA D/C carey left hip see orders-done earlier this week Discharge set tentatively for next Wednesday03/17/17 ANGELICA YIN MD Mar 11, 2017 14:17
--- NOTE | 2017-03-11 15:06 | Physical Therapy Daily Note ---
PT Daily Note-Current Subjective Pt sitting in recliner upon arrival. Pt agrees to PT. Pain Numeric Pain Scale: 2 Location: Right, Left Location Body Site: Knee Pain Description: Ache Mental Status Patient Orientation: Person, Place, Time, Situation Transfers Functional [place] Measure 0=Not Assessed/NA 4=Minimal Assistance 1=Total Assistance 5=Supervision or Setup 2=Maximal Assistance 6=Modified [place] 3=Moderate Assistance 7=Complete IndependenceIRFPAI Quality Coding Scale 6 Independent with activity with or without an assistive device 5 Patient requires set up or clean up by helper. Patient completes activity by themselves 4 Supervision or touching assist (CGA). [place] provide cues , steadying assist 3 The helper provides less than half the effort to complete the activity 2 The helper provides more than half the effort to complete the activity 1 Dependent. The helper does all the effort to complete an activity 7 Patient refused to complete or attempt activity 9 The patient did not perform the activity before the current illness or injury 88 Not attempted due to Medical conditions or safety concerns Scootin Sit to/from Stand: 5 Sit to Stand (QC): 5 Weight Bearing Weight Bearing Restriction: Weight Bearing/Tolerated Location Restriction: L LE Gait Training Does the Patient Walk?: Yes Distance (FIM): 3=150 ft Distance: 150' Walk 10 feet (QC): 5 Walk 50 ft with 2 Turns(QC): 5 Walk 150 ft (QC): 5 Gait Level of Assist: 5 Gait Persons Needed: 1 Gait Assistive Device: FWW Pt is encouraged to WB more on LLE and extend R knee more with ambulation. Wheelchair Training Does the Pt Use a Wheelchair?: No Exercises Seated Therapy Exercises: Ankle pumps, Long arc quads, Hip flexion, Kicking activity Seated Reps: 20 Treatments Pt transfers from recliner to standing using FWW at SBA. Pt ambulated in Therapy Commons using FWW at SBA with a few rest breaks due to fatigue. Pt completes Seated Ex in recliner at end of tx then rests with all needs met. Assessment Current Status: Good Progress Pt is fatigued by end of tx. PT Short Term Goals Short Term Goals Time Frame: Mar 08, 2017 Transfers (B,C,W/C) (FIM): 4 Gait (FIM): 2 Gait Distance Comment: 50' Gait Level of Assist: 4 Gait Assistive Device: FWW Wheelchair (FIM): 5 Wheelchair distance (FIM): 9=504-30 ft Wheelchair Distance: 150' Wheelchair Level of Assist: 5 PT Custodial Goals Sausage Meat Trimmer Goals PT Custodial Goals Time Frame: Mar 22, 2017 Transfers (B,C,W/C) (FIM): 5 Sit to Lying (QC): 4 Lying-Sitting on Side/Bed(QC): 4 Sit to Stand (QC): 4 Rollin Roll Left to Right (QC): 4 Chair/Vrw-lz-Exunr Xfer(QC): 4 Car Transfer (QC): 4 Does the Patient Walk: Yes Gait (FIM): 5 Gait distance (FIM): 3=150 ft Distance: 150' Walk 10 feet (QC): 4 Walk 10ft-Uneven Surface(QC): 4 Walk 50ft with 2 Turns (QC): 4 Walk 150 ft (QC): 4 Gait Level of Assist: 5 Gait Assistive Device: FWW PT Plan Problem List Problem List: Activity Tolerance, Functional Strength, Safety, Gait Treatment/Plan Treatment Plan: Continue Plan of Care Treatment Plan: Bed Mobility, Education, Functional Activity [place], Functional Strength, Group Therapy, Gait, Safety, Therapeutic Exercise, Transfers Treatment Duration: Mar 22, 2017 Frequency: At least 5 to 7 days/Wk (IRF) Estimated Hrs Per Day: 1.5 hours per day Patient and/or Family Agrees t: Yes Safety Risks/Education Patient Education: Gait Training, Transfer Techniques, Correct Positioning, Safety Issues Teaching Recipient: Patient Teaching Methods: Discussion Response to Teaching: Verbalize Understanding Time/GCodes Time In: 1330 Time Out: 1400 Total Billed Treatment Time: 30 Total Billed Treatment visit, GT (15m) & EX (15m) BRANDEN GUZMAN PTA Mar 11, 2017 15:06
[2017-03-11 18:00] VITALS: BP 102/63
[2017-03-11] MEDS: warFARin 1 MG (COUMADIN) TAB PO SCH (18:00)
[2017-03-11] MEDS: POLYETHYLENE GLYCOL 17 GM (MIRALAX) PACK PO SCH (18:04)
[2017-03-12 05:00] VITALS: BP 128/66
[2017-03-12] MEDS: VITAMIN A 8000 UNIT PO SCH ×2 (06:01→17:13)
[2017-03-12] MEDS: CALCIUM CARB + VIT D 600 MG (CALCARB + D) TAB PO SCH ×2 (06:01→17:13)
[2017-03-12] MEDS: LEVOTHYROXINE 112 MCG (LEVOTHROID) TAB PO SCH (06:01)
[2017-03-12] MEDS: CATHETER FLUSH 10 ML SYR IV SCH ×3 (06:03→20:38)
[2017-03-12] MEDS: COLCHICINE 0.6 MG (COLCRYS) TABLET PO SCH (08:09)
[2017-03-12] MEDS: CARVEDILOL 12.5 MG (COREG) TABLET PO SCH ×2 (08:09→20:37)
[2017-03-12] MEDS: OXYBUTYNIN (DITROPAN) 5 MG TAB PO SCH (08:09)
[2017-03-12] MEDS: BUMETANIDE 1 MG (BUMEX) TAB PO SCH (08:09)
[2017-03-12] MEDS: DOCUSATE SODIUM 100 MG (COLACE) CAP PO SCH ×2 (08:10→20:37)
[2017-03-12] MEDS: MICONAZOLE 2% POWDER (DESENEX AF) 90 GM TOP SCH ×2 (08:13→20:38)
--- NOTE | 2017-03-12 08:58 | Physical Therapy Daily Note ---
PT Daily Note-Current Subjective Pt. agrees to Rx and states she needs to have a BM before the Rx. Pt. surprised she could go up down steps this date Pain Numeric Pain Scale: 0-No Pain Mental Status Patient Orientation: Normal For Age Transfers Functional [place] Measure 0=Not Assessed/NA 4=Minimal Assistance 1=Total Assistance 5=Supervision or Setup 2=Maximal Assistance 6=Modified [place] 3=Moderate Assistance 7=Complete IndependenceIRFPAI Quality Coding Scale 6 Independent with activity with or without an assistive device 5 Patient requires set up or clean up by helper. Patient completes activity by themselves 4 Supervision or touching assist (CGA). [place] provide cues , steadying assist 3 The helper provides less than half the effort to complete the activity 2 The helper provides more than half the effort to complete the activity 1 Dependent. The helper does all the effort to complete an activity 7 Patient refused to complete or attempt activity 9 The patient did not perform the activity before the current illness or injury 88 Not attempted due to Medical conditions or safety concerns Transfers (B, C, W/C) (FIM): 4 Scootin Rollin Supine to/from Sit: 4 Sit to/from Stand: 5 still needs assist LLE in out bed with surface flat and no rails (like home) Weight Bearing Weight Bearing Restriction: Weight Bearing/Tolerated Location Restriction: L LE Gait Training Does the Patient Walk?: Yes Gait (FIM): 1 Distance (FIM): 1=up to 49 ft (40ftx3) Gait Level of Assist: 5 Gait Persons Needed: 1 Gait Assistive Device: FWW Stair Training Stair Training: Handrails/: 2 handrails Stairs (FIM): 2 #of Steps: 4 Stairs: Pattern: Step to Level of Assist: 4 Exercises Supine Ex: Ankle pumps, Quad Set, Rolling, Glut sets, Heel Slides, Short Arc Quads, Scooting, Straight leg raise (assist), Hip abd/add (assist) Supine Reps: 12 Seated Therapy Exercises: Ankle pumps, Sit to stand, Long arc quads Seated Reps: 12 Assessment Current Status: Good Progress still asks to sit before she accomplishes 50ft. Pt. c/o fatigue in arms and shoulders. Suggested less wt bearing on UEs and more on LEs PT Short Term Goals Short Term Goals Time Frame: Mar 08, 2017 Transfers (B,C,W/C) (FIM): 4 Gait (FIM): 2 Gait Distance Comment: 50' Gait Level of Assist: 4 Gait Assistive Device: FWW Wheelchair (FIM): 5 Wheelchair distance (FIM): 1=463-06 ft Wheelchair Distance: 150' Wheelchair Level of Assist: 5 PT Care Home Goals Lead Developer Goals PT Lead Developer Goals Time Frame: Mar 22, 2017 Transfers (B,C,W/C) (FIM): 5 Sit to Lying (QC): 4 Lying-Sitting on Side/Bed(QC): 4 Sit to Stand (QC): 4 Rollin Roll Left to Right (QC): 4 Chair/Imp-he-Hryvr Xfer(QC): 4 Car Transfer (QC): 4 Does the Patient Walk: Yes Gait (FIM): 5 Gait distance (FIM): 3=150 ft Distance: 150' Walk 10 feet (QC): 4 Walk 10ft-Uneven Surface(QC): 4 Walk 50ft with 2 Turns (QC): 4 Walk 150 ft (QC): 4 Gait Level of Assist: 5 Gait Assistive Device: FWW PT Plan Treatment/Plan Treatment Plan: Continue Plan of Care Treatment Plan: Bed Mobility, Education, Functional Activity [place], Functional Strength, Group Therapy, Gait, Safety, Therapeutic Exercise, Transfers Treatment Duration: Mar 22, 2017 Frequency: At least 5 to 7 days/Wk (IRF) Estimated Hrs Per Day: 1.5 hours per day Patient and/or Family Agrees t: Yes Safety Risks/Education Patient Education: Gait Training, Transfer Techniques, Steps Teaching Recipient: Patient Teaching Methods: Demonstration, Discussion Response to Teaching: Verbalize Understanding, Return Demonstration, Reinforcement Needed Time/GCodes Time In: 800 Time Out: 900 Total Billed Treatment Time: 60 Total Billed Treatment 1,GT30m,EX15m,FA15m G Codes Necessary: MELINDA Cisneros [employer] Mar 12, 2017 08:58
--- NOTE | 2017-03-12 10:31 | PM & R (SOAP) Progress Note ---
Subjective Time Seen by Provider: 07:50 Subjective/Events-last exam Patient was seen in her room this AM Patient Min assist for transfers Eating and sleeping OK Pain control adequate Swelling left knee down Objective Exam Last Set of Vital Signs Vital Signs Date Time Temp Pulse Resp B/P (MAP) Pulse Ox O2 Delivery O2 Flow Rate FiO2 03/12/17 05:00 98.7 78 20 128/66 96 Room Air Capillary Refill : Less Than 3 Seconds I&O Intake and Output 03/13/17 00:00 Intake Total 250 ml Balance 250 ml Intake Oral 250 ml # Voids 4 # Bowel Movements 1 General: Alert, Oriented X3, Cooperative, No Acute Distress HEENT: Atraumatic, PERRLA, EOMI, Mucous Memb Moist/[place] Neck: Supple, No JVD Lungs: Clear to Auscultation Heart: Regular Rate Abdomen: Normal Bowel Sounds, Soft, No Tenderness Extremities: Other (trace edema left hip) Skin: Other ([place] dressing in place) Neuro: Other (Generalized weakness with guarding left hip ) Results Lab Laboratory Tests 03/10/17 05:55: White Blood Count 8.7, Red Blood Count 2.79L, Hemoglobin 8.5L, Hematocrit 27L, Mean Corpuscular Volume 98, Mean Corpuscular Hemoglobin 31, Mean Corpuscular Hemoglobin Concent 31L, Red Cell Distribution Width 15.1H, Platelet Count 390, Mean Platelet Volume 9.3, Neutrophils (%) (Auto) 54, Lymphocytes (%) (Auto) 31, Monocytes (%) (Auto) 9, Eosinophils (%) (Auto) 5, Basophils (%) (Auto) 0, Neutrophils # (Auto) 4.7, Lymphocytes # (Auto) 2.7, Monocytes # (Auto) 0.8, Eosinophils # (Auto) 0.5H, Basophils # (Auto) 0.0, Prothrombin Time 23.8H, INR Comment 2.1H, Sodium Level 143, Potassium Level 3.9, Chloride Level 108H, Carbon Dioxide Level 24, Anion Gap 11, Blood Urea Nitrogen 47H, Creatinine 1.17 , Estimat Glomerular Filtration Rate 45, BUN/Creatinine Ratio 40, Glucose Level 92, Calcium Level 8.5, Total Bilirubin 0.4, Aspartate Amino Transf (AST/SGOT) 29 , Alanine Aminotransferase (ALT/SGPT) 38, Alkaline Phosphatase 145H, Total Protein 5.9L, Albumin 2.9L Assessment/Plan Assessment left intertrochanteric femur fracture s/pORIF DR Blanco Left distal femur fracture s/p Plating DR Aleman/Gregg Postop anemia-improving Chronic anticoagulation with coumadin being managed by Hospitalist service Hypothyroidism -compensated Osteoporosis-on Fosamax Postop constipation under treatment Increased swelling left knee improved this AM Soft and non tender Plan Continue PT/OT/Wound care Pain management F/U with DR Aleman and Hospitalist as per their schedule Appreciate DR Hamilton notes. Monitor Labs INR and BUN/CR etc DR Mccormack et al managing-INR noted back in therapeutic range Monitor swelling left knee-ice prn-improved Team Conference held 03-10-17 -See report for full functional update and POC and ELOS D/C carey left hip see orders-done earlier this week Discharge set tentatively for next Wednesday03/17/17 ANGELICA YIN MD Mar 12, 2017 10:31
--- NOTE | 2017-03-12 11:20 | Occupational Ther Daily Note ---
OT Current Status-Daily Note Subjective Pt seen in room, up in recliner, agreeable to OT and shower. Looking forward to going home. Appearance Alert, cooperative Mental Status/Objective Functional [place] Measure 0=Not Assessed/NA 4=Minimal Assistance 1=Total Assistance 5=Supervision or Setup 2=Maximal Assistance 6=Modified [place] 3=Moderate Assistance 7=Complete [place] ADL-Treatment Pt left up in recliner, legs elevated (L lower legs seems a little more edematous today). All needs met. Functional [place] Measure 0=Not Assessed/NA 4=Minimal Assistance 1=Total Assistance 5=Supervision or Setup 2=Maximal Assistance 6=Modified [place] 3=Moderate Assistance 7=Complete IndependenceIRFPAI Quality Coding Scale 6 Independent with activity with or without an assistive device 5 Patient requires set up or clean up by helper. Patient completes activity by themselves 4 Supervision or touching assist (CGA). [place] provide cues , steadying assist 3 The helper provides less than half the effort to complete the activity 2 The helper provides more than half the effort to complete the activity 1 Dependent. The helper does all the effort to complete an activity 7 Patient refused to complete or attempt activity 9 The patient did not perform the activity before the current illness or injury 88 Not attempted due to Medical conditions or safety concerns Bathing (FIM): 5 (Washed and dried all parts, turned water on and off and rtrieved towel Setup needed to cover IV in R arm. Shower bench, grab bars, hand held shower. Able to stand safety ) Upper Body (FIM): 6 (Retrieved clean clothes from closet, using FWW for balance and for transporting clothing.) Lower Body Dressing (FIM): 6 (Doffed and donned clothing, using dressing stick and sock aid. Retrieved clean clothes from closet, using FWW for balance and for transporting clothing. pt educ to get close to closet for safety) Toileting (FIM): 6 (Manages clothing and hygiene. BSC over toilet, grab bar, FWW) Transfers (B, C, W/C) (FIM): 5 (SBA, sit to stand from recliner. FWW) Toilet/Commode Transfer (FIM): 6 (Mod I on and off BSC over toilet. Very careful when maneuvering walker around BSc legs) Shower Transfer(FIM): 5 (SBA getting in and out of shower, using shower bench, grab bars, FWW. ) Education OT Patient Education: Progress toward Goal/Update tx plan, Purpose of tx/ functional activities, Safety issues Teaching Recipient: Patient Teaching Methods: Discussion Response to Teaching: Verbalize Understanding OT Short Term Goals Short Term Goals Time Frame: Mar 08, 2017 Toileting(FIM): 5 Transfers (B,C,W/C) (FIM): 4 Toilet/Commode Transfer(FIM): 5 Additional Short Term Goals: 2-Verbalize Understanding, 3-ImproveStrength/[place] 1=Demonstrate adherence to instructed precautions during ADL tasks. 2=Patient will verbalize/demonstrate understanding of assistive devices/ modifications for ADL. 3=Patient will improve strength/tolerance for activity to enable patient to perform ADL's. OT Mcfp Goals Floriculture Teacher Goals Time Frame: Mar 19, 2017 Eating (FIM): 6 Eating (QC): 6 Groomin Oral Hygiene (QC): 6 Bathing(FIM): 6 Shower/Bathe Self (QC): 6 Upper Body Dressing(FIM): 6 Upper Body Dressing (QC): 6 Lower Body Dressing(FIM): 6 Lower Body Dressing (QC): 6 On/Off Footwear (QC): 6 Toileting(FIM): 6 Toileting Hygiene (QC): 6 Toilet/Commode Transfer(FIM): 6 Toilet/Commode Transfer (QC): 6 Shower Transfer(FIM): 6 Additional Goals: 1-Demonstrate ADL Tasks, 2-Verbalize Understanding, 3- ImproveStrength/[place] 1=Demonstrate adherence to instructed precautions during ADL tasks. 2=Patient will verbalize/demonstrate understanding of assistive devices/ modifications for ADL. 3=Patient will improve strength/tolerance for activity to enable patient to perform ADL's. OT Education/Plan Problem List/Assessment Pt would benefit from skilled OT to increase her independence in basic self care to allow her to safely return to her home to live independently. Discharge Recommendations Plan/Recommendations: Continue POC Treatment Plan/Plan of Care Patient would benefit from OT for education, treatment and training to promote independence in ADL's, mobility, safety and/or upper extremity function for ADL' s. Plan of Care: ADL Retraining, Functional Mobility, Group Exercise/Act as Ind ( educ, exercise, activity tolerance, functional activities, socialization), UE Funct Exercise/Act, UE Neuromus Re-Ed/Coord Treatment Duration: Mar 19, 2017 Frequency: At least 5 to 7 days/Wk (IRF) Estimated Hrs Per Day: 1.5 hours per day Agreement: Yes Rehab Potential: Fair Time/GCodes Start Time: 09:30 Stop Time: 10:30 Total Time Billed (hr/min): 60 Billed Treatment Time visit, 60 minutes ADL CONY WHTINEY OT Mar 12, 2017 11:19
--- NOTE | 2017-03-12 14:59 | Therapy Group Daily Note ---
Therapy Daily Group Note Patient Education Topic Other List Below (ascending descending steps, ARU description and expectations) Exercises LE Seated Exercise, UE Exercise Other/Notes Pt. attended group PT OT session. Pt. came via w/c . Once there pt. appeared to enjoy herself , introducing self and starting conversation. Pts lead exercise group reading and demonstrating from handout card distributed to each of them prior to group start. Ascending and descending stairs was explained and demonstrated suing rails and also FWW up down steps. Pt. asked questions and participated well. Was very social. In bed after group with dowling at hand Start Time: 13:00 Stop Time: 14:10 Total Billed Treatment Time: 70 Total Billed Treatment 1,GRP MELINDA UGALDE PROGRAM TRAINER Mar 12, 2017 14:59
[2017-03-12] MEDS: warFARin 2.5 MG (COUMADIN) TAB PO SCH (17:13)
[2017-03-12 18:05] VITALS: BP 116/68
[2017-03-12] MEDS: POLYETHYLENE GLYCOL 17 GM (MIRALAX) PACK PO SCH (20:37)
[2017-03-13 05:31] VITALS: BP 118/65
[2017-03-13] MEDS: VITAMIN A 8000 UNIT PO SCH ×2 (06:11→17:01)
[2017-03-13] MEDS: CALCIUM CARB + VIT D 600 MG (CALCARB + D) TAB PO SCH ×2 (06:12→17:01)
[2017-03-13] MEDS: CATHETER FLUSH 10 ML SYR IV SCH ×3 (06:12→20:35)
[2017-03-13] MEDS: LEVOTHYROXINE 112 MCG (LEVOTHROID) TAB PO SCH (06:12)
[2017-03-13] MEDS: CARVEDILOL 12.5 MG (COREG) TABLET PO SCH ×2 (08:18→20:35)
[2017-03-13] MEDS: DOCUSATE SODIUM 100 MG (COLACE) CAP PO SCH ×2 (08:18→20:35)
[2017-03-13] MEDS: BUMETANIDE 1 MG (BUMEX) TAB PO SCH (08:18)
[2017-03-13] MEDS: COLCHICINE 0.6 MG (COLCRYS) TABLET PO SCH (08:18)
[2017-03-13] MEDS: OXYBUTYNIN (DITROPAN) 5 MG TAB PO SCH (08:18)
[2017-03-13] MEDS: MICONAZOLE 2% POWDER (DESENEX AF) 90 GM TOP SCH ×2 (08:19→20:33)
[2017-03-13] MEDS: IRON SUCROSE INJECTION 200 MG in NS (IVPB) 100 ML IV SCH (10:23)
--- NOTE | 2017-03-13 10:43 | Physical Therapy Daily Note ---
PT Daily Note-Current Subjective Pt in chair, agreeable. Denies pain. Mental Status Patient Orientation: Person, Place, Time, Situation Transfers Functional [place] Measure 0=Not Assessed/NA 4=Minimal Assistance 1=Total Assistance 5=Supervision or Setup 2=Maximal Assistance 6=Modified [place] 3=Moderate Assistance 7=Complete IndependenceIRFPAI Quality Coding Scale 6 Independent with activity with or without an assistive device 5 Patient requires set up or clean up by helper. Patient completes activity by themselves 4 Supervision or touching assist (CGA). [place] provide cues , steadying assist 3 The helper provides less than half the effort to complete the activity 2 The helper provides more than half the effort to complete the activity 1 Dependent. The helper does all the effort to complete an activity 7 Patient refused to complete or attempt activity 9 The patient did not perform the activity before the current illness or injury 88 Not attempted due to Medical conditions or safety concerns Sit to/from Stand: 5 Weight Bearing Weight Bearing Restriction: Weight Bearing/Tolerated Location Restriction: L LE Gait Training Does the Patient Walk?: Yes Gait (FIM): 2 Distance (FIM): 0=906-02 ft Distance: 50', 40' Walk 10 feet (QC): 4 Walk 50 ft with 2 Turns(QC): 4 Gait Level of Assist: 5 Gait Persons Needed: 1 Gait Assistive Device: FWW Pt ambulated with step-through gait pattern, decreased stance time on (L) LE. VCS for increased WBing in LE to reduce UE fatigue. Seated recovery between gait trials. Treatments Gait training. Returned to chair with all needs met. Assessment Current Status: Good Progress Pt tolerated well. Fatigued but able to complete 50' PT Short Term Goals Short Term Goals Time Frame: Mar 08, 2017 Transfers (B,C,W/C) (FIM): 4 Gait (FIM): 2 Gait Distance Comment: 50' Gait Level of Assist: 4 Gait Assistive Device: FWW Wheelchair (FIM): 5 Wheelchair distance (FIM): 8=027-80 ft Wheelchair Distance: 150' Wheelchair Level of Assist: 5 PT Chcf Goals Plant Safety Engineer Goals PT Chcf Goals Time Frame: Mar 22, 2017 Transfers (B,C,W/C) (FIM): 5 Sit to Lying (QC): 4 Lying-Sitting on Side/Bed(QC): 4 Sit to Stand (QC): 4 Rollin Roll Left to Right (QC): 4 Chair/Bwi-yx-Sdgzx Xfer(QC): 4 Car Transfer (QC): 4 Does the Patient Walk: Yes Gait (FIM): 5 Gait distance (FIM): 3=150 ft Distance: 150' Walk 10 feet (QC): 4 Walk 10ft-Uneven Surface(QC): 4 Walk 50ft with 2 Turns (QC): 4 Walk 150 ft (QC): 4 Gait Level of Assist: 5 Gait Assistive Device: FWW PT Plan Problem List Problem List: Activity Tolerance, Functional Strength, Safety, Balance, Gait, Transfer, Bed Mobility Treatment/Plan Treatment Plan: Continue Plan of Care Treatment Plan: Bed Mobility, Education, Functional Activity [place], Functional Strength, Group Therapy, Gait, Safety, Therapeutic Exercise, Transfers Treatment Duration: Mar 22, 2017 Frequency: At least 5 to 7 days/Wk (IRF) Estimated Hrs Per Day: 1.5 hours per day Patient and/or Family Agrees t: Yes Safety Risks/Education Patient Education: Gait Training Teaching Recipient: Patient Teaching Methods: Discussion Response to Teaching: Return Demonstration, Reinforcement Needed Discharge Recommendations Therapy D/C Recommendations: Home w/ Family Support, Physical Therapy Home Care , Physical Therapy Outpatient Barriers to Progress Fatigue Time/GCodes Time In: 09 Time Out: 917 Total Billed Treatment Time: 16 Total Billed Treatment 1, Gt x 16' G Codes Necessary: MARCIAL Castillo DPT Mar 13, 2017 10:43
[2017-03-13] MEDS: warFARin 2.5 MG (COUMADIN) TAB PO SCH (17:01)
[2017-03-13 18:20] VITALS: BP 94/56
[2017-03-13] MEDS: POLYETHYLENE GLYCOL 17 GM (MIRALAX) PACK PO SCH (20:35)
[2017-03-14 04:52] VITALS: BP 120/70
[2017-03-14] MEDS: CATHETER FLUSH 10 ML SYR IV SCH ×3 (06:17→21:51)
[2017-03-14] MEDS: VITAMIN A 8000 UNIT PO SCH ×2 (06:17→17:09)
[2017-03-14] MEDS: LEVOTHYROXINE 112 MCG (LEVOTHROID) TAB PO SCH (06:17)
[2017-03-14] MEDS: CALCIUM CARB + VIT D 600 MG (CALCARB + D) TAB PO SCH ×2 (06:17→17:09)
[2017-03-14] MEDS: DOCUSATE SODIUM 100 MG (COLACE) CAP PO SCH ×2 (08:10→21:45)
[2017-03-14] MEDS: BUMETANIDE 1 MG (BUMEX) TAB PO SCH (08:10)
[2017-03-14] MEDS: MICONAZOLE 2% POWDER (DESENEX AF) 90 GM TOP SCH ×2 (08:11→21:46)
[2017-03-14] MEDS: OXYBUTYNIN (DITROPAN) 5 MG TAB PO SCH (08:11)
[2017-03-14] MEDS: COLCHICINE 0.6 MG (COLCRYS) TABLET PO SCH (08:11)
[2017-03-14] MEDS: CARVEDILOL 12.5 MG (COREG) TABLET PO SCH ×2 (08:11→21:46)
[2017-03-14] MEDS: warFARin 2.5 MG (COUMADIN) TAB PO SCH (17:09)
[2017-03-14 18:15] VITALS: BP 111/59
[2017-03-14] MEDS: POLYETHYLENE GLYCOL 17 GM (MIRALAX) PACK PO SCH (21:48)
[2017-03-15 05:18] VITALS: BP 111/62
[2017-03-15] MEDS: CALCIUM CARB + VIT D 600 MG (CALCARB + D) TAB PO SCH ×2 (06:07→17:05)
[2017-03-15] MEDS: CATHETER FLUSH 10 ML SYR IV SCH ×3 (06:07→20:11)
[2017-03-15] MEDS: LEVOTHYROXINE 112 MCG (LEVOTHROID) TAB PO SCH (06:07)
[2017-03-15] MEDS: VITAMIN A 8000 UNIT PO SCH ×2 (06:08→17:06)
[2017-03-15 06:09] LABS: BASOPHILS % (AUTO) 1 % (0-10); EOSINOPHILS # (AUTO) 0.4 10^3/uL (0.0-0.3); EOSINOPHILS % (AUTO) 4 % (0-10); LYMPHOCYTES % (AUTO) 25 % (12-44); MEAN CORPUSCULAR HEMOGLOBIN 30 PG (25-34); MEAN CORPUSCULAR HGB CONC 31 G/DL (32-36); MEAN CORPUSCULAR VOLUME 98 FL (80-99); MONOCYTES % (AUTO) 12 % (0-12); NEUTROPHILS # (AUTO) 4.9 X 10^3 (1.8-7.8); NEUTROPHILS % (AUTO) 59 % (42-75); PLATELET COUNT 330 10^3/uL (130-400); RED CELL DISTRIBUTION WIDTH 16.3 % (10.0-14.5); WHITE BLOOD COUNT 8.3 10^3/uL (4.3-11.0)
[2017-03-15 06:19] LABS: INR 2.8 (0.8-1.4); PROTHROMBIN TIME PATIENT 29.7 SEC (12.2-14.7)
[2017-03-15 06:29] LABS: ALBUMIN 2.9 GM/DL (3.2-4.5); BILIRUBIN,TOTAL 0.4 MG/DL (0.1-1.0); CALCIUM 8.2 MG/DL (8.5-10.1); CREATININE SERUM 1.04 MG/DL (0.60-1.30); TOTAL PROTEIN 5.7 GM/DL (6.4-8.2)
[2017-03-15] MEDS: DOCUSATE SODIUM 100 MG (COLACE) CAP PO SCH ×2 (08:00→20:10)
[2017-03-15] MEDS: BUMETANIDE 1 MG (BUMEX) TAB PO SCH (08:00)
[2017-03-15] MEDS: CARVEDILOL 12.5 MG (COREG) TABLET PO SCH ×2 (08:00→20:10)
[2017-03-15] MEDS: MICONAZOLE 2% POWDER (DESENEX AF) 90 GM TOP SCH ×2 (08:00→20:11)
[2017-03-15] MEDS: OXYBUTYNIN (DITROPAN) 5 MG TAB PO SCH (08:00)
[2017-03-15] MEDS: COLCHICINE 0.6 MG (COLCRYS) TABLET PO SCH (08:00)
--- NOTE | 2017-03-15 09:58 | Physical Therapy Daily Note ---
PT Daily Note-Current Subjective Pt sitting on toilet upon arrival. Pt requests dressing before FIM testing. Pt agrees to tx. Pain Numeric Pain Scale: 2 Location: Left Location Body Site: Hip Pain Description: Ache Mental Status Patient Orientation: Person, Place, Time, Situation Transfers Functional [place] Measure 0=Not Assessed/NA 4=Minimal Assistance 1=Total Assistance 5=Supervision or Setup 2=Maximal Assistance 6=Modified [place] 3=Moderate Assistance 7=Complete IndependenceIRFPAI Quality Coding Scale 6 Independent with activity with or without an assistive device 5 Patient requires set up or clean up by helper. Patient completes activity by themselves 4 Supervision or touching assist (CGA). [place] provide cues , steadying assist 3 The helper provides less than half the effort to complete the activity 2 The helper provides more than half the effort to complete the activity 1 Dependent. The helper does all the effort to complete an activity 7 Patient refused to complete or attempt activity 9 The patient did not perform the activity before the current illness or injury 88 Not attempted due to Medical conditions or safety concerns Transfers (B, C, W/C) (FIM): 4 Scootin Rollin Roll Left to Right (QC): 5 Supine to/from Sit: 4 Sit to/from Stand: 6 Sit to Lying (QC): 4 Sit to Stand (QC): 6 Chair/Eyo-la-Cjdgt Xfer(QC): 5 Bed to/from Chair: 5 Car Transfer (QC): 88 Pt takes additional time and needs Min A to get LLE into bed. Pt doesn't have car present to complete car transfer but will score upon discharge tomorrow. Weight Bearing Weight Bearing Restriction: Weight Bearing/Tolerated Location Restriction: L LE Gait Training Does the Patient Walk?: Yes Distance (FIM): 3=150 ft Distance: 200' Walk 10 feet (QC): 5 Walk 50 ft with 2 Turns(QC): 5 Walk 150 ft (QC): 5 Walking 10ft/uneven surface-QC: 5 Gait Level of Assist: 5 Gait Persons Needed: 1 Gait Assistive Device: FWW Pt walks with slow but steady aime. Pt needs VC for increasing WB and staying closer to FWW. Wheelchair Training Does the Pt Use a Wheelchair?: No Stair Training Stair Training: Handrails/: 2 handrails Stairs (FIM): 2 #of Steps: 4 1 Step (curb) (QC): 5 4 Steps (QC): 5 12 Steps (QC): 88 Stairs: Pattern: Step to Level of Assist: 5 Pt doesn't have stairs to enter residence although stairs were attempted for possible community needs. Pt fatigues easy and cannot complete more than 4 stairs before needing to rest. Pt takes one step at a time and rest between each. Balance Picking up an Object (QC): 88 Special Test Comments Pt didn't perform due to safety concern. Pt has a school bus driver/custodian at home that she can use to garbage pick up man objects. Treatments PT can take of lovely care and dress independently. Pt transfers from Supine to EOB at SBA then EOB to standing at SBA, while standing to EOB is SBA but EOB to Supine is Min A for assistance with lifting LLE into bed. PT ambulates suing FWW at SBA but fatigues easy. Pt completes walking on varying surface and stairs but doesn't attempt picking up object due to safety concerns. Pt returns to room at end of tx to rest in recliner with all needs met. Assessment Current Status: Good Progress Pt is excited to discharge tomorrow has made improvements with independence and safety of transfers and mobility. PT Short Term Goals Short Term Goals Time Frame: Mar 08, 2017 Transfers (B,C,W/C) (FIM): 4 Gait (FIM): 2 Gait Distance Comment: 50' Gait Level of Assist: 4 Gait Assistive Device: FWW Wheelchair (FIM): 5 Wheelchair distance (FIM): 1=479-04 ft Wheelchair Distance: 150' Wheelchair Level of Assist: 5 PT Senior Care Goals Performance Improvement Director Goals PT Performance Improvement Director Goals Time Frame: Mar 22, 2017 Transfers (B,C,W/C) (FIM): 5 Sit to Lying (QC): 4 Lying-Sitting on Side/Bed(QC): 4 Sit to Stand (QC): 4 Rollin Roll Left to Right (QC): 4 Chair/Bcf-fd-Kreyt Xfer(QC): 4 Car Transfer (QC): 4 Does the Patient Walk: Yes Gait (FIM): 5 Gait distance (FIM): 3=150 ft Distance: 150' Walk 10 feet (QC): 4 Walk 10ft-Uneven Surface(QC): 4 Walk 50ft with 2 Turns (QC): 4 Walk 150 ft (QC): 4 Gait Level of Assist: 5 Gait Assistive Device: FWW PT Plan Problem List Problem List: Activity Tolerance, Functional Strength, Gait, Bed Mobility Treatment/Plan Treatment Plan: Continue Plan of Care Treatment Plan: Bed Mobility, Education, Functional Activity [place], Functional Strength, Group Therapy, Gait, Safety, Therapeutic Exercise, Transfers Treatment Duration: Mar 22, 2017 Frequency: At least 5 to 7 days/Wk (IRF) Estimated Hrs Per Day: 1.5 hours per day Patient and/or Family Agrees t: Yes Safety Risks/Education Patient Education: Gait Training, Transfer Techniques, Correct Positioning, Safety Issues Teaching Recipient: Patient Teaching Methods: Discussion Response to Teaching: Verbalize Understanding Time/GCodes Time In: 815 Time Out: 905 Total Billed Treatment Time: 50 Total Billed Treatment visit, GT (20m) & FA x2 (30m) BRANDEN GUZMAN SEARCH ENGINE OPTIMIZATION MANAGER Mar 15, 2017 09:58
--- NOTE | 2017-03-15 12:57 | Occupational Ther Daily Note ---
OT Current Status-Daily Note Subjective Pt seen in room, up in recliner, agreeable to OT. No pain mentioned. Appearance Alert, cooperative, looking forward to going home tomorrow Mental Status/Objective Patient Orientation: Person, Place, Time Functional [place] Measure 0=Not Assessed/NA 4=Minimal Assistance 1=Total Assistance 5=Supervision or Setup 2=Maximal Assistance 6=Modified [place] 3=Moderate Assistance 7=Complete [place] ADL-Treatment Functional [place] Measure 0=Not Assessed/NA 4=Minimal Assistance 1=Total Assistance 5=Supervision or Setup 2=Maximal Assistance 6=Modified [place] 3=Moderate Assistance 7=Complete IndependenceIRFPAI Quality Coding Scale 6 Independent with activity with or without an assistive device 5 Patient requires set up or clean up by helper. Patient completes activity by themselves 4 Supervision or touching assist (CGA). Universal provide cues , steadying assist 3 The helper provides less than half the effort to complete the activity 2 The helper provides more than half the effort to complete the activity 1 Dependent. The helper does all the effort to complete an activity 7 Patient refused to complete or attempt activity 9 The patient did not perform the activity before the current illness or injury 88 Not attempted due to Medical conditions or safety concerns Eating (FIM): 6 (Orders her own food, able to cut up items and feed herself without difficulty. Dentures) Eating (QC): 6 Grooming (FIM): 6 (Standing at sink, able to brush teeth and comb hair, FWW for balance. Able to wash face and hands) Oral Hygiene (QC): 6 Bathing (FIM): 5 (Setup required to cover IV site. Washed and dried all parts including bottom. Shower bench, grab bars, hand held shower, long handled sponge. ) Shower/Bathe Self (QC): 5 (setup) Upper Body (FIM): 6 (Dressed upper body without help. Able to get clean clothes out of closet and put dirty ones away, using FWW for balance at closet. ) Upper Body Dressing (QC): 6 Lower Body Dressing (FIM): 6 (Dressed lower body without help, FWW for standing. Dressing stick, sock aid. Able to get clean clothes out of closet and put dirty ones away, using FWW for balance at closet. ) Lower Body Dressing (QC): 6 On/Off Footwear (QC): 6 (Sock aid, dressing stick) Toileting (FIM): 6 (Manages clothing and hygiene. If she is incontinent in her Depends, she is able to change them. BSC over toilet, FWW, grab bars) Toileting Hygiene (QC): 6 Toilet/Commode Transfer (FIM): 6 (On and off BSC over toilet. Very careful with walker legs around legs of BSC. FWW for balance, grab bars) Toilet Transfer (QC): 6 Shower Transfer(FIM): 5 (SBA getting in and out of shower, shower bench, grab bars, FWW) Other Treatment Pt walked to commons area with SBA, FWW. Pt worked on bilat UE strengthening, doing table top activity with 1# weight on each arm. Afterwards, pt walked back to her room, SBA with FWW and was left up in recliner, all needs met, sister present Education OT Patient Education: Progress toward Goal/Update tx plan, Purpose of tx/ functional activities Teaching Recipient: Patient Teaching Methods: Discussion Response to Teaching: Verbalize Understanding OT Short Term Goals Short Term Goals Time Frame: Mar 08, 2017 Toileting(FIM): 5 Transfers (B,C,W/C) (FIM): 4 Toilet/Commode Transfer(FIM): 5 Additional Short Term Goals: 2-Verbalize Understanding, 3-ImproveStrength/Haydee 1=Demonstrate adherence to instructed precautions during ADL tasks. 2=Patient will verbalize/demonstrate understanding of assistive devices/ modifications for ADL. 3=Patient will improve strength/tolerance for activity to enable patient to perform ADL's. OT Station Cleaning Porter Goals Fdc Goals Time Frame: Mar 19, 2017 Eating (FIM): 6 Eating (QC): 6 Groomin Oral Hygiene (QC): 6 Bathing(FIM): 6 Shower/Bathe Self (QC): 6 Upper Body Dressing(FIM): 6 Upper Body Dressing (QC): 6 Lower Body Dressing(FIM): 6 Lower Body Dressing (QC): 6 On/Off Footwear (QC): 6 Toileting(FIM): 6 Toileting Hygiene (QC): 6 Toilet/Commode Transfer(FIM): 6 Toilet/Commode Transfer (QC): 6 Shower Transfer(FIM): 6 Additional Goals: 1-Demonstrate ADL Tasks, 2-Verbalize Understanding, 3- ImproveStrength/Haydee 1=Demonstrate adherence to instructed precautions during ADL tasks. 2=Patient will verbalize/demonstrate understanding of assistive devices/ modifications for ADL. 3=Patient will improve strength/tolerance for activity to enable patient to perform ADL's. OT Education/Plan Problem List/Assessment Pt would benefit from skilled OT to increase her independence in basic self care to allow her to safely return to her home to live independently. Discharge Recommendations Plan/Recommendations: Continue POC Treatment Plan/Plan of Care Patient would benefit from OT for education, treatment and training to promote independence in ADL's, mobility, safety and/or upper extremity function for ADL' s. Plan of Care: ADL Retraining, Functional Mobility, Group Exercise/Act as Ind ( educ, exercise, activity tolerance, functional activities, socialization), UE Funct Exercise/Act, UE Neuromus Re-Ed/Coord Treatment Duration: Mar 19, 2017 Frequency: At least 5 to 7 days/Wk (IRF) Estimated Hrs Per Day: 1.5 hours per day Agreement: Yes Rehab Potential: Fair Time/GCodes Start Time: 10:00 Stop Time: 11:00 Total Time Billed (hr/min): 60 Billed Treatment Time visit, 45 minutes ADL, 15 minutes exercise CONY WHITNEY OT Mar 15, 2017 12:57
--- NOTE | 2017-03-15 14:48 | Therapy Group Daily Note ---
Therapy Daily Group Note Patient Education Topic Exercises, Other List Below (Memory Strategies) Exercises LE Seated Exercise, UE Exercise Other/Notes Pt came to PT/OT Group in Therapy [facility] area via FWW at [facility]. Pt participated in Group which consisted of Introductions (Name, Where you are from & Favorite Labor Day Memory), education on Memory Strategies and how they can help your everyday life as well as a Memory Activity. Pt also participated in both LE & UE Exercise in a seated position. Pt participated by giving a Memory Strategy they use, completing Exercises as well as completing Memory Activity. Pt returned to room to rest at end of Group with all needs met. Start Time: 13:00 Stop Time: 14:15 Total Billed Treatment Time: 75 Total Billed Treatment 1, GRP BRANDEN GUZMAN CARETAKER RESORT Mar 15, 2017 14:48
[2017-03-15] MEDS: warFARin 2.5 MG (COUMADIN) TAB PO SCH (17:06)
[2017-03-15 17:26] VITALS: BP 117/65
[2017-03-15] MEDS: POLYETHYLENE GLYCOL 17 GM (MIRALAX) PACK PO SCH (20:11)
[2017-03-16 04:55] VITALS: BP 124/62
[2017-03-16] MEDS: CATHETER FLUSH 10 ML SYR IV SCH (05:49)
[2017-03-16] MEDS: CALCIUM CARB + VIT D 600 MG (CALCARB + D) TAB PO SCH (05:49)
[2017-03-16] MEDS: LEVOTHYROXINE 112 MCG (LEVOTHROID) TAB PO SCH (05:50)
[2017-03-16] MEDS: VITAMIN A 8000 UNIT PO SCH (05:50)
[2017-03-16] MEDS: CARVEDILOL 12.5 MG (COREG) TABLET PO SCH (08:29)
[2017-03-16] MEDS: COLCHICINE 0.6 MG (COLCRYS) TABLET PO SCH (08:29)
[2017-03-16] MEDS: DOCUSATE SODIUM 100 MG (COLACE) CAP PO SCH ×2 (08:29→08:33)
[2017-03-16] MEDS: BUMETANIDE 1 MG (BUMEX) TAB PO SCH (08:29)
[2017-03-16] MEDS: OXYBUTYNIN (DITROPAN) 5 MG TAB PO SCH (08:29)
[2017-03-16] MEDS: MICONAZOLE 2% POWDER (DESENEX AF) 90 GM TOP SCH (08:30)
--- NOTE | 2017-03-16 10:12 | Therapy Team Discharge Summary ---
Therapy Discharge Summary Discharge Recommendations Date of Discharge 03-16-17 Therapy D/C Recommendations: Home w/ Family Support, Physical Therapy Home Care , Physical Therapy Outpatient Occupational Therapy Pt was seen for skilled OT to increase her independence in basic self care to allow her to safely return to her home after a fall with L hip fx. Pt had a second surgery on her L knee and returned to IRF. On admission she needed setup or SBA help with grooming, bathing, upper bpdy dressing, mod assist with lower body dressing, min assist with toileting and toilet transfers and was mod independent with eating. By discharge she was indep with eating and modified independent with all ADLs except that she needed setup to cover IV and SBA getting in/out of shower. Equipment used included FWW, shower bench, grab bars, hand held shower, dressing stick, sock aid. The bathroom in her apartment is accessible and she doesn't need any bathroom equipment on discharge. See tx plan for goals met. She will have someone in the home to stand by and assist with bathing. No further OT needs identified. DC OT PT Procurement Clerk Goals Procurement Clerk Goals PT Procurement Clerk Goals Time Frame: Mar 22, 2017 Transfers (B,C,W/C) (FIM): 5 Roll Left to Right (QC): 4 Sit to Lying (QC): 4 Lying-Sitting on Side/Bed(QC): 4 Sit to Stand (QC): 4 Chair/Ejd-bp-Fskut Xfer(QC): 4 Car Transfer (QC): 4 Does the Patient Walk: Yes Gait (FIM): 5 Gait distance (FIM): 3=150 ft Distance: 150' Walk 10 feet (QC): 4 Walk 10ft-Uneven Surface(QC): 4 Walk 50ft with 2 Turns (QC): 4 Walk 150 ft (QC): 4 Gait Level of Assist: 5 Gait Assistive Device: FWW OT Procurement Clerk Goals Procurement Clerk Goals Time Frame: Mar 19, 2017 Eating (FIM): 6 Eating (QC): 6 Oral Hygiene (QC): 6 Grooming(FIM): 6 Bathing(FIM): 6 Shower/Bathe Self (QC): 6 Upper Body Dressing(FIM): 6 Upper Body Dressing (QC): 6 Lower Body Dressing(FIM): 6 Lower Body Dressing (QC): 6 On/Off Footwear (QC): 6 Toileting(FIM): 6 Toileting Hygiene (QC): 6 Toilet/Commode Transfer(FIM): 6 Toilet/Commode Transfer (QC): 6 Shower Transfer(FIM): 6 Additional Goals: 1-Demonstrate ADL Tasks, 2-Verbalize Understanding, 3- ImproveStrength/Haydee 1=Demonstrate adherence to instructed precautions during ADL tasks. 2=Patient will verbalize/demonstrate understanding of assistive devices/ modifications for ADL. 3=Patient will improve strength/tolerance for activity to enable patient to perform ADL's. CONY WHITNEY OT Mar 16, 2017 10:12
[2017-03-16 11:45] VITALS: BP 124/62
--- NOTE | 2017-03-16 15:54 | PM & R (SOAP) Progress Note ---
Subjective Time Seen by Provider: 12:00 Subjective/Events-last exam Patient discharged to home with family today Has progressed well Objective Exam Last Set of Vital Signs Vital Signs Date Time Temp Pulse Resp B/P (MAP) Pulse Ox O2 Delivery O2 Flow Rate FiO2 03/16/17 11:45 71 18 124/62 94 Room Air 03/16/17 04:55 97.7 Capillary Refill : Less Than 3 Seconds I&O Intake and Output 03/17/17 00:00 Intake Total 240 ml Balance 240 ml Intake Oral 240 ml # Voids 4 General: Alert, Oriented X3, Cooperative, No Acute Distress HEENT: Atraumatic, PERRLA, EOMI, Mucous Memb Moist/[place] Neck: Supple, No JVD Lungs: Clear to Auscultation Heart: Regular Rate Abdomen: Normal Bowel Sounds, Soft, No Tenderness Extremities: Other (trace edema left hip) Skin: Other ([place] dressing in place) Neuro: Other (Generalized weakness with guarding left hip ) Results Lab Laboratory Tests 03/15/17 06:02: White Blood Count 8.3, Red Blood Count 2.90L, Hemoglobin 8.7L, Hematocrit 29L, Mean Corpuscular Volume 98, Mean Corpuscular Hemoglobin 30, Mean Corpuscular Hemoglobin Concent 31L, Red Cell Distribution Width 16.3H, Platelet Count 330, Mean Platelet Volume 9.0, Neutrophils (%) (Auto) 59, Lymphocytes (%) (Auto) 25, Monocytes (%) (Auto) 12, Eosinophils (%) (Auto) 4, Basophils (%) (Auto) 1, Neutrophils # (Auto) 4.9, Lymphocytes # (Auto) 2.0, Monocytes # (Auto) 1.0, Eosinophils # (Auto) 0.4H, Basophils # (Auto) 0.0, Prothrombin Time 29.7H, INR Comment 2.8H, Sodium Level 141, Potassium Level 4.0, Chloride Level 105, Carbon Dioxide Level 26, Anion Gap 10, Blood Urea Nitrogen 32H, Creatinine 1.04, Estimat Glomerular Filtration Rate 52, BUN/Creatinine Ratio 31, Glucose Level 91 , Calcium Level 8.2L, Total Bilirubin 0.4, Aspartate Amino Transf (AST/SGOT) 29 , Alanine Aminotransferase (ALT/SGPT) 37, Alkaline Phosphatase 165H, Total Protein 5.7L, Albumin 2.9L Assessment/Plan Assessment left intertrochanteric femur fracture s/pORIF DR Blanco Left distal femur fracture s/p Plating DR Aleman/Gregg Postop anemia-improving Chronic anticoagulation with coumadin being managed by Hospitalist service Hypothyroidism -compensated Osteoporosis-on Fosamax Postop constipation under treatment Increased swelling left knee improved this AM Soft and non tender Plan Discharge today to home with [facility] F/U INR with report to PCP DR Moody Carrillo F/U with ortho See orders. INR noted 03/15/17 2.8-in therapeutic range ANGELICA YIN MD Mar 16, 2017 15:54
--- NOTE | 2017-03-17 08:54 | Therapy Team Discharge Summary ---
Therapy Discharge Summary Discharge Recommendations Date of Discharge Mar 16, 2017 at 12:02 Therapy D/C Recommendations: Home w/ Family Support, Physical Therapy Home Care , Physical Therapy Outpatient Physical Therapy This patient has been seen on ARU post repair of left hip fracture. She admitted to ARU prior to this admission but had complications with her surgery and had to return to surgery. Upon this admission, her weight bearing status was as tolerated. At admit, she required min assist with transfers and remained at such at dischrge at times; she ambulated 10 ft with FWW with min assist and at dischrge could ambulate >150 ft with FWW with SBA. At admit she was not able to attempt stairs, but scored a 2 at dischrge. Treatment consisted of functional strength and mobility with gait and transfer progression. She did make functional gains, although all goal were not met. She felt ready and safe for discharge home and has agreed to [facility] PT to follow. PT Long-Term Goals Long-Term Goals PT Long-Term Goals Time Frame: Mar 22, 2017 Transfers (B,C,W/C) (FIM): 5 (unmet, remained at 4) Roll Left to Right (QC): 4 (met) Sit to Lying (QC): 4 (met) Lying-Sitting on Side/Bed(QC): 4 (met) Sit to Stand (QC): 4 (met) Chair/[place]-Kjwkl Xfer(QC): 4 (met) Car Transfer (QC): 4 Does the Patient Walk: Yes Gait (FIM): 5 (met) Gait distance (FIM): 3=150 ft Distance: 150' Walk 10 feet (QC): 4 Walk 10ft-Uneven Surface(QC): 4 Walk 50ft with 2 Turns (QC): 4 Walk 150 ft (QC): 4 Gait Level of Assist: 5 Gait Assistive Device: FWW OT Long-Term Goals Outsole Tacker Goals Time Frame: Mar 19, 2017 Eating (FIM): 6 Eating (QC): 6 Oral Hygiene (QC): 6 Grooming(FIM): 6 Bathing(FIM): 6 Shower/Bathe Self (QC): 6 Upper Body Dressing(FIM): 6 Upper Body Dressing (QC): 6 Lower Body Dressing(FIM): 6 Lower Body Dressing (QC): 6 On/Off Footwear (QC): 6 Toileting(FIM): 6 Toileting Hygiene (QC): 6 Toilet/Commode Transfer(FIM): 6 Toilet/Commode Transfer (QC): 6 Shower Transfer(FIM): 6 Additional Goals: 1-Demonstrate ADL Tasks, 2-Verbalize Understanding, 3- ImproveStrength/[place] 1=Demonstrate adherence to instructed precautions during ADL tasks. 2=Patient will verbalize/demonstrate understanding of assistive devices/ modifications for ADL. 3=Patient will improve strength/tolerance for activity to enable patient to perform ADL's. LILO PEREZ PT Mar 17, 2017 08:54
--- NOTE | 2017-03-17 21:26 | DISCHARGE SUMMARY ---
DATE OF SERVICE: HISTORY OF PRESENT ILLNESS: The patient is a 76-year-old female who presented to ER via EMS after having a fall outside her home on uneven concrete. She states she sustained a left hip fracture. She had percutaneous pinning with DR Bella barakat and was referred to inpatient rehabilitation unit. The patient is chronically anticoagulated on Coumadin. She was transferred to inpatient rehabilitation unit on 02/15/2017. The patient developed some sanguinous drainage from the hip associated with swelling along the left knee. Dr. Aleman assessed the patient and felt that the patient required p.o. antibiotics. The patient then had follow up fluoroscopy, which revealed distal cortical fracture near a prior left TKR.. The patient went on to have ORIF of left distal femur fracture with Dr. Aleman. The patient then returned to inpatient rehabilitation unit to complete a course of inpatient orthopedic rehabilitation and she is weightbearing as tolerated. She had been independent prior to this, living alone in her own apartment in [facility]. PAST MEDICAL HISTORY: Hypothyroidism, hypertension, anemia blood loss, osteoporosis. She has had prior spinal surgery and has been anticoagulated on Coumadin since that time. DVT. MEDICAL COURSE: The patient was followed by Dr. Wayne and hospitalist service while on rehab unit. Her INR was monitored and Coumadin adjusted accordingly. Her postop constipation was treated. She completed a course of antibiotics for UTI. She was placed on Venofer for postop anemia. Her postop leukocytosis resolved. She completed a course of Bactrim for the UTI. She was afebrile during her stay. Pulse on 03/16/2017 was 71, respirations 18, blood pressure 124/62, O2 sat 94% on room air. Chemistry on 03/15/2017 showed normal electrolytes, BUN improving at 32 from 47 on 03/10/2017, creatinine 1.04, calcium low at 8.2 on 03/15/2017. Alkaline phosphatase elevated at 165 on 03/15/2017 from 145 on 03/10/2017. Total protein and albumin and stable at 5.7/2.9 on 03/15/2017. REHABILITATION COURSE: She progressed well with her therapies. She had increased strength and endurance. She was assessed by speech therapy upon readmission to rehab unit, found to be cognitively intact and they signed off. The incision site, the left hip, was well healed and carey were removed. PT notes upon admission she required min assist for transfers. She ambulated 10 feet with a front wheel walker with minimal assist and upon discharge could ambulate 150 feet with front wheel walker with standby assist. She remained min assist for transfers but overall made improvement, although not all her goals were met. She will have home health care, PT. OT notes upon admission she required stand standby assist or set up with grooming, bathing, upper body dressing. She was mod assist for lower body dressing, min assist for toileting and toilet transfers, and was modified independent with eating. By discharge, she was independent with eating and modified independent with all ADLs except that she needed set up and standby assist getting in and out of shower. Equipment used included front wheel walker, shower bench, grab bars, hand held shower, dressing sticks, sock aid. The bathroom in her apartment is assessable and she does not need any bathroom equipment upon discharge. DISCHARGE INSTRUCTIONS: She will have followup with her orthopedist and her PCP, Dr. Uriostegui, [facility]. Continue current diet. She is weightbearing as tolerated. She will have home health care services. DISCHARGE MEDICATIONS: Fosamax 70 mg p.o. q. Wednesday, baclofen 10 mg p.o. t.i.d. p.r.n. mild pain, bumetanide 1 mg p.o. daily, calcium carbonate with vitamin D3 1 tablet p.o. b.i.d., Coreg 12.5 mg p.o. b.i.d., Colchicine 0.6 mg p.o. b.i.d., Levothyroxine 112 mcg p.o. daily, Ditropan 5 mg p.o. daily, vitamin A 8,000 units p.o. b.i.d., Coumadin 3 mg p.o. on Wednesday, Wednesday, Wednesday, Wednesday and Wednesday and 1.5 mg p.o. on Wednesday, . Follow up with Dr. Uriostegui with follow up INR. DISCHARGE DIAGNOSES: 1. Rehabilitation ambulatory dysfunction secondary to fracture of left proximal femur status percutaneous pinning, Dr. Blanco. 2. Distal left femur fracture status post open reduction internal fixation, Dr. Aleman. 3. Mild postoperative anemia, improving status post transfusion and Venofer Rx. 4. Chronic anticoagulation on Coumadin. 5. Hypothyroidism, compensated. 6. Hypertension, controlled with medication. 7. Osteoporosis on Fosamax. 8. Mild renal insufficiency. 9. Hypoalbuminemia. 10. Hypocalcemia. 11. Postop constipation treated. 12. Postop UTI, completed Bactrim. 13. Prior lumbar spine surgery 2013. 14. Postop leukocytosis stress related, resolved. CONDITION AT DISCHARGE: Improved and stable. PROGNOSIS: Rehab prognosis appears good for continued improvement at home with return to independent living with some assistance from family and home health care as needed. . Job ID: [id number] DocumentID: [id number] Dictated Date: 03/17/2017 20:19:24 Laborer [employer] Date: 03/17/2017 21:26:27 Dictated By: ANGELICA WAYNE MD MTDD
== END 2017-03-16 12:02 | disposition home health service (06) | DRG 560 ==
PROVIDERS: ADMIT Physical Medicine & Rehabilitation; ATTEND Physical Medicine & Rehabilitation
DX: M80.052D Age-related osteoporosis with current pathological fracture, left femur, subsequent encounter for fracture with routine healing (principal); N39.0 Urinary tract infection, site not specified; D64.9 Anemia, unspecified; I10 Essential (primary) hypertension; E03.9 Hypothyroidism, unspecified; Z79.01 Long term (current) use of anticoagulants; K59.09 Other constipation; M70.962 Unspecified soft tissue disorder related to use, overuse and pressure, left lower leg; N28.9 Disorder of kidney and ureter, unspecified; E88.09 Other disorders of plasma-protein metabolism, not elsewhere classified; E83.51 Hypocalcemia
CPT/HCPCS: 36415; 76937; 80048; 80053; 83540; 85025; 85027; 85610

== ENCOUNTER 2018-06-13 11:52 | Emergency (ER) | payer MEDICARE ==
[~2018-06-13] VITALS: Ht 167.6 cm; Wt 81.2 kg
[~2018-06-13 11:52] MED LIST changes: +ACHD5005 PO; -HYDR-3812 PO; +WARF3TAB56 PO; -WARF3TAB6 PO
--- NOTE | 2018-06-13 12:24 | ED Back Pain ---
General Chief Complaint: Back Problems Stated Complaint: BACK PAIN Nursing Triage Note: PT REPORTS BACK PAIN THAT BEGAN AFTER THANKSGIVING WITH NO KNOWN ORGANIC CAUSE. PT STATES SHE WAS BYCICLING AT THE [facility] THE DAY SHE FIRST NOTICED THE PAIN. Nursing Sepsis Screen: No Definite Risk Source of Information: Patient Exam Limitations: No Limitations History of Present Illness Date Seen by Provider: Jun 13, 2018 Time Seen by Provider: 12:22 Initial Comments To ER per private vehicle from home with reports of right-sided low back pain in about the area of the right flank. This began on the day after Thanksgi. She states that she was just walking through the house when she had a sudden onset of pain as though she had been stabbed in the right flank. She does report urinary frequency. No fevers or chills. No nausea or vomiting. The pain does not radiate down either of her legs, no loss of bowel or bladder control and no loss of sensation of her genitals. She has not fallen and denies any other known cause. She rates the pain 9 out of 10 currently despite taking ibuprofen at 6 AM this morning. Pain is worsened by movement and improves with a heating pad. Location: Lumbar Spine Timing/Duration: 1 Week Severity: Moderate Pain/Injury Location: Back Method of Injury: Unknown Modifying Factors: Worse With Movement Associated Symptoms: lower back pain Allergies and Home Medications Allergies Coded Allergies: Iodinated Contrast- Oral and IV Dye (Verified Allergy, Unknown, 02/26/17) povidone-iodine (Verified Allergy, Unknown, 02/26/17) soap (Verified Allergy, Unknown, 02/26/17) Home Medications Alendronate Sodium 70 Mg Tablet, 70 MG PO Ozuna, (Reported) Baclofen 10 Mg Tablet, 10 MG PO TID PRN for PAIN-MILD, (Reported) Bumetanide 1 Mg Tablet, 1 MG PO DAILY, (Reported) Calcium Carbonate/Vitamin D3 1 Each Tablet, 1 TAB PO BID, (Reported) Carvedilol 12.5 Mg Tablet, 12.5 MG PO BID, (Reported) Colchicine 0.6 Mg Tablet, 0.6 MG PO BID, (Reported) Levothyroxine Sodium 112 Mcg Tablet, 112 MCG PO DAILY, (Reported) Oxybutynin Chloride 5 Mg Tablet, 5 MG PO DAILY, (Reported) Vitamin A 8,000 Unit Capsule, 8,000 UNIT PO BID, (Reported) Warfarin Sodium 3 Mg Tablet, 3 MG PO SuMoWeFrSa, (Reported) Warfarin Sodium 3 Mg Tablet, 1.5 MG PO TuTh, (Reported) TAKES 1/2 (3MG) TABLET Patient Home Medication List Home Medication List Reviewed: Yes Review of Systems Constitutional: see HPI; No fever EENTM: see HPI Respiratory: no symptoms reported Cardiovascular: no symptoms reported Genitourinary: no symptoms reported Musculoskeletal: see HPI, back pain Skin: no symptoms reported Psychiatric/Neurological: No Symptoms Reported Past Ryjbyog-Uvlbce-Kzzpav Hx Patient Social History Recent Foreign Travel: No Contact w/Someone Who Travel: No Recent Infectious Disease Expo: No Recent Hopitalizations: Yes (left ORIF) Immunizations Up To Date Date of Pneumonia Vaccine: Feb 15, 2014 Seasonal Allergies Seasonal Allergies: No Past Medical History Surgeries: Yes (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 LOOSE STOOLS) Musculoskeletal: Yes Osteoporosis, Scoliosis, Fractures Endocrine: Yes Hypothyroidsim HEENT: No Loss of Vision: Denies Hearing Impairment: Denies Cancer: Yes Breast, Ovarian, Uterine Did You Recieve Any Treatments: Yes What Type of Treatment Did You: Chemotherapy, Surgical Intervention Psychosocial: No Integumentary: No Blood Disorders: No Adverse Reaction/Blood Tranf: No Family Medical History FH: cancer G8 SISTER FH: uterine cancer G8 SISTER Physical Exam Vital Signs Vital Signs - First Documented 06/13/18 12:13 Temp 98.3 Pulse 79 Resp 20 B/P (MAP) 165/80 (108) O2 Delivery Room Air Capillary Refill : Less Than 3 Seconds Height, Weight, BMI Height: 5'6.00" Weight: 179lbs. 0.0oz. [id number]; 28.3 BMI Method:Stated General Appearance: No Apparent Distress, WD/WN Neck: Full Range of Motion, Normal Inspection Respiratory: No Accessory Muscle Use, No Respiratory Distress Gastrointestinal: Normal Bowel Sounds, Non Tender, Soft Back: Other (right flank tender to palpation) Extremity: Normal Capillary Refill, Normal Inspection Neurologic/Psychiatric: Alert, Oriented x3 Progress/Results/Core Measures Results/Orders Lab Results Laboratory Tests Test 06/13/18 13:06 Range/Units White Blood Count 8.6 4.3-11.0 10^3/uL Red Blood Count 3.99 L 4.35-5.85 10^6/uL Hemoglobin 12.2 11.5-16.0 G/DL Hematocrit 38 35-52 % Mean Corpuscular Volume 95 80-99 FL Mean Corpuscular Hemoglobin 31 25-34 PG Mean Corpuscular Hemoglobin Concent 32 32-36 G/DL Red Cell Distribution Width 13.3 10.0-14.5 % Platelet Count 213 130-400 10^3/uL Mean Platelet Volume 9.8 7.4-10.4 FL Neutrophils (%) (Auto) 70 42-75 % Lymphocytes (%) (Auto) 20 12-44 % Monocytes (%) (Auto) 8 0-12 % Eosinophils (%) (Auto) 2 0-10 % Basophils (%) (Auto) 0 0-10 % Neutrophils # (Auto) 6.0 1.8-7.8 X 10^3 Lymphocytes # (Auto) 1.7 1.0-4.0 X 10^3 Monocytes # (Auto) 0.7 0.0-1.0 X 10^3 Eosinophils # (Auto) 0.2 0.0-0.3 10^3/uL Basophils # (Auto) 0.0 0.0-0.1 10^3/uL Prothrombin Time 14.3 12.2-14.7 SEC INR Comment 1.1 0.8-1.4 Sodium Level 142 135-145 MMOL/L Potassium Level 4.2 3.6-5.0 MMOL/L Chloride Level 106 98-107 MMOL/L Carbon Dioxide Level 27 21-32 MMOL/L Anion Gap 9 5-14 MMOL/L Blood Urea Nitrogen 56 H 7-18 MG/DL Creatinine 1.33 H 0.60-1.30 MG/DL Estimat Glomerular Filtration Rate 39 BUN/Creatinine Ratio 42 Glucose Level 126 H 70-105 MG/DL Calcium Level 9.3 8.5-10.1 MG/DL My Orders Orders - OLGA BURNHAM APRN Iv Heplock-Insert (Order) (06/13/18 12:21) Cbc With Automated Diff (06/13/18 12:21) Basic Metabolic Panel (06/13/18 12:21) Ua Culture If Indicated (06/13/18 12:21) Ct Abd/Pelvis Wo(Kidney Stone) (06/13/18 12:21) Ct Lumbar Spine Wo (06/13/18 12:21) Ketorolac Injection (Toradol Injection) (06/13/18 12:30) Fentanyl Injection (Sublimaze Injection (06/13/18 12:30) Protime With Inr (06/13/18 12:24) Medications Given in ED Current Medications Medications Dose Ordered Sig/Estephanie Route Start Time Stop Time Status Last Admin Dose Admin Fentanyl Citrate 50 mcg ONCE ONCE IVP 06/13/18 12:30 06/13/18 12:31 DC 06/13/18 13:42 50 MCG Ketorolac Tromethamine 15 mg ONCE ONCE IVP 06/13/18 12:30 06/13/18 12:31 DC 06/13/18 13:42 15 MG Vital Signs/I&O 06/13/18 12:13 Temp 98.3 Pulse 79 Resp 20 B/P (MAP) 165/80 (108) O2 Delivery Room Air Blood Pressure Mean: 108 Diagnostic Imaging Diagonstic Imaging: CT Comments NAME: JEN ROSS [facility] REC#: [id number] PT STATUS: REG ER : 1940 PHYSICIAN: OLGA BURNHAM APRN ADMIT DATE: 06/13/18/ER Draft Date of Exam:06/13/18 CT LUMBAR SPINE WO PROCEDURE: CT lumbar spine without contrast. TECHNIQUE: Multiple contiguous axial images were obtained through the lumbar spine without the use of intravenous contrast. Sagittal and coronal reformations were then performed. INDICATION: Severe low back pain. No prior studies are available for comparison. Curvature of the lumbar spine is normal. There is some mild anterolisthesis of L4 on L5 and L5 on S1. There are postoperative changes of posterior instrument fusion with vertical stabilization rods and pedicle screws extending from L1 to L5. There is some lucency surrounding the right-sided screw at L1. This screw also demonstrates somewhat of the medial tract, projecting medial to the pedicle and the lateral portion of the spinal canal. Both L2 screws also show somewhat of a medial course slightly medial to the pedicles and lateral portions of the spinal canal. L4 screws show some mild medial course of the right screw. The left screw demonstrates a lateral course just lateral to the pedicle. There is some lucency surrounding the proximal aspect of the right screw. Bilateral L5 screws show slight surrounding lucency. However, no hardware fracture is identified. Vertebral body heights are maintained with the exception of L3 vertebral body which shows moderate superior inferior endplate central compression. Very mild retropulsion is present at this level as well. All remaining lumbar vertebrae show normal stature. There is diffuse demineralization. IMPRESSION: Postop changes of posterior instrumented fusion from L1 through L5. There is some lucency surrounding multiple pedicle screws which may indicate loosening. No hardware fracture is seen. There appears to be a chronic compression fracture deformity involving L3 vertebral body with slight retropulsion. All remaining lumbar vertebrae show normal stature. Dictated on workstation # [id number] Dict: 06/13/18 1306 Trans: 06/13/18 1317 [facility] [id number] Interpreted by: LARA ROSENTHAL MD Electronically signed by: NAME: COLIN ROSSENDOLYN Sb [facility] REC#: [id number] PT STATUS: REG ER : 1940 PHYSICIAN: OLGA BURNHAM APRN ADMIT DATE: 06/13/18/ER Draft Date of Exam:06/13/18 CT ABD/PELVIS WO(KIDNEY STONE) PROCEDURE: CT urinary tract, rule out kidney stone. TECHNIQUE: Multiple contiguous axial images were obtained through the abdomen and pelvis without the use of intravenous contrast. INDICATION: Right sided abdominal pain. COMPARISON: None. FINDINGS: Included portions of lung bases show 3-4 mm micronodule within the included portions of lingula left upper lobe (image 3, series 2). Multiple micronodules are also noted within the included portions of the right middle and right lower lobes. The largest of these measures approximately 6 mm and is seen within the included portions of right middle lobe (image 13, series 2). CT abdomen: There is colonic diverticulosis, but no CT evidence of acute diverticulitis. Normal appendix is identified. Small bowel loops are nondistended. There appears to be faint nonobstructive calculus within the superior pole of the right kidney (image 39, series 2). Multiple extraosseous calcifications are also seen anterior to the lower psoas muscle, but are shown to be separate from the right ureter. Otherwise, no additional renal or ureteral calculi are seen. There is no hydroureteronephrosis or other evidence of obstruction. No focal renal mass is identified on this noncontrast exam. Small benign left adrenal adenoma is noted and measures 1.3 cm in diameter. Right adrenal gland, spleen, pancreas, and liver have an unremarkable noncontrast CT appearance. There is no loculated fluid collection, free fluid, nor free air within the abdomen. No abnormal mesenteric or retroperitoneal adenopathy is seen. There is a fat-containing ventral hernia identified superiorly in midline. Ostium measures approximately 3.1 cm in diameter. Bony structures show no acute abnormalities. Please note, dedicated CT lumbar spine was also separately performed and separately dictated. CT pelvis: Urinary bladder is unopacified. No calculi are seen within the urinary bladder. There is no loculated fluid collection, free fluid, nor free air within the pelvis. No abnormal adenopathy is identified. Bony structures show no acute abnormalities. IMPRESSION: 1. Punctate nonobstructive right renal calculus. 2. No ureteral calculi, hydroureteronephrosis, or other evidence of obstruction on either side. 3. Fat containing ventral hernia. 4. Benign left adrenal adenoma. 5. Multiple micronodules within the included portions of the lung bases. Given the multiplicity, may want to consider dedicated CT of the chest for complete characterization. This could be performed on nonemergent basis. 6. Colonic diverticulosis, but no CT evidence of acute diverticulitis. Dictated on workstation # [id number] Dict: 06/13/18 1306 Trans: 06/13/18 1336 [facility] [phone] Interpreted by: WADE TEJADA MD Electronically signed by: Departure Communication (Admissions) She is not on warfarin anymore. Only aspirin. Impression Primary Impression: Right low back pain Additional Impressions: Pulmonary nodules Compression fracture of L3 lumbar vertebra Disposition: 01 HOME, SELF-CARE Condition: Stable Departure-Patient Inst. Decision time for Depature: 13:49 Referrals: SELFIDA MD (PCP/Family) Primary Care Physician Patient Instructions: Low Back Pain (DC) Add. Discharge Instructions: 1. Call one of the spine surgeons of your choosing for follow-up. You do have some nodules seen in the lung bases. You could further evaluate this with a CT scan of the chest ordered by your family physician. Pain medication as directed. This may constipate you so take a stool softener like colace over the counter at home. Return to ER for any worsening symptoms. Scripts Hydrocodone/Acetaminophen ([place] 5-325 Tablet) 1 Each Tablet 1 EACH PO Q6H PRN for PAIN-MODERATE MDD 10, #30 TAB Prov: OLGA BURNHAM APRN 06/13/18 OLGA BURNHAM APRN Jun 13, 2018 12:24
[2018-06-13] MEDS ORDERED: fentaNYL INJECTION 100 MCG/2 ML AMP IVP ONE (12:30)
[2018-06-13] MEDS ORDERED: KETOROLAC 30 MG/ML VIAL IVP ONE (12:30)
[2018-06-13 13:10] LABS: BASOPHILS % (AUTO) 0 % (0-10); EOSINOPHILS # (AUTO) 0.2 10^3/uL (0.0-0.3); EOSINOPHILS % (AUTO) 2 % (0-10); HEMATOCRIT 38 % (35-52); HEMOGLOBIN 12.2 G/DL (11.5-16.0); LYMPHOCYTES # (AUTO) 1.7 X 10^3 (1.0-4.0); LYMPHOCYTES % (AUTO) 20 % (12-44); MEAN CORPUSCULAR HEMOGLOBIN 31 PG (25-34); MEAN CORPUSCULAR HGB CONC 32 G/DL (32-36); MEAN CORPUSCULAR VOLUME 95 FL (80-99); MEAN PLATELET VOLUME 9.8 FL (7.4-10.4); MONOCYTES # (AUTO) 0.7 X 10^3 (0.0-1.0); MONOCYTES % (AUTO) 8 % (0-12); NEUTROPHILS % (AUTO) 70 % (42-75); PLATELET COUNT 213 10^3/uL (130-400); RED BLOOD COUNT 3.99 10^6/uL (4.35-5.85); RED CELL DISTRIBUTION WIDTH 13.3 % (10.0-14.5); WHITE BLOOD COUNT 8.6 10^3/uL (4.3-11.0)
--- NOTE | 2018-06-13 13:18 | Diagnostic Imaging Report ---
PROCEDURE: CT lumbar spine without contrast. TECHNIQUE: Multiple contiguous axial images were obtained through the lumbar spine without the use of intravenous contrast. Sagittal and coronal reformations were then performed. INDICATION: Severe low back pain. No prior studies are available for comparison. Curvature of the lumbar spine is normal. There is some mild anterolisthesis of L4 on L5 and L5 on S1. There are postoperative changes of posterior instrument fusion with vertical stabilization rods and pedicle screws extending from L1 to L5. There is some lucency surrounding the right-sided screw at L1. This screw also demonstrates somewhat of the medial tract, projecting medial to the pedicle and the lateral portion of the spinal canal. Both L2 screws also show somewhat of a medial course slightly medial to the pedicles and lateral portions of the spinal canal. L4 screws show some mild medial course of the right screw. The left screw demonstrates a lateral course just lateral to the pedicle. There is some lucency surrounding the proximal aspect of the right screw. Bilateral L5 screws show slight surrounding lucency. However, no hardware fracture is identified. Vertebral body heights are maintained with the exception of L3 vertebral body which shows moderate superior inferior endplate central compression. Very mild retropulsion is present at this level as well. All remaining lumbar vertebrae show normal stature. There is diffuse demineralization. IMPRESSION: Postop changes of posterior instrumented fusion from L1 through L5. There is some lucency surrounding multiple pedicle screws which may indicate loosening. No hardware fracture is seen. There appears to be a chronic compression fracture deformity involving L3 vertebral body with slight retropulsion. All remaining lumbar vertebrae show normal stature. Dictated by: Dictated on workstation # [id number]
[2018-06-13 13:31] LABS: INR 1.1 (0.8-1.4); PROTHROMBIN TIME PATIENT 14.3 SEC (12.2-14.7)
[2018-06-13 13:33] LABS: CALCIUM 9.3 MG/DL (8.5-10.1); CREATININE SERUM 1.33 MG/DL (0.60-1.30); POTASSIUM 4.2 MMOL/L (3.6-5.0)
--- NOTE | 2018-06-13 13:36 | Diagnostic Imaging Report ---
PROCEDURE: CT urinary tract, rule out kidney stone. TECHNIQUE: Multiple contiguous axial images were obtained through the abdomen and pelvis without the use of intravenous contrast. INDICATION: Right sided abdominal pain. COMPARISON: None. FINDINGS: Included portions of lung bases show 3-4 mm micronodule within the included portions of lingula left upper lobe (image 3, series 2). Multiple micronodules are also noted within the included portions of the right middle and right lower lobes. The largest of these measures approximately 6 mm and is seen within the included portions of right middle lobe (image 13, series 2). CT abdomen: There is colonic diverticulosis, but no CT evidence of acute diverticulitis. Normal appendix is identified. Small bowel loops are nondistended. There appears to be faint nonobstructive calculus within the superior pole of the right kidney (image 39, series 2). Multiple extraosseous calcifications are also seen anterior to the lower psoas muscle, but are shown to be separate from the right ureter. Otherwise, no additional renal or ureteral calculi are seen. There is no hydroureteronephrosis or other evidence of obstruction. No focal renal mass is identified on this noncontrast exam. Small benign left adrenal adenoma is noted and measures 1.3 cm in diameter. Right adrenal gland, spleen, pancreas, and liver have an unremarkable noncontrast CT appearance. There is no loculated fluid collection, free fluid, nor free air within the abdomen. No abnormal mesenteric or retroperitoneal adenopathy is seen. There is a fat-containing ventral hernia identified superiorly in midline. Ostium measures approximately 3.1 cm in diameter. Bony structures show no acute abnormalities. Please note, dedicated CT lumbar spine was also separately performed and separately dictated. CT pelvis: Urinary bladder is unopacified. No calculi are seen within the urinary bladder. There is no loculated fluid collection, free fluid, nor free air within the pelvis. No abnormal adenopathy is identified. Bony structures show no acute abnormalities. IMPRESSION: 1. Punctate nonobstructive right renal calculus. 2. No ureteral calculi, hydroureteronephrosis, or other evidence of obstruction on either side. 3. Fat containing ventral hernia. 4. Benign left adrenal adenoma. 5. Multiple micronodules within the included portions of the lung bases. Given the multiplicity, may want to consider dedicated CT of the chest for complete characterization. This could be performed on nonemergent basis. 6. Colonic diverticulosis, but no CT evidence of acute diverticulitis. Dictated by: Dictated on workstation # [id number]
[2018-06-13] MEDS ORDERED: HYDR-4226 PO (13:50)
[2018-06-13 14:03] VITALS: BP 162/76
== END 2018-06-13 14:11 | disposition home or self-care (01) ==
LOC: ER 11:52
DX: S32.030A Wedge compression fracture of third lumbar vertebra, initial encounter for closed fracture (principal); R91.8 Other nonspecific abnormal finding of lung field; I10 Essential (primary) hypertension; M81.0 Age-related osteoporosis without current pathological fracture; E03.9 Hypothyroidism, unspecified; Z85.3 Personal history of malignant neoplasm of breast; Z85.42 Personal history of malignant neoplasm of other parts of uterus; Z80.49 Family history of malignant neoplasm of other genital organs; Z87.440 Personal history of urinary (tract) infections; Z91.041 Radiographic dye allergy status; Z88.8 Allergy status to other drugs, medicaments and biological substances; Z79.01 Long term (current) use of anticoagulants; Z98.890 Other specified postprocedural states; Z92.21 Personal history of antineoplastic chemotherapy; Z85.43 Personal history of malignant neoplasm of ovary; X99.9XXA Assault by unspecified sharp object, initial encounter
CPT/HCPCS: 36415; 72131; 74176; 80048; 85025; 85610

== ENCOUNTER → 2020-01-01 | Outpatient (CLI) | payer MEDICARE ==
[~2020-01-01] MED LIST changes: -ALEN70TA47 PO; +ALEN70TA5 PO; -BUME1TAB4 PO; +BUME1TAB8 PO; +HYDR-4226 PO; +OXYB5TAB13 PO; -OXYB5TAB9 PO
--- NOTE | 2020-01-02 13:15 | Diagnostic Imaging Report ---
INDICATION: Routine screening. COMPARISON: 08/19/2017. TECHNIQUE: 2D and 3D bilateral screening mammography was performed with CAD. FINDINGS: Both breasts are heterogeneously dense, limiting the sensitivity of mammography. There are scattered benign-appearing calcifications throughout both breasts. No dominant mass or malignant appearing microcalcifications are seen. The axillae are unremarkable. IMPRESSION: No mammographic features suspicious for malignancy are identified. ACR BI-RADS Category 2: Benign findings. Result letter will be mailed to the patient. Note: At least 10% of breast cancer is not imaged by mammography. Dictated by: Dictated on workstation # [id number]
== END ==
LOC: RAD 14:41
PROVIDERS: ATTEND Nurse Practitioner Family
DX: Z12.31 Encounter for screening mammogram for malignant neoplasm of breast (principal)
CPT/HCPCS: 77063; 77067

== ENCOUNTER 2020-09-02 05:47 | Outpatient (RCR) | payer MEDICARE ==
[~2020-09-02] VITALS: Ht 167.7 cm; Wt 81.8 kg
[~2020-09-02 05:47] MED LIST changes: -ALEN70TA5 PO; +ALEN70TA80 PO; -COLC0.6T56 PO; +COLC0.6T59 PO
[2020-09-02] MEDS ORDERED: LOSA50TA63 PO (13:02)
[2020-09-02] MEDS ORDERED: ASPI-999 PO (13:02)
== END 2020-09-02 13:11 | disposition home or self-care (01) ==
LOC: PREOP 05:47
PROVIDERS: ATTEND Specialist
DX: Z01.818 Encounter for other preprocedural examination (principal)

== ENCOUNTER 2020-09-06 09:02 | Day surgery (SDC) | payer MEDICARE ==
[~2020-09-06] VITALS: Ht 167.7 cm; Wt 81.8 kg
[2020-09-06 06:10] VITALS: BP 177/88
[~2020-09-06 09:02] MED LIST changes: +ASPI-999 PO; +LOSA50TA63 PO
[2020-09-06] MEDS ORDERED: TETRACAINE 0.5% OPHTH SOLN 4 ML BTL (SINGLE DOSE ONLY) OU PRN (09:15)
[2020-09-06] MEDS ORDERED: TROPICAMIDE 1% OPH SOLN (MYDRIACYL) 15 ML BTL OU PRN (09:15)
[2020-09-06] MEDS ORDERED: PHENYLEPHRINE 10% OPHTH (NEO-SYN) 5 ML BTL OU PRN (09:15)
--- NOTE | 2020-09-06 09:24 | Ophthalmologist Pre-Op Note ---
Pre-Operative Progress Note H&P Reviewed The H&P was reviewed, patient examined and no changes noted. Date H&P Reviewed: Sep 06, 2020 Time H&P Reviewed: 09:24 Pre-Op Dx Secondary Cataract, Right Eye EROS CORTEZ MD Sep 06, 2020 09:24
--- NOTE | 2020-09-06 09:50 | Ophthalmology Operative Report ---
YAG Capsulotomy PREOPERATIVE DIAGNOSIS: Secondary Cataract Right Eye POSTOPERATIVE DIAGNOSIS: Secondary Cataract Right Eye PROCEDURE: YAG Capsulotomy, right eye SURGEON: Quintin Cortez ANESTHESIA: Topical anesthesia COMPLICATIONS: None ESTIMATED BLOOD LOSS: Minimal DESCRIPTION OF PROCEDURE: After proper informed consent was obtained, the patient's, a 79 female, right eye received one drop of Tropicamide and one drop of Tetracaine. The patient was then placed at the YAG laser and using a power of [ 5.1] millijoules and [27 ] bursts were used to fashion a central capsulotomy. The patient tolerated the procedure well without complications. QUINTIN CORTEZ MD Sep 06, 2020 09:50
== END 2020-09-06 09:30 ==
LOC: SDC 09:02
PROVIDERS: ATTEND Specialist
DX: H26.491 Other secondary cataract, right eye (principal); Z88.5 Allergy status to narcotic agent; Z91.041 Radiographic dye allergy status; Z91.048 Other nonmedicinal substance allergy status; Z88.8 Allergy status to other drugs, medicaments and biological substances; Z80.49 Family history of malignant neoplasm of other genital organs; Z80.3 Family history of malignant neoplasm of breast; Z82.49 Family history of ischemic heart disease and other diseases of the circulatory system

== ENCOUNTER → 2021-01-15 | Outpatient (RCR) | payer MEDICARE | END | disposition home or self-care (01) | LOC: CR3 12-16 14:30 | PROVIDERS: ATTEND Family Medicine | DX: Z29.8 Encounter for other specified prophylactic measures (principal) ==

== ENCOUNTER 2021-02-14 13:50 | Outpatient (RCR) | payer MEDICARE ==
[~2021-02-14 13:50] MED LIST changes: -SULF1TAB35 PO; +SULF1TAB38 PO
== END 2021-02-19 | disposition home or self-care (01) ==
LOC: CR3 13:50
PROVIDERS: ATTEND Family Medicine
DX: Z29.8 Encounter for other specified prophylactic measures (principal)

== ENCOUNTER → 2021-03-26 | Outpatient (RCR) | payer MEDICARE | END | disposition home or self-care (01) | LOC: CR3 02-24 16:22 | PROVIDERS: ATTEND Family Medicine | DX: Z29.8 Encounter for other specified prophylactic measures (principal) ==

== ENCOUNTER → 2021-03-31 | Outpatient (CLI) | payer MEDICARE ==
--- NOTE | 2021-03-31 10:31 | Diagnostic Imaging Report ---
INDICATION: Screening. The current study was also evaluated with a Computer Aided Detection (CAD) system. 3-D Tomographic imaging was also performed. Comparison made with prior examination from 01/01/2020, 08/19/2017 and 01/19/2017. FINDINGS: There are scattered areas of fibroglandular density. There are benign type calcifications in both breasts. There is no dominant mass, spiculated lesions or suspicious calcification identified. Skin, nipples and axilla are unremarkable. IMPRESSION: Category 2 benign findings. ACR BI-RADS Category 2: Benign findings. Result letter will be mailed to the patient. Note: At least 10% of breast cancer is not imaged by mammography. Dictated by: Dictated on workstation # [id number]
== END ==
LOC: RAD 09:07
PROVIDERS: ATTEND Nurse Practitioner Family
DX: Z12.31 Encounter for screening mammogram for malignant neoplasm of breast (principal)
CPT/HCPCS: 77063; 77067

== ENCOUNTER 2021-04-25 13:44 | Outpatient (RCR) | payer MEDICARE | END 2021-04-27 | disposition home or self-care (01) | LOC: CR3 13:44 | PROVIDERS: ATTEND Family Medicine | DX: Z29.8 Encounter for other specified prophylactic measures (principal) ==

== ENCOUNTER 2021-05-26 14:26 | Outpatient (RCR) | payer MEDICARE | END 2021-05-28 | disposition home or self-care (01) | LOC: CR3 14:26 | PROVIDERS: ATTEND Family Medicine | DX: Z29.8 Encounter for other specified prophylactic measures (principal) ==

== ENCOUNTER 2021-06-25 15:37 | Outpatient (RCR) | payer MEDICARE | END 2021-06-29 | disposition home or self-care (01) | LOC: CR3 15:37 | PROVIDERS: ATTEND Family Medicine | DX: Z29.8 Encounter for other specified prophylactic measures (principal) ==

== ENCOUNTER 2021-08-08 14:12 | Outpatient (RCR) | payer MEDICARE | END 2021-08-10 | disposition home or self-care (01) | LOC: CR3 14:12 | PROVIDERS: ATTEND Family Medicine | DX: Z29.8 Encounter for other specified prophylactic measures (principal) ==

== ENCOUNTER → 2021-09-10 | Outpatient (RCR) | payer MEDICARE | END | disposition home or self-care (01) | LOC: CR3 08-11 14:21 | PROVIDERS: ATTEND Family Medicine | DX: Z29.8 Encounter for other specified prophylactic measures (principal) ==

== ENCOUNTER 2021-11-07 14:58 | Outpatient (RCR) | payer MEDICARE | END 2021-11-08 | disposition home or self-care (01) | LOC: CR3 14:58 | PROVIDERS: ATTEND Family Medicine | DX: Z29.8 Encounter for other specified prophylactic measures (principal) ==

== ENCOUNTER 2022-01-07 14:38 | Outpatient (RCR) | payer MEDICARE | END 2022-01-08 | disposition home or self-care (01) | LOC: CR3 14:38 | PROVIDERS: ATTEND Family Medicine | DX: Z29.8 Encounter for other specified prophylactic measures (principal) ==

== ENCOUNTER 2022-03-02 17:13 | Outpatient (RCR) | payer MEDICARE | END 2022-03-10 | disposition home or self-care (01) | LOC: CR3 17:13 | PROVIDERS: ATTEND Family Medicine | DX: Z29.8 Encounter for other specified prophylactic measures (principal) ==

== ENCOUNTER → 2022-04-16 | Outpatient (CLI) | payer MEDICARE ==
--- NOTE | 2022-04-16 11:51 | Diagnostic Imaging Report ---
Indication: Routine screening. Comparison is made with prior mammograms from 03/31/2021 and 01/01/2020. 2-D and 3-D bilateral screening mammography was performed with CAD. Both breasts are heterogeneously dense, limiting the sensitivity of mammography. There are benign calcifications scattered throughout both breasts. The overall parenchymal pattern appears to be stable. No spiculated mass or malignant-appearing microcalcifications are seen. Axillae are unremarkable. IMPRESSION: BI-RADS Category 2 No mammographic features suspicious for malignancy are identified. ACR BI-RADS Category 2: Benign findings. Result letter will be mailed to the patient. Note: At least 10% of breast cancer is not imaged by mammography. Dictated by: Dictated on workstation # [id number]
== END ==
LOC: RAD 10:28
PROVIDERS: ATTEND Nurse Practitioner Family
DX: Z12.31 Encounter for screening mammogram for malignant neoplasm of breast (principal)
CPT/HCPCS: 77063; 77067

== ENCOUNTER 2022-06-08 15:00 | Outpatient (RCR) | payer MEDICARE | END 2022-06-10 | disposition home or self-care (01) | LOC: CR3 15:00 | PROVIDERS: ATTEND Family Medicine | DX: Z29.8 Encounter for other specified prophylactic measures (principal) ==

== ENCOUNTER 2022-11-04 14:39 | Outpatient (RCR) | payer MEDICARE | END 2022-11-08 | disposition home or self-care (01) | LOC: CR3 14:39 | PROVIDERS: ATTEND Family Medicine | DX: Z29.8 Encounter for other specified prophylactic measures (principal) ==

== ENCOUNTER 2022-11-16 16:01 | Outpatient (RCR) | payer MEDICARE ==
[2022-12-31] MEDS ORDERED: OXYB-52 PO (15:46)
[2022-12-31] MEDS ORDERED: LEVO75TA6 PO (15:46)
== END 2023-01-01 | disposition home or self-care (01) ==
LOC: CR3 16:01
PROVIDERS: ATTEND Family Medicine
DX: Z29.8 Encounter for other specified prophylactic measures (principal)

== ENCOUNTER → 2022-12-01 | Outpatient (CLI) | payer MEDICARE ==
--- NOTE | 2022-12-01 16:51 | Diagnostic Imaging Report ---
EXAMINATION: Left foot 3 views HISTORY: Foot pain COMPARISON: None available. FINDINGS: There is soft tissue swelling throughout the left foot. No fracture is seen. Alignment is normal. Joint spaces are normal. IMPRESSION: 1. Soft tissue swelling throughout the left lung without acute fracture. Dictated by: Dictated on workstation # [id number]
--- NOTE | 2022-12-01 17:22 | Diagnostic Imaging Report ---
EXAMINATION: Left hip radiograph EXAM DATE: 12/01/2022 3:16 PM COMPARISON: None available. HISTORY: Left hip pain after fall. TECHNIQUE: 3 views FINDINGS: Surgical changes from left hip open reduction and internal fixation. No acute fracture or dislocation. Hardware appears intact. Surgical changes from left knee arthroplasty. The soft tissues are normal. IMPRESSION: 1. Surgical degenerative changes of the left hip without acute osseous abnormality. Dictated by: Dictated on workstation # [id number]
== END ==
LOC: RAD 14:47
PROVIDERS: ATTEND Family Medicine
DX: M16.12 Unilateral primary osteoarthritis, left hip (principal); M79.89 Other specified soft tissue disorders; E88.89 Other specified metabolic disorders; W19.XXXA Unspecified fall, initial encounter; Y92.009 Unspecified place in unspecified non-institutional (private) residence as the place of occurrence of the external cause
CPT/HCPCS: 73502; 73630

== ENCOUNTER 2022-12-24 12:40 | Outpatient (RCR) | payer MEDICARE ==
[2022-12-31] MEDS ORDERED: OXYB-52 PO (15:46)
[2022-12-31] MEDS ORDERED: LEVO75TA6 PO (15:46)
== END 2022-12-30 15:17 | disposition home or self-care (01) ==
PROVIDERS: ATTEND Family Medicine
DX: M25.552 Pain in left hip (principal); R26.89 Other abnormalities of gait and mobility; Z91.81 History of falling

== ENCOUNTER → 2022-12-30 | Outpatient (CLI) | payer MEDICARE ==
[~2022-12-30] MED LIST changes: +LEVO75TA6 PO; +OXYB-52 PO
[2022-12-30 10:12] LABS: HEMATOCRIT 48 % (35-52); HEMOGLOBIN 14.2 g/dL (11.5-16.0); MEAN CORPUSCULAR HEMOGLOBIN 30 pg (25-34); MEAN CORPUSCULAR HGB CONC 30 g/dL (32-36); MEAN CORPUSCULAR VOLUME 103 fL (80-99); MEAN PLATELET VOLUME 9.9 fL (9.0-12.2); PLATELET COUNT 224 10^3/uL (130-400)
[2022-12-30 10:28] LABS: ALBUMIN 3.6 GM/DL (3.2-4.5); BILIRUBIN,TOTAL 0.4 MG/DL (0.1-1.0); CALCIUM 8.7 MG/DL (8.5-10.1); CREATININE SERUM 1.79 MG/DL (0.60-1.30); POTASSIUM 5.2 MMOL/L (3.6-5.0); TOTAL PROTEIN 6.8 GM/DL (6.4-8.2)
--- NOTE | 2022-12-30 10:43 | Diagnostic Imaging Report ---
CHEST PA/LAT (2 VIEW) INDICATION: DYSPNEA HYPOXIA. COMPARISON: Chest radiograph 02/11/2017. FINDINGS: Lungs: Low lung volume. Diffuse bilateral interstitial opacities.. Pleura: Small bilateral pleural effusions. Heart and Mediastinum: Cardiomegaly with pulmonary vascular congestion. Osseous Structures and Soft Tissues: Multilevel chronic right-sided rib deformities... Normal soft tissues. IMPRESSION: Diffuse bilateral interstitial opacities may be seen with pulmonary interstitial edema or atypical/viral pneumonia. Cardiomegaly with pulmonary vascular congestion. Dictated by: Dictated on workstation # [id number]
--- NOTE | 2022-12-30 10:50 | Diagnostic Imaging Report ---
CLINICAL HISTORY: Left ankle swelling. COMPARISON: 12/01/2022. TECHNIQUE: Three views of the left ankle. FINDINGS: There is no acute fracture or dislocation of the left ankle. Alignment is anatomic. The imaged joint spaces are preserved. No focal osseous lesions. There is generalized edema throughout the left ankle. IMPRESSION: 1. No acute fracture or dislocation in the left ankle. 2. Generalized edema in the left ankle. Dictated by: Dictated on workstation # [id number]
== END ==
LOC: RAD 09:54
PROVIDERS: ATTEND Nurse Practitioner Family
DX: I51.7 Cardiomegaly (principal); R60.1 Generalized edema; R09.89 Other specified symptoms and signs involving the circulatory and respiratory systems; R09.02 Hypoxemia
CPT/HCPCS: 36415; 71046; 73610; 80053; 83880; 85027

== ENCOUNTER 2022-12-31 10:13 | Inpatient (IN) | payer MEDICARE ==
[2022-12-31] VITALS (15 sets, daily range): BP systolic 99–165; BP diastolic 45–78
[~2022-12-31] VITALS: Ht 167 cm; Wt 101.2 kg
[~2022-12-31 10:13] MED LIST changes: -LEVO75TA6 PO; -OXYB-52 PO
[2022-12-31 10:42] LABS: BASOPHILS % (AUTO) 0 % (0-10); EOSINOPHILS % (AUTO) 0 % (0-10); HEMATOCRIT 49 % (35-52); HEMOGLOBIN 14.4 g/dL (11.5-16.0); LYMPHOCYTES # (AUTO) 1.3 10^3/uL (1.0-4.0); LYMPHOCYTES % (AUTO) 14 % (12-44); MEAN CORPUSCULAR HEMOGLOBIN 31 pg (25-34); MEAN CORPUSCULAR HGB CONC 29 g/dL (32-36); MEAN CORPUSCULAR VOLUME 105 fL (80-99); MEAN PLATELET VOLUME 10.1 fL (9.0-12.2); MONOCYTES # (AUTO) 0.5 10^3/uL (0.0-1.0); MONOCYTES % (AUTO) 6 % (0-12); NEUTROPHILS # (AUTO) 7.2 10^3/uL (1.8-7.8); NEUTROPHILS % (AUTO) 79 % (42-75); PLATELET COUNT 236 10^3/uL (130-400); WHITE BLOOD COUNT 9.1 10^3/uL (4.3-11.0)
[2022-12-31 10:44] LABS: ALBUMIN 3.5 GM/DL (3.2-4.5)
[2022-12-31 10:45] LABS: POTASSIUM 5.2 MMOL/L (3.6-5.0)
[2022-12-31 10:46] LABS: CALCIUM 8.3 MG/DL (8.5-10.1)
[2022-12-31 10:47] LABS: TOTAL PROTEIN 6.6 GM/DL (6.4-8.2)
[2022-12-31 10:49] LABS: BILIRUBIN,TOTAL 0.3 MG/DL (0.1-1.0)
[2022-12-31 10:51] LABS: CREATININE SERUM 2.01 MG/DL (0.60-1.30)
[2022-12-31 10:53] LABS: MAGNESIUM 2.2 MG/DL (1.6-2.4)
[2022-12-31 11:03] LABS: CLARITY,URINE CLEAR; COLOR,URINE YELLOW; GLUCOSE, URINE (UA) NEGATIVE (NEGATIVE); KETONES,URINE NEGATIVE (NEGATIVE); LEUKOCYTE ESTERASE ,URINE 2+ (NEGATIVE); NITRITE,URINE NEGATIVE (NEGATIVE); PH,URINE 6.5 (5-9); PROTEIN,URINE 3+ (NEGATIVE)
--- NOTE | 2022-12-31 11:10 | Diagnostic Imaging Report ---
CLINICAL INDICATION: Patient hypoxia and shortness of breath. EXAM: Portable chest x-ray upright view. COMPARISON: Chest x-ray dated 12/30/2022. FINDINGS: Lungs/pleura: There is mild bibasilar atelectasis. There is slight improved aeration of both lungs compared to prior study. There is no pneumothorax. The previously seen pleural effusions are not seen on this exam. Mediastinum: Unremarkable. Pulmonary vasculature: Pulmonary vasculature is now within normal limits. Heart: Stable cardiomegaly. Bones/extrathoracic soft tissue: There are multiple chronic right rib fractures. There are degenerative spurs involving the thoracic spine and right curvature of the thoracolumbar spine. There is fusion hardware involving the lumbar spine. IMPRESSION: 1: There is mild bibasilar atelectasis. There is overall slight improved aeration of both lungs. 2: Stable cardiomegaly. Pulmonary vasculature is now within normal limits. Dictated by: Dictated on workstation # [id number]
[2022-12-31] MEDS ORDERED: RT-ALBUTEROL SULF 2.5 MG/3 ML PRE-MIX VIAL INH STA (11:23)
[2022-12-31 11:25] LABS: BACTERIA,URINE MODERATE /HPF; BILIRUBIN,URINE 1+ (NEGATIVE); RBC,URINE RARE /HPF; SQUAMOUS EPITHELIAL CELL,UR 0-2 /HPF
[2022-12-31] MEDS ORDERED: FUROSEMIDE 40 MG/4 ML INJ (LASIX) IVP ONE (11:30)
[2022-12-31] MEDS ORDERED: cefTRIAXone IV/IM 1,000 MG in NS (IVPB) 50 ML IV STA (11:45)
--- NOTE | 2022-12-31 11:55 | ED General ---
General Chief Complaint: General Problems/Pain Stated Complaint: GENERALIZED WEAKNESS Nursing Triage Note: PT ARRIVES TO ER VIA EMS FROM [facility]. ACCORDING TO EMS, PT WAS NEWLY RX O2 AT HOME, UPON EMS ARRIVAL PT WAS NOT WEARING HER O2, STATES UNABLE TO REACH IT, INITIAL SAT'S FOR EMS WAS 58-60% ON RA. PT WAS PLACED ON O2, SAT'S IMPROVED TO 90'S. PT C/O BILATERAL LEG SWELLING, REPORTS HAS BEEN GOING ON FOR SEVERAL WEEKS. Source of Information: Patient, Old Records Exam Limitations: No Limitations History of Present Illness Date Seen by Provider: Dec 31, 2022 Time Seen by Provider: 11:50 Initial Comments This 82-year-old woman presents to the emergency room via EMS with hypoxia and weakness. She reports progressive weakness over the last month but today she was unable to get up and move about because of weakness in her legs. Weakness is bilateral and progressive. She also has significant edema of her lower extremities that has been ongoing for about 3 weeks. She has a shallow ulcerative wound on her medial left ankle. She denies any history of cardio pulmonary problems. She has had some outpatient work-up and treatment recently. She is vague on the details. She apparently was started on oxygen at home sometime in the recent past. EMS reports she was not near her oxygen source at home and her tubing could not reach very far. Oxygen saturation was in the 60s on room air for EMS. She is stable on 3 L nasal cannula in the emergency room. Patient denies any cough or fever. She is not in any pain. Patient does live with her sister. Outpatient labs and x-rays were noted in the chart from a few days ago including chest x-ray and left ankle x-ray. Labs were also reviewed. Dr. Perales is her primary care provider. Allergies and Home Medications Allergies Coded Allergies: Iodinated Contrast Media (Verified Allergy, Unknown, 02/26/17) povidone-iodine (Verified Allergy, Unknown, 02/26/17) soap (Verified Allergy, Unknown, 02/26/17) Patient Home Medication List Home Medication List Reviewed: Yes Alendronate Sodium (Alendronate Sodium) 70 Mg Tablet, 70 MG PO Ozuna, (Reported) Entered as Reported by: EDGAR BLANK on 02/11/17 1054 Aspirin (Aspirin) 81 Mg Tab.chew, 81 MG PO DAILY, (Reported) Entered as Reported by: INDU ZEE on 09/02/20 1302 Calcium Carbonate/Vitamin D3 (Calcium 500 + D Tablet) 1 Each Tablet, 1 TAB PO BID, (Reported) Entered as Reported by: EDGAR BLANK on 02/11/17 1103 Carvedilol (Carvedilol) 12.5 Mg Tablet, 12.5 MG PO BID, (Reported) Entered as Reported by: EDGAR BLANK on 02/11/17 1054 Levothyroxine Sodium (Levothyroxine Sodium) 112 Mcg Tablet, 112 MCG PO DAILY, (Reported) Entered as Reported by: EDGAR BLANK on 02/11/17 1103 Losartan Potassium (Losartan Potassium) 50 Mg Tablet, 50 MG PO DAILY, (Reported) Entered as Reported by: INDU ZEE on 09/02/20 1302 Review of Systems Review of Systems Constitutional: see HPI EENTM: no symptoms reported Respiratory: see HPI Cardiovascular: see HPI Gastrointestinal: no symptoms reported Genitourinary: no symptoms reported : No Musculoskeletal: see HPI Skin: see HPI Psychiatric/Neurological: No Symptoms Reported Hematologic/Lymphatic: No Symptoms Reported Past [id number]-Pridtd-Mhdpda Hx Patient Social History Tobacco Use?: No Use of E-Cig and/or Vaping dev: No Substance use?: No Alcohol Use?: No Pt feels they are or have been: No Immunizations Up To Date First/Initial COVID19 Vaccinat: RECEIVED, UNK WHEN COVID19 Vaccine Elevator Pilot: UNK Seasonal Allergies Seasonal Allergies: No Past Medical History Surgeries: Yes (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 LOOSE STOOLS) Musculoskeletal: Yes Osteoporosis, Scoliosis, Fractures Endocrine: Yes Hypothyroidsim HEENT: No Loss of Vision: Denies Hearing Impairment: Denies Cancer: Yes Breast, Ovarian, Uterine Did You Recieve Any Treatments: Yes What Type of Treatment Did You: Chemotherapy, Surgical Intervention Psychosocial: No Integumentary: No Blood Disorders: No Adverse Reaction/Blood Tranf: No Family Medical History FH: cancer G8 SISTER FH: uterine cancer G8 SISTER Physical Exam Vital Signs Vital Signs - First Documented 12/31/22 10:24 Temp 36.7 Pulse 89 Resp 18 B/P (MAP) 139/78 (98) Pulse Ox 92 O2 Delivery Nasal Cannula O2 Flow Rate 4.00 Capillary Refill : Height, Weight, BMI Height: 5'6.00" Weight: 179lbs. 0.0oz. [id number]; 29.00 BMI Method:Stated General Appearance: No Apparent Distress, WD/WN HEENT: PERRL/EOMI, Normal ENT Inspection Neck: Normal Inspection; No JVD Respiratory: Lungs Clear; No Crackles; Decreased Breath Sounds (Markedly diminished breath sounds); No Wheezing Cardiovascular: Regular Rate, Rhythm, No Murmur, Other (Marked pitting edema of the lower extremities bilaterally) Gastrointestinal: Normal Bowel Sounds, Non Tender Extremity: Pedal Edema, Swelling, Other (Erythema and shallow ulcerative lesion on the left medial ankle. Pedal pulses not palpable due to edema) Neurologic/Psychiatric: Alert, Normal Mood/Affect, Other (Generalized weakness, dulled cognition) Skin: Warm/Dry, Other (Erythema of the left medial ankle and some scattered erythema on toes. Capillary refill on toes is about 7 to 8 seconds. ) Progress/Results/Core Measures Suspected Sepsis SIRS Temperature: Pulse: 89 Respiratory Rate: 18 Laboratory Tests 12/31/22 10:25: White Blood Count 9.1 Blood Pressure 139 /78 Mean: 97 Laboratory Tests 12/31/22 10:25: Creatinine 2.01H, Platelet Count 236, Total Bilirubin 0.3 Results/Orders Lab Results Laboratory Tests Test 12/31/22 10:25 12/31/22 10:55 12/31/22 12:36 Range/Units White Blood Count 9.1 4.3-11.0 10^3/uL Red Blood Count 4.71 3.80-5.11 10^6/uL Hemoglobin 14.4 11.5-16.0 g/dL Hematocrit 49 35-52 % Mean Corpuscular Volume 105 H 80-99 fL Mean Corpuscular Hemoglobin 31 25-34 pg Mean Corpuscular Hemoglobin Concent 29 L 32-36 g/dL Red Cell Distribution Width 15.8 H 10.0-14.5 % Platelet Count 236 130-400 10^3/uL Mean Platelet Volume 10.1 9.0-12.2 fL Immature Granulocyte % (Auto) 1 % Neutrophils (%) (Auto) 79 H 42-75 % Lymphocytes (%) (Auto) 14 12-44 % Monocytes (%) (Auto) 6 0-12 % Eosinophils (%) (Auto) 0 0-10 % Basophils (%) (Auto) 0 0-10 % Neutrophils # (Auto) 7.2 1.8-7.8 10^3/uL Lymphocytes # (Auto) 1.3 1.0-4.0 10^3/uL Monocytes # (Auto) 0.5 0.0-1.0 10^3/uL Eosinophils # (Auto) 0.0 0.0-0.3 10^3/uL Basophils # (Auto) 0.0 0.0-0.1 10^3/uL Immature Granulocyte # (Auto) 0.1 0.0-0.1 10^3/uL Sodium Level 147 H 135-145 MMOL/L Potassium Level 5.2 H 3.6-5.0 MMOL/L Chloride Level 111 H 98-107 MMOL/L Carbon Dioxide Level 27 21-32 MMOL/L Anion Gap 9 5-14 MMOL/L Blood Urea Nitrogen 51 H 7-18 MG/DL Creatinine 2.01 H 0.60-1.30 MG/DL Estimat Glomerular Filtration Rate 25 BUN/Creatinine Ratio 25 Glucose Level 107 H 70-105 MG/DL Calcium Level 8.3 L 8.5-10.1 MG/DL Corrected Calcium 8.7 8.5-10.1 MG/DL Magnesium Level 2.2 1.6-2.4 MG/DL Total Bilirubin 0.3 0.1-1.0 MG/DL Aspartate Amino Transf (AST/SGOT) 23 5-34 U/L Alanine Aminotransferase (ALT/SGPT) 23 0-55 U/L Alkaline Phosphatase 87 40-136 U/L C-Reactive Protein High Sensitivity 1.13 H 0.00-0.50 MG/DL B-Type Natriuretic Peptide 3072.5 H <100.0 PG/ML Total Protein 6.6 6.4-8.2 GM/DL Albumin 3.5 3.2-4.5 GM/DL Urine Color YELLOW Urine Clarity CLEAR Urine pH 6.5 5-9 Urine Specific Gabbs 1.020 1.016-1.022 Urine Protein 3+ H NEGATIVE Urine Glucose (UA) NEGATIVE NEGATIVE Urine Ketones NEGATIVE NEGATIVE Urine Nitrite NEGATIVE NEGATIVE Urine Bilirubin 1+ H NEGATIVE Urine Urobilinogen 0.2 < = 1.0 MG/DL Urine Leukocyte Esterase 2+ H NEGATIVE Urine RBC (Auto) TRACE-I H NEGATIVE Urine RBC RARE /HPF Urine WBC 10-25 H /HPF Urine Squamous Epithelial Cells 0-2 /HPF Urine Crystals NONE /LPF Urine Bacteria MODERATE H /HPF Urine Casts NONE /LPF Urine Mucus NEGATIVE /LPF Urine Culture Indicated YES Blood Gas Puncture Site L RAD Blood Gas Patient Temperature 36.7 Arterial Blood pH 7.09 *L 7.37-7.43 Arterial Blood Partial Pressure CO2 105 *H 35-45 MMHG Arterial Blood Partial Pressure O2 99 H 79-93 MMHG Arterial Blood HCO3 31 H 23-27 MMOL/L Arterial Blood Total CO2 33.9 H 21.0-31.0 MMOL/L Arterial Blood Oxygen Saturation 96 94-100 % Arterial Blood Base Excess 1.4 -2.5-2.5 MMOL/L Ananth Test NA Blood Gas Ventilator Setting NO Blood Gas Inspired Oxygen 4L NC My Orders Orders - ANGELIQUE ZARCO MD [facility] [place] (12/31/22 10:31) Cbc With Automated Diff (12/31/22 10:31) Comprehensive Metabolic Panel (12/31/22 10:31) Hs C Reactive Protein (12/31/22 10:31) Magnesium (12/31/22 10:31) Ua Culture If Indicated (12/31/22 10:31) Chest 1 View, Ap/Pa Only (12/31/22 10:31) Albuterol Pre-Mix Nebs (Rt) (Proventil (12/31/22 11:23) Svn Small Volume Nebulizer (12/31/22 11:23) Furosemide Injection (Lasix Injection) (12/31/22 11:30) Urine Culture (12/31/22 10:55) Ceftriaxone Iv/Im (Rocephin Iv/Im) (12/31/22 11:45) Ekg Tracing (12/31/22 11:58) O2 (12/31/22 11:58) Monitor-Rhythm Ecg Trace Only (12/31/22 11:58) Arterial Blood Gas (12/31/22 12:38) Methylprednisolone Sod Succ (Solu-Medrol (12/31/22 13:00) Bipap (Bilevel) Set Up (12/31/22 12:53) Ed Admission (Communication) (12/31/22 12:55) Medications Given in ED Current Medications Medications Dose Ordered Sig/Estephanie Route Start Time Stop Time Status Last Admin Dose Admin Furosemide 40 mg ONCE ONCE IVP 12/31/22 11:30 12/31/22 11:31 DC 12/31/22 11:38 40 MG Methylprednisolone Sodium Succinate 125 mg ONCE ONCE IVP 12/31/22 13:00 12/31/22 13:01 DC 12/31/22 12:57 125 MG Vital Signs/I&O 12/31/22 12/31/22 12/31/22 12/31/22 10:24 10:30 11:12 12:05 Temp 36.7 Pulse 89 81 Resp 18 18 B/P (MAP) 139/78 (98) 135/78 (97) Pulse Ox 92 95 94 95 O2 Delivery Nasal Cannula Nasal Cannula Nasal Cannula Nasal Cannula O2 Flow Rate 4.00 4.00 4.00 4.00 12/31/22 12/31/22 12:43 13:17 Pulse 71 70 Resp 18 B/P (MAP) 155/80 (105) 156/75 Pulse Ox 95 95 O2 Delivery Nasal Cannula NIV CPAP O2 Flow Rate 4.00 Capillary Refill : Blood Pressure Mean: 97 Progress Note #1: Time: 12:02 Progress Note Trace toPatient was interviewed and examined upon arrival. Report was received from EMS and nursing staff. Work-up was pursued and labs were reviewed and interpreted by me. CBC was unremarkable. Chemistry studies were remarkable for creatinine of 2, slightly elevated potassium at 5.2, and elevated sodium of 147. CRP was not significantly elevated. BNP is elevated at approximately 3000 which is increased from her BNP of approximately 2500 a couple days ago suggesting acute congestive failure. Chest x-ray from today was compared with prior. She has evidence of congestion on both x-rays. There may be some improvement today from prior. Radiologist's report was reviewed and suggested improvement in congestion. Patient is being treated with Lasix 40 mg IV. ABG is pending. Rocephin has been administered for treatment of UTI. Patient is not stable for discharge home as she is not able to safely walk and does not have appropriate means to maintain oxygen use while ambulating in the home. Bridges catheter was placed for accurate I's and O's and for immobility. Progress Note #2: Time: 13:11 Progress Note Patient was reassessed and found to be excessively somnolent which was a significant change from prior. Her sister notes that she has been exhibiting excessive somnolence in this manner intermittently over the last several days. ABG was obtained and showed a significant acidosis with pH of 7.09 and significant hypercarbia with PCO2 of 105. BiPAP and Solu-Medrol have been ordered. BiPAP is being initiated now. Patient is unable to have a conversation with me regarding CODE STATUS and has refused to have this conversation with family in the past. I have discussed the situation with her daughter, Liz Chamorro, who is next of kin. I have also discussed the situation with her sister, Mónica, who is very close to the patient. Neither believe that she would do well with intubation and do not think she would likely want to be intubated, although they have never had this conversation with her. Patient had made a comment to Dr. Perales earlier in the week that she did not want to come to the emergency room and she was okay if that resulted in . EMS also notes that they have had numerous calls to the home for lift assist and patient generally refuses transfer to the hospital. I am trying to contact Dr. Perales now to clarify patient statements in an effort to determine if she should be intubated. Progress Note #3: Time: 13:22 Progress Note I have clarified Dr. Perales's impression of the patient's wishes regarding end-of-life care. Patient had declined to complete paperwork in the past but had made comments to the effect of not wanting extraordinary life-saving measures done. Specifically, last week she had commented that she did not want to go to the hospital for her current complaints. She was informed that her current health issues could become life-threatening. She made comments to the clinic staff regarding having a good life and being content with dying at home. Consensus among the sister, daughter, and primary care team is that prognosis would be very poor if she were to be intubated and that intubation and CPR would not be consistent with patient's perspectives on end-of-life desires. A DNR order is therefore being given. We will continue with BiPAP therapy. Progress Note #4: Time: 13:38 Progress Note I placed a final phone call to patient's daughter, Liz Chamorro, , to communicate the final treatment plan and to confirm the DNR order. Liz states that she has since had another conversation with Jen's sister, Mónica. They are in definite agreement that a DNR is most appropriate for Jen based on her prior expressed perceptions of end-of-life care and her poor prognosis for quality of life should she ever have intubation or CPR. DNR order has been placed. Liz plans to come down to [place] to visit her mother with understanding prognosis is poor without intubation. I have discussed the case with eICU as well, and patient is being transferred to the ICU. ECG Initial ECG Impression Date: Dec 31, 2022 Initial ECG Impression Time: 12:10 Initial ECG Rate: 74 Initial ECG Rhythm: Normal Sinus Comment Sinus rhythm with no ST elevation or depression. Right axis deviation. Intraventricular conduction delay, probable right bundle branch block. Diagnostic Imaging Diagonstic Imaging: Xray Plain Films/CT/US/NM/MRI: chest Comments NAME: [facility] REC#: [id number] PT STATUS: REG ER : 1940 PHYSICIAN: ANGELIQUE ZARCO MD ADMIT DATE: 12/31/22/ER Draft Date of Exam:12/31/22 CHEST 1 VIEW, AP/PA ONLY CLINICAL INDICATION: Patient hypoxia and shortness of breath. EXAM: Portable chest x-ray upright view. COMPARISON: Chest x-ray dated 12/30/2022. FINDINGS: Lungs/pleura: There is mild bibasilar atelectasis. There is slight improved aeration of both lungs compared to prior study. There is no pneumothorax. The previously seen pleural effusions are not seen on this exam. Mediastinum: Unremarkable. Pulmonary vasculature: Pulmonary vasculature is now within normal limits. Heart: Stable cardiomegaly. Bones/extrathoracic soft tissue: There are multiple chronic right rib fractures. There are degenerative spurs involving the thoracic spine and right curvature of the thoracolumbar spine. There is fusion hardware involving the lumbar spine. IMPRESSION: 1: There is mild bibasilar atelectasis. There is overall slight improved aeration of both lungs. 2: Stable cardiomegaly. Pulmonary vasculature is now within normal limits. Dictated on workstation # [id number] Dict: 12/31/22 1105 Trans: 12/31/22 1110 [id number] Interpreted by: BLAZE ELIZABETH MD Departure Communication (Admissions) Time/Spoke to Admitting Phy: 12:45 Dr. Mccormack Time/Spoke to Consulting Phy: 12:50 Dr. Lynch Impression Primary Impression: Respiratory failure Qualified Codes: J96.01 - Acute respiratory failure with hypoxia; J96.02 - Acute respiratory failure with hypercapnia Additional Impressions: Congestive heart failure Qualified Codes: I50.9 - Heart failure, unspecified Urinary tract infection Qualified Codes: N39.0 - Urinary tract infection, site not specified Generalized weakness Decubitus ulcer, ankle Qualified Codes: L89.522 - Pressure ulcer of left ankle, stage 2 Disposition: 09 ADMITTED INPATIENT Condition: Stable Admissions Decision to Admit Reason: Admit from ER (General) Decision to Admit/Date: Dec 31, 2022 Time/Decision to Admit Time: 12:45 Departure-Patient Inst. Referrals: NOBLE PERALES MD (PCP/Family) Primary Care Physician Copy Copies To 1: NOBLE PERALES MD, JOSHUA T MD Dec 31, 2022 11:55
--- NOTE | 2022-12-31 12:19 | History & Physical ---
History of Present Illness HPI/Chief Complaint Chief complaint: Acute hypoxic hypercapnic respiratory failure HPI: This is an 82-year-old female clinic patient of Dr. Perales who up until 1 month ago was very active and independent but has struggled with shortness of breath and cough and reported to Dr. Perales's office multiple times and most recently refused admission to the hospital. It appeared that she had pulmonary edema on chest x-ray but upon further evaluation it could certainly be infiltrates very difficult to ascertain but by the time I assessed her in the emergency room she was somnolent and and able to be roused and ABG showed pH of 7.0 consistent with hypercapnic respiratory failure requiring intubation but long conversation between daughter and other family member they decided to initiate a DO NOT RESUSCITATE and DO NOT INTUBATE order so she was admitted to the ICU placed on BiPAP and cardiology was consulted. Echocardiogram showed no significant systolic ejection fraction dysfunction. IV Lasix had been given but IV antibiotics initiated also. Patient has a very poor prognosis. Elevated D- dimer obtained by Dr. Lynch Increase the suspicion of a pulmonary embolism but she is not stable enough to undergo a VQ scan nuclear scan so Lovenox therapeutic dose was initiated and venous Doppler ultrasound revealed no DVT. Source: family Exam Limitations: clinical condition Date Seen 12/31/22 Time Seen by a Provider: 13:00 Attending Physician Barbara Perales MD PCP Admitting Physician: Attending Physician: Referring Physician Date of Admission Home Medications & Allergies Home Medications Reviewed patient Home Medication Reconciliation performed by pharmacy medication reconciliations husbandry technician and/or nursing. Patients Allergies have been reviewed. Allergies Allergies Coded Allergies Iodinated Contrast Media (Verified Allergy, Unknown, 02/26/17) povidone-iodine (Verified Allergy, Unknown, 02/26/17) soap (Verified Allergy, Unknown, 02/26/17) Past [id number]-Rbwvpb Hx Past Med/Social Hx: Reviewed Nursing Past Med/Soc Hx, Reviewed and Corrections made Patient Social History Marrital Status: single Employed/Student: retired Alcohol Use: Denies Use Smoking Status: Never a Smoker Recent Hopitalizations: Yes (left ORIF) Immunizations Up To Date Date of Pneumonia Vaccine: Feb 15, 2014 Seasonal Allergies Seasonal Allergies: No Past Medical History Surgeries: Eye Surgery (Cataracts), Orthopedic (Left hip fracture, left knee) Currently Using CPAP: No Currently Using BIPAP: No Cardiac: Hypertension Reproductive: Yes (Ovarian cancer) Musculoskeletal: Osteoporosis, Scoliosis, Fractures Endocrine: Hypothyroidsim Loss of Vision: Denies Hearing Impairment: Denies Cancer: Breast, Ovarian, Uterine Did You Recieve Any Treatments: Yes What Type of Treatment Did You: Chemotherapy, Surgical Intervention History of Blood Disorders: No Adverse Reaction to Blood Girard: No Family History FH: cancer G8 SISTER FH: uterine cancer G8 SISTER Review of Systems ROS-Unable to Obtain: Patient respiratory failure Constitutional: see HPI, malaise, weakness Respiratory: cough, dyspnea on exertion Physical Exam Physical Exam Vital Signs Vital Signs - First Documented 12/31/22 12/31/22 10:24 13:50 Temp 36.7 Pulse 89 Resp 18 B/P (MAP) 139/78 (98) Pulse Ox 92 O2 Delivery Nasal Cannula O2 Flow Rate 4.00 FiO2 45 Capillary Refill : Height, Weight, BMI Height: 5'6.00" Weight: 179lbs. 0.0oz. 81.773568ub; 29.00 BMI Method:Stated General Appearance: No Apparent Distress, WD/WN, Chronically ill, Mild Distress, Other ( somnolent at time of my assessment) HEENT: PERRL/EOMI, Normal ENT Inspection Neck: Normal Inspection; No JVD Respiratory: Lungs Clear; No Crackles; Decreased Breath Sounds (Markedly diminished breath sounds); No Wheezing Cardiovascular: Regular Rate, Rhythm, No Murmur, Other (Marked pitting edema of the lower extremities bilaterally) Gastrointestinal: Normal Bowel Sounds, Non Tender Extremity: Pedal Edema, Swelling, Other (Erythema and shallow ulcerative lesion on the left medial ankle. Pedal pulses not palpable due to edema) Neurologic/Psychiatric: Alert, Normal Mood/Affect, Other (Generalized weakness, dulled cognition) Skin: Warm/Dry, Other (Erythema of the left medial ankle and some scattered erythema on toes. Capillary refill on toes is about 7 to 8 seconds. ) Results Results/Procedures Labs Laboratory Tests 12/31/22 10:25 Patient resulted labs reviewed. Assessment/Plan Admission Diagnosis Assessment: Acute hypoxic hypercapnic respiratory failure with dangerously low pH on ABG Elevated D-dimer but negative venous Doppler ultrasound of legs unable to undergo VQ scan due to critical status placed on Lovenox therapeutic dose Possible infectious infiltrates on chest x-ray covered for pneumonia Hypertension Plan: ICU BiPAP DO NOT INTUBATE DO NOT RESUSCITATE IV antibiotics Extremely poor prognosis Admission Status: Inpatient Order (span 2 midnights) Reason for Inpatient Admission: Respiratory failure HARRIS MELLO DO Dec 31, 2022 12:19
[2022-12-31 12:44] LABS: ABG BASE EXCESS 1.4 MMOL/L (-2.5-2.5); ABG OXYGEN SATURATION 96 % (94-100); ABG PO2 99 MMHG (79-93); ABG TCO2 33.9 MMOL/L (21.0-31.0)
[2022-12-31 12:50] LABS: ABG PH 7.09 (7.37-7.43); INSPIRED O2 4L NC; PATIENT TEMP 36.7; VENTILATOR NO
[2022-12-31 12:51] LABS: ABG PCO2 105 MMHG (35-45)
[2022-12-31] MEDS ORDERED: methylPREDNISolone 125 MG (Solu-MEDROL) VIAL IVP ONE (13:00)
[2022-12-31] MEDS ORDERED: diphenhydrAMINE 25 MG TAB (BENADRYL) PO PRN (14:00)
[2022-12-31] MEDS ORDERED: PROPOFOL DRIP (ICU) 100 ML IV SCH (14:00)
[2022-12-31] MEDS ORDERED: BISACODYL 10 MG SUPP (DULCOLAX) PR PRN (14:00)
[2022-12-31] MEDS ORDERED: LACTULOSE SYRUP 10GM/15ML (ENULOSE) 30ML UDC PO PRN (14:00)
[2022-12-31] MEDS ORDERED: diphenhydrAMINE 50 MG/ML INJ (BENADRYL) IVP PRN (14:00)
[2022-12-31] MEDS ORDERED: ACETAMINOPHEN 325 MG TABLET PO PRN (14:00)
[2022-12-31] MEDS ORDERED: ONDANSETRON 4 MG (ZOFRAN) ORAL DISSOLVE TAB PO PRN (14:00)
[2022-12-31] MEDS ORDERED: HYDROmorphone 2 MG/ML VIAL (DILAUDID) IV PRN (14:00)
[2022-12-31] MEDS ORDERED: AZITHROMYCIN INJECTION 250 MG in NS (IVPB) 250 ML IV SCH (14:00)
[2022-12-31] MEDS ORDERED: NS IV 500 ML 500 ML IV PRN (14:00)
[2022-12-31] MEDS ORDERED: MELATONIN 3 MG TABLET PO PRN (14:00)
[2022-12-31] MEDS ORDERED: MILK OF MAGNESIA 400 MG/5 ML 30 ML UDC PO PRN (14:00)
[2022-12-31] MEDS ORDERED: LORazepam/NS DRIP 100 ML IV SCH (14:00)
[2022-12-31] MEDS ORDERED: DexMEDEtomidine 250 ML DRIP 250 ML IV SCH (14:00)
[2022-12-31] MEDS ORDERED: ANTACID SUSP 30 ML UDC (MYLANTA) PO PRN (14:00)
[2022-12-31] MEDS ORDERED: polyethylene glycoL POWDER 17 GM (MIRALAX) PACK PO PRN (14:00)
[2022-12-31] MEDS ORDERED: fentaNYL DRIP PRE-MIX 250 ML IV SCH (14:00)
[2022-12-31] MEDS ORDERED: CALCIUM CARBONATE 500 MG (TUMS) TAB.CHEW PO PRN (14:00)
[2022-12-31] MEDS ORDERED: ONDANSETRON 4 MG/2 ML (SDV) Z0FRAN IV PRN (14:00)
--- NOTE | 2022-12-31 14:03 | Physical Therapy Progress Note ---
Therapy Progress Note Patient admitted this p.m. and is on BiPap per report. PT to initiate evaluation tomorrow JOLIE Hilario PT Dec 31, 2022 14:02
--- NOTE | 2022-12-31 14:14 | Tele-ICU Progress Note ---
Subjective Date Seen by a Provider: Dec 31, 2022 Time Seen by a Provider: 13:56 Subjective/Events-last exam (Tele-ICU Physician, consultation as per request of PCP Service provided via interactive audio and video telecommunications E-CARE system to a patient admitted to ICU bed in [facility]. Available chart/ vitals / labs / Images reviewed H&P is from ER notes Patient's information available about PMH, Shx, Fhx allergy reviewed Camilo. MARYAN as per chart and RN report HPI: Pt is a 82 F who presented to ED with complaints of shortness of breath and weaknessed found to be hypoxic with oxygen in 70s.Admitted to MICU for mixed hypoxic/hypercapnic respiratory failure 2/2 fluid overload requiring continuous BiPAP. Pt states has been experiencing weakness over past month however today was unable to get up and had difficulty reaching oxygen tank at home. Upon arrival to ED her O2 sat was noted to be in 60s in ER with increased work of breathing. Her labs were notable for hypernatremia (na 149), SUKH (BUN and tanning consultant 51 and 2.01 respectively) and ABG with pH of 7.09, pCO2 of 105. Her BNP was elevated to 3072. She was placed on BiPAP 02/05. Per discussion with ED attending patient does not want intubation or any aggressive life sustaining measures at this time. A/P Acute hypercapnic/hypoxic respiratory failure: Likely 2/2 acute exacerbation of HF -Will cont on BiPAP at present settings. Currently requiring 100%. -Will obtain ABG. -Pt DNR Acute HF: -BNP elevated from baseline -Will reattempt IV Lasix 40mg, received 1 dose in ED -Cards consulted appreciate recs. WIll likely require inotrope support for help with diuresis. SUKH:Likely 2/2 worsening HF -Will attempt diuresis. Lines : periph , (Central Line Necessity Reviewed) Bridges: Nutrition: HH diet VTE Prophylaxis: kiera 1`30 bid Stress Ulcer Prophylaxis:Protonix Plans in collaboration with bedside consultants and IM MDs. Discussed with RN to reach out if any questions or concerns A total of 25 minutes of critical care time was devoted to this patient today, required to treat and/or prevent further deterioration of critical care condition ( as above ) Sepsis Event Evaluation Height, Weight, BMI Height: 5'6.00" Weight: 179lbs. 0.0oz. 81.963185vp; 29.00 BMI Method:Stated Exam Exam Patient acknowledged, consented, and participated in this virtual visit which was conducted using real time audio/video Vital Signs Date Time Temp Pulse Resp B/P (MAP) Pulse Ox O2 Delivery O2 Flow Rate FiO2 12/31/22 13:23 74 20 94 45.00 12/31/22 13:17 70 18 156/75 95 NIV CPAP 12/31/22 12:43 71 155/80 (105) 95 Nasal Cannula 4.00 12/31/22 12:05 95 Nasal Cannula 4.00 12/31/22 11:12 81 18 135/78 (97) 94 Nasal Cannula 4.00 12/31/22 10:30 95 Nasal Cannula 4.00 12/31/22 10:24 36.7 89 18 139/78 (98) 92 Nasal Cannula 4.00 Height & Weight Height: 5'6.00" Weight: 179lbs. 0.0oz. 81.436416kf; 29.00 BMI Method:Stated General Appearance: No Apparent Distress, WD/WN HEENT: PERRL/EOMI, Normal ENT Inspection Neck: Normal Inspection; No JVD Respiratory: Lungs Clear; No Crackles; Decreased Breath Sounds (Markedly diminished breath sounds); No Wheezing Cardiovascular: Regular Rate, Rhythm, No Murmur, Other (Marked pitting edema of the lower extremities bilaterally) Extremity: Pedal Edema, Swelling, Other (Erythema and shallow ulcerative lesion on the left medial ankle. Pedal pulses not palpable due to edema) Neurologic/Psychiatric: Alert, Normal Mood/Affect, Other (Generalized weakness, dulled cognition) Skin: Warm/Dry, Other (Erythema of the left medial ankle and some scattered erythema on toes. Capillary refill on toes is about 7 to 8 seconds. ) Results Lab Laboratory Tests 12/31/22 10:25 Assessment/Plan Assessment/Plan . SARAH MATTHEW MD Dec 31, 2022 14:14
[2022-12-31] MEDS ORDERED: FUROSEMIDE 40 MG/4 ML INJ (LASIX) IVP NR (15:00)
[2022-12-31] MEDS ORDERED: FUROSEMIDE 40 MG/4 ML INJ (LASIX) ONE (15:02)
[2022-12-31] MEDS ORDERED: ENOXAPARIN 150 MG/ML (LOVENOX) SYR SQ SCH ×2 (15:30→15:45)
[2022-12-31] MEDS ORDERED: OXYB-52 PO (15:46)
[2022-12-31] MEDS ORDERED: LEVO75TA6 PO (15:46)
--- NOTE | 2022-12-31 16:19 | Consultation-Cardiology ---
HPI-Cardiology Cardiology Consultation: Date of Consultation 12/31/22 Date of Admission Attending Physician Barbara Perales MD Admitting Physician Admitting Physician: Noemí Mccormack DO Attending Physician: Noemí Mccormack DO Consulting Physician Malik BIANCHI MD HPI: Time Seen by a Provider: 15:00 Chief Complaint: Shortness of breath This is a 82-year-old lady who presents with significant shortness of breath. She is DNR/DNI. No past history of smoking. No history of COPD. Patient is on BiPAP and non conversational when I saw her. Review of Systems-Cardiology Review of Systems Constitutional: malaise Eyes: no symptoms reported Ears/Nose/Throat: no symptoms reported Respiratory: SOB at rest Cardiovascular: As described under HPI Gastrointestinal: As described under HPI Genitourinary: As described under HPI : No Musculoskeletal: As describe under HPI Skin: As described under HPI Psychiatric/Neurological: As described under HPI Hematologic: As described under HPI LRZ-Muvuwi-Plfyjr Hx Patient Social History Alcohol Use?: No Pt feels they are or have been: No Immunizations Up To Date Date of Pneumonia Vaccine: Feb 15, 2014 Past Medical History PMH As described under Assessment. Family Medical History Family History: FH: cancer G8 SISTER FH: uterine cancer G8 SISTER Allergies and Home Medications Allergies Coded Allergies: Iodinated Contrast Media (Verified Allergy, Unknown, 02/26/17) povidone-iodine (Verified Allergy, Unknown, 02/26/17) soap (Verified Allergy, Unknown, 02/26/17) Patient Home Medication List Home Medication List Reviewed: Yes Carvedilol (Carvedilol) 12.5 Mg Tablet, 12.5 MG PO BID, (Reported) Entered as Reported by: EDGAR BLANK on 02/11/17 1054 Last Action: Reviewed Levothyroxine Sodium (Levothyroxine Sodium) 75 Mcg Tablet, 75 MCG PO DAILY, (Reported) Entered as Reported by: BALTA FAULKNER on 12/31/22 1546 Last Action: Reviewed Losartan Potassium (Losartan Potassium) 50 Mg Tablet, 50 MG PO DAILY, (Reported) Entered as Reported by: INDU ZEE on 09/02/20 1302 Last Action: Reviewed Oxybutynin Chloride (Oxybutynin Chloride ER) 5 Mg Tab.er.24, 5 MG PO DAILY, (Reported) Entered as Reported by: BALTA FAULKNER on 12/31/22 1546 Last Action: Reviewed Discontinued Medications Alendronate Sodium (Alendronate Sodium) 70 Mg Tablet, 70 MG PO [place], (Reported) Discontinued Reason: No Longer Taking Entered as Reported by: EDGAR BLANK on 02/11/17 1054 Last Action: Discontinued Aspirin (Aspirin) 81 Mg Tab.chew, 81 MG PO DAILY, (Reported) Discontinued Reason: No Longer Taking Entered as Reported by: INDU ZEE on 09/02/20 1302 Last Action: Discontinued Calcium Carbonate/Vitamin D3 (Calcium 500 + D Tablet) 1 Each Tablet, 1 TAB PO BI D, (Reported) Discontinued Reason: No Longer Taking Entered as Reported by: EDGAR BLANK on 02/11/17 1103 Last Action: Discontinued Levothyroxine Sodium (Levothyroxine Sodium) 112 Mcg Tablet, 112 MCG PO DAILY, (Reported) Discontinued Reason: No Longer Taking Entered as Reported by: EDGAR BLANK on 02/11/17 1103 Last Action: Discontinued Exam Vital Signs Vital Signs Date Time Temp Pulse Resp B/P (MAP) Pulse Ox O2 Delivery O2 Flow Rate FiO2 12/31/22 15:29 36.2 12/31/22 15:00 72 25 138/56 (83) 98 NIV Bilevel 100.00 12/31/22 13:50 45 Physical Exam non conversational Decreased breath sounds bilaterally. CVS: Regular rate and rhythm. Mild pedal edema Labs Laboratory Tests Test 12/31/22 10:25 12/31/22 10:55 12/31/22 12:36 Range/Units White Blood Count 9.1 4.3-11.0 10^3/uL Red Blood Count 4.71 3.80-5.11 10^6/uL Hemoglobin 14.4 11.5-16.0 g/dL Hematocrit 49 35-52 % Mean Corpuscular Volume 105 H 80-99 fL Mean Corpuscular Hemoglobin 31 25-34 pg Mean Corpuscular Hemoglobin Concent 29 L 32-36 g/dL Red Cell Distribution Width 15.8 H 10.0-14.5 % Platelet Count 236 130-400 10^3/uL Mean Platelet Volume 10.1 9.0-12.2 fL Immature Granulocyte % (Auto) 1 % Neutrophils (%) (Auto) 79 H 42-75 % Lymphocytes (%) (Auto) 14 12-44 % Monocytes (%) (Auto) 6 0-12 % Eosinophils (%) (Auto) 0 0-10 % Basophils (%) (Auto) 0 0-10 % Neutrophils # (Auto) 7.2 1.8-7.8 10^3/uL Lymphocytes # (Auto) 1.3 1.0-4.0 10^3/uL Monocytes # (Auto) 0.5 0.0-1.0 10^3/uL Eosinophils # (Auto) 0.0 0.0-0.3 10^3/uL Basophils # (Auto) 0.0 0.0-0.1 10^3/uL Immature Granulocyte # (Auto) 0.1 0.0-0.1 10^3/uL D-Dimer 2.90 H 0.00-0.49 UG/ML Sodium Level 147 H 135-145 MMOL/L Potassium Level 5.2 H 3.6-5.0 MMOL/L Chloride Level 111 H 98-107 MMOL/L Carbon Dioxide Level 27 21-32 MMOL/L Anion Gap 9 5-14 MMOL/L Blood Urea Nitrogen 51 H 7-18 MG/DL Creatinine 2.01 H 0.60-1.30 MG/DL Estimat Glomerular Filtration Rate 25 BUN/Creatinine Ratio 25 Glucose Level 107 H 70-105 MG/DL Calcium Level 8.3 L 8.5-10.1 MG/DL Corrected Calcium 8.7 8.5-10.1 MG/DL Magnesium Level 2.2 1.6-2.4 MG/DL Total Bilirubin 0.3 0.1-1.0 MG/DL Aspartate Amino Transf (AST/SGOT) 23 5-34 U/L Alanine Aminotransferase (ALT/SGPT) 23 0-55 U/L Alkaline Phosphatase 87 40-136 U/L C-Reactive Protein High Sensitivity 1.13 H 0.00-0.50 MG/DL B-Type Natriuretic Peptide 3072.5 H <100.0 PG/ML Total Protein 6.6 6.4-8.2 GM/DL Albumin 3.5 3.2-4.5 GM/DL Urine Color YELLOW Urine Clarity CLEAR Urine pH 6.5 5-9 Urine Specific [place] 1.020 1.016-1.022 Urine Protein 3+ H NEGATIVE Urine Glucose (UA) NEGATIVE NEGATIVE Urine Ketones NEGATIVE NEGATIVE Urine Nitrite NEGATIVE NEGATIVE Urine Bilirubin 1+ H NEGATIVE Urine Urobilinogen 0.2 < = 1.0 MG/DL Urine Leukocyte Esterase 2+ H NEGATIVE Urine RBC (Auto) TRACE-I H NEGATIVE Urine RBC RARE /HPF Urine WBC 10-25 H /HPF Urine Squamous Epithelial Cells 0-2 /HPF Urine Crystals NONE /LPF Urine Bacteria MODERATE H /HPF Urine Casts NONE /LPF Urine Mucus NEGATIVE /LPF Urine Culture Indicated YES Blood Gas Puncture Site L RAD Blood Gas Patient Temperature 36.7 Arterial Blood pH 7.09 *L 7.37-7.43 Arterial Blood Partial Pressure CO2 105 *H 35-45 MMHG Arterial Blood Partial Pressure O2 99 H 79-93 MMHG Arterial Blood HCO3 31 H 23-27 MMOL/L Arterial Blood Total CO2 33.9 H 21.0-31.0 MMOL/L Arterial Blood Oxygen Saturation 96 94-100 % Arterial Blood Base Excess 1.4 -2.5-2.5 MMOL/L Ananth Test NA Blood Gas Ventilator Setting NO Blood Gas Inspired Oxygen 4L NC ECG Impression ECG Initial ECG Rhythm: Normal Sinus Initial ECG Impression: Nonspecific Changes A/P-Cardiology Assessment/Admission Diagnosis Acute respiratory failure, Acute on chronic diastolic congestive heart failure, DNR/DNI, Hypertension, Acute kidney injury. Plan Patient presents with acute respiratory failure. Echocardiogram shows normal LV function with mild diastolic dysfunction. Acute kidney injury. Multifactorial respiratory failure. 1 contributor etiology is acute diastolic congestive heart failure and requires IV diuretics. Echocardiogram also showed mild RV dilatation. I am concerned about pulmonary embolism. I have requested to add D-dimer to the lab. Bilateral lower extremity Dopplers. Due to acute kidney injury we may not be able to do a chest CTA. Possible VQ scan. I have discussed with Dr. Mccormack and will defer to her. However it is reasonable to cover her with PE dose Lovenox till we have further information. Guarded prognosis. I briefly discussed with the family at the bedside. Malik BIANCHI MD Dec 31, 2022 16:19
--- NOTE | 2022-12-31 16:34 | Wound Care Assessment ---
Wound Care Assessment Date Seen by Provider: Dec 31, 2022 Time Seen by Provider: 16:23 Chief Complaint L. ankle ulcer HPI This unfortunate 82 year old lady was admitted to the hospital in respiratory failure with underlying CHF. She was prescribed oxygen for home use several days prior to admission but did not initiate as instructed. Upon EMS presentation, sats were quite low but improved with oxygen placement. Unfortunately, she became quite somnalent following. She is now on BiPAP but initial ABG's were certainly concerning (pCO2 105). She is obtunded currently and unable to give medical history. On exam she is noted to have quarter sized area of ulceration to left ankle which is shallow and dry at this time. There is an area superior to this with blistering and mild erythema. Family/friends noted this was related to rubbing of area on wheelchair (certainly possible). They also note that she has struggled with severe edema to lower legs in recent past (likely contributing to these injuries as well. She has dusky discoloration to all toes with significantly delayed capillary refill. Strongly suspect underlying PAD. There are no ulcerations to digits currently and this is not an urgent issue today in light of respiratory and cardiac status. However, bilateral segmental studies would be helpful in evaluation in the future should she so desire upon improvement of current condition. Past Medical History: Admits Heart Disease CHF, Acute renal failure Smoking Status: Unknown if Ever Smoked Recreational Drug Use: No Review of Systems Other systems Unable to obtain due to mental status Exam Vital Signs Date Time Temp Pulse Resp B/P (MAP) Pulse Ox O2 Delivery O2 Flow Rate FiO2 12/31/22 15:29 36.2 12/31/22 15:00 72 25 138/56 (83) 98 NIV Bilevel 100.00 12/31/22 13:50 45 Capillary Refill : General Appearance: moderate distress (on BiPAP), obese Cardiovascular: other (dusky discoloration with delayed CR of all toes) Respiratory: respiratory distress (on BiPAP) Extremities: pedal edema, slow capillary refill Neurologic/Psychiatric: other (obtunded) Skin: cyanosis (all toes) Wound assessment: 2x2x0.1cm. The epithelialization is none there is no tunneling or undermining. Drainage is none. Necrotic is large and eschar. Margins are flat Results Laboratory Tests 12/31/22 10:25: White Blood Count 9.1, Red Blood Count 4.71, Hemoglobin 14.4, Hematocrit 49, Mean Corpuscular Volume 105H, Mean Corpuscular Hemoglobin 31, Mean Corpuscular Hemoglobin Concent 29L, Red Cell Distribution Width 15.8H, Platelet Count 236, Mean Platelet Volume 10.1, Immature Granulocyte % (Auto) 1, Neutrophils (%) (Auto) 79H, Lymphocytes (%) (Auto) 14, Monocytes (%) (Auto) 6, Eosinophils (%) (Auto) 0, Basophils (%) (Auto) 0, Neutrophils # (Auto) 7.2, Lymphocytes # (Auto) 1.3, Monocytes # (Auto) 0.5, Eosinophils # (Auto) 0.0, Basophils # (Auto) 0.0, Immature Granulocyte # (Auto) 0.1, D-Dimer 2.90H, Sodium Level 147H, Potassium Level 5.2H, Chloride Level 111H, Carbon Dioxide Level 27, Anion Gap 9, Blood Urea Nitrogen 51H, Creatinine 2.01H, Estimat Glomerular Filtration Rate 25, BUN/Creatinine Ratio 25, Glucose Level 107H, Calcium Level 8.3L, Corrected Calcium 8.7, Magnesium Level 2.2, Total Bilirubin 0.3, Aspartate Amino Transf (AST/SGOT) 23, Alanine Aminotransferase (ALT/SGPT) 23, Alkaline Phosphatase 87, C-Reactive Protein High Sensitivity 1.13H, B-Type Natriuretic Peptide 3072.5H, Total Protein 6.6, Albumin 3.5 12/31/22 10:55: Urine Color YELLOW, Urine Clarity CLEAR, Urine pH 6.5, Urine Specific [place] 1.020, Urine Protein 3+H, Urine Glucose (UA) NEGATIVE, Urine Ketones NEGATIVE, Urine Nitrite NEGATIVE, Urine Bilirubin 1+H, Urine Urobilinogen 0.2, Urine Leukocyte Esterase 2+H, Urine RBC (Auto) TRACE-IH, Urine RBC RARE, Urine WBC 10- 25H, Urine Squamous Epithelial Cells 0-2, Urine Crystals NONE, Urine Bacteria MODERATEH, Urine Casts NONE, Urine Mucus NEGATIVE, Urine Culture Indicated YES 12/31/22 12:36: Blood Gas Puncture Site L RAD, Blood Gas Patient Temperature 36.7, Arterial Blood pH 7.09*L, Arterial Blood Partial Pressure CO2 105*H, Arterial Blood Partial Pressure O2 99H, Arterial Blood HCO3 31H, Arterial Blood Total CO2 33.9H , Arterial Blood Oxygen Saturation 96, Arterial Blood Base Excess 1.4, Ananth Test NA, Blood Gas Ventilator Setting NO, Blood Gas Inspired Oxygen 4L NC Assessment/Plan/Dx Assessment: 1. NOn-pressure ulcer L. ankle with abrasion superiorly 2. Chronic lymphedema (likely related to CHF) 3. Acute respiratory failure 4. Acute renal failure 5. Suspected PAD Plan: 1. Allevyn bordered foam dressing for protection daily. 2. Defer to primary team. Diuresis underway 3. Defer to primary team 4. Defer to primary team 5. Would recommend segmental studies b/l in future if patient so desires. ETIENNE ARMENTA MD Dec 31, 2022 16:34
[2022-12-31 16:41] LABS: ABG BASE EXCESS -1.2 MMOL/L (-2.5-2.5); ABG OXYGEN SATURATION 98 % (94-100); ABG PO2 481 MMHG (79-93); ABG TCO2 29.5 MMOL/L (21.0-31.0)
[2022-12-31 16:44] LABS: ABG PCO2 78 MMHG (35-45); ABG PH 7.16 (7.37-7.43); ALLENS TEST POSITIVE; INSPIRED O2 100%; PATIENT TEMP 35.9; VENTILATOR NO
--- NOTE | 2022-12-31 17:03 | Diagnostic Imaging Report ---
INDICATION: Bilateral leg swelling. Bilateral lower extremity venous Doppler study was performed in the routine fashion with color flow Doppler and waveform analysis. FINDINGS: The common femoral veins, superficial femoral veins, popliteal veins and visualized portion of the tibial veins show normal compressibility and venous flow patterns. There is normal augmentation. IMPRESSION: No evidence of deep vein thrombosis in the major veins of both legs. Dictated by: Dictated on workstation # [id number]
[2022-12-31] MEDS ORDERED: ENOXAPARIN 100 MG/1 ML (LOVENOX) SYR SC SCH (18:00)
[2022-12-31] MEDS ORDERED: SENNOSIDES 8.6 MG (SENOKOT) TAB PO SCH (21:00)
[2022-12-31] MEDS ORDERED: DOCUSATE SODIUM 100 MG (COLACE) CAP PO SCH (21:00)
[2023-01-01] VITALS (9 sets, daily range): BP systolic 114–163; BP diastolic 50–84
[2023-01-01 05:37] LABS: BASOPHILS % (AUTO) 0 % (0-10); EOSINOPHILS % (AUTO) 0 % (0-10); HEMATOCRIT 52 % (35-52); HEMOGLOBIN 14.9 g/dL (11.5-16.0); LYMPHOCYTES # (AUTO) 2.2 10^3/uL (1.0-4.0); LYMPHOCYTES % (AUTO) 15 % (12-44); MEAN CORPUSCULAR HEMOGLOBIN 31 pg (25-34); MEAN CORPUSCULAR HGB CONC 29 g/dL (32-36); MEAN CORPUSCULAR VOLUME 107 fL (80-99); MEAN PLATELET VOLUME 10.4 fL (9.0-12.2); MONOCYTES # (AUTO) 0.9 10^3/uL (0.0-1.0); MONOCYTES % (AUTO) 6 % (0-12); NEUTROPHILS % (AUTO) 79 % (42-75); PLATELET COUNT 248 10^3/uL (130-400); WHITE BLOOD COUNT 15.2 10^3/uL (4.3-11.0)
[2023-01-01] MEDS ORDERED: MAGNESIUM 1 GM/100 ML IVPB 100 ML IV SCH (06:00)
[2023-01-01] MEDS ORDERED: KCL 20 MEQ TAB (K-DUR) PO SCH (06:00)
[2023-01-01] MEDS ORDERED: POTASSIUM CL 10MEQ/50ML IVPB 50 ML IV SCH (06:00)
[2023-01-01 06:08] LABS: ALBUMIN 3.7 GM/DL (3.2-4.5); BILIRUBIN,TOTAL 0.3 MG/DL (0.1-1.0); CALCIUM 8.1 MG/DL (8.5-10.1); CREATININE SERUM 2.85 MG/DL (0.60-1.30); MAGNESIUM 2.4 MG/DL (1.6-2.4); PHOSPHORUS 7.9 MG/DL (2.3-4.7); POTASSIUM 5.9 MMOL/L (3.6-5.0); TOTAL PROTEIN 7.1 GM/DL (6.4-8.2)
[2023-01-01 06:21] LABS: NEUTROPHILS % (MANUAL) 77 %
[2023-01-01 06:22] LABS: LYMPHOCYTES % (MANUAL) 17 %; MONOCYTES % (MANUAL) 6 %; POLYCHROMASIA SLIGHT
--- NOTE | 2023-01-01 07:13 | Physical Therapy Progress Note ---
Therapy Progress Note PT to remove patient from schedule secondary to decline in status and, per RN, patient will be on comfort care on this date. JOLIE RESTREPO PT Jan 01, 2023 07:13
[2023-01-01 08:17] LABS: ABG OXYGEN SATURATION 96 % (94-100); ABG PO2 131 MMHG (79-93)
[2023-01-01 08:19] LABS: ALLENS TEST POSITIVE; VENTILATOR NO
[2023-01-01 08:21] LABS: PATIENT TEMP 36.2
[2023-01-01] MEDS ORDERED: FUROSEMIDE 40 MG/4 ML INJ (LASIX) IV SCH (09:00)
[2023-01-01] MEDS ORDERED: PANTOPRAZOLE 40 MG (PROTONIX) VIAL IV SCH (09:00)
--- NOTE | 2023-01-01 11:46 | Discharge Summary ---
Diagnosis/Chief Complaint Date of Admission Dec 31, 2022 at 13:22 Date of Discharge Discharge Diagnosis Acute hypoxic hypercapnic respiratory failure Presumed pneumonia Acute on chronic diastolic heart failure Acute kidney injury Discharge Summary Discharge Physical Examination Allergies: Coded Allergies: Iodinated Contrast Media (Verified Allergy, Unknown, 02/26/17) povidone-iodine (Verified Allergy, Unknown, 02/26/17) soap (Verified Allergy, Unknown, 02/26/17) Vitals & I&Os Vital Signs Date Time Temp Pulse Resp B/P (MAP) Pulse Ox O2 Delivery O2 Flow Rate FiO2 01/01/23 07:00 56 01/01/23 06:54 29 93 75.00 01/01/23 06:00 144/84 (104) NIV Bilevel 01/01/23 04:00 75 01/01/23 03:56 36.2 Hospital Course Hospital course: Patient had brief overnight hospital course after she was admitted from the ER with acute hypoxic hypercapnic respiratory failure. Presumptive pneumonia required antibiotics empirically along with IV diuresis for diastolic heart failure with cardiology consult. Elevated D-dimer prompted venous Doppler ultrasound since she was unstable and could not undergo nuclear VQ scan she was also placed on empiric therapeutic dose of Lovenox. Patient never regained stability she was unable to tolerate BiPAP never regained consciousness and she suffered asystole she was DO NOT RESUSCITATE and she . Labs (last 24 hrs) Laboratory Tests 12/31/22 10:25: White Blood Count 9.1, Red Blood Count 4.71, Hemoglobin 14.4, Hematocrit 49, Mean Corpuscular Volume 105H, Mean Corpuscular Hemoglobin 31, Mean Corpuscular Hemoglobin Concent 29L, Red Cell Distribution Width 15.8H, Platelet Count 236, Mean Platelet Volume 10.1, Immature Granulocyte % (Auto) 1, Neutrophils (%) (Auto) 79H, Lymphocytes (%) (Auto) 14, Monocytes (%) (Auto) 6, Eosinophils (%) (Auto) 0, Basophils (%) (Auto) 0, Neutrophils # (Auto) 7.2, Lymphocytes # (Auto) 1.3, Monocytes # (Auto) 0.5, Eosinophils # (Auto) 0.0, Basophils # (Auto) 0.0, Immature Granulocyte # (Auto) 0.1, D-Dimer 2.90H, Sodium Level 147H, Potassium Level 5.2H, Chloride Level 111H, Carbon Dioxide Level 27, Anion Gap 9, Blood Urea Nitrogen 51H, Creatinine 2.01H, Estimat Glomerular Filtration Rate 25, BUN/Creatinine Ratio 25, Glucose Level 107H, Calcium Level 8.3L, Corrected Calcium 8.7, Magnesium Level 2.2, Total Bilirubin 0.3, Aspartate Amino Transf (AST/SGOT) 23, Alanine Aminotransferase (ALT/SGPT) 23, Alkaline Phosphatase 87, C-Reactive Protein High Sensitivity 1.13H, B-Type Natriuretic Peptide 3072.5H, Total Protein 6.6, Albumin 3.5 12/31/22 10:55: Urine Color YELLOW, Urine Clarity CLEAR, Urine pH 6.5, Urine Specific [place] 1.020, Urine Protein 3+H, Urine Glucose (UA) NEGATIVE, Urine Ketones NEGATIVE, Urine Nitrite NEGATIVE, Urine Bilirubin 1+H, Urine Urobilinogen 0.2, Urine Leukocyte Esterase 2+H, Urine RBC (Auto) TRACE-IH, Urine RBC RARE, Urine WBC 10- 25H, Urine Squamous Epithelial Cells 0-2, Urine Crystals NONE, Urine Bacteria MODERATEH, Urine Casts NONE, Urine Mucus NEGATIVE, Urine Culture Indicated YES 12/31/22 12:36: Blood Gas Puncture Site L RAD, Blood Gas Patient Temperature 36.7, Arterial Blood pH 7.09*L, Arterial Blood Partial Pressure CO2 105*H, Arterial Blood Partial Pressure O2 99H, Arterial Blood HCO3 31H, Arterial Blood Total CO2 33.9H , Arterial Blood Oxygen Saturation 96, Arterial Blood Base Excess 1.4, Ananth Test NA, Blood Gas Ventilator Setting NO, Blood Gas Inspired Oxygen 4L NC 12/31/22 16:35: Blood Gas Puncture Site RIGHT RADIAL, Blood Gas Patient Temperature 35.9, Arterial Blood pH 7.16*L, Arterial Blood Partial Pressure CO2 78*H, Arterial Blood Partial Pressure O2 481H, Arterial Blood HCO3 27, Arterial Blood Total CO2 29.5, Arterial Blood Oxygen Saturation 98, Arterial Blood Base Excess -1.2, Ananth Test POSITIVE, Blood Gas Ventilator Setting NO, Blood Gas Inspired Oxygen 100% 12/31/22 16:40: Lactic Acid Level 1.08 01/01/23 05:29: White Blood Count 15.2H, Red Blood Count 4.86, Hemoglobin 14.9, Hematocrit 52, Mean Corpuscular Volume 107H, Mean Corpuscular Hemoglobin 31, Mean Corpuscular Hemoglobin Concent 29L, Red Cell Distribution Width 15.4H, Platelet Count 248, Mean Platelet Volume 10.4, Immature Granulocyte % (Auto) 1, Neutrophils (%) (Auto) 79H, Lymphocytes (%) (Auto) 15, Monocytes (%) (Auto) 6, Eosinophils (%) (Auto) 0, Basophils (%) (Auto) 0, Neutrophils # (Auto) 12.0H, Lymphocytes # (Auto) 2.2, Monocytes # (Auto) 0.9, Eosinophils # (Auto) 0.0, Basophils # (Auto) 0.0, Immature Granulocyte # (Auto) 0.1, Neutrophils % (Manual) 77, Lymphocytes % (Manual) 17, Monocytes % (Manual) 6, Polychromasia SLIGHT, Macrocytosis SLIGHT, Sodium Level 150H, Potassium Level 5.9H, Chloride Level 111H, Carbon Dioxide Level 26, Anion Gap 13, Blood Urea Nitrogen 64H, Creatinine 2.85#H, Estimat Glomerular Filtration Rate 16, BUN/Creatinine Ratio 22, Glucose Level 127H, Calcium Level 8.1L, Corrected Calcium 8.3L, Phosphorus Level 7.9H, Magnesium Level 2.4, Total Bilirubin 0.3, Aspartate Amino Transf (AST/SGOT) 38H, Alanine Aminotransferase (ALT/SGPT) 41, Alkaline Phosphatase 95, Total Protein 7.1, Albumin 3.7 01/01/23 07:11: Blood Gas Puncture Site R RADIAL, Blood Gas Patient Temperature 36.2, Arterial Blood pH 6.80*L, Arterial Blood Partial Pressure CO2 , Arterial Blood Partial Pressure O2 131H, Arterial Blood HCO3 , Arterial Blood Total CO2 , Arterial Blood Oxygen Saturation 96, Arterial Blood Base Excess , Ananth Test POSITIVE, Blood Gas Ventilator Setting NO, Blood Gas Inspired Oxygen Microbiology 12/31/22 Urine Culture - Preliminary, Resulted Escherichia coli Klebsiella pneumoniae Susceptibility To Follow Pending Labs Microbiology Date/Time Source Procedure Growth Status 12/31/22 10:55 Urine Bridges Cath Urine Culture - Preliminary Escherichia coli Klebsiella pneumoniae Susceptibility To Follow Resulted Laboratory Tests 12/31/22 10:25: White Blood Count 9.1, Red Blood Count 4.71, Hemoglobin 14.4, Hematocrit 49, Mean Corpuscular Volume 105, Mean Corpuscular Hemoglobin 31, Mean Corpuscular Hemoglobin Concent 29, Red Cell Distribution Width 15.8, Platelet Count 236, Mean Platelet Volume 10.1, Immature Granulocyte % (Auto) 1, Neutrophils (%) (Auto) 79, Lymphocytes (%) (Auto) 14, Monocytes (%) (Auto) 6, Eosinophils (%) (Auto) 0, Basophils (%) (Auto) 0, Neutrophils # (Auto) 7.2, Lymphocytes # (Auto) 1.3, Monocytes # (Auto) 0.5, Eosinophils # (Auto) 0.0, Basophils # (Auto) 0.0, Immature Granulocyte # (Auto) 0.1, D-Dimer 2.90, Sodium Level 147, Potassium Level 5.2, Chloride Level 111, Carbon Dioxide Level 27, Anion Gap 9, Blood Urea Nitrogen 51, Creatinine 2.01, Estimat Glomerular Filtration Rate 25, BUN/Creatinine Ratio 25, Glucose Level 107, Calcium Level 8.3, Corrected Calcium 8.7, Magnesium Level 2.2, Total Bilirubin 0.3, Aspartate Amino Transf (AST/SGOT) 23, Alanine Aminotransferase (ALT/SGPT) 23, Alkaline Phosphatase 87, C-Reactive Protein High Sensitivity 1.13, B-Type Natriuretic Peptide 3072.5, Total Protein 6.6, Albumin 3.5 12/31/22 10:55: Urine Color YELLOW, Urine Clarity CLEAR, Urine pH 6.5, Urine Specific [place] 1.020, Urine Protein 3+, Urine Glucose (UA) NEGATIVE, Urine Ketones NEGATIVE, Urine Nitrite NEGATIVE, Urine Bilirubin 1+, Urine Urobilinogen 0.2, Urine Leukocyte Esterase 2+, Urine RBC (Auto) TRACE-I, Urine RBC RARE, Urine WBC 10- 25, Urine Squamous Epithelial Cells 0-2, Urine Crystals NONE, Urine Bacteria MODERATE, Urine Casts NONE, Urine Mucus NEGATIVE, Urine Culture Indicated YES 12/31/22 12:36: Blood Gas Puncture Site L RAD, Blood Gas Patient Temperature 36.7, Arterial Blood pH 7.09, Arterial Blood Partial Pressure CO2 105, Arterial Blood Partial Pressure O2 99, Arterial Blood HCO3 31, Arterial Blood Total CO2 33.9, Arterial Blood Oxygen Saturation 96, Arterial Blood Base Excess 1.4, Ananth Test NA, Blood Gas Ventilator Setting NO, Blood Gas Inspired Oxygen 4L NC 12/31/22 16:35: Blood Gas Puncture Site RIGHT RADIAL, Blood Gas Patient Temperature 35.9, Arterial Blood pH 7.16, Arterial Blood Partial Pressure CO2 78, Arterial Blood Partial Pressure O2 481, Arterial Blood HCO3 27, Arterial Blood Total CO2 29.5, Arterial Blood Oxygen Saturation 98, Arterial Blood Base Excess -1.2, Ananth Test POSITIVE, Blood Gas Ventilator Setting NO, Blood Gas Inspired Oxygen 100% 12/31/22 16:40: Lactic Acid Level 1.08 01/01/23 05:29: White Blood Count 15.2, Red Blood Count 4.86, Hemoglobin 14.9, Hematocrit 52, Mean Corpuscular Volume 107, Mean Corpuscular Hemoglobin 31, Mean Corpuscular Hemoglobin Concent 29, Red Cell Distribution Width 15.4, Platelet Count 248, Mean Platelet Volume 10.4, Immature Granulocyte % (Auto) 1, Neutrophils (%) (Auto) 79, Lymphocytes (%) (Auto) 15, Monocytes (%) (Auto) 6, Eosinophils (%) (Auto) 0, Basophils (%) (Auto) 0, Neutrophils # (Auto) 12.0, Lymphocytes # (Auto) 2.2, Monocytes # (Auto) 0.9, Eosinophils # (Auto) 0.0, Basophils # (Auto) 0.0, Immature Granulocyte # (Auto) 0.1, Neutrophils % (Manual) 77, Lymphocytes % (Manual) 17, Monocytes % (Manual) 6, Polychromasia SLIGHT, Macrocytosis SLIGHT, Sodium Level 150, Potassium Level 5.9, Chloride Level 111, Carbon Dioxide Level 26, Anion Gap 13, Blood Urea Nitrogen 64, Creatinine 2.85, Estimat Glomerular Filtration Rate 16, BUN/Creatinine Ratio 22, Glucose Level 127, Calcium Level 8.1, Corrected Calcium 8.3, Phosphorus Level 7.9, Magnesium Level 2.4, Total Bilirubin 0.3, Aspartate Amino Transf (AST/SGOT) 38, Alanine Aminotransferase (ALT/SGPT) 41, Alkaline Phosphatase 95, Total Protein 7.1, Albumin 3.7 01/01/23 07:11: Blood Gas Puncture Site R RADIAL, Blood Gas Patient Temperature 36.2, Arterial Blood pH 6.80, Arterial Blood Partial Pressure CO2 , Arterial Blood Partial Pressure O2 131, Arterial Blood HCO3 , Arterial Blood Total CO2 , Arterial Blood Oxygen Saturation 96, Arterial Blood Base Excess , Ananth Test POSITIVE, Blood Gas Ventilator Setting NO, Blood Gas Inspired Oxygen Discharge Home Medications: Active Scripts Active Reported Oxybutynin Chloride ER (Oxybutynin Chloride) 5 Mg Tab.er.24 5 Mg PO DAILY Levothyroxine Sodium 75 Mcg Tablet 75 Mcg PO DAILY Losartan Potassium 50 Mg Tablet 50 Mg PO DAILY Carvedilol 12.5 Mg Tablet 12.5 Mg PO BID Instructions to patient/family Please see electronic discharge instructions given to patient. HARRIS MELLO DO Jan 01, 2023 11:46
[2023-01-01] MEDS ORDERED: cefTRIAXone IV/IM 1,000 MG in NS (IVPB) 50 ML IV SCH (12:00)
--- NOTE | 2023-01-01 12:44 | Occ Therapy Progress Note ---
Therapy Progress Note OT to remove patient from schedule secondary to decline in status and, per RN, patient will be on comfort care on this date. ERIKA ASHRAF OT Jan 01, 2023 12:44
--- NOTE | 2023-01-01 18:16 | Physician Query-Final Dx ---
MERCEDES AUGUSTIN 01/01/23 1816: Final Diagnosis Give Final Diagnosis Please give Final Diagnosis The medical record reflects the following clinical scenario: The patient, in the setting of History/Risk factors, Hx of CHF per cardiology, HTN Clinical Findings " Echocardiogram shows normal LV function with mild diastolic dysfunction." Admission BNP 3072, with respiratory failure requiring Bipap with high flow 02, Treatment IV lasix, I and O, Cardiology consult, ICU monitoring Question: Do you agree with the impression of Acute on Chronic Diastolic Congestive Heart Failure per Dr. Sanjeev Lynch? Yes; will document Acute on Chronic Diastolic Congestive Heart Failure, present on admission in the Progress Notes No; will continue current documentation in the Progress Notes Other; will document explanation of clinical findings Clinically undetermined; no explanation for clinical findings Please clarify and document your clinical opinion in the Progress Notes and Discharge Summary including the definitive and/or presumptive diagnosis, (suspected or probable), related to the above clinical findings. Please include clinical findings supporting your diagnosis. In responding to this query, please exercise your independent professional judgment. The purpose of this communication is to more accurately reflect the complexity of your patients condition. The fact that a question is asked does not imply that any particular answer is desired or expected. Thank you for timely response to this clarification. Mercedes Augustin, MSN, RN Clinical Home Designer [phone] [email or web address] HARRIS MELLO DO 01/01/232005: Final Diagnosis Give Final Diagnosis yes MERCEDES AUGUSTIN Jan 01, 2023 18:16 HARRIS MELLO DO Jan 01, 2023 20:06
== END 2023-01-01 14:47 | disposition expired | DRG 291 ==
LOC: EDUNIT# 10:13 → ER 10:14 → ICU 13:22 → OBSVTOIN 13:22 → INTOOBSV 13:22 → UNDODISOB 14:25 → ICU 01-01 11:50
PROVIDERS: ADMIT Internal Medicine; ATTEND Internal Medicine
PROC: 5A09357 Assistance with Respiratory Ventilation, Less than 24 Consecutive Hours, Continuous Positive Airway Pressure (ICD-10-PCS; principal; 2022-12-31)
DX: I11.0 Hypertensive heart disease with heart failure (principal); I50.33 Acute on chronic diastolic (congestive) heart failure; J96.01 Acute respiratory failure with hypoxia; J18.9 Pneumonia, unspecified organism; J96.02 Acute respiratory failure with hypercapnia; N17.9 Acute kidney failure, unspecified; L97.321 Non-pressure chronic ulcer of left ankle limited to breakdown of skin; Z66 Do not resuscitate; I73.9 Peripheral vascular disease, unspecified; I89.0 Lymphedema, not elsewhere classified; S90.512A Abrasion, left ankle, initial encounter; Z79.82 Long term (current) use of aspirin; Z79.899 Other long term (current) drug therapy; Z92.21 Personal history of antineoplastic chemotherapy; M81.0 Age-related osteoporosis without current pathological fracture; E03.9 Hypothyroidism, unspecified
CPT/HCPCS: 36415; 36600; 51702; 71045; 80053; 81000; 82805; 83605; 83735; 83880; 84100; 85007; 85025; 85027; 85379; 86141; 87077; 87088; 87186; 93005; 93041; 93306; 93970; 94640; 94660